=== PATIENT | male | born 1955 | race Caucasian/White ===

== ENCOUNTER 2017-04-25 03:38 | Emergency (ER) | payer BC ==
[~2017-04-25] VITALS: Ht 177.8 cm; Wt 83.9 kg
[2017-04-25] MEDS ORDERED: TRAMADOL HCL50 MG PO (06:04)
--- NOTE | 2017-04-25 11:42 | EKG ---
[facility] [address] [facility] [place] [address] Signed Normal sinus rhythm Normal ECG No previous ECGs available Confirmed by MOE KINGSLEY MD ([id number]) on 04/25/2017 11:42:23 AM Electronically Signed By: MOE KINGSLEY MD 04/25/17 1142 PATIENT NAME: FIGUEREDOCORNELIODebo MEJIA Electrocardiogram DATE OF : 59 PHYSICIAN: MOE KINGSLEY MD REPORT #: [id number] REPORT IS CONFIDENTIAL AND NOT TO BE RELEASED WITHOUT AUTHORIZATION
== END 2017-04-25 06:37 | disposition home or self-care (01) ==
LOC: ED 03:38
DX: R10.9 Unspecified abdominal pain (principal); R10.814 Left lower quadrant abdominal tenderness
CPT/HCPCS: 74176; 80053; 81001; 83690; 85025; 93005; 93010; 99284

== ENCOUNTER 2017-05-02 12:50 | Inpatient (IN) | payer BC ==
[~2017-05-02] VITALS: Ht 177.8 cm; Wt 79.7 kg
[~2017-05-02 12:50] MED LIST: TRAMADOL HCL50 MG PO
[2017-05-02] MEDS ORDERED: MELOXICAM15 MG PO (13:11)
--- NOTE | 2017-05-02 18:25 | NUR ---
PATIENT AMBULATED FROM E.R. TO ROOM 107 WITH NURSING SUPERVISOR SCENIC ARTS. ADMISSION COMPLETED. PATIENT HAVING CRACKERS AND ICE WATER BEFORE ATTEMPT TO START P.O. MEDS. PATIENT ENDORSES HAVING A POOR APPETITE. 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 PATIENT RATES ABD PAIN 3-4/10.
--- NOTE | 2017-05-02 19:00 | NUR ---
Received report from RN. Patient is resting comfortably in bed, breathing is even and unlabored. Denies needs at this time, he stated that "I just want to get some sleep." Call light within reach.
--- NOTE | 2017-05-02 20:05 | NUR ---
PATIENT REPORTS 5/10 PAIN IN LOWER BACK. PRN TORDOL GIVEN PER EMAR. PATIENT DENIES OTHER NEEDS AT THIS TIME. CALL LIGHT WITHIN REACH.
--- NOTE | 2017-05-02 23:00 | NUR ---
PATIENT IS RESTING COMFORTABLY IN BED, BREATHING IS EVEN AND UNLABORED. REPORTS 3/10 PAIN IN LOWER BACK, AND STATES THAT HE IS COMFORTABLE. DENIES OTHER NEEDS AT THIS TIME. ASSESSMENT DONE, CALL LIGHT WITHIN REACH.
--- NOTE | 2017-05-03 00:05 | NUR ---
PATIENT IS RESTING COMFORTABLY IN BED, BREATHING IS EVEN AND UNLABORED. CALL LIGHT WITHIN REACH.
--- NOTE | 2017-05-03 00:37 | NUR ---
DUE TO PATIENT HAVING 8/10 ABD PAIN, WITH PATIENT STATING THE PAIN "FEELS LIKE GAS," HAD PATIENT AMBULATE AROUND UNIT X2. ALSO GAVE PATIENT A WARM BLANKET, BUT PAIN WAS NOT RELIEVED.
--- NOTE | 2017-05-03 00:57 | NUR ---
UPDATED DR. KINGSLEY REGARDING PATIENT'S 02/11 PAIN. ALL PRN MEDICATIONS HAVE BEEN GIVEN, PATIENT AMBULATED AROUND UNIT, BUT ABD PAIN IS PERSISTING. HE ORDERED A ONE TIME DOSE OF 10 MG OF CYCLOBENZAPRINE PO. IF PAIN IS NOT RELIEVED, HE ORDERED 5-10 MG OXYCODONE PO Q4H PRN FOR PAIN.
--- NOTE | 2017-05-03 01:24 | NUR ---
PATIENT SITTING UP IN CHAIR WITH WARM BLANKET. DENIES NEEDS AT THIS TIME. PATIENT STATES "I JUST NEEDED TO GET OUT OF THAT BED." CALL LIGHT WITHIN REACH. PATIENT STATED HE WILL CALL WHEN HE IS READY TO GET BACK IN BED.
--- NOTE | 2017-05-03 04:20 | NUR ---
LIDOCAINE PATCH FOUND ON FLOOR. PATIENT DOES NOT HAVE A LIDOCAINE PATCH ON BACK AT THIS TIME. HE STATES THAT "IT FELL OFF."
--- NOTE | 2017-05-03 04:25 | NUR ---
PATIENT REPORTS 410 LLQ ABD PAIN. 5 MG OXYCODONE GIVEN PER EMAR. DENIES BACK PAIN AT THIS TIME. DENIES OTHER NEEDS AT THIS TIME. CALL LIGHT WITHIN REACH.
--- NOTE | 2017-05-03 06:07 | NUR ---
PATIENT'S NIGHT HAS BEEN RELATIVELY UNEVENTFUL. HE HAS BEEN SLEEPING OFF AND ON THROUGHOUT NIGHT. PATIENT HAS BEEN HAVING TEMPERATURES BETWEEN 99.2 AND 99.6. ALL OTHER VITALS STABLE. DUE TO PAIN BEING UNCONTROLLED WITH PRN TORDOL, CONTACTED DR. KINGSLEY AND RECEIVED AN ORDER FOR PRN OXY PER EMAR, WHICH THE PATIENT IS TOLLERATING WELL. NO ACUTE CHANGES FROM BEGINNING OF SHIFT ASSESSMENT.
--- NOTE | 2017-05-03 06:26 | NUR ---
UPDATED DR. KINGSLEY REGARDING PATIENT NOT VOIDING DURING SHIFT AND BLADDER SCAN VOLUME OF [address] KINGSLEY ORDERED 1L BOLUS OF NORMAL SALINE. NO OTHER ORDERS AT THIS TIME.
--- NOTE | 2017-05-03 06:29 | NUR ---
NURSE NOTIFED RE V/S.
--- NOTE | 2017-05-03 08:29 | NUR ---
PT SITTING UP AWAKE IN BED. NO COMPLAINTS AT THIS TIME. HAS NOT URINATED YET. WILL ALLOW PATIENT TO EAT BREAKFAST AND THEN ATTEMPT TO EMPTY BLADDER. IF UNABLE, WILL FOLLOW WITH BLADDER SCAN. 1L NS BOLUS INFUSED.
--- NOTE | 2017-05-03 09:35 | NUR ---
bladder scanned patient at 0900 for 850ml. feels like its "right at the end". unable to void pre-scan. Dr Hernandez notified. will wait another hour before having patient attempt void again. Flomax given as ordered. pt temp 101.1 from WATER TREATMENT PLANT OPERATOR. retook-- 99.4F at 0930. will watch temp.
--- NOTE | 2017-05-03 10:51 | NUR ---
pt up on toilet attempting to void and have BM. unable to void. bladder scan 750ml. Dr Hernandez notified. Ordered fallon catheter. will place fallon.
--- NOTE | 2017-05-03 13:47 | NUR ---
PT RESTING BETWEEN CARES. NS 3% INFUSING AT 30ML/HR NOW.
--- NOTE | 2017-05-03 13:48 | NUR ---
PT IN BED, SUMANTH ALARM GOING-PT STACIAOID. I ENTERED, AND TOLD HIM I WOULD GET AN RN TO TAKE CARE OF THE ALARM, HE WAS VERY APPRECIATIVE. HE MENTIONED THAT HE WAS WANTING TO TAKE A NAP, BUT ALARM WOKE HIM UP. PT DID SAY HE WAS FEELING BETTER. WILL CONTINUE TO FOLLOW
--- NOTE | 2017-05-03 18:08 | NUR ---
WANTED TO SLEEP ALL DAY. ATTEMPTING TO HAVE BM. SUPPOS AND MIRALAX GIVEN. MIRALAX MIXED WITH STRAWBERRY ENSURE. JULES PLACED FOR RETENTION. FLOMAX STARTED. REFUSED PHYSICAL THERAPY THIS EVENING. LABS DRAWN AT 1700. HARD POKE. IV CATH LOOKS DISLODGED, BUT IT IS NOT. WORKS WELL. NS3% INFUSING AT 30ML/HR.
--- NOTE | 2017-05-03 20:20 | NUR ---
PT LAYING ON BED, TRYING TO SLEEP. VS DONE, TEMP 100.1 IS USED X 3, COOL CLOTH ON FOREHEAD. SKIN WARM. HS MEDS GIVEN PER ORDER. JULES WITH KARINA URINE. IV CONT NS 3% @ 25 CALL LIGHT WITHIN REACH. WILL REPORT THE TEMP TO
--- NOTE | 2017-05-03 20:52 | NUR ---
DR. KINGSLEY ORDERED TYLENOL FOR TEMP. PT IS NOT SHIVERING, JUST COMPLAINS OF BEING WARM, SKIN WARM. ROOM TEMP TURNED TO 72 DEGREES/ PT WATCHING TV. OFFERS NO OTHER COMPLAINTS.
--- NOTE | 2017-05-03 21:30 | NUR ---
pt mostly sleepy. Woke to med pt.
--- NOTE | 2017-05-03 23:20 | NUR ---
PT MOSTLY SLEEPY, EYES CLOSED, BUT HAND ON THE REMOTE CONTROL OF TV. TEMP 99.3 POST TYLENOL.
--- NOTE | 2017-05-04 03:35 | NUR ---
NOTIFIED DR. KINGSLEY OF LAB RESULTS. RECEIVED ORDER. 3%NS INFUSING @ 30 CC HOUR. PLAN LABS @0900. PT WOKE SLIGHTLY WHEN RN IN ROOM, BUT QUICKLY CLOSED EYES.
--- NOTE | 2017-05-04 06:35 | NUR ---
PT SLEPT MOSTLY AFTER MIDNIGHT. STATED HIS PAIN WAS BETTER. JULES WITH DARK KARINA URINE. LABS REPORTED TO DR. KINGSLEY, IV 3% NS @ 30 CC INFUSING. HAS REMAINED IN BED THIS SHIFT.
--- NOTE | 2017-05-04 08:13 | NUR ---
PT AWAKE LYING IN BED. GETTING UP TO BATHROOM NOW TO ATTEMPT BM. MIRALAX MIXED WTIH STRAWBERRY ENSURE AND SENNA GIVEN WITH SCHEDULED MEDS. ENCOURAGED TO WORK WITH PHYSICAL THERAPY TODAY. AFEBRILE NOW. VSS. BP SOMEWHAT ELEVATED, BUT TRENDING THE SAME.
--- NOTE | 2017-05-04 11:00 | NUR ---
PT SALINE LOCKED FOR ABD X-RAY AND SHOWER RIGHT NOW. WILL RESTART NS 3% AT 45ML/HR WHEN PT FINISHED WITH CARES.
--- NOTE | 2017-05-04 11:31 | NUR ---
PT BACK FROM ABD CT. IVF INFUSING AT 45CC/HR. PT SITTING UP IN RECLINER EATING LUNCH NOW. CHOCOLATE ENSURE PROVIDED TO PT. 250ML WATER PROVIDED AND TOLD THAT HE NEEDS TO MAKE IT LAST UNTIL DINNER. AGREEABLE WITH INSTRUCTIONS ON FLUID RESTRICTION.
--- NOTE | 2017-05-04 12:51 | NUR ---
UPDATED HOSPITALIST ON BORDERLINE URINE OUTPUT AND CHANGE IN COGNITION. 1L NS BOLUS ORDERED AND CHANGE IN MEDICATION REGIMEN.
--- NOTE | 2017-05-04 14:55 | NUR ---
URINE SAMPLE COLLECTED AND SENT TO LAB. RNs ATTEMPTING NEW IV START PER MD REQUEST.
--- NOTE | 2017-05-04 15:31 | NUR ---
PT TEMP 98.9 WITH CHILLS. NOTIFIED. PT SALINE LOCKED FOR LAB DRAW AT 1600.
--- NOTE | 2017-05-04 17:17 | NUR ---
NO 1400 URINE OUTPUT DOCUMENTED. URINE OUTPUT 325 FROM [id number]. VISITOR IN ROOM NOW. PT MENTATION SEEMS CONFUSED. LABS RETURNED. WILL AWAIT ORDERS FROM MD. AWARE OF URINE OUTPUT. URINE COLOR ORANGE-KARINA.
--- NOTE | 2017-05-04 18:00 | NUR ---
ADMITTED TO CCU FROM MED-SURG WITH DX OF HYPONA WITH AMS. RECENT NECK AND BACK PAIN. IS CONFUSED. FACE FLUSHED. MOUTH DRY. IS RECIEVING BOLUS OF NS AT THIS TIME.
--- NOTE | 2017-05-04 18:39 | NUR ---
ASSISTED NURSE IN GETTING PATIENT SETTLED AFTER TRANSFER. FINISHED GETTING PATIENT'S VITAL SIGNS. GOT PATIENT HALF A CUP OF ICE CHIPS.
--- NOTE | 2017-05-04 18:50 | NUR ---
DR. KINGSLEY HERE TO SEE PATIENT, ORDERS RECIEVED. BOLUS COMPLETE.
--- NOTE | 2017-05-04 19:00 | NUR ---
Getting report on patient and ppatiet is supine in bed in his room with family at bedside.
--- NOTE | 2017-05-04 19:30 | NUR ---
REPORT TO NEXT SHIFT.
--- NOTE | 2017-05-04 20:00 | NUR ---
DR. KINGSLEY HERE TALKING WT FAMILY, ABOUT PATIET BEING TAKEN TO CT.
--- NOTE | 2017-05-04 20:30 | NUR ---
PT ASSISTED DOWN TO CT WITH 2 RN'S AT BEDSIDE. PT TOELRATED WELL. WILL COTNINUE TO CLOSELY MONITOR.
--- NOTE | 2017-05-04 20:30 | NUR ---
PT BACK FROM CT, BACK IN BED EVENING ASSESSMENT DONE.GOOD PERIPHERAL PULSES AND ENVIRONMENTAL EDUCATOR. RFA IV WAS ALREADY COMINING OUT SO I WENT A HEAD REMOVED IT INTACT. UROMETER PUT ON JULES. PATIENT RESTING QUIETLY AND FAMILY HAS GONE HOME.
--- NOTE | 2017-05-04 21:30 | NUR ---
ANASTETIOLOGIST IN TO DO LUMBAR PUNCTURE. ASSISTED WITH PATIENT TO HELP HOLD STILL AND NOT MOVE. PT TOLERATED WELL. WALKED FLUID SAMPLE DOWN TO LAB. WILL CONTINUE TO CLOSELY MONITOR.
--- NOTE | 2017-05-04 23:53 | NUR ---
ASSISTING PT THROUGHOUT THE NIGHT NEEDED. PT IS RESTING IN BED AT THIS TIME. UPDATED MD ON NEED FOR OXYGEN AT 2L NC WITH SPO2 93%. PT HR ALSO UP TO 145 SINUS TACHYCARDIA. WILL CONTINUE TO CLOSELY MONITOR URINE OUTPUT AT THIS TIME. MD HAS VIEWED LP CSF FLUID. GAVE TYLENOL FOR DISCOMFORT. PT ORAL TEMP 99.6. WILL CONTINUE TO CLOSELY MONITOR.
--- NOTE | 2017-05-05 | NUR ---
PATIENT IS RESTIG QUIETLY IN HIS BED TALKING TO HIMSELF, SECOND ASESSMENT HAS BEEN COMPLEATED, WITH NO REAL CHANGES.
--- NOTE | 2017-05-05 02:26 | NUR ---
PATIENT CONTINUES TO LAY IN BED RESTING QUIETLY WITH EYES CLOSED AT THIS TIME, RESPIRATIONS EVEN AND REGULR.
--- NOTE | 2017-05-05 03:36 | NUR ---
PT WOKE FROM A BAD DREAM AND WAS IRRITABLE/AFFRAID. STAYED WITH PT AND ASKED QUESTIONS TO HELP REORIENT. PT WAS ABLE TO REORIENT ON HIS OWN AFTER A FEW MINUTES. STAYED WITH PT AND USED A CALM REASURING VOICE TO UPDATE ON CURRENT SITUATION AND PLAN OF CARE. PT IS READY TO GO BACK TO SLEEP. WILL CONTINUE TO CLOSELY MONITOR. CALL LIGHT IN HAND.
--- NOTE | 2017-05-05 04:30 | NUR ---
PT RESTING QUIETLY WATCHING TV IN BED.
--- NOTE | 2017-05-05 05:41 | NUR ---
PATIENT JUST CALLED ME IN TO CHECK HIS IV;S WHICH LOOK FINE. HIS MENTATION I BETTER THE MORNING AND IS NO LONGER TALKING TO THOSE WHO ARE NOT IN THE ROOM.
--- NOTE | 2017-05-05 07:45 | NUR ---
PT STATES HE IS HALLUCINATING, PT REMAINS CALM AND COOPERATIVE. IV SITES INTACT, RT IV SITE HAS IV FLUIDS INFUSING, LEFT IV SITE SALINE LOCKED, NO REDNESS OR SWELLING NOTED AT EITHER SITE. PT DENIES PAIN AT EIHER IV SITE. PT DENIES PAIN WHEN NOT MOVING.
--- NOTE | 2017-05-05 09:04 | NUR ---
PT ABLE TO EAT 1OO% OF BREAKFAST.
--- NOTE | 2017-05-05 10:55 | NUR ---
ASSISTED PT UP TO THE CHAIR, HEAVY TWO PERSON ASSIST. PT ATTEMPTING TO MAKE PHONE CALLS.
--- NOTE | 2017-05-05 11:21 | NUR ---
PT UP TO TOILET WITH TWO PERSON ASSIST. PT ABLE TO HAVE SMALL LIQUID BM. PT THEN AMBULATED WITH TWO PERSON ASSIST TO MRI TABLE. PT HAS LEFT THE DEPARTMENT WITH PRIVATE CLIENT ADVISOR AND EMILY DIANE.
--- NOTE | 2017-05-05 14:10 | NUR ---
PT BACK TO UNIT FROM MRI. PT EXTREMLY PAINFUL IN NECK/HEAD/BACK WITH ANY MOVEMENT.
--- NOTE | 2017-05-05 14:30 | NUR ---
BOTH IV SITES INTACT, NO REDNESS OR SWELLING NOTED, PT DENIES PAIN WITH FLUSH. PT IS AWAKE AND ALERT X3. PT C/O 30/10 PAIN IN NECK/HEAD/BACK. PT IS THIRSTY AND SLIGHTLY IRRATABLE. FAMILY AT THE BEDSIDE. JULES CATH IN PLACE, URINE DRAINING EASILY. PT BLOOD PRESSURE ELEVATED, HR ELEVATED, PT REQUIRES 4L O2 TO KEEP O2 SATS ABOVE 90. PT IS TALKING AND ANIMATED.
--- NOTE | 2017-05-05 14:45 | NUR ---
PT GIVEN ONE TIME DOSE OF MORPHINE 4 MG IV FOR 30/10 NECK/BACK/HEAD PAIN. PT SITTING UP IN BED EATING LUNCH TALKING WITH HIS FAMILY MEMBERS.
--- NOTE | 2017-05-05 14:50 | NUR ---
HAS UPDATED THE PT AND THE FAMILY AT THE BEDSIDE ON THE PT'S CONDITION AND NEED FOR TRANSFER TO A HIGHER LEVEL OF CARE.
--- NOTE | 2017-05-05 15:30 | NUR ---
PT SLEEPING AT THIS TIME.
--- NOTE | 2017-05-05 17:40 | NUR ---
FULL REPORT GIVEN TO MICHELLE DIAZ AT [facility]. FULL REPORT ALSO GIVEN TO [facility].
--- NOTE | 2017-05-05 17:50 | NUR ---
PT TRANSFERED OUT OF BUILDING WITH [facility] AND [facility].
== END 2017-05-05 17:50 | disposition short-term general hospital (02) | DRG 871 ==
LOC: ED 12:50 → CCU 17:24 → MS 17:24 → CCU 05-04 18:00
PROVIDERS: ADMIT Internal Medicine
DX: A41.9 Sepsis, unspecified organism (principal); G06.2 Extradural and subdural abscess, unspecified; G93.41 Metabolic encephalopathy; E87.1 Hypo-osmolality and hyponatremia; M62.838 Other muscle spasm; K59.00 Constipation, unspecified; E87.6 Hypokalemia; R74.0 Nonspecific elevation of levels of transaminase and lactic acid dehydrogenase [LDH]; R33.9 Retention of urine, unspecified
CPT/HCPCS: 36415; 51702; 51798; 70450; 72156; 72157; 72158; 74000; 74176; 80048; 80053; 80076; 81001; 82945; 83605; 83690; 83735; 83930; 83935; 84157; 84550; 85025; 85032; 85651; 86140; 87040; 87070; 87075; 87077; 87186; 87205; 87327; 87529; 89051; 96361; 96365; 96366; 96375; 97161; 99285; A9579; J0290; J0696; J1650; J1885; J2270; J2405; J3370; J7030; J7040; J7060

== ENCOUNTER 2019-11-01 01:08 | Emergency (ER) | payer BC ==
[~2019-11-01] VITALS: Ht 177.8 cm; Wt 79.7 kg
--- OUTSIDE RECORDS SUMMARY | ~2019-11-01 | XMS | Encounter Summary ---
Demographics + + + | Address | [address] | | | [place] [address] | + + + | Home Phone | | + + + | Preferred Language | Unknown | + + + | Marital Status | Single | + + + | Hindu Affiliation | Unknown | + + + | Race | Unknown | + + + | Ethnic Group | Unknown | + + + Author + + + | Author | [facility] | | | and [place] | + + + | Organization | [facility] | | | and [place] | + + + | Address | Unknown | + + + | Phone | Unavailable | + + + Support + + +---------+ + | Name | Relationship | Address | Phone | + + +---------+ + | Sondra Zuleta | ECON | Unknown | | + + +---------+ + Care Team Providers + +------+ + | Care Flower Shop Laborer/Designer Name | Role | Phone | + +------+ + PCP | Unavailable | + +------+ + Encounter Details +--------+ + + + + | Date | Type | Department | Care Team | Description | +--------+ + + + + | 12/09/ | Hospital | [facility] | Rafita Crews, | | | 2011 - | Encounter | [facility] | [address] | | | | | [place] [address] | [place] | | | [birth year]/ | | [place] | [address] | | | 2011 | | [id number] | [phone] | | | | | [phone] | | | +--------+ + + + + Social History + +-------+ +--------+------+ | Tobacco Use | Types | Packs/Day | Years | Date | | | | | Used | | + +-------+ +--------+------+ | Never Assessed | | | | | + +-------+ +--------+------+ + + + | Sex Assigned at | Date Recorded | | | | + + + | Not on file | | + + + + + + + | Job Start Date | Occupation | Industry | + + + + | Not on file | Not on file | Not on file | + + + + + + + + | Travel History | Travel Start | Travel End | + + + + + + | No recent travel history available. | + + documented as of this encounter Progress Notes Rafita Crews MD - 12/10/2011 4:05 AM PDTDATE: 12/10/2011 RADIATION ONCOLOGY CONSULTATION NOTE DIAGNOSIS Rectal adenocarcinoma, clinical T1N0M0. REFERRING PHYSICIAN Dr. Jean Gramajo PRIMARY CARE PHYSICIAN: Dr. Shi ECOG PERFORMANCE STATUS: 0. HISTORY OF PRESENT ILLNESS: Mr. Ludin Escalona is a 56-year-old gentleman who did present t o Dr. Jean Gramajo with a 6 to 9 month history of blood in his stools. He states that the b lood seen was streaking on the outside of the stool and did increase in volume during that 6 to 9 months. He was at work when he did discuss symptoms with people there who did recomm end he have screening for colon cancer as they had known relatives who had gone through krishan t. The patient did present to Dr. Jean Gramajo who did perform a colonoscopy on 11/10/2011 and was found to have a lesion at 10 cm in the anterior rectum highly concerning for charlotte no. Dr. Gramajo did partially resect/biopsy the lesion which was found to be positive for moderately differentiated colonic adenocarcinoma. No lymphovascular or perineural invasion was noted on the biopsy. Of note, he also did resect a small polyp in the transverse colon that was consistent with a hyperplastic polyp. Dr. Gramajo did order CT scans of the chest, a bdomen and pelvis which did not show any definitive evidence of metastatic disease. He did have a 1.5-cm sclerotic lesion near the right SI joint in the pelvis but otherwise no sign ificant findings. He was referred to Dr. Silverio Patel for an endorectal ultrasound whi ch was performed on 12/09/2011 and was referred to me for consideration of neoadjuvant radi otherapy. Mr. Escalona states that since colonoscopy and biopsy in November he has not had any further rec guillermo bleeding and has not noted any rectal pain or difficulties with bowel movements. He sta kenroy that overall he feels very well. PAST MEDICAL HISTORY: Includes the recent diagnosis of adenocarcinoma of the rectum. PAST SURGICAL HISTORY: Includes colonoscopy with snare polypectomy in 11/2011. ALLERGIES TO MEDICATIONS: NO KNOWN DRUG ALLERGIES. MEDICATIONS: Include 1. A multivitamin. 2. Vitamin D. SOCIAL HISTORY: The patient denies any history of tobacco use. Does drink an alcoholic kayla erage, 1 to 2 drinks several days a week and usually this is beer. 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 Currently lives alone in [facility]. FAMILY MEDICAL HISTORY: The patient's mother is alive, does have a history of oral cancer and it was actually treated here at [facility]. The patient's sister is alive with a history of breast cancer. The patient's maternal aunt is alive with a hist ory of breast cancer. No history of colon cancers. REVIEW OF SYSTEMS HEENT: The patient denies any headache, changes in vision, changes in hearing, difficulty swallowing, sinus problems or nosebleeds. RESPIRATORY: Denies any cough, wheezing or hemoptysis. CARDIAC: Denies any chest pain or palpitations. GI: Denies any nausea, vomiting, diarrhea or constipation. Does have a 6 to 9 month histor y of rectal bleeding prior to colonoscopy but denies any rectal bleeding since that time. : Denies any hematuria, dysuria or pyuria. MUSCULOSKELETAL: Denies any unusual bony aches or pains. ENDOCRINE: Denies any hot or cold sensitivities. NEUROLOGIC Denies any headache, weakness or seizures. HEMATOLOGIC/LYMPHATIC: Denies any easy bruising or bleeding. PHYSICAL EXAMINATION VITAL SIGNS: Blood pressure 126/82, pulse of 60, temperature 36.5 degrees C, weight 80.4 k g. GENERAL: The patient is awake, alert and oriented. No apparent distress. HEENT: Atraumatic, normocephalic. Face is symmetric. LYMPHATICS: There is no cervical, supraclavicular or axillary lymphadenopathy appreciated. LUNGS: Clear to auscultation. HEART: Regular rate and rhythm. ABDOMEN: Soft, nontender, nondistended. No hepatosplenomegaly or other masses appreciated. EXTREMITIES: Show no cyanosis, clubbing or edema. NEUROLOGIC Cranial nerves 2-12 are grossly intact. Sensation is intact to light touch thro ughout. Motor strength is 5/5 in all 4 extremities. RADIOLOGY: CT scan of the chest, abdomen and pelvis on 11/23/2011 showed no definitive kacey dence of metastatic disease. There was a 1.5-cm sclerotic lesion in the right ilium adjacen t to the right SI joints. PATHOLOGY: Excision of a polyp at 10 cm from the anal verge was positive for a grade 2/4 m oderately differentiated invasive colonic adenocarcinoma with no lymphovascular or perineur al invasion. ASSESSMENT AND PLAN: Mr. Ludin Escalona is a 56-year-old gentleman with recently diagnosed rectal moderately differentiated adenocarcinoma, clinical T1N0M0, stage I. We did discuss t reatment options for the patient, including surgery as well as adjuvant or neoadjuvant chem oradiotherapy. Did state that he would likely be a candidate for sphincter-sparing surgery and is being referred to a colorectal surgeon in [place] for consideration of surgical opt ions. I did state that neoadjuvant chemoradiotherapy is the standard of care in patients w ith T3 or clinical node-positive disease; however, for patients with early stage T1 or T2 l esions with no lymphadenopathy they can be treated with surgery alone. This is consistent w ith the NCCN Guidelines who do recommend a transabdominal resection. If he does have a T1 t o T2N0 disease on pathologic staging, then recommendation would be for observation without adjuvant therapy. If at that time he was found to have a T3 or higher lesion or node positi vity, then we would recommend adjuvant chemoradiotherapy at that time. At this time, we do agree with further evaluation by a colorectal surgeon. Further recommendation could wait f or final pathology from definitive surgery. The patient was told he could call with any que stions at any time. We did allow him to ask any questions today and they were answered to h is satisfaction. I did discuss this recommendation with Dr. Jean Gramajo. I do appreciate the opportunity to participate in the evaluation and care of this patient. DICTATED BY: Rafita Crews MD Radiation Oncology JOB #: [id number] EXT JOB #:[id number] cc: MD Jean Lawson MD <Electronically Signed by Rafita Crews MD> 12/13/11 6420 documented in this encounter Plan of Treatment Not on filedocumented as of this encounter Visit Diagnoses Not on filedocumented in this encounter"
--- OUTSIDE RECORDS SUMMARY | ~2019-11-01 | XMS | Clinical Summary ---
Demographics + + + | Address | [address] | | | [place] [address] | + + + | Home Phone | | + + + | Preferred Language | Unknown | + + + | Marital Status | Single | + + + | Cheondoism Affiliation | Unknown | + + + | Race | Unknown | + + + | Ethnic Group | Unknown | + + + Author + + + | Author | [facility] | | | and [place] | + + + | Organization | [facility] | | | and [place] [...] Team Providers + +------+ + | Care Anthropology And Archeology Instructor Name | Role | Phone | + +------+ + PCP | Unavailable | + +------+ + Allergies Not on File Medications Not on file Active Problems Not on file Social History + +-------+ +--------+------+ | Tobacco [...] recent travel history available. | + + Last Filed Vital Signs Not on file Plan of Treatment + + + + + | Health Maintenance | Due Date | Last Done | Comments | + + + + + | Vaccine: | | | | | Dtap/Tdap/Td (1 - | 9 | | | | Tdap) | | | | + + + + + | Vaccine: Zoster (1 | | | | | of 2) | 8 | | | + + + + + | Vaccine: Influenza | | | | | (Season Ended) | 0 | | | + + + + + Results Not on filefrom Last 3 Months"
--- OUTSIDE RECORDS SUMMARY | ~2019-11-01 | XMS | Encounter Summary ---
Demographics + + + | Address | [address] | | | [place] [address] | + + + | Home Phone | | + + + | Preferred Language | Unknown | + + + | Marital Status | Single | + + + | Sikhism Affiliation | CAT | + + + | Race | White | + + + | Ethnic Group | Not or | + + + Author + + + | Author | [facility] | + + + | Organization | [facility] | + + + | Address | Unknown | + + + | Phone | Unavailable | + + + Support + + + + + | Name | Relationship | Address | Phone | + + + + + | Sona Escalona | BROOK | [address] | | | | | [place] | | | | | [phone] | | + + + + + | Sondra Zuleta | ECON | Unknown | | + + + + + Care Team Providers + +------+ + | Care Nurse Practitioner Adult Name | Role | Phone | + +------+ + | Griffin Shi DO | PCP | | + +------+ + Reason for Visit AUTH/CERT +--------+--------+ + + + + | Status | Reason | Specialty | Diagnoses / | Referred By | Referred To | | | | | Procedures | Contact | Contact | +--------+--------+ + + + + | | | | | | | +--------+--------+ + + + + Encounter Details +--------+ + + + + | Date | Type | Department | Care Team | Description | +--------+ + + + + | 05/06/ | Anesthesia | 6A Intra Op 3181 | Maurisio Hoffmann | | | 2017 | Event | ROMAINE Val[address]ama | MD Kourtney [address] | | | | | [facility] | [address] | | | | | Hospital Admitting | [facility] [place] | | | | | Desk Located on the | [address] | | | | | 9th floor | [phone] | | | | | [facility] [place] | | | | | | [address] | Jean Nelson, | | | | | | MDPhD [address] | | | | | | [address] | | | | | | [place], [place] | | | | | | [address] | | | | | | [phone] | | | | | | | | +--------+ + + + + Anesthesia Record + + + + + | Procedure Name | Responsible | Anesthesia Start | Anesthesia Stop Time | | | Anesthesiologist | Time | | + + + + + | T1 AND T8 SKIP | Maurisio Hoffmann, | 05/06/172030 | 05/07/177 | | LAMINECTOMIES FOR | MD | | | | WASHOUT OF EPIDURAL | | | | | ABSCESS | | | | | microbiology x 3 | | | | | (N/A Back) | | | | + + + + + +----+---+ + + | Da | T | Event | Comment | | te | i | | | | | m | | | | | e | | | +----+---+ + + | 11 | 2 | Eq Check | Anesthesia machine checked Equipment verified | | /0 | 0 | | | | 2/ | 1 | | | | 20 | 5 | | | | 17 | | | | +----+---+ + + | | 2 | Pt. Check | Prior to anesthesia start, pt. Identified, examined, chart | | | 0 | | reviewed, PARLinda held, anesthetic plan made or approved by | | | 1 | | attending anesthesiologist. NPO status confirmed as appropriate | | | 9 | | for procedure Preoperative evaluation: unchanged | +----+---+ + + | | 2 | Preprocedur | Pt ID confirmed, informed consent obtained, insertion site | | | 0 | e Checklist | marked, equipment available | | | 2 | | | | | 5 | | | +----+---+ + + | | 2 | An Start | | | | 0 | | | | | 3 | | | | | 1 | | | +----+---+ + + | | 2 | Quick Note | The patient stated his weight is 185lbs or ~84 kg | | | 0 | | | | | 3 | | | | | 2 | | | +----+---+ + + | | 2 | An Start | | | | 0 | Data | | | | 3 | | | | | 5 | | | +----+---+ + + | | 2 | Vitals | Monitors applied Vital signs checked Patient ready for anesthesia | | | 0 | Checked | | | | 3 | | | | | 6 | | | +----+---+ + + | | 2 | ETT | | | | 0 | | | | | 4 | | | | | 2 | | | +----+---+ + + | | 2 | Ready | | | | 0 | | | | | 4 | | | | | 5 | | | +----+---+ + + | | 2 | Abx | | | | 1 | Administere | | | | 0 | d | | | | 0 | | | +----+---+ + + | | 2 | Timeout | | | | 1 | | | | | 1 | | | | | 2 | | | +----+---+ + + | | 2 | Incision | | | | 1 | | | | | 1 | | | | | 5 | | | +----+---+ + + | | 2 | Intraop and | Identification: Patient/Procedure Type of Anesthetic Past | | | 1 | Med | History: [facility] Relevant Meds/Labs/Echo/Imaging Allergies | | | 2 | Handoff | Intraoperative Course: Airway Lines/Drains/Monitors I/O | | | 9 | | Significant Events Current Phase/Duration of Procedure Meds: | | | | | Infusions, Antibiotics/Redosing, Paralytics, Analgesic Plan, | | | | | Glycemic Control Plan: Tasks to complete/Post-op Orders Emergence | | | | | Plan/Dispo Postoperative Concerns Surgeons Informed of Handoff | +----+---+ + + | | 2 | Medication | Midazolam Fentanyl Hydromorphone 1.4 mg Morphine Ketamine | | | 1 | Handoff | Alfentanil Remifentanil Sufentanil | | | 2 | | | | | 9 | | | +----+---+ + + | | 2 | Surgery end | | | | 2 | | | | | 5 | | | | | 1 | | | +----+---+ + + | | 2 | An Extubate | Neuromuscular function Intact. Pharynx suctioned. Patient obeys | | | 2 | | commands. Adequate pulmonary mechanics. | | | 5 | | | | | 9 | | | +----+---+ + + | | 2 | Quick Note | Reintubated for respiratory failure. Plan for transport with | | | 3 | | sedation, ambubag at 8 lpm O2, and full monitoring. | | | 0 | | | | | 8 | | | +----+---+ + + | | 2 | An Data Art | Patient's HR being monitored on transport monitor | | | 3 | | | | | 0 | | | | | 9 | | | +----+---+ + + | | 2 | Medication | No narcotics to hand off. | | | 3 | Handoff | | | | 1 | | | | | 7 | | | +----+---+ + + | | 2 | Quick Note | Patient reintubated, sats were low preop sating low 90s on 3 L | | | 3 | | NC, unsure why, pt following commands at end of surgery taking | | | 2 | | good Tidal volumes, upon removal of ETT and dec stimulation pt | | | 1 | | slowly became more sedated, continued to make respiratory effort | | | | | but tidal volumes continued to drop, decision made to reintubate | | | | | before CO2 climbed any further | +----+---+ + + | | 2 | an stop | | | | 3 | data | | | | 4 | | | | | 5 | | | +----+---+ + + | | 2 | OR to | patient transported to ICU with continuos monitoring, intubated | | | 3 | ICU/Handoff | and ventilated, signout given to ICU team | | | 4 | | | | | 5 | | | +----+---+ + + | 11 | 0 | Quick Note | Patient moving all 4 extremities and reaching for breathing tube | | /0 | 0 | | | | 3/ | 0 | | | | 20 | 5 | | | | 17 | | | | +----+---+ + + | | 0 | Anesthesia | | | | 0 | End | | | | 0 | | | | | 8 | | | +----+---+ + + +------+ | Meds | +------+ + + + | Name | Total | + + + | lidocaine 2% | 90 mg | + + + | propofol | 270 mg | + + + | succinylcholine | 200 mg | + + + | rocuronium | 50 mg | + + + | HYDROmorphone | 0.6 mg | + + + | esmolol | 40 mg | + + + | dexamethasone | 10 mg | + + + | metoprolol | 2.5 mg | + + + | ceFAZolin | 2,000 mg | + + + | PHENYLEPHrine | 350 mcg | + + + | vasopressin | 4 Units | + + + | ondansetron | 4 mg | + + + | sugammadex | 350 mg | + + + | EPINEPHrine | 25 mcg | + + + | propofol INF | 53,125 mcg | + + + | PHENYLEPHrine INF (50mg/250mL) | 1,062.5 mcg | + + + | LR | 1,000 mL | + + + | NS | 2,000 mL | + + + + + | Name | + + | O2 FR Avance (Total Liters) | + + | N2O FR Avance (l/min) | + + | Air FR Avance (l/min) | + + | Insp Sevo | + + | Et Sevo | + + | Insp Iso | + + | Et Iso | + + | EtN2O % | + + | Insp N2O % | + + + + | No blood administrations on file. | + + +--------+ + + + | Type | Details | Placement | Removal | +--------+ + + + | Incisi | 05/06/17; Zander Holguin; Midline, | 05/06/17 0000 by | | | on | Upper; back | Parama Roel, RN | | +--------+ + + + | Incisi | 05/06/17; 2220; Fernandez Escalona; | 05/06/172220 by | | | on | Midline, Lower; back | Parama Roel, RN | | +--------+ + + + | Drain | 05/06/17; 2222; Zander Holguin; MARGAUX | 11/02/17 2223 by | | | | (7mm); Midline, Upper; back | Del Pitt RN | | +--------+ + + + | Urethr | Straight Cath; 05/07/17; 0224 | 05/06/17 1110 by | 05/07/17223 by | | al | | | Maren Almeida RN | | Wilder | | | | | er | | | | +--------+ + + + | Periph | 05/04/17; Other hospital; Left; | 05/04/17 0000 by | 05/12/172199 by | | eral | Wrist; 05/12/17; 2199 | Kenia Omalley RN | Suzan Odonnell RN | | IV | | | | +--------+ + + + | Periph | 05/04/17; Other hospital; Right; | 05/04/17 0000 by | 05/12/172102 by | | eral | Wrist; 05/12/17; 2102 | Kenia Omalley RN | Jose David Valentin RN | | IV | | | | +--------+ + + + | Drain | 05/06/17; 2223; Fernandez Escalona; MARGAUX | 05/06/172222 by | 05/08/17 0830 by | | | (7mm); Midline, Lower; back; | Del Pitt RN | Bekah Burns, | | | 05/08/17; 0830; Per order, Per | | RN | | | protocol, Other (Comment) (by | | | | | neurosurgery team) | | | +--------+ + + + | ETT | 05/06/17; 2307; Team Anesthesia: | 05/06/172307 by | 05/07/17 0737 by | | | Dr. Teresita Hoffmann; Endotracheal Tube | Sulaiman Willoughby, | Martha Bustos RN | | | (7.5); Oral; Breath Sounds | [employer] HELPER | | | | bilaterally, Continous | | | | | Capnography; Cuffed; 05/07/17; | | | | | 0737; Per order | | | +--------+ + + + | Urethr | 05/06/17; 2336; kisha pitt; 1; Harman; | 05/06/172336 by | 05/07/17 113 by | | al | 16 Fr.; 10 mL; 05/07/17; 1130; | Del Pitt RN | Martha Bustos RN | | Wilder | Per order | | | | er | | | | +--------+ + + + documented in this encounter Social History + +-------+ +--------+------+ | Tobacco [...] + + documented as of this encounter Plan of Treatment Not on filedocumented as of this encounter Procedures + +--------+ + + + | Procedure Name | Priori | Date/Time | Associated Diagnosis | Comments | | | ty | | | | + +--------+ + + + | ANE ETT | Routin | 05/07/2017 | | Results for this | | | e | 12:25 AM | | procedure are in the | | | | PDT | | results section. | + +--------+ + + + | ANE ETT | Routin | 05/06/2017 | | | | | e | 9:27 PM | | | | | | PDT | | | + +--------+ + + + +---+--------+ | | | | | Proced | | | ure | | | Note - | | | | | | [place] | | | a, | | | Jm | | | n M, | | | MD - | | | 05/06/ | | | 2016 | | | 9:26 | | | PM PDT | | | | | | Proced | | | ure | | | Reason | | | for | | | Intuba | | | tion: | | | For | | | surgic | | | al | | | proced | | | ure, | | | Locati | | | on | | | Perfor | | | med: | | | [place] , | | | Patien | | | t was | | | preoxy | | | genate | | | dMask | | | Ventil | | | ationG | | | rade 1 | | | - | | | Ventil | | | ated | | | by | | | mask | | | Intuba | | | tionBl | | | lan | | | type: | | | Macint | | | osh , | | | Blade | | | size: | | | 4, | | | Atraum | | | atic | | | laryng | | | oscopy | | | : | | | Atraum | | | atic | | | Laryng | | | oscopy | | | , | | | Intuba | | | tion | | | adjunc | | | ts: | | | N/A , | | | Laryng | | | oscopi | | | c | | | view: | | | Grade | | | I, | | | Fibero | | | ptics | | | used: | | | N/A , | | | Number | | | of | | | Attemp | | | ts: 1, | | | | | | Positi | | | ve for | | | | | | EtCO2: | | | Yes, | | | Breath | | | | | | sounds | | | : | | | Bilate | | | ral | | | and | | | equal | | | ETTEtt | | | | | | Adult: | | | | | | Single | | | -lumen | | | | | | cuffed | | | ETT | | | Size: | | | 7.5 | | | ETT | | | secure | | | d | | | with: | | | adhesi | | | ve | | | tape | | | Depth | | | at | | | Lip: | | | 23 Cm | | | | | | Airway | | | leak: | | | No | | | Narrat | | | iveAtt | | | ending | | | | | | physic | | | ally | | | presen | | | t | +---+--------+ documented in this encounter Results ARNOLDO MAHERT (05/07/2017 12:25 AM PDT) + + + | Narrative | Performed At | + + + | Sulaiman Willoughby CRNA 05/06/2017 11:13 PM Procedure | | | Reason for Intubation: For surgical procedure, Location Performed: [place] | | | , Patient was preoxygenated Mask Ventilation Grade 1 - Ventilated | | | by mask Intubation Blade type: Aric , Blade size: 4, | | | Atraumatic laryngoscopy: Atraumatic Laryngoscopy, Intubation | | | adjuncts: Stylet used , Laryngoscopic view: Grade I, Fiberoptics | | | used: N/A , Number of Attempts: 1, Positive for EtCO2: Yes, Breath | | | sounds: Bilateral and equal ETT Ett Adult: Single-lumen | | | cuffed ETT Size: 7.5 ETT secured with: adhesive tape Depth at | | | Lip: 22 Cm Airway leak: No Narrative Attending physically | | | present Reintubated by Dr. Teresita Hoffmann | | + + + documented in this encounter Visit Diagnoses Not on filedocumented in this encounter Administered Medications + +--------+ + +------+------+ | Medication Order | MAR | Action | Dose | Rate | Site | | | Action | Date | | | | + +--------+ + +------+------+ | ceFAZolin (ANCEF) injection | Given | 05/06/20 | 2,000 mg | | | | intravenous, INTRAPROCEDURE PRN, | | 17 9:00 | | | | | Starting Allyssa 05/06/17 at 2100, | | PM PDT | | | | | Until Allyssa 05/06/17 at 2345 | | | | | | + +--------+ + +------+------+ +---+---+ | | | +---+---+ + +-------+ +-------+---+---+ | dexamethasone (DECADRON) | Given | 05/06/20 | 10 mg | | | | injection intravenous, | | 17 9:25 | | | | | INTRAPROCEDURE PRN, Starting Allyssa | | PM PDT | | | | | 05/06/17 at 2125, Until Allyssa | | | | | | | 05/06/17 at 2345 | | | | | | + +-------+ +-------+---+---+ +---+---+ | | | +---+---+ + +-------+ +--------+---+---+ | EPINEPHrine (ADRENALIN) | Given | 05/06/20 | 10 mcg | | | | injection INTRAPROCEDURE PRN, | | 17 11:31 | | | | | Starting Allsysa 05/06/17 at 2331, | | PM PDT | | | | | Until Allyssa 05/06/17 at 2345 | | | | | | + +-------+ +--------+---+---+ +-------+ +--------+---+---+ | Given | 05/06/20 | 10 mcg | | | | | 17 11:25 | | | | | | PM PDT | | | | +-------+ +--------+---+---+ | Given | 05/06/20 | 5 mcg | | | | | 17 11:15 | | | | | | PM PDT | | | | +-------+ +--------+---+---+ +---+---+ | | | +---+---+ + +-------+ +-------+---+---+ | esmolol (BREVIBLOC) injection | Given | 05/06/20 | 20 mg | | | | intravenous, INTRAPROCEDURE PRN, | | 17 9:00 | | | | | Starting Allyssa 05/06/17 at 2020, | | PM PDT | | | | | Until Allyssa 05/06/17 at 2345 | | | | | | + +-------+ +-------+---+---+ +-------+ +-------+---+---+ | Given | 05/06/20 | 20 mg | | | | | 17 8:55 | | | | | | PM PDT | | | | +-------+ +-------+---+---+ +---+---+ | | | +---+---+ + +-------+ +--------+---+---+ | HYDROmorphone (DILAUDID) | Given | 05/06/20 | 0.2 mg | | | | injection INTRAPROCEDURE PRN, | | 17 8:45 | | | | | Starting Allyssa 05/06/17 at 2038, | | PM PDT | | | | | Until Allyssa 05/06/17 at 2345 | | | | | | + +-------+ +--------+---+---+ +-------+ +--------+---+---+ | Given | 05/06/20 | 0.4 mg | | | | | 17 8:38 | | | | | | PM PDT | | | | +-------+ +--------+---+---+ +---+---+ | | | +---+---+ + +---------+ +---+---+---+ | lactated Ringers IV | New Bag | 05/06/20 | | | | | INTRAPROCEDURE CONTINUOUS PRN, | | 17 10:22 | | | | | Starting Allyssa 05/06/17 at 2031, | | PM PDT | | | | | Until Allyssa 05/06/17 at 2345 | | | | | | + +---------+ +---+---+---+ + + +---+---+---+ | given by anesthesiology | 05/06/20 | | | | | | 17 9:23 | | | | | | PM PDT | | | | + + +---+---+---+ | New Bag | 05/06/20 | | | | | | 17 8:31 | | | | | | PM PDT | | | | + + +---+---+---+ +---+---+ | | | +---+---+ + +-------+ +-------+---+---+ | lidocaine (XYLOCAINE MPF) 2 % | Given | 05/06/20 | 90 mg | | | | (20 mg/mL) injection | | 17 8:39 | | | | | INTRAPROCEDURE PRN, Starting Allyssa | | PM PDT | | | | | 05/06/17 at 2038, Until Allyssa | | | | | | | 05/06/17 at 2345 | | | | | | + +-------+ +-------+---+---+ +---+---+ | | | +---+---+ + +-------+ +--------+---+---+ | metoprolol (LOPRESSOR) | Given | 05/06/20 | 2.5 mg | | | | injection intravenous, | | 17 9:25 | | | | | INTRAPROCEDURE PRN, Starting Allyssa | | PM PDT | | | | | 05/06/17 at 2125, Until Allyssa | | | | | | | 05/06/17 at 2345 | | | | | | + +-------+ +--------+---+---+ +---+---+ | | | +---+---+ + +-------+ +------+---+---+ | ondansetron (ZOFRAN) injection | Given | 05/06/20 | 4 mg | | | | INTRAPROCEDURE PRN, Starting Allyssa | | 17 9:41 | | | | | 05/06/17 at 2141, Until Allyssa | | PM PDT | | | | | 05/06/17 at 2345 | | | | | | + +-------+ +------+---+---+ +---+---+ | | | +---+---+ + +-------+ +---------+---+---+ | PHENYLEPHrine 100 mcg/mL IV | Given | 05/06/20 | 100 mcg | | | | syringe INTRAPROCEDURE PRN, | | 17 11:39 | | | | | Starting Allyssa 05/06/17 at 2128, | | PM PDT | | | | | Until Allyssa 05/06/17 at 2345 | | | | | | + +-------+ +---------+---+---+ +-------+ +---------+---+---+ | Given | 05/06/20 | 100 mcg | | | | | 17 9:32 | | | | | | PM PDT | | | | +-------+ +---------+---+---+ | Given | 05/06/20 | 150 mcg | | | | | 17 9:28 | | | | | | PM PDT | | | | +-------+ +---------+---+---+ +---+---+ | | | +---+---+ + +---------+ + +--------+---+ | PHENYLEPHrine 50 mg/250 mL (0.2 | New Bag | 05/06/20 | 0.5 | 12.75 | | | mg/mL) IV infusion (ADC) | | 17 11:43 | mcg/kg/m | mL/hr | | | intravenous, INTRAPROCEDURE | | PM PDT | in | | | | CONTINUOUS PRN, Starting Allyssa | | | | | | | 05/06/17 at 2343, Until Fri | | | | | | | 05/07/17 at 0029 | | | | | | + +---------+ + +--------+---+ +---+---+ | | | +---+---+ + +---------+ + +--------+---+ | propofol (DIPRIVAN) injection | New Bag | 05/06/20 | 25 | 12.75 | | | INTRAPROCEDURE CONTINUOUS PRN, | | 17 11:43 | mcg/kg/m | mL/hr | | | Starting Allyssa 05/06/17 at 2343, | | PM PDT | in | | | | Until Wed05/07/17 at 0029 | | | | | | + +---------+ + +--------+---+ +---+---+ | | | +---+---+ + +-------+ +--------+---+---+ | propofol INTRAPROCEDURE PRN, | Given | 05/06/20 | 100 mg | | | | Starting Allyssa 05/06/17 at 2038, | | 17 11:08 | | | | | Until Allyssa 05/06/17 at 2345 | | PM PDT | | | | + +-------+ +--------+---+---+ +-------+ +--------+---+---+ | Given | 05/06/20 | 170 mg | | | | | 17 8:39 | | | | | | PM PDT | | | | +-------+ +--------+---+---+ +---+---+ | | | +---+---+ + +-------+ +-------+---+---+ | rocuronium (ZEMURON) injection | Given | 05/06/20 | 50 mg | | | | INTRAPROCEDURE PRN, Starting Allyssa | | 17 8:51 | | | | | 05/06/17 at 2050, Until Allyssa | | PM PDT | | | | | 05/06/17 at 2345 | | | | | | + +-------+ +-------+---+---+ +---+---+ | | | +---+---+ + + + +---+---+---+ | sodium chloride 0.9% IV | given by | 05/07/20 | | | | | infusion INTRAPROCEDURE | | 17 12:02 | | | | | CONTINUOUS PRN, Starting Allyssa | anesthes | AM PDT | | | | | 05/06/17 at 2030, Until Allyssa | iology | | | | | | 05/06/17 at 2345 | | | | | | + + + +---+---+---+ + + +---+---+---+ | New Bag | 05/06/20 | | | | | | 17 10:25 | | | | | | PM PDT | | | | + + +---+---+---+ | given by anesthesiology | 05/06/20 | | | | | | 17 9:24 | | | | | | PM PDT | | | | + + +---+---+---+ +---+---+ | | | +---+---+ + +-------+ +--------+---+---+ | SUCCINYLCHOLINE CHLORIDE 20 | Given | 05/06/20 | 100 mg | | | | MG/ML INJ (PROSED/RSI) | | 17 11:08 | | | | | INTRAPROCEDURE PRN, Starting Allyssa | | PM PDT | | | | | 05/06/17 at 2040, Until Allyssa | | | | | | | 05/06/17 at 2345 | | | | | | + +-------+ +--------+---+---+ +-------+ +--------+---+---+ | Given | 05/06/20 | 100 mg | | | | | 17 8:40 | | | | | | PM PDT | | | | +-------+ +--------+---+---+ +---+---+ | | | +---+---+ + +-------+ +--------+---+---+ | sugammadex (BRIDION) IV | Given | 05/06/20 | 350 mg | | | | INTRAPROCEDURE PRN, Starting Allyssa | | 17 10:35 | | | | | 05/06/17 at 2235, Until Allyssa | | PM PDT | | | | | 05/06/17 at 2345 | | | | | | + +-------+ +--------+---+---+ +---+---+ | | | +---+---+ + +-------+ +---------+---+---+ | vasopressin (PITRESSIN) | Given | 05/06/20 | 1 Units | | | | injection INTRAPROCEDURE PRN, | | 17 10:01 | | | | | Starting Allyssa 05/06/17 at 2140, | | PM PDT | | | | | Until Allyssa 05/06/17 at 2345 | | | | | | + +-------+ +---------+---+---+ +-------+ +---------+---+---+ | Given | 05/06/20 | 1 Units | | | | | 17 9:50 | | | | | | PM PDT | | | | +-------+ +---------+---+---+ | Given | 05/06/20 | 2 Units | | | | | 17 9:40 | | | | | | PM PDT | | | | +-------+ +---------+---+---+ +---+---+ | | | +---+---+ documented in this encounter Additional Health Concerns + + + + | Infection | Noted Time | Resolved Time | + + + + | Methicillin Resistant Staph Aureus | 05/07/2017 12:00 AM | | | | PDT | | + + + + documented as of this encounter"
--- OUTSIDE RECORDS SUMMARY | ~2019-11-01 | XMS | Encounter Summary ---
Demographics + + + | Address | [address] | | | [place] [address] | + + + | Home Phone | | + + + | Preferred Language | Unknown | + + + | Marital Status | Single | + + + | Holiness Affiliation | CAT | + + + | Race | White | + + + | Ethnic Group | Not or | + + + Author + + + | Author | [facility] | + + + | Organization | [facility] | + + + | Address | Unknown | + + + | Phone | Unavailable | + + + Support + + + + + | Name | Relationship | Address | Phone | + + + + + | Sona Escalona | BROOK | [address] | | | | | [place] | | | | | [phone] | | + + + + + | Sondra Zuleta | ECON | Unknown | | + + + + + Care Team Providers + +------+ + | Care Cpr Ambulance Driver Name | Role | Phone | + +------+ + | Griffin Shi DO | PCP | | + +------+ + Reason for Visit + + + | Reason | Comments | + + + | PICC line | | + + + Encounter Details +--------+ + + + + | Date | Type | Department | Care Team | Description | +--------+ + + + + | 06/21/ | Telephone | Infectious | Camille Gomez MD | [facility] line | | 2017 | | [facility] | [address] | | | | | [address] | [address] | | | | | Loop Physician's | [place], [place] | | | | | [address] [place] [facility] floor | [address] | | | | | [facility] [place] | [phone] | | | | | [address] | | | | | | [phone] | | | +--------+ + + + + Social History + +-------+ +--------+------+ | Tobacco Use | Types | Packs/Day | Years | Date | | | | | Used | | + +-------+ +--------+------+ | Never Smoker | | | | | + +-------+ +--------+------+ + +---+---+---+ | Smokeless Tobacco: | | | | | Never Used | | | | + +---+---+---+ + + + | Sex Assigned at [...] + + documented as of this encounter Functional Status + + + + | Functional Status | Response | Date of Assessment | + + + + | Because of a physical, mental, or emotional | No | 05/10/2017 | | condition, do you have serious difficulty | | | | doing errands alone such as visiting the | | | | doctor? | | | + + + + + + + + | Cognitive Status | Response | Date of Assessment | + + + + | Because of a physical, mental, or emotional | No | 05/10/2017 | | condition, do you have serious difficulty | | | | concentrating, remembering, or making | | | | decisions? 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
--- OUTSIDE RECORDS SUMMARY | ~2019-11-01 | XMS | Encounter Summary ---
Demographics + + + | Address | [address] | | | [place] [address] | + + + | Home Phone | | + + + | Preferred Language | Unknown | + + + | Marital Status | Single | + + + | Taoist Affiliation | CAT | + + + | Race | White | + + + | Ethnic Group | Not or | + + + Author + + + | Author | [facility] | + + + | Organization | [facility] | + + + | Address | Unknown | + + + | Phone | Unavailable | + + + Support + + + + + | Name | Relationship | Address | Phone | + + + + + | Sona Escalona | BROOK | [address] | | | | | [place] | | | | | [address] | | + + + + + | Sondra Zuleta | ECON | Unknown | | + + + + + Care Team Providers + +------+ + | Care Scale Agent Name | Role | Phone | + +------+ + | Griffin Shi DO | PCP | | + +------+ + Encounter Details +--------+ + + + + | Date | Type | Department | Care Team | Description | +--------+ + + + + | 05/06/ | Procedure | [id number] | | | | 2017 | Pass | [facility] | | | | | | [facility] | | | | | | [facility] Admitting | | | | | | Desk Located on the | | | | | | 9th floor | | | | | | [place], [place] | | | | | | [phone] | | | +--------+ + + + [...] Diagnoses Not on filedocumented in this encounter Additional Health Concerns + + + + | Infection | Noted Time | Resolved Time | + + + + | Methicillin Resistant Staph Aureus | 05/07/2017 12:00 AM | | | | PDT | | + + + + documented as of this encounter"
--- OUTSIDE RECORDS SUMMARY | ~2019-11-01 | XMS | Encounter Summary ---
Demographics + + + | Address | [address] | | | [place] [address] | + + + | Home Phone | | + + + | Preferred Language | Unknown | + + + | Marital Status | Single | + + + | Voodoo Affiliation | Unknown | + + + | Race | Unknown | + + + | Ethnic Group | Unknown | + + + Author + + + | Author | [facility] | | | and [place] | + + + | Organization | [facility] | | | and [place] [...] Team Providers + +------+ + | Care Wood Pile Driver Operator Name | Role | Phone | + +------+ + PCP | Unavailable | + +------+ + Encounter Details +--------+ + + + + | Date | Type | Department | Care Team | Description | +--------+ + + + + | 12/09/ | Hospital | [facility] | Rafita Crews, | | | 2011 - | Encounter | [facility] | [address] | | | | | [place] [address] | [place] | | | [birth year] | | [place] | [id number] | | | 2011 | | [id number] | [phone] | | | | | [phone] | | | +--------+ + + + [...] this is beer. 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 Currently lives alone in [facility] [place] [place]. FAMILY MEDICAL HISTORY: The patient's mother is alive, does have a history of oral cancer and it was actually treated here at [facility]. The patient's sister is alive with a [...] being referred to a colorectal surgeon in [place] for consideration of surgical opt ions. I [...] Rafita Crews MD Radiation Oncology JOB #: [id number] EXT JOB #:[id number] cc: MD Jean Lawson MD <Electronically Signed by Rafita Crews MD> 12/13/11 [id number] documented in this encounter Plan of Treatment Not on filedocumented as of this encounter Visit Diagnoses Not on filedocumented in this encounter"
--- OUTSIDE RECORDS SUMMARY | ~2019-11-01 | XMS | Encounter Summary ---
Demographics + + + | Address | [address] | | | [place] [address] | + + + | Home Phone | | + + + | Preferred Language | Unknown | + + + | Marital Status | Single | + + + | Yazidi Affiliation | CAT | + + + | Race | White | + + + | Ethnic Group | Not or | + + + Author + + + | Author | [facility] | + + + | Organization | [facility] | + + + | Address | Unknown | + + + | Phone | Unavailable | + + + Support + + + + + | Name | Relationship | Address | Phone | + + + + + | Sona Figueredo | BROOK | [address] | | | | | [place] | | | | | [address] | | + + + + + | Sondra Zuleta | ECON | Unknown | | + + + + + Care Team Providers + +------+ + | Care Research Physicist Name | Role | Phone | + +------+ + | Jamaal Shi DO | PCP | | + +------+ + Reason for Visit +---------+ + | Reason | Comments | +---------+ + | Abscess | Epidural | +---------+ + AUTH/CERT +--------+--------+ + + + + | [...] | +--------+ + + + + | 05/05/ | Hospital | [address] | Henri Holguin MD | | | 2017 - | Encounter | [address] | [address] | | | | | [facility] | [facility] [place] | | | 05/18/ | | [place], [place] | [address] | | | 2016 | | [address] | [phone] | | | | | [phone] | | | | | | | Darshan Parada MD | | | | | | [address] | | | | | | [place], | | | | | | [place] [address] | | | | | | [phone] | | | | | | | | | | | | Wali Soto MD | | | | | | [address] | | | | | | [place], | | | | | | [place] [address] | | | | | | [phone] | | | | | | | [...] + + documented as of this encounter Last Filed Vital Signs + + + + + | Vital Sign | Reading | Time Taken | Comments | + + + + + | Blood Pressure | 124/73 | 05/18/2017 8:31 AM | | | | | PST | | + + + + + | Pulse | 89 | 05/18/2017 8:31 AM | | | | | PST | | + + + + + | Temperature | 37.1 C (98.8 F) | 05/18/2017 8:31 AM | | | | | PST | | + + + + + | Respiratory Rate | 17 | 05/18/2017 8:31 AM | | | | | PST | | + + + + + | Oxygen Saturation | 97% | 05/18/2017 8:31 AM | | | | | PST | | + + + + + | Inhaled Oxygen | - | - | | | Concentration | | | | + + + + + | Weight | 71.7 kg (158 lb 1.1 | 05/18/2017 6:12 AM | | | | oz) | PST | | + + + + + | Height | 179.1 cm (5' 10.51") | 05/07/2017 7:19 AM | | | | | PDT | | + + + + + | Body Mass Index | 22.35 | 05/07/2017 7:19 AM | | | | | PDT | | + + + + + documented in this encounter Functional Status + + + [...] + + documented as of this encounter Discharge Summaries Duy Baldwin MD - 05/18/2017 2:[address] [facility] Discharge Summary Discharging Provider: Duy Baldwin MD Discharging Attending Physician: Wali Soto MD PCP: Jamaal Shi DO Admission Date: 05/05/2017 Discharge Date: 05/18/17 Hospital Stay: 13 day(s) Diagnosis: Principal Diagnosis: 1. MRSA bacteremia Additional Diagnoses: 2. holospinal epidural abscess s/p laminectomy 3. Paraspinal muscle abscess 4. Urinary retention 5. Exudative pleural effusions Procedures: T1 T8 skip laminectomy 05/06/17 Thoracentesis (diagnostic) 05/08/17 Thoracentesis (therapeutic) 05/17/17 PICC line placement Reason for Admission: Cornelio Figueredo is a 61yoM with MRSA bacteremia, spontaneous holospinal epidural abscess and bilateral exudative pleural effusions who was admitted for management of his epidural absces s and is now s/p laminectomy on 05/06/17. Hospital Course by Problem (with follow-up plan/instructions): #. MRSA bacteremia Apparently spontaneous MRSA bacteremia with extensive spinal and paraspinal abscess. No kacey dence of endocarditis on TTE. Negative blood cx since 05/11/17. S/p lamiectomy for evacuation of holospinal epidural abscess and drainage of left erector spinae abscess. There was still one focus of TTE studies neg x2, no vegetations or regurgitation. Continue vancomycin 1500m g q12 hr, recommended by ID and pharmacy. PICC placed 05/15/17. Therapy thru 06/29/17 (6 wee k course). MARGAUX drain in left erector spinae removed 05/17/17. -vancomycin 1500mg IV q12 hr via PICC - PICC and home abx training complete. HHRN ordered. -06/29/17 anticipated stop date - ID clinic follow up in 2-3 weeks (to be arranged by ID/OPAT) #. Extensive spinal epidural abscess, s/p T2 & T8 skip laminectomy # Urinary retention Neurologic function improved after surgery and transfer to our service. Initial urinary ret ention managed with hammer decompression X5 days and subsequently passed voiding trials. Ambu lating with walker. -cont IV Abx as per above -[facility]. #. L Erector spinaeMuscle Abscess Drained by IR on 05/11/17. Repeat CT scan completed with resolution of left paraspinal absce ss and a residual contiguous rim enhancing collection which was deeper than the drained absc ess but improved from prior. - MARGAUX drain removed 05/17/17 #. Bilateral L>R Pleural Effusions Improvement in symptoms and oxygen requirement after therapeutic thoracentesis 05/17/17. N o oxygen requirement at this time. Previously requiring 1-2 L of O2 at rest. Diagnostic thor a on 05/08 showing exudative effusion without growth on culture. Studies sent from therapeut thora on 05/17/17 remained exudative but not convincingly infected. Culture pending. Etio logy of the effusions remain unclear. Initial concern for malignancy but reassured by normal CT abd and pelvis and by undetectable CEA. -diagnostic and therapeutic thoracentesis performed, O2 requirement resolved. -Thoracentesis cultures pending. #. Constipation No complaints today. Nursing notes show frequent bowel movements. -PRN bowel regimen #. Urinary Retention Resolved at this time. - continue tamsulosin 0.8mg qHS at discharge #. Hx of T1N0 Rectal Cancer S/p resection in 2011. No evidence of recurrence of mets on recent CT. CEA in 2012, undetec table. Repeat CEA negative. Pertinent Findings: Labs: -Micro: MRSA bacteremia from 05/06-05/10/17. No growth on blood cultures from 05/11 and 05/12 . Pleural fluid cultures no growth to date from 05/17/17, No growth from 05/08/17. -Vanc trough 17.7 on 05/15/17 - CEA undetectable Imaging: -CT CAP 05/17/17: "IMPRESSION: 1. Since 05/10/17, resolution of the left paraspinal muscle abscess. However there is a smal l residual contiguous deeper abscess within the right diaphragm/posterior costophrenic reces s. 2. More conspicuous left parietal pleural enhancement with pleural effusion could represent spread of infection to the pleural space, particularly given persistent diaphragm/posterior costophrenic recess abscess." -TTE 05/10/17: Good quality TTE without valvular lesions. Outstanding or Pending Labs/Studies: -Culture of pleural fluid 05/17/17 Consultants (service/attending name): ID / Dr. Gomez Neurosurgery/ Dr. Holguin Discharge Medications: Medication List START taking these medications acetaminophen 325 mg Tab Commonly known as: TYLENOL Take 2 tablets by mouth every six hours as needed lidocaine 5 % Ptmd Commonly known as: LIDODERM Apply 1 patch to skin every twenty-four hours Apply patch to most painful area; Patch may r emain in place for up to 12 hours in any 24-hour period. oxyCODONE (immediate release) 5 mg Tab Commonly known as: ROXICODONE Take 1-2 tablets by mouth every six hours as needed for moderate pain polyethylene glycol 17 gram Pwpk Commonly known as: MIRALAX Mix 1 packet and take orally once daily tamsulosin 0.4 mg Cp24 Commonly known as: FLOMAX Take 2 capsules by mouth once daily vancomycin 1,000 mg Solr Commonly known as: VANCOCIN Inject 1,500 mg into the vein (IV) every twelve hours for 39 days. To be admixed per infusi on pharmacy standard policy and/or procedure. Rationale for Medication Changes: Vancomycin for MRSA bacteremia, oxycodone/lidocaine/tylenol for pain control, tamsulosin fo r urinary retention. Allergies: No Known Allergies Code Status: Full POLST completed: no Additional Instructions: Condition on Discharge Stable Diet Regular Regular diet- There are no restrictions to your diet. You may eat or drink whatever you pr efer, though healthy food choices are recommended. Activity No activity restrictions Who To Call For Problems HOW TO REACH YOUR MEDICINE TEAM WITH QUESTIONS, CONCERNS, OR NEW SYMPTOMS: Thank you for entrusting your care to [facility] Internal Medicine. If you have any problems or concerns before you are able to follow up with your Primary Care Provider, please call and ask the ammonia print operator to page the attending physician, Wali Soto MD, who was caring for you at discharge. If that physician is not available, ask the ammonia print operator to page the physician nuclear fuels reclamation engineer for the Medical Teaching Service. Call us right away if any of the following occur: -Weakness -high fevers -bleeding Home Health Referral after Hospitalization Comments: I certify that this patient is under my care and that I, or Nurse Practitioner or Physician Furnace Filler working with me, had a face to face encounter with this patient on 05/18/2017 On behalf of Attending Physician: Wali Soto MD I am ordering and certify that the following services are medically necessary [facility] Senior Care Evaluate and Treat I certify that the patient is homebound based on the following clinical findings Recent demetrio charity who may be suffering from weakness and pain and may have restrictions from their physic alvin to limit certain activities such as getting out of bed for specific amount of time, walk ing the stairs once a day, etc Discharge Destination No service has been selected for the patient. Home Care Medical - Selection Complete Service Request Status Selected Specialties Address Phone Number Fax Number [facility] Selected Home Health Services [address] [facility] [place] [phone] Social Care Services No service has been selected for the patient. Follow Up: Future Appointments Provider Department Dept Phone Center 06/03/2017 12:55 PM [facility] [phone] [facility] Contact information for other follow-up providers JAMAAL SHI DO. Go on 05/24/2017. Specialty: Internal Medicine Why: At 10:45 on 05/24/17 with your PCP, Dr. Shi. Contact information [facility] Internal Medicin [address] [facility] [place] [id number] Contact information for after-discharge senior care Care Medical [facility]. Specialties: Home Health Services, Hospice Contact information [address] [facility] [place] [address] Discharge Physical Exam: Last 24 hour min/max Temp: 37.1 C (98.8 F) Temp Min: 36.4 C (97.5 F) Max: 37.8 C (100 F) Pulse: 89 Pulse Min: 87 Max: 106 Resp: 17 Resp Min: 17 Max: 28 BP: 124/73 BP Min: 108/61 Max: 135/79 SpO2: 97 % SpO2 Min: 92 % Max: 97 % Body mass index is 22.35 kg/m. Exam: Gen: Man of late middle age lying in bed calmly, on room air. Resp: diminished breath sounds LLL. No distress. Cards: RRR no murmurs Abd: Soft NT ND Back: post-laminectomy scars, MARGAUX drain removed. Ext: minimal AALIYAH bilat Skin: no rash or bruise Duy Baldwin MD Associated attestation - Wali Soto MD - 05/18/2017 4:20 PM PSTGENERAL MEDICINE ATTE NDING PROGRESS NOTE ADMIT DATE: 05/05/2017 8:06 PM TODAY'S DATE: 05/18/2017 (HOSPITAL DAY 13) Patient was seen/examined by me, chart reviewed, case discussed with team. I agree with th e DC plans as documented in the discharge summary with no significant amendments. Assessment and Plan: Patients Hospital Problem List: Active Hospital Problems 1) *Abscess in epidural space of spine 2) Acute respiratory insufficiency, postoperative 3) Pleural effusion 4) Chronic alcoholism (HCC) 5) Encounter for long-term (current) use of antibiotics 6) MRSA bacteremia Wali Soto MD Clinical Assessment Technician, Internal Medicine Pager [phone] documented in this encounter Discharge Instructions Instructions Cynthia Leigh RN - 05/18/2017[facility] has accepte d you for home health services. They plan to start care tomorrow and will contact you direct ly to schedule. If you do not hear from them by tomorrow, please call them directly at the n umber listed above. Patient Education Materials: Pt received vanco instructions from filemon. Discharge Nurse: Cynthia DIAZ Date: 05/18/2017 Discharge Time: 2:58 PM documented in this encounter Medications at Time of Discharge + + + +---------+ + + | Medication | Sig | Dispensed | Refills | Start | End Date | | | | | | Date | | + + + +---------+ + + | acetaminophen 325 | Take 2 tablets by | 100 | 0 | 05/18/20 | | | mg oral | mouth every six | tablet | | 17 | | | tabletIndications: | hours as needed | | | | | | back pain | | | | | | + + + +---------+ + + | lidocaine 5 % | Apply 1 patch to | 10 | 0 | 05/18/20 | | | topical adhesive | skin every | patch | | 17 | | | patch,medicated | twenty-four hours | | | | | | | Apply patch to most | | | | | | | painful area; Patch | | | | | | | may remain in place | | | | | | | for up to 12 hours | | | | | | | in any 24-hour | | | | | | | period. | | | | | + + + +---------+ + + | oxyCODONE | Take 1-2 tablets by | 50 | 0 | 05/18/20 | | | (immediate release) | mouth every six | tablet | | 17 | | | 5 mg oral | hours as needed for | | | | | | tabletIndications: | moderate pain | | | | | | Abscess in epidural | | | | | | | space of spine | | | | | | + + + +---------+ + + | polyethylene | Mix 1 packet and | 14 | 0 | 05/18/20 | | | glycol 17 gram oral | take orally once | packet | | 17 | | | powder in packet | daily | | | | | + + + +---------+ + + | tamsulosin 0.4 mg | Take 2 capsules by | 60 | 0 | 05/18/20 | | | oral | mouth once daily | capsule | | 17 | | | capsule,extended | | | | | | | release | | | | | | | 24hrIndications: | | | | | | | Urinary retention | | | | | | + + + +---------+ + + | vancomycin 1,000 | Inject 1,500 mg into | 14 | 2 | 05/14/20 | | | mg intravenous recon | the vein (IV) every | day(s) | | 17 | 7 | | soln | twelve hours for 39 | | | | | | | days. To be admixed | | | | | | | per infusion | | | | | | | pharmacy standard | | | | | | | policy and/or | | | | | | | procedure. | | | | | + + + +---------+ + + documented as of this encounter Progress Notes Wali Soto MD - 05/17/2017 5:00 PM PSTGENERAL MEDICINE ATTENDING PROGRESS NOTE ADMIT DATE: 05/05/2017 8:06 PM TODAY'S DATE: 05/17/2017 (HOSPITAL DAY 12) I personally interviewed the patient, performed the hyman elements of the physical examinatio n, and personally formulated the assessment and plan with the resident. See resident note f or details. ROS as noted, otherwise negative. Assessment and Plan: Patients Hospital Problem List: Active Hospital Problems 1) *Abscess in epidural space of spine 2) Acute respiratory insufficiency, postoperative 3) Pleural effusion 4) Chronic alcoholism (HCC) 5) Encounter for long-term (current) use of antibiotics 6) MRSA bacteremia Anticipated discharge and needs: Anticipate DC tomorrow and MARGAUX drain removed and thoracente sis doen- fluid bloody, WBC % and PMNs down from prior study Wali Soto MD Clinical Assessment Technician, Internal Medicine Pager [phone] Anette Marshall - [place]ales 07/17/2016 3:25 PM PST [facility] [place] PROGRESS NOTE PHYSICIAN [employer] SYSTEMS ENGINEER STUDENT NOTE FOR EDUCATIONAL PURPOSES ONLY Author: nAette Daniel PA-S Attending Physician: Wali Soto MD DEMOGRAPHIC INFORMATION Name: Cornelio Figueredo Age: 61 y.o. Birthdate: 1955 Sex: male [address]: [address] [place] [id number] PCP: Jamaal Shi DO Hospital Day:12 24 Hour Events: - therapeutic thoracentesis performed - MARGAUX drain removed Subjective: Patient is feeling well and would like to go home tomorrow. He has been able to void well w ithout the hammer. His back pain has been steadily improving and he is needing less PRN oxyco done. He underwent a therapeutic thoracentesis today and his SOB has improved significantly. He no longer uses supplemental oxygen. Current Medications: acetaminophen (TYLENOL) tablet 650 mg, 650 mg, oral, Q6H PRN OR [DISCONTINUED] acetamin ophen (TYLENOL) tablet 325-650 mg, 325-650 mg, feeding tube, Q6H PRN OR [DISCONTINUED] a cetaminophen (TYLENOL) suppository 325-650 mg, 325-650 mg, rectal, Q6H PRN bisacodyl (DULCOLAX) suppository 10 mg, 10 mg, rectal, DAILY PRN enoxaparin (LOVENOX) injection 40 mg, 40 mg, subcutaneous, QPM lactobacillus rhamnosus (GG) (CULTURELLE) 15 billion cell capsule 1 capsule, 1 capsule, ora l, DAILY lidocaine (LIDODERM) 5 % patch 1 patch, 1 patch, transdermal, Q24H lidocaine (XYLOCAINE URO-JET) 2 % jelly, , urethral, PRN melatonin tablet 3 mg, 3 mg, oral, QPM [] ondansetron (ZOFRAN) injection 4 mg, 4 mg, intravenous, Q12H FOLLOWED BY onda nsetron (ZOFRAN) injection 4 mg, 4 mg, intravenous, Q12H PRN oxyCODONE (immediate release) (ROXICODONE) tablet 5-15 mg, 5-15 mg, oral, Q3H PRN OR [D ISCONTINUED] oxyCODONE (immediate release) (ROXICODONE) tablet 5-15 mg, 5-15 mg, feeding tub e, Q3H PRN polyethylene glycol (MIRALAX) packet 17 g, 17 g, oral, DAILY polyethylene glycol (MIRALAX) packet 34 g, 34 g, oral, TID PRN senna (SENOKOT) tablet 2 tablet, 2 tablet, oral, BID tamsulosin (FLOMAX) capsule 0.8 mg, 0.8 mg, oral, DAILY thiamine tablet 100 mg, 100 mg, oral, DAILY vancomycin (VANCOCIN) IV 1,500 mg, 1,500 mg, intravenous, Q12H white petrolatum-mineral oil (EUCERIN) cream, , topical, BID Vitals: Last Vitals: BP 142/69 | Pulse 91 | Temp 37.5 C (99.5 F) | RR 18 | Ht 1.791 m (5' 10.51 ") | Wt 75.4 kg (166 lb 3.6 oz) | SpO2 97% | BMI 23.51 kg/(m^2) 24 Hour Vital Min/Max: Systolic (24hrs), Av , Min:127 , Max:177 Diastolic (24hrs), Av, Min:68, Max:85 Pulse Av.6 Min: 91 Max: 110 Temp Av.3 C (99.1 F) Min: 37 C (98.6 F) Max: 37.5 C (99.5 F) Resp Av.7 Min: 16 Max: 18 SpO2 Av.6 % Min: 91 % Max: 97 % Ins and Outs: Intake/Output Summary (Last 24 hours) at 05/17/17 1525 Last data filed at 05/17/17 1404 Gross per 24 hour Intake 690 ml Output 3685 ml Net -2995 ml Exam: General: Awake, alert and oriented, appears stated age, NAD, cooperative HEENT: Oral/nasal mucosa pink and moist. PERRLA. EOMI. Cardiovascular: RRR, nl S1/S2, no m/r/g, JVP not abnormally elevated. Respiratory: CTAB, no increased WOB. Decreased breath sounds and tactile fremitus bilateral bases, R>L. Abdomen: +BS, soft, non-tender, non-distended. Ext: wwp, 2+ pulses present bilaterally. No LLE edema. Skin: no rashes or lesions. Neuro: Grossly intact. Strength 5/5 and intact light touch bilateral lower extremities. 2+ patellar reflexes. No clonus. Basic Labs: CBC with diff last 72 hours (or 3 results) Recent Labs 05/15/17 0521 05/17/17 0540 WBC 12.01* 8.63 HB 9.7* 9.7* HCT 29.0* 28.7* PLT 473* 500* Chemistries last 72 Hours (or 3 results): Recent Labs 05/15/1752505/16/17 0552 05/17/17 0540 NA 131* 131* 131* K 4.2 4.3 4.3 CL 96* 97 95* BICARB 27 29 28 BUN 9 10 9 CR 0.67* 0.82 0.82 CA 8.0* 8.1* 8.2* PO4 4.0 4.1 3.8 Liver panel last 72 hours (or 3 results) Recent Labs 05/15/1752505/16/17 0552 05/17/17 0540 ALB 1.7* 1.9* 2.0* TP -- -- 7.1 Micro: BCx x 1 (05/12/17) no growth to date BCx x 1 (05/11/17) no growth to date BCx x1 (05/10/17) + MRSA BCx x2 (05/09/17) + MRSA Imaging: No new imaging Assessment and plan: Mr. Figueredo is a 61 y/o man with a hx of rectal cancer s/p resection who comes in with MRSA holospinalepidural abscess and left erector spinal abscessthought to be secondary to MRSA skin infection. Blood cultures showing improvement of bacteremia with no growth to date since 05/11/17. Acute Problems: #. MRSA bacteremia Negative blood cx on 05/11/17. S/p lamiectomy for evacuation of holospinal epidural abscess and drainage of left erector spinae abscess.TTE studies neg x2, no vegetations or regurgitat ion. Continue vancomycin 1500mg q12 hr, recommended by ID and pharmacy. PICC placed 05/15/17 . Therapy thru 06/29/17 (6 week course). MARGAUX drain in left erector spinae removed today. -vancomycin 1500mg IV q12 hr via PICC -06/29/17 anticipated stop date -goal d/c tomorrow #. Extensive spinal epidural abscess, s/p T2 & T8 skip laminectomy Improved neurologic function, has passed voiding trials. Ambulating with walker. Overall, i mproved and believed to have source control considering negative blood cultures. Negative bl ood cx 05/11/17. -cont IV Abx as per above #. L Erector spinae Muscle Abscess Drained by IR on 05/11/17. Repeat CT scan completed with resolution of left paraspinal absce sses. MARGAUX drained removed today. - MARGAUX drain removed #. Bilateral L>R Pleural Effusions Improvement in symptoms and oxygen requirement after therapeutic thoracentesis today. No ox ygen requirement at this time. Previously requiring 1-2 L of O2 at rest. Diagnostic thora on 05/08 showing exudative effusion without growth on culture. Pending results on today's thor a. -diagnostic and therapeutic thoracentesis performed -pending results #. Constipation No complaints today. Nursing notes show frequent bowel movements. -PRN bowel regimen #. Urinary Retention Resolved at this time. Okay for PVR's/straight caths PRN #. Hx of T1N0 Rectal Cancer S/p resection in 2011. No evidence of recurrence of mets on recent CT. CEA in 2013, undetec table. Repeat CEA negative. Diet: regular Prophy: lovenox FEN/GI: docusate, miralax, senna PRN Lines: PICC right arm Code status: FULL Dispo: discharge tomorrow CODE STATUS: Polst NO Advance Directive NO SDM: Surrogate Decision Maker Primary Surrogate Decision Maker Ann (sister) [phone] This patient was staffed with my attending, Wali Soto MD, and they agree with my asse ssment and plan. HORACE Ortiz-S Physician Furnace Filler Student [facility] [employer] [place] Pager [phone] Associated attestation - Duy Baldwin MD - 05/17/2017 6:04 PM PST Agree with PA student note except as indicated otherwise. Cornelio Figueredo is a 61yoM with MRSA bacteremia, spontaneous holospinal epidural abscess and new bilateral pleural effusions. S/p skip laminectomy 05/06/17. BCx no growth since 05/10/17. Interval growth in paraspinous muscle abscess led to IR guided drainage 05/11. On vancomycin (stabe dose) with PICC in place. Now s/p thora with 1.4L off and resolution of O2 requiremen t. Also s/p removal of MARGAUX drain today. Teed up for DC tomorrow. Last Vitals: BP 135/79 | Pulse 106 | Temp 37.2 C (99 F) | RR 18 | Ht 1.791 m (5' 10.51" ) | Wt 75.4 kg (166 lb 3.6 oz) | SpO2 97% | BMI 23.51 kg/(m^2) 24 Hour Vital Min/Max: Systolic (24hrs), Av , Min:127 , Max:142 Diastolic (24hrs), Av, Min:68, Max:79 Pulse Min: 91 Max: 110 Temp Min: 37 C (98.6 F) Max: 37.5 C (99.5 F) Resp Min: 16 Max: 18 SpO2 Min: 91 % Max: 97 % Intake/Output Summary (Last 24 hours) at 05/17/17 1802 Last data filed at 05/17/17 1755 Gross per 24 hour Intake 1200 ml Output 3885 ml Net -2685 ml Exam: Gen: Man of late middle age lying in bed calmly, on room air. Resp: diminished breath sounds LLL. No distress. Cards: RRR no murmurs Abd: Soft NT ND Back: post-laminectomy scars, MARGAUX drain removed. Ext: minimal AALIYAH bilat Skin: no rash or bruise Problem List: #MRSA bacteremia- continue vanc, will need 6 weeks from clear cultures (05/11 is day 1, st op date is 06/21 inclusive). PICC placed. #Extensive Spinal Epidural Abscess s/p T2 and T8 skip laminectomy- monitor for neurologic decline #Paraspinous muscle abscesses- Improved s/p drain (removed today) #Bilateral moderate exudative pleural effusions- therapeutic thoracentesis today. O2 requ irement resolved. #Respiratory insufficiency- due to above #Heavy alcohol use- outside of withdrawal window, given thiamine/folate in ICU. Continue thiamine PO. #Urinary retention - s/p 5 days hammer decompression. On tamsulosin 0.8mg daily. Voiding spo ntaneously. #Constipation - bowel regimen escalated, scheduled miralax and senna #Hx of T1N0 Rectal Cancer - Resected 2011 with no e/o lymphovascular spread on path. CEA un detectable. Dispo:Will require 6 weeks IV abx post-clearance of blood cultures. PICC placed 05/15/17. Discharge tomorrow. Carin Sahu PA-C - 05/17/2017 1:17 PM PSTFormatting of this note might be different f rom the original. Interventional Radiology PROGRESS NOTE AUTHOR: Carin Sahu PA-C Subjective: 61 y.o. male with history of rectal cancer s/p resection admitted for management of MRSA ba cteremia & epidural and paraspinal abscesses. He underwent left paraspinal drain placement 1 07/11/16. He is on antibiotics, clinically improving, and has had scant drain output for sever al days. Only output has been flushes. IR has been consulted for drain removal prior to disc harge. Interval history: Feeling much better No concerns with drain site Had thoracentesis today Hoping to go home today Data Patient Active Problem List Diagnosis Abscess in epidural space of spine Acute respiratory insufficiency, postoperative Pleural effusion Chronic alcoholism (HCC) Encounter for long-term (current) use of antibiotics MRSA bacteremia Current Facility-Administered Medications: acetaminophen (TYLENOL) tablet 650 mg, 650 mg, o ral, Q6H PRN, 650 mg at 05/12/17 0321 OR [DISCONTINUED] acetaminophen (TYLENOL) tablet 3 25-650 mg, 325-650 mg, feeding tube, Q6H PRN OR [DISCONTINUED] acetaminophen (TYLENOL) s uppository 325-650 mg, 325-650 mg, rectal, Q6H PRN, Katrina Figueredo MD,MPH bisacodyl (DULCOLAX) suppository 10 mg, 10 mg, rectal, DAILY PRN, Rola Nelson MD, 10 mg at 05/13/17 0654 enoxaparin (LOVENOX) injection 40 mg, 40 mg, subcutaneous, QPM, Cedrick Lazar MD, 40 mg at 05/16/17 2150 lactobacillus rhamnosus (GG) (CULTURELLE) 15 billion cell capsule 1 capsule, 1 capsule, ora l, DAILY, Darshan Parada MD, 1 capsule at 05/17/17 0900 lidocaine (LIDODERM) 5 % patch 1 patch, 1 patch, transdermal, Q24H, Amber Ludwig PA-C, 1 pat ch at 05/12/17 1200 lidocaine (XYLOCAINE URO-JET) 2 % jelly, , urethral, PRN, Huy Colon, ACNP melatonin tablet 3 mg, 3 mg, oral, QPM, Lisandra Esteban MD [] ondansetron (ZOFRAN) injection 4 mg, 4 mg, intravenous, Q12H FOLLOWED BY onda nsetron (ZOFRAN) injection 4 mg, 4 mg, intravenous, Q12H PRN, Katrina Figueredo MD,MPH oxyCODONE (immediate release) (ROXICODONE) tablet 5-15 mg, 5-15 mg, oral, Q3H PRN, 5 mg at 05/17/17 1248 OR [DISCONTINUED] oxyCODONE (immediate release) (ROXICODONE) tablet 5-15 m g, 5-15 mg, feeding tube, Q3H PRN, Katrina Figueredo MD,MPH polyethylene glycol (MIRALAX) packet 17 g, 17 g, oral, DAILY, Gabby Pillai MD, 17 g a t 05/15/17 0903 polyethylene glycol (MIRALAX) packet 34 g, 34 g, oral, TID PRN, Rola Nelson MD, 34 g at 05/12/17 1757 senna (SENOKOT) tablet 2 tablet, 2 tablet, oral, BID, Kimber Elizabeth MD tamsulosin (FLOMAX) capsule 0.8 mg, 0.8 mg, oral, DAILY, Gabby Pillai MD, 0.8 mg at 1 07/17/16 0900 thiamine tablet 100 mg, 100 mg, oral, DAILY, Duy Balderas MD, 100 mg at 05/17/17 0900 vancomycin (VANCOCIN) IV 1,500 mg, 1,500 mg, intravenous, Q12H, Darshan Parada MD, Stopped at 05/17/17 1055 white petrolatum-mineral oil (EUCERIN) cream, , topical, BID, Duy Balderas MD Objective: Last 24 hour min/max Temp: 37.5 C (99.5 F) Temp Min: 37 C (98.6 F) Max: 37.5 C (99.5 F) Pulse: 91 Pulse Min: 91 Max: 110 Resp: 18 Resp Min: 16 Max: 18 BP: 142/69 BP Min: 127/71 Max: 177/77 SpO2: 97 % SpO2 Min: 91 % Max: 97 % Body mass index is 23.51 kg/m. Intake/Output Summary (Last 24 hours) at 05/17/17 0700 Last data filed at 05/17/17 0600 Gross per 24 hour Intake 1550 ml Output 3545 ml Net -1995 ml Examination General: pleasant, appropriate, comfortable in bed, NAD Neuro: A&O x 3, CN 2-12 grossly intact, appropriately answers questions, follows commands HEENT: no scleral icterus Pulmonary: CTAB, speaking full sentences, breathing nonlabored on RA Skin: warm & dry, no jaundice Extremities: warm & dry Access site: left flank drain--> nontender, clean, dry, intact dressing, no underlying ecch ymosis or erythema to suggest bleeding or infection; scant serous drainage to suction bulb PROCEDURE: Left flank drain removal PARQ held. Patient consents. Labs & vitals reviewed. Suture removed. Tubing cut just proximal to hub. 12F MPD removed without complication. No bleeding or drainage post. Gauze & dressing applied. Patient tolerated procedure well. Laboratory CBC with diff last 72 hours (or 3 results) Recent Labs 05/05/17203805/14/17 0451 05/15/17 0521 05/17/17 0540 WBC 25.20* < > 13.90* 12.01* 8.63 RBC 3.77* < > 3.07* 3.24* 3.22* HB 11.6* < > 9.4* 9.7* 9.7* HCT 33.3* < > 27.8* 29.0* 28.7* PLT 440* < > 454* 473* 500* LYMPHPERC 3.5* -- -- -- -- MONOPERC 6.5 -- -- -- -- BASOPERC 0.4 -- -- -- -- EOSPERC 0.1* -- -- -- -- < > = values in this interval not displayed. Chemistries: Last 72 Hours (or 3 results): Recent Labs 05/07/17 0010 05/15/17 0526 05/16/17 0552 05/17/17 0540 NA 137 < > 131* 131* 131* K 4.3 < > 4.2 4.3 4.3 CL 106 < > 96* 97 95* BICARB 21 < > 27 29 28 BUN 13 < > 9 10 9 CR 0.80 < > 0.67* 0.82 0.82 GLU 107* < > 146* 108* 108* CA 7.1* < > 8.0* 8.1* 8.2* AST 63* -- -- -- -- ALT 84* -- -- -- -- AP 128 -- -- -- -- TBILI 0.8 -- -- -- -- TP 5.2* -- -- -- 7.1 ALB 1.3* | 1.2* < > 1.7* 1.9* 2.0* ANIONGAP 10 < > 8 5 8 ANIONALBCOR 17* < > 13* 10 13* < > = values in this interval not displayed. INR: Lab Results Component Value Date INRPT 1.09 05/10/2017 Imaging (also by independent review) 05/18/17 CT abd/pelvis Independent read: interval resolution of left paraspinal abscess 05/11/17 IR drain procedure Multiloculated complicated fluid collection in left paraspinal muscles. Purulent fluid aspi rated and sent for culture. 12F MPD placed in collection. Assessment and Plan 61 y.o. male with history of rectal cancer s/p resection admitted for management of MRSA ba cteremia & epidural and paraspinal abscesses s/p left paraspinal abscess drain placement 05/11/17, now with scant drain output, on IV abx, clinically improving, and CT demonstrating int erval resolution of fluid collection. Awaiting discharge soon. -Uneventful drain removal as above. Wound care discussed. Discussed with IR attending Ayaan SHAIKH. Please call with question or concerns. Thank you. I spent a total of 15 minutes in >50% of counseling and discussion with patient and reviewi ng pertinent chart notes and imaging. Gisela Sahu PA-C, RDMS [id number] okong, Darshan Webster MD - 05/16/2017 2:03 PM PST 5 GENERAL MEDICINE ATTENDING PROGRESS NOTE HOSPITAL DAY 11 I personally interviewed the patient, performed the hyman elements of the physical examinatio n, reviewed new lab data in [facility], looked at any new radiology images and have developed an u pdated assessment and plan together with the [facility] residents (Dr. Baldwin and Dr. Elizabeth). Kim gaitan see the housestaff notes for full details with the following additions or exceptions. Problem List: #Persistent MRSA Bacteremia #Holospinal epidural abscess S/p laminectomy #Erector Spinae Abscess #Bilateral Pleural effusions #Rectal cancer #Chronic Alcoholism #Urinary Retention #Chest Pain Assessment/Plans: Mr. Figueredo is a 61 y/o man with a hx of rectal cancer s/p resection who comes in with MRSA epidural abscess. Last positive blood culture on 05/10/2017. Para-spinal abscess drain with decreased output, likely can be removed tomorrow if continued decreased output (following C T). Trial w/o hammer going well, continue to monitor. Patient with oxygen requirement thus w ill have radiology complete Thora tomorrow under ultrasound guidance. Will need suture timothy melodie as well. Discharge Planning: Patient will need 6 weeks of IV antibiotics, at home, likely DC Wednesday . Darshan Parada MD Department of Internal Medicine [facility] I spent more than 35 minutes [id number] with the patient of which greater than 50% was sp ent counseling the patient. Kimber Banks MD - 1:30 PM PST General Medicine Daily Progress Note Admit date: 05/05/2017 Hospital day: 11 PCP: Jamaal Shi DO ID/Reason for admission: 24 hour interval events: - No acute events Subjective: - pt states he is ambulating with walker to the restroom where he is able to control his b owels and bladder - improved back pain - Otherwise no acute complaints Physical Exam: Vitals: Last 24 hour min/max Temp: 37.1 C (98.8 F) Temp Min: 36.6 C (97.9 F) Max: 37.6 C (99.7 F) Pulse: 98 Pulse Min: 94 Max: 112 Resp: 18 Resp Min: 16 Max: 18 BP: 122/76 BP Min: 109/65 Max: 122/76 SpO2: 92 % SpO2 Min: 92 % Max: 94 % Body mass index is 23.51 kg/m. General: Awake, alert and oriented, appears stated age, NAD, cooperative HEENT: Oral/nasal mucosa pink and moist. PERRLA. EOMI.No sclera icterus or conjunctival i njection. Cardiovascular: RRR, no m/r/g.JVPnot abnormally elevated. Respiratory: Breathing unlabored. Decreased breath soundsand tactile fremitusof bilater al lung bases. Abdomen: +BS, soft, non-distended.Dullness over LLQ.Mild tenderness of the LLQ to deep palpation. No rebound or guarding. Negative Fitzgerald's sign. Ext: wwp, 2+ pulses present bilaterally. No edema. Skin: Normal turgor. No rashes or lesions. Neuro: Grossly intact. No evidence of focal abnormality. Intact light touch and propriocept ion of all extremities. Strength5/5 throughout.2+ bilat patella, 1+ bilat achilles refle x. No clonus. Cautious but normal gait. Labs / Imaging / Data: Chemistries: Last 72 Hours (or 3 results) - Refreshable Recent Labs 05/14/17 0451 05/15/17 0526 05/16/17 0552 NA 132* 131* 131* K 4.3 4.2 4.3 CL 98 96* 97 BICARB 26 27 29 BUN 7 9 10 CR 0.70 0.67* 0.82 GLU 136* 146* 108* CA 7.9* 8.0* 8.1* PO4 3.6 4.0 4.1 CBC with diff last 72 hours (or 3 results) - Refreshable Recent Labs 05/14/17 0451 05/15/17 0521 WBC 13.90* 12.01* HB 9.4* 9.7* HCT 27.8* 29.0* PLT 454* 473* Intake/Output Summary (Last 24 hours) at 05/16/17 1330 Last data filed at 05/16/17 1200 Gross per 24 hour Intake 360 ml Output 2324 ml Net -1964 ml Micro: BCx x 1 (05/12/17) no growth to date BCx x 1 (05/11/17) no growth to date BCx x1 (05/10/17) + MRSA BCx x2 (05/09/17) + MRSA Imaging:No new imaging Hospital problem list: Patients Hospital Problem List: Active Hospital Problems 1) *Abscess in epidural space of spine 2) Acute respiratory insufficiency, postoperative 3) Pleural effusion 4) Chronic alcoholism (HCC) Assessment & Plan Mr. Figueredo is a 61 y/o man with a hx of rectal cancer s/p resection who comes in with MRSA holospinalepidural abscess and left erector spinal abscessthought to be secondary to MRSA skin infection. Blood cultures showing improvement of bacteremia with no growth to date since 05/11/17. #. MRSA bacteremia Negative blood cx on 05/11/17. S/p lamiectomy for evacuation of holospinal epidural abscess. TTE studies neg x2, no vegetations or regurgitation. Continue vancomycin 1500mg q12 hr, shaka mmended by ID and pharmacy. PICC placed 05/15/17. Therapy thru 06/29/17 (6 week course). -vancomycin 1500mg IV q12 hr via PICC -06/29/17 anticipated stop date -OPAT final recs below: -goal d/c Wednesday to SNF #. Extensive spinal epidural abscess, s/p T2 & T8 skip laminectomy Improved neurologic function, has passed voiding trials. Ambulating with walker. Overall, i mproved and believed to have source control considering negative blood cultures. Negative bl ood cx 05/11/17. -cont IV Abx as per above #. L Erector spinae Muscle Abscess, Percutaneous Drain Placed 05/11 -monitor MARGAUX output overnight -CT scan if minimal output -if CT scan without actively draining abscess, will consult IR for pull MARGAUX #. Bilateral L>R Pleural Effusions Pt is requiring 1-2 L of O2 at rest, persistently dyspneic. Had dx thora on 05/08 showing ex udative effusion without growth on culture. Plans for dx/therapeutic thoracentesis by [facility] radiology tomorrow via US guidance. -O2 titrate >92% -diagnostic and therapeutic thoracentesis under US guidance tomorrow -fluid and serum studies for diagnostic purposes have been ordered #. Constipation Pt states he is constipated but nursing staff confirms he has had frequent bowel movements. -PRN bowel regimen #. Urinary Retention Resolved at this time. Okay for PVR's/straight caths PRN #. Hx of T1N0 Rectal Cancer S/p resection in 2011. No evidence of recurrence of mets on recent CT. CEA in 2013, undetec table. Repeat CEA negative. #. Routine inpatient care: Diet:regular Prophy:lovenox FEN/GI:docusate, miralax, senna PRN Lines:MARGAUX drain midline left posterior lumbar region, peripheral IV 20G Code status:Full Dispo:pending negative blood cultures SDM: Surrogate Decision Maker Primary Surrogate Decision Maker Ann (sister) [phone] This patient was staffed with my attending, Dr. Parada, who agrees with my assessment and marianna n. Kimber Elizabeth MD Internal Medicine PGY1 [facility] Infectious Disease Outpatient Referral for Discharge Planning [Y] This an OPAT Referral. [Type "Y" for all [facility] patients requiring IV antibiotics in all outpatient sett ings. Type "N" if NO IV antibiotics are recommended.] [Y] This is an [facility] ID Clinic Referral. [Type "Y" for all [facility] patients requiring [facility] ID Clinic Visits. Type "N" if no [facility] ID Clinic visits are recommended.] This referral has been routed to the p OPAT/Infectious Diseases Clinic Pool. Diagnosis: MRSA C2-L2 epidural abscess, MRSA bacteremia All antibiotic agents and dosing: vancomycin IV, goal trough ~15 Duration: 6 weeks Start date:05/11/17 Anticipated stop date: 06/22/17 Labs: weekly CBC with differential, CMP, vanc trough, CRP Patient's Preferred Infusion environment: unknown at this time Barriers to safe OPAT: lives in [facility], possible mild cognitive impairment Vascular Access:PICC Follow Up: [facility] ID faculty with preference to schedule with Dr. Harris or ID attending , Dr. Gomez in 2-3 weeks post hospital discharge Gasoline Tester: For all patients requiring IV antibiotic therapy, please route your OPAT Marianna n of Care Note (.CMOPAT) to [facility] "p OPAT/Infectious Diseases clinic" Pool at discharge. Ple ase communicate to primary team that you will be notifying Infectious Diseases of the OPAT P tammie of Care. ope, Darshan Webster MD - 9:42 PM [facility] 5 GENERAL MEDICINE ATTENDING PROGRESS NOTE HOSPITAL DAY 10 I personally interviewed the patient, performed the hyman elements of the physical examinatio n, reviewed new lab data in [facility], looked at any new radiology images and have developed an u pdated assessment and plan together with the [facility] residents (Dr. Baldwin and Dr. Pillai). Kim gaitan see the housestaff notes for full details with the following additions or exceptions. Problem List: #Persistent MRSA Bacteremia #Holospinal epidural abscess S/p laminectomy #Erector Spinae Abscess #Bilateral Pleural effusions #Rectal cancer #Chronic Alcoholism #Urinary Retention #Chest Pain Assessment/Plans: Mr. Figueredo is a 61 y/o man with a hx of rectal cancer s/p resection who comes in with MRSA epidural abscess. Last positive blood culture on 05/10/2017, PICC line placed today. Para-s benjamin abscess drain placed. Continue vancomycin, goal trough 15-20. Will trial w/o hammer today. Discussed thoracentesis today, however difficult windows, thus will have thora on Mo nday with radiology. Discharge Planning: Patient will need 6 weeks of IV antibiotics, PICC line 48-72 hours foll owing last positive blood cultures, and home IV antibiotics set up prior to discharge. OPAT will need to follow patient. Darshan Parada MD Department of Internal Medicine [facility] [employer] [place] I spent more than 35 minutes [id number] with the patient of which greater than 50% was sp ent counseling the patient. Anette Marshall - 1:07 PM PST [facility] [place] PROGRESS NOTE PHYSICIAN [employer] ENGINEER STUDENT NOTE FOR EDUCATIONAL PURPOSES ONLY Author: Anette Daniel PA-S Attending Physician: Darshan Parada MD DEMOGRAPHIC INFORMATION Name: Cornelio Figueredo Age: 61 y.o. Birthdate: 1955 Sex: male [address]: [address] [place] [id number] PCP: Jamaal Shi DO Hospital Day:10 24 Hour Events: -trial hammer removal this morning -PICC placed today -plan for thoracentesis this afternoon -IR recommendations re: MARGAUX drain - need 2-3 consecutive days of outputs <10-20mL per 24 hours period prior to removal -ID recommendations re: MARGAUX drain - repeat CT scan prior to removal of drain Subjective: The patient has no new complaints today. He says he is ready to go home. He has a family me mbadan who is a nurse who he believes can help care for his drain. He plans on moving into his mother's house temporarily until his health improves. He continues to have pain in his lowe r back which is managed well with oxycodone. He is needing ~10mg four times daily. He denies numbness, weakness, chest pain, n/v/d/c. Current Medications: acetaminophen (TYLENOL) tablet 650 mg, 650 mg, oral, Q6H PRN OR [DISCONTINUED] acetamin ophen (TYLENOL) tablet 325-650 mg, 325-650 mg, feeding tube, Q6H PRN OR [DISCONTINUED] a cetaminophen (TYLENOL) suppository 325-650 mg, 325-650 mg, rectal, Q6H PRN bisacodyl (DULCOLAX) suppository 10 mg, 10 mg, rectal, DAILY PRN enoxaparin (LOVENOX) injection 40 mg, 40 mg, subcutaneous, QPM lactobacillus rhamnosus (GG) (CULTURELLE) 15 billion cell capsule 1 capsule, 1 capsule, ora l, DAILY lidocaine (LIDODERM) 5 % patch 1 patch, 1 patch, transdermal, Q24H lidocaine (XYLOCAINE URO-JET) 2 % jelly, , urethral, PRN melatonin tablet 3 mg, 3 mg, oral, QPM [] ondansetron (ZOFRAN) injection 4 mg, 4 mg, intravenous, Q12H FOLLOWED BY onda nsetron (ZOFRAN) injection 4 mg, 4 mg, intravenous, Q12H PRN oxyCODONE (immediate release) (ROXICODONE) tablet 5-15 mg, 5-15 mg, oral, Q3H PRN OR [D ISCONTINUED] oxyCODONE (immediate release) (ROXICODONE) tablet 5-15 mg, 5-15 mg, feeding tub e, Q3H PRN polyethylene glycol (MIRALAX) packet 17 g, 17 g, oral, DAILY polyethylene glycol (MIRALAX) packet 34 g, 34 g, oral, TID PRN senna (SENOKOT) tablet 1 tablet, 1 tablet, oral, DAILY tamsulosin (FLOMAX) capsule 0.8 mg, 0.8 mg, oral, DAILY thiamine tablet 100 mg, 100 mg, oral, DAILY vancomycin (VANCOCIN) IV 1,500 mg, 1,500 mg, intravenous, Q12H white petrolatum-mineral oil (EUCERIN) cream, , topical, BID Vitals: Last Vitals: BP 96/60 | Pulse 95 | Temp 37.2 C (99 F) | RR 18 | Ht 1.791 m (5' 10.51") | Wt 75.1 kg (165 lb 9.1 oz) | SpO2 94% | BMI 23.41 kg/(m^2) 24 Hour Vital Min/Max: Systolic (24hrs), Av , Min:90 , Max:147 Diastolic (24hrs), Av, Min:60, Max:83 Pulse Av Min: 86 Max: 113 Temp Av.1 C (98.7 F) Min: 36.5 C (97.7 F) Max: 37.5 C (99.5 F) Resp Av.3 Min: 18 Max: 20 SpO2 Av.5 % Min: 89 % Max: 98 % Ins and Outs: Intake/Output Summary (Last 24 hours) at 05/15/17 1308 Last data filed at 05/15/17 1245 Gross per 24 hour Intake 1206 ml Output 2945 ml Net -1739 ml Exam: General: Awake, alert and oriented, appears stated age, NAD, cooperative HEENT: Oral/nasal mucosa pink and moist. PERRLA. EOMI.No sclera icterus or conjunctival i njection. Cardiovascular: RRR, no m/r/g.JVPnot abnormally elevated. Respiratory: Breathing unlabored. Decreased breath soundsand tactile fremitusof bilater al lung bases. L>R. Abdomen: +BS, soft, non-distended, non-tender.Dullness over LLQ.No rebound or guarding. Ext: wwp, 2+ pulses present bilaterally. No edema. Skin: No rashes or lesions. Neuro: Grossly intact. No evidence of focal abnormality. Intact light touch and propriocept ion of all extremities. Strength5/5 throughout.Reflexes symmetric. No clonus. Basic Labs: CBC with diff last 72 hours (or 3 results) Recent Labs 05/13/17 0512 05/14/17 0451 05/15/17 0521 WBC 14.37* 13.90* 12.01* HB 9.6* 9.4* 9.7* HCT 28.1* 27.8* 29.0* PLT 458* 454* 473* Chemistries last 72 Hours (or 3 results): Recent Labs 05/13/17 0512 05/14/17 04505/15/17 0526 NA 128* 132* 131* K 4.4 4.3 4.2 CL 96* 98 96* BICARB 27 26 27 BUN 6 7 9 CR 0.76 0.70 0.67* CA 7.6* 7.9* 8.0* PO4 3.9 3.6 4.0 Liver panel last 72 hours (or 3 results) Recent Labs 05/13/17 0512 05/14/17 0451 05/15/17 0526 ALB 1.6* 1.7* 1.7* Micro: BCx x 1 (05/12/17) no growth to date BCx x 1 (05/11/17) no growth to date BCx x1 (05/10/17) + MRSA BCx x2 (05/09/17) + MRSA Imaging: No new imaging Assessment and plan: Mr. Figueredo is a 61 y/o man with a hx of rectal cancer s/p resection who was admitted with MRSA holospinal epidural abscess and left erector spinal abscess thought to be secondary to MRSA skin infection. Blood cultures showing resolution of bacteremia with no growth to date since 05/11/17. #MRSA bacteremia #Spinal epidural abscess #Erector spinae abscess Currently improving with no growth to date on 05/11/17nd 05/12/17 blood culture. S/p T2 and T8 skip laminectomies (05/06/17) for evacuation of holospinal epidural abscess and I&D of lef t erector spinae abscesses (05/11/17). Other bacterial source considerations have included th e pleural effusion (05/08/17 thoracentesis meets exudative criteria, however fluid gram stain was negative) and endocarditis (TTE studies x2 were negative for vegetations or regurgitati on). Continue vancomycin 1500mg q 12hr as recommended by ID and pharmacy. He is receiving a PICC today for home abx administration. He will need 6 weeks of abx from the 05/11. End date: 06/29/17. Will work with case management to coordinate follow up with infectious disease. W ill also provide MARGAUX drain training prior to discharge and plan for CT imaging prior to remov al. Once these things have been completed, the patient is clear for discharge. - vancomycin 1500mg IV q 12hr via PICC - goal end date for abx therapy: 06/29/17 - consult for patient education re: MARGAUX drain - goal D/C date tomorrow or Wednesday #Exudative pleural effusion, bilateral Pleural effusion with atelectasis noted on CT C/A/P (05/07/17). Unknown etiology. Had diagno stic thoracentesis performed by ID on 05/08, results were largely transudative with the excep tion of the LDH ratio. Exudative considerations have included malignancy (h/o of rectal canc er, however no malignant foci on CT) and infectious/parapneumonic (spreading of MRSA bactere ernie, but pleural fluid gram stain was negative). Persistent hypoalbuminemia could contribute to transudative effusion, however he does not have other findings of low oncotic pressure ( edema or ascites) on exam. Since the patient has resolved bacteremia, we will proceed with a therapeutic thoracentesis today. Continue supplemental O2 at this time and monitor oxygen n eeds. - Thoracentesis today - continue supplemental O2 #Acute respiratory insufficiency, post-operative Had reported occurrence of increased WOB and shallow breathing after his skip laminectomy p rocedure on 05/06 that required reintubation and hypotension requiring use of pressors. He wa s successfully extubated on 05/07, currently satting >92% on 1L O2. - Titrate O2 to >90% - Encourage IS and OOB #Urinary retention Reported being unable to void prior to admission to the present. Reports frustration with b eing unable to void. May be due to post-operative or ICU-related urinary retention with poss ible contribution from BPH or spinal pathology. Continue tamsulosin 0.8mg daily. Hammer cath removed this morning with persistent urinary retention. Will measure PVR and replace hammer P RN. He will likely need to be discharged with temporary hammer and appropriate outpatient uro logical follow up. - pending PVR - set up outpatient urology appt if hammer replaced - continue tamsulosin to 0.8mg daily #Chest pain Single episode of chest pain occurring at rest. Pain lasted 1 hour and resolved without int ervention. EKG and troponin x2 were negative for ACS. Monitor for repeat episodes. #Anemia Normocytic, normochromic anemia - consistent with anemia of chronic disease. Improving. Pat ient is hemodynamically stable. Continue to monitor with daily CBCs until discharge. #AMS #Hyponatremia Stable at this time. Patient reported to the ED on 05/05/17 with confusion. Symptoms likely secondary to hyponatremia and bacteremia. He reports poor intake consistent with hypovolemic hyponatremia. Na corrected from 124 to 131 prior to transfer from the ED. Mental status rhina ears back to baseline. Na levels down to 128 on 05/13/17, likely secondary to hypovolemic hyp onatremia, as Na improved to 132 after 1L NS. Other considerations include SIADH due to lung and FLOATER OPERATOR pathology, however urine output <3L. Patient was instructed on proper nutritional i ntake. Will continue to monitor BMP, volume, and mental status until discharge. - increase oral intake #Alcoholism, chronic Reports drinking 1 case (24 beers)/week. LFTs are unremarkable. Will continue to monitor. S howing no signs of withdrawal. Continue thiamine daily. Can consider IMPACT consult if patie nt is still in the hospital on Wednesday. #Constipation Improving. Constipation throughout admission and the preceding 5 days prior to presentation . Found relief with Miralax. Continue Miralax and Senna daily. Dulcolax suppository PRN. - Miralax and Senna daily #Rectal Cancer Hx, s/p resection in 2011 Appears to be without evidence of disease recurrence or metastasis recent CT scans. CEA in 2012 was undetectable. Repeat CEA negative. Diet: regular Prophy: lovenox FEN/GI: docusate, miralax, senna PRN Lines: MARGAUX drain midline left posterior lumbar region, peripheral IV 20G Code status: Full Dispo: Plan for discharge tomorrow or Wednesday - pending thoracentesis and MARGAUX drain training CODE STATUS: Polst NO Advance Directive NO SDM: Surrogate Decision Maker Primary Surrogate Decision Maker Ann (sister) [phone] This patient was staffed with my attending, Darshan Parada MD, and they agree with my asses sment and plan. JOSÉ MIGUEL OrtizS Physician Furnace Filler Student [facility] Pager [phone] Associated attestation - Duy Baldwin MD - 05/15/2017 9:55 PM PST Agree with PA student note except as indicated otherwise. Cornelio Figueredo is a 61yoM with MRSA bacteremia, spontaneous spinal epidural abscess and new bilateral pleural effusions. BCx no growth since 05/10/17. Interval growth in paraspinous mus demarco abscess led to IR guided drainage 05/11, will need reimaging prior to removing drain when output stops. Pleural effusion remains stable with 1-2LPM O2 requirement and improved dyspn ea. On vancomycin (stabe dose) with PICC in place, but will need education of pt and family in care of drain, PICC, and likely hammer prior to DC (anticipated Wednesday). Last Vitals: BP 109/65 | Pulse 97 | Temp 37.6 C (99.7 F) | RR 18 | Ht 1.791 m (5' 10.51 ") | Wt 75.1 kg (165 lb 9.1 oz) | SpO2 94% | BMI 23.41 kg/(m^2) 24 Hour Vital Min/Max: Systolic (24hrs), Av , Min:90 , Max:128 Diastolic (24hrs), Av, Min:57, Max:83 Pulse Min: 94 Max: 113 Temp Min: 36.5 C (97.7 F) Max: 37.6 C (99.7 F) Resp Min: 18 Max: 20 SpO2 Min: 89 % Max: 98 % Intake/Output Summary (Last 24 hours) at 05/15/17 2151 Last data filed at 05/15/171999 Gross per 24 hour Intake 970 ml Output 2470 ml Net -1500 ml Exam: Gen: Man of late middle age lying in bed calmly, NC in place Resp: diminished breath sounds LLL. Cards: RRR no murmurs Abd: Soft NT ND Back: drain in place, post-laminectomy scars Ext: minimal AALIYAH bilat Skin: no rash or bruise Problem List: #MRSA bacteremia- continue vanc, will need 6 weeks from clear cultures (05/11 is day 1). P ICC placed. #Extensive Spinal Epidural Abscess s/p T2 and T8 skip laminectomy- monitor for neurologic decline #Paraspinous muscle abscesses- increased on interval CT scan s/p drainage 05/11. Re-image prior to removing MARGAUX (IR recs are in nursing communication signed 05/14/17) #Bilateral moderate exudative pleural effusions- therapeutic thoracentesis likely needed prior to DC. Procedure team vs IR on Wednesday. #Respiratory insufficiency- due to above #Heavy alcohol use- outside of withdrawal window, given thiamine/folate in ICU. Continue thiamine PO. #Urinary retention - s/p 5 days hammer decompression. On tamsulosin 0.8mg daily. Undergoing trial after hammer removal. #Constipation - bowel regimen escalated, scheduled miralax and senna #Hx of T1N0 Rectal Cancer - Resected 2011 with no e/o lymphovascular spread on path. CEA un detectable. Dispo:Will require 6 weeks IV abx post-clearance of blood cultures. PICC placed 05/15/17. Nearing discharge (wednesday or Wednesday, possibly)Darshan Parada MD - 05/14/2017 8:54 PM [facility] GENERAL MEDICINE ATTENDING PROGRESS NOTE HOSPITAL DAY 9 I personally interviewed the patient, performed the hyman elements of the physical examinatio n, reviewed new lab data in EPIC, looked at any new radiology images and have developed an u pdated assessment and plan together with the [facility] 5 residents (Dr. Baldwin and Dr. Pillai). P kandy see the housestaff notes for full details with the following additions or exceptions. Problem List: #Persistent MRSA Bacteremia #Holospinal epidural abscess S/p laminectomy #Erector Spinae Abscess #Bilateral Pleural effusions #Rectal cancer #Chronic Alcoholism #Urinary Retention #Chest Pain Assessment/Plans: Mr. Figueredo is a 61 y/o man with a hx of rectal cancer s/p resection who comes in with MRSA epidural abscess thought to be due to MRSA skin infection. last positive blood culture on 05/10/2017, PICC line placed today. Para-spinal abscess drain placed, awaiting recs from IR re removal of drain. Continue vancomycin, goal trough 15-20. Will trial w/o hammer today. Discharge Planning: Patient will need 6 weeks of IV antibiotics, PICC line 48-72 hours foll owing last positive blood cultures, and home IV antibiotics set up prior to discharge. OPAT will need to follow patient. Darshan Parada MD Department of Internal Medicine [facility] I spent more than 35 minutes [id number] with the patient of which greater than 50% was sp ent counseling the patient. Anette Marshall - 1:49 PM PST [facility] [place] PROGRESS NOTE PHYSICIAN [employer] SYSTEMS ENGINEER STUDENT NOTE FOR EDUCATIONAL PURPOSES ONLY Author: Anette Daniel, PA-S Attending Physician: Darshan Parada MD DEMOGRAPHIC INFORMATION Name: Cornelio Figueredo Age: 61 y.o. Birthdate: 1955 Sex: male [address]: [address] [place] [address] [place] [address] PCP: Jamaal Shi DO Hospital Day:9 24 Hour Events: - Still low 90s on 2L - pending thoracentesis Subjective: He had two normal BM yesterday after use of the dulcolax suppository. His abdominal pain montes s now improved. He still feels mildly constipated but will be receiving regular stool soften ers. The pain is his back is improving daily. He walks around the halls at least 2-3x/day. H e still feels SOB, however has remained stable. He is using the incentive spirometer regular ly. He denies numbness, weakness, chest pain, n/v/d. Current Medications: acetaminophen (TYLENOL) tablet 650 mg, 650 mg, oral, Q6H PRN OR [DISCONTINUED] acetamin ophen (TYLENOL) tablet 325-650 mg, 325-650 mg, feeding tube, Q6H PRN OR [DISCONTINUED] a cetaminophen (TYLENOL) suppository 325-650 mg, 325-650 mg, rectal, Q6H PRN bisacodyl (DULCOLAX) suppository 10 mg, 10 mg, rectal, DAILY PRN enoxaparin (LOVENOX) injection 40 mg, 40 mg, subcutaneous, QPM lactobacillus rhamnosus (GG) (CULTURELLE) 15 billion cell capsule 1 capsule, 1 capsule, ora l, DAILY lidocaine (LIDODERM) 5 % patch 1 patch, 1 patch, transdermal, Q24H lidocaine (XYLOCAINE URO-JET) 2 % jelly, , urethral, PRN melatonin tablet 3 mg, 3 mg, oral, QPM [] ondansetron (ZOFRAN) injection 4 mg, 4 mg, intravenous, Q12H FOLLOWED BY onda nsetron (ZOFRAN) injection 4 mg, 4 mg, intravenous, Q12H PRN oxyCODONE (immediate release) (ROXICODONE) tablet 5-15 mg, 5-15 mg, oral, Q3H PRN OR [D ISCONTINUED] oxyCODONE (immediate release) (ROXICODONE) tablet 5-15 mg, 5-15 mg, feeding tub e, Q3H PRN polyethylene glycol (MIRALAX) packet 17 g, 17 g, oral, DAILY polyethylene glycol (MIRALAX) packet 34 g, 34 g, oral, TID PRN senna (SENOKOT) tablet 1 tablet, 1 tablet, oral, DAILY tamsulosin (FLOMAX) capsule 0.8 mg, 0.8 mg, oral, DAILY thiamine tablet 100 mg, 100 mg, oral, DAILY vancomycin (VANCOCIN) IV 1,500 mg, 1,500 mg, intravenous, Q12H white petrolatum-mineral oil (EUCERIN) cream, , topical, BID Vitals: Last Vitals: BP 129/73 | Pulse 79 | Temp 36.9 C (98.4 F) | RR 18 | Ht 1.791 m (5' 10.51 ") | Wt 76.2 kg (167 lb 15.9 oz) | SpO2 93% | BMI 23.76 kg/(m^2) 24 Hour Vital Min/Max: Systolic (24hrs), Av , Min:112 , Max:138 Diastolic (24hrs), Av, Min:70, Max:88 Pulse Av.3 Min: 79 Max: 96 Temp Av.3 C (99.2 F) Min: 36.9 C (98.4 F) Max: 37.8 C (100 F) Resp Av Min: 18 Max: 18 SpO2 Av.3 % Min: 92 % Max: 95 % Ins and Outs: Intake/Output Summary (Last 24 hours) at 05/14/17 1350 Last data filed at 05/14/17 1100 Gross per 24 hour Intake 1071 ml Output 3825 ml Net -2754 ml Exam: General: Awake, alert and oriented, appears stated age, NAD, cooperative HEENT: Oral/nasal mucosa pink and moist. PERRLA. EOMI. No sclera icterus or conjunctival in jection. Cardiovascular: RRR, no m/r/g. JVP not abnormally elevated. Respiratory: Breathing unlabored. Decreased breath sounds and tactile fremitus of bilateral lung bases. Abdomen: +BS, soft, non-distended. Dullness over LLQ. Mild tenderness of the LLQ to deep pa lpation. No rebound or guarding. Negative Fitzgerald's sign. Ext: wwp, 2+ pulses present bilaterally. No edema. Skin: Normal turgor. No rashes or lesions. Neuro: Grossly intact. No evidence of focal abnormality. Intact light touch and propriocept ion of all extremities. Strength 5/5 throughout. 2+ bilat patella, 1+ bilat achilles reflex. No clonus. Basic Labs: CBC with diff last 72 hours (or 3 results) Recent Labs 05/12/1735405/13/1751105/14/17450 WBC 13.42* 14.37* 13.90* HB 9.4* 9.6* 9.4* HCT 27.5* 28.1* 27.8* PLT 423* 458* 454* Chemistries last 72 Hours (or 3 results): Recent Labs 05/12/1735405/13/1751105/14/17450 NA 133* 128* 132* K 4.1 4.4 4.3 CL 98 96* 98 BICARB 28 27 26 BUN 7 6 7 CR 0.72 0.76 0.70 CA 7.6* 7.6* 7.9* PO4 3.6 3.9 3.6 Liver panel last 72 hours (or 3 results) Recent Labs 05/12/17 0355 05/13/17 0512 05/14/17 0451 ALB 1.5* 1.6* 1.7* Micro: BCx x 1 (05/12/17) no growth to date BCx x 1 (05/11/17) no growth to date BCx x1 (05/10/17) + MRSA BCx x2 (05/09/17) + MRSA Imaging: No new imaging Assessment and plan: Mr. Figueredo is a 61 y/o man with a hx of rectal cancer s/p resection who comes in with MRSA holospinal epidural abscess and left erector spinal abscess thought to be secondary to MRSA skin infection. Blood cultures showing improvement of bacteremia with no growth to date sin ce 05/11/17. #MRSA bacteremia #Spinal epidural abscess #Erector spinae abscess Currently improving with no growth to date on 05/11/17nd 05/12/17 blood culture. S/p T2 and T8 skip laminectomies (05/06/17) for evacuation of holospinal epidural abscess and I&D of lef t erector spinae abscesses (05/11/17). Other bacterial source considerations have included th e pleural effusion (05/08/17 thoracentesis meets exudative criteria, however fluid gram stain was negative) and endocarditis (TTE studies x2 were negative for vegetations or regurgitati on). Continue vancomycin 2000mg q 12hr as recommended by ID and pharmacy. Plan for PICC plac ement tomorrow after 48 hours of negative cultures. - continue vancomycin 2000mg IV q 12hr (follow ID recommendations) - pending PICC placement (scheduled tomorrow) - plan for 6 weeks of IV abx after first negative blood culture (Rx written) - talk to IR about MARGAUX drain removal #Exudative pleural effusion, bilateral Pleural effusion with atelectasis noted on CT C/A/P (05/07/17). Unknown etiology. Had diagno stic thoracentesis performed by ID on 05/08, results were largely transudative with the excep tion of the LDH ratio. Exudative considerations have included malignancy (h/o of rectal canc er, however no malignant foci on CT) and infectious/parapneumonic (spreading of MRSA bactere ernie, but pleural fluid gram stain was negative). Persistent hypoalbuminemia could contribute to transudative effusion, however he does not have other findings of low oncotic pressure ( edema or ascites) on exam. Since the patient has resolved bacteremia, we will proceed with a therapeutic thoracentesis. To consider further diagnostics (flow cytometry). Continue suppl emental O2 at this time and monitor oxygen needs. - Plan for thoracentesis tomorrow - continue supplemental O2 #Acute respiratory insufficiency, post-operative Had reported occurrence of increased WOB and shallow breathing after his skip laminectomy p rocedure on 05/06 that required reintubation and hypotension requiring use of pressors. He wa s successfully extubated on 05/07, currently satting >92% on 1L O2. - Titrate O2 to >90% - Encourage IS and OOB #Urinary retention Reported being unable to void prior to admission to the present. Reports frustration with b eing unable to void. May be due to post-operative or ICU-related urinary retention with poss ible contribution from BPH or spinal pathology. Continue tamsulosin 0.8mg daily. Hammer cath has been in place for 4 days. Will trial removal today. To consider temporary hammer x2 weeks on discharge with appropriate urological follow up. - trial hammer removal - continue tamsulosin to 0.8mg daily #Chest pain Single episode of chest pain occurring at rest. Pain lasted 1 hour and resolved without int ervention. EKG and troponin x2 were negative for ACS. Monitor for repeat episodes. #Anemia Normocytic, normochromic anemia - consistent with anemia of chronic disease. Improving. Pat ient is hemodynamically stable. Continue to monitor with daily CBCs. - daily CBC #AMS #Hyponatremia Stable at this time. Patient reported to the ED on 05/05/17 with confusion. Symptoms likely secondary to hyponatremia and bacteremia. He reports poor intake consistent with hypovolemic hyponatremia. Na corrected from 124 to 131 prior to transfer from the ED. Mental status rhina ears back to baseline. Na levels down to 128 on 05/13/17, likely secondary to hypovolemic hyp onatremia, as Na improved to 132 after 1L NS. Other considerations include SIADH due to lung and FLOATER OPERATOR pathology, however urine output <3L. Will continue to monitor BMP, volume, and ment al status. - Continue to monitor BMP and volume status #Alcoholism, chronic Reports drinking 1 case (24 beers)/week. LFTs are unremarkable. Will continue to monitor. S howing no signs of withdrawal. Continue thiamine daily. #Constipation Improving. Constipation throughout admission and the preceding 5 days prior to presentation . Found relief with Miralax. Continue Miralax and Senna daily. Dulcolax suppository PRN. - Miralax and Senna daily #Rectal Cancer Hx, s/p resection in 2011 Appears to be without evidence of disease recurrence or metastasis recent CT scans. CEA in 2013 was undetectable. Repeat CEA negative. Diet: regular Prophy: lovenox FEN/GI: docusate, miralax, senna PRN Lines: MARGAUX drain midline left posterior lumbar region, peripheral IV 20G Code status: Full Dispo: pending negative blood cultures CODE STATUS: Polst NO Advance Directive NO SDM: Surrogate Decision Maker Primary Surrogate Decision Maker Ann (sister) [phone] This patient was staffed with my attending, Darshan Parada MD, and they agree with my asses sment and plan. RAJ Ortiz Physician Furnace Filler Student [facility] Pager [phone] Associated attestation - Gabby Pillai MD - 05/14/2017 5:34 PM PST [facility] [place] PROGRESS NOTE I personally interviewed the patient, performed the hyman elements of the physical examinatio n, reviewed new lab data in EPIC, looked at any new radiology images and have developed an u pdated assessment and plan together with the attending, Darshan Parada MD. Agree with HORACE freire note except as indicated otherwise. 61 yo man with MRSA bacteremia, spinal epidural abscess and new bilateral pleural effusions . BCx remain positive as of 05/10. Interval growth in paraspinous muscle abscess led to IR gu ided drainage 05/11, will need reimaging prior to removing drain when output falls. Pleural e ffusion remains stable with 1-2LPM O2 requirement and improved dyspnea. It is exudative by L ight's (due to LDH), with an increased number of neutrophil predominant white cells, but wit h a high pH and non-elevated protein does not look convincingly like MRSA-infected fluid. No immediate indication for thoracentesis, will consider therapeutic thoracentesis now that ba cteremia is cleared and to assist with respiratory status. Vitals: Last 24 hour min/max Temp: 37.5 C (99.5 F) Temp Min: 36.9 C (98.4 F) Max: 37.6 C (99.7 F) Pulse: 95 Pulse Min: 79 Max: 95 Resp: 18 Resp Min: 18 Max: 19 BP: 147/80 BP Min: 112/70 Max: 147/80 SpO2: 95 % SpO2 Min: 92 % Max: 96 % Body mass index is 23.76 kg/(m^2). Ins and Outs: Intake/Output Summary (Last 24 hours) at 05/14/17 1712 Last data filed at 05/14/17 1559 Gross per 24 hour Intake 1061 ml Output 4450 ml Net -3389 ml Wt Readings from Last 3 Encounters: 05/14/17 76.2 kg (167 lb 15.9 oz) Exam: Gen: middle aged man laying comfortably in bed with NC Card: RRR without murmurs. Resp: BS absent bilat bases and to above midlung on L, breathing easily on 2L NC Ext: No edema, no splinter hemorrhages or embolic/immunologic phenomena. Neuro: Alert and oriented and moves all extremities. Strength full and symmetric bilat LEs Lines: Hammer, JPs, PIVs Problem List: #MRSA bacteremia- continue vanc, will need 6 weeks from clear cultures and PICC to be marianna renita on 05/15 #Extensive Spinal Epidural Abscess s/p T2 and T8 skip laminectomy- monitor for neurologic decline #Paraspinous muscle abscesses- increased on interval CT scan s/p drainage 05/11. Re-image prior to removing MARGAUX (will check with IR for removal recs) #Bilateral moderate exudative pleural effusions- therapeutic thoracentesis, if O2 require ments increase. #Respiratory insufficiency- due to above #Heavy alcohol use- outside of withdrawal window, given thiamine/folate in ICU. Continue thiamine PO. #Urinary retention - hammer in place for bladder decompression, plan for voiding trials on 07/15, also on tamsulosin 0.8mg daily #Constipation - bowel regimen escalated, scheduled miralax and senna #Hx of T1N0 Rectal Cancer - Resected 2011 with no e/o lymphovascular spread on path. CEA un detectable. Dispo: Will require 6 weeks IV abx post-clearance of blood cultures. Will plan for PICC marianna cement prior to discharge as well, plan for placement on 05/15. Gabby Pillai MD Trout Farmer, PGY-1 [facility] Pager [phone] Darshan Parada MD - 05/13/2017 4:13 PM PST 5 GENERAL MEDICINE ATTENDING PROGRESS NOTE HOSPITAL DAY 8 I personally interviewed the patient, performed the hyman elements of the physical examinatio n, reviewed new lab data in EPIC, looked at any new radiology images and have developed an u pdated assessment and plan together with the [facility] 5 residents (Dr. Baldwin and Dr. Pillai). P kandy see the housestaff notes for full details with the following additions or exceptions. Problem List: #Persistent MRSA Bacteremia #Holospinal epidural abscess S/p laminectomy #Erector Spinae Abscess #Bilateral Pleural effusions #Rectal cancer #Chronic Alcoholism #Urinary Retention #Chest Pain Assessment/Plans: Mr. Figueredo is a 61 y/o man with a hx of rectal cancer s/p resection who comes in with MRSA epidural abscess thought to be due to MRSA skin infection. last positive blood culture on 05/10/2017. Para-spinal abscess drain placed, will follow up with IR re-regarding further re commendations. Continue vancomycin, goal trough 15-20. Will continue hammer for urinary re tention (trial removal after 4 days), and higher dose tamsulosin. Discharge Planning: Patient will need 6 weeks of IV antibiotics, PICC line 48-72 hours foll owing last positive blood cultures, and home IV antibiotics set up prior to discharge. OPAT will need to follow patient. Darshan Parada MD Department of Internal Medicine [facility] I spent more than 35 minutes [id number] with the patient of which greater than 50% was sp ent counseling the patient. Anette Marshall - 2:00 PM PST [facility] [place] PROGRESS NOTE PHYSICIAN [employer] SYSTEMS ENGINEER STUDENT NOTE FOR EDUCATIONAL PURPOSES ONLY Author: Anette Daniel, PA-S Attending Physician: Darshan Paraad MD DEMOGRAPHIC INFORMATION Name: Cornelio Figueredo Age: 61 y.o. Birthdate: 1955 Sex: male [address]: [address] [place] [address] [place] [address] PCP: Jamaal Shi DO Hospital Day:8 24 Hour Events: - Elevated vanc trough (27.6) yesterday - Vanc dose adjusted to 2000mg q 12hr - Plan for repeat trough tomorrow morning - O2 sat at 91-94% on 2L via nasal cannula last night Subjective: Patient continues to be constipated. Last BM was 3 days ago. He received a dulcolax supposi tory this AM but has yet to pass a stool. He does pass gas regularly which relieves his disc omfort. Nursing staff notes that the patient has been experiencing episodes of dizziness whe n sitting up and BP recordings have been <100 systolic. He denies confusion, chest pain, wor sening SOB, nausea, vomiting, or diarrhea. No new complaints. Current Medications: acetaminophen (TYLENOL) tablet 650 mg, 650 mg, oral, Q6H PRN OR [DISCONTINUED] acetamin ophen (TYLENOL) tablet 325-650 mg, 325-650 mg, feeding tube, Q6H PRN OR [DISCONTINUED] a cetaminophen (TYLENOL) suppository 325-650 mg, 325-650 mg, rectal, Q6H PRN bisacodyl (DULCOLAX) suppository 10 mg, 10 mg, rectal, DAILY PRN enoxaparin (LOVENOX) injection 40 mg, 40 mg, subcutaneous, QPM lactobacillus rhamnosus (GG) (CULTURELLE) 15 billion cell capsule 1 capsule, 1 capsule, ora l, DAILY lidocaine (LIDODERM) 5 % patch 1 patch, 1 patch, transdermal, Q24H lidocaine (XYLOCAINE URO-JET) 2 % jelly, , urethral, PRN [] ondansetron (ZOFRAN) injection 4 mg, 4 mg, intravenous, Q12H FOLLOWED BY onda nsetron (ZOFRAN) injection 4 mg, 4 mg, intravenous, Q12H PRN oxyCODONE (immediate release) (ROXICODONE) tablet 5-15 mg, 5-15 mg, oral, Q3H PRN OR [D ISCONTINUED] oxyCODONE (immediate release) (ROXICODONE) tablet 5-15 mg, 5-15 mg, feeding tub e, Q3H PRN polyethylene glycol (MIRALAX) packet 17 g, 17 g, oral, DAILY polyethylene glycol (MIRALAX) packet 34 g, 34 g, oral, TID PRN senna (SENOKOT) tablet 1 tablet, 1 tablet, oral, DAILY tamsulosin (FLOMAX) capsule 0.8 mg, 0.8 mg, oral, DAILY thiamine tablet 100 mg, 100 mg, oral, DAILY vancomycin (VANCOCIN) IV 2,000 mg, 2,000 mg, intravenous, Q12H white petrolatum-mineral oil (EUCERIN) cream, , topical, BID Vitals: Last Vitals: BP 119/84 | Pulse 86 | Temp 36.6 C (97.9 F) | RR 18 | Ht 1.791 m (5' 10.51 ") | Wt 77.7 kg (171 lb 4.8 oz) | SpO2 97% | BMI 24.22 kg/(m^2) 24 Hour Vital Min/Max: Systolic (24hrs), Av , Min:75 , Max:137 Diastolic (24hrs), Av, Min:43, Max:84 Pulse Av.6 Min: 82 Max: 101 Temp Av.1 C (98.8 F) Min: 36.6 C (97.9 F) Max: 37.9 C (100.2 F) Resp Av.8 Min: 17 Max: 18 SpO2 Av.7 % Min: 91 % Max: 97 % Ins and Outs: Intake/Output Summary (Last 24 hours) at 05/13/17 1400 Last data filed at 05/13/17 1300 Gross per 24 hour Intake 1225 ml Output 4580 ml Net -3355 ml Exam: General: Awake, alert and oriented, appears stated age, NAD, cooperative HEENT: Oral/nasal mucosa pink and moist. PERRLA. EOMI. No sclera icterus or conjunctival in jection. Cardiovascular: RRR, no m/r/g. JVP normal at 8cm. Respiratory: Breathing unlabored. Decreased breath sounds and tactile fremitus of bilateral lung bases. Abdomen: +BS, soft, non-distended. Dullness over LLQ. Diffuse tenderness to light and deep palpation, greatest in the left upper and lower quadrants. No rebound or guarding. Negative Fitzgerald's sign. Ext: wwp, 2+ pulses present bilaterally. No edema. Skin: Improved xerosis of distal extremities. Normal turgor. No rashes or lesions. Neuro: Grossly intact. No evidence of focal abnormality. Intact light touch and propriocept ion of all extremities. Strength 5/5 throughout. 2+ bilat patella, 1+ bilat achilles reflex. No clonus. Basic Labs: CBC with diff last 72 hours (or 3 results) Recent Labs 05/11/1742705/12/1735405/13/17 0512 WBC 17.93* 13.42* 14.37* HB 9.7* 9.4* 9.6* HCT 28.3* 27.5* 28.1* PLT 453* 423* 458* Chemistries last 72 Hours (or 3 results): Recent Labs 05/11/1742705/12/175 05/13/17 0512 NA 132* 133* 128* K 3.6 4.1 4.4 CL 97 98 96* BICARB 27 28 27 BUN 7 7 6 CR 0.62* 0.72 0.76 CA 7.4* 7.6* 7.6* PO4 2.6 3.6 3.9 Liver panel last 72 hours (or 3 results) Recent Labs 05/11/1742705/12/175 05/13/17 0512 ALB 1.5* 1.5* 1.6* Micro: BCx x 1 (05/11/17) no growth to date BCx x1 (05/10/17) + MRSA BCx x2 (05/09/17) + MRSA BCx x2 (05/08/17) - + MRSA Imaging: No new imaging Assessment and plan: Mr. Figueredo is a 61 y/o man with a hx of rectal cancer s/p resection who comes in with MRSA holospinal epidural abscess and left erector spinal abscess thought to be secondary to MRSA skin infection. Blood cultures showing improvement of bacteremia with no growth to date on 05/11/17. #MRSA bacteremia #Spinal epidural abscess #Erector spinae abscess Currently improving with no growth to date on 05/11/17 blood culture. S/p T2 and T8 skip correa inectomies (05/06/17) for evacuation of holospinal epidural abscess and I&D of left erector s pinae abscesses (05/11/17). Other bacterial source considerations have included the pleural e ffusion (05/08/17 thoracentesis meets exudative criteria, however fluid gram stain was negati ve) and endocarditis (TTE studies x2 were negative for vegetations or regurgitation). Contin ue vancomycin 2000mg q 12hr as recommended by ID and pharmacy. Plan for PICC placement tomor row after 48 hours of negative cultures. - continue vancomycin 2000mg IV q 12hr (follow ID recommendations) - Consult PICC team tomorrow if blood cultures remain negative - plan for 6 weeks of IV abx after first negative blood culture - Remove MARGAUX drain prior to discharge #Exudative pleural effusion, bilateral Pleural effusion with atelectasis noted on CT C/A/P (05/07/17). Unknown etiology. Had diagno stic thoracentesis performed by ID on 05/08, results were largely transudative with the excep tion of the LDH ratio. Exudative considerations have included malignancy (h/o of rectal canc er, however no malignant foci on CT) and infectious/parapneumonic (spreading of MRSA bactere ernie, but pleural fluid gram stain was negative). Persistent hypoalbuminemia could contribute to transudative effusion, however he does not have other findings of low oncotic pressure ( edema or ascites) on exam. Since the patient has improved bacteremia, we will proceed with a therapeutic thoracentesis. To consider further diagnostics (flow cytometry). Continue suppl emental O2 at this time and monitor oxygen needs. - Plan for thoracentesis - continue supplemental O2 #Acute respiratory insufficiency, post-operative Had reported occurrence of increased WOB and shallow breathing after his skip laminectomy p rocedure on 05/06 that required reintubation and hypotension requiring use of pressors. He wa s successfully extubated on 05/07, currently satting >92% on 1L O2. - Titrate O2 to >90% - Encourage IS and OOB #Urinary retention Reported being unable to void prior to admission to the present. Reports frustration with b eing unable to void. May be due to post-operative or ICU-related urinary retention with poss ible contribution from BPH. Continue tamsulosin 0.8mg daily. Hammer cath in place. - Remove hammer tomorrow - Continue tamsulosin to 0.8mg daily #Chest pain Single episode of chest pain occurring at rest. Pain lasted 1 hour and resolved without int ervention. EKG and troponin x2 were negative for ACS. Monitor for repeat episodes. #Anemia Normocytic, normochromic anemia - consistent with anemia of chronic disease. Improving. Pat ient is hemodynamically stable. Continue to monitor with daily CBCs. - daily CBC #AMS #Hyponatremia Patient reported to the ED on 05/05/17 with confusion. Symptoms likely secondary to hyponatr emia and bacteremia. He reports poor intake consistent with hypovolemic hyponatremia. Na cor rected from 124 to 131 prior to transfer from the ED. Mental status appears back to baseline , however Na levels have been trending down (128). Currently, the patient's hyponatremia is likely secondary to hypovolemia (hypotension and orthostasis). Other considerations include SIADH due to lung and FLOATER OPERATOR pathology, however urine output <3L. Will trial 1L of NS for hypov olemic hyponatremia. Recheck BMP tomorrow. Monitor mental and volume status. - trail 1L of NS - daily BMP - monitor BP and volume status #Alcoholism, chronic Reports drinking 1 case (24 beers)/week. LFTs are unremarkable. Will continue to monitor. S howing no signs of withdrawal. Continue thiamine daily. #Constipation Reported constipation over the preceding 5 days prior to presentation. Found relief with Mi ralax. Continue Miralax and Senna daily. Dulcolax suppository PRN. - Miralax and Senna daily #Rectal Cancer Hx, s/p resection in 2011 Appears to be without evidence of disease recurrence or metastasis recent CT scans. CEA in 2013 was undetectable. Repeat CEA negative. Diet: regular Prophy: lovenox FEN/GI: docusate, miralax, senna PRN Lines: MARGAUX drain midline upper back, midline drain left posterior lumbar region, peripheral IV Code status: Full Dispo: pending negative blood cultures CODE STATUS: Polst NO Advance Directive NO SDM: Surrogate Decision Maker Primary Surrogate Decision Maker Ann (sister) [phone] This patient was staffed with my attending, Darshan Parada MD, and they agree with my asses sment and plan. HORACE Ortiz-S Physician Furnace Filler Student [facility] Pager [phone] Associated attestation - Gabby Pillai MD - 05/13/2017 6:02 PM PST [facility] PROGRESS NOTE I personally interviewed the patient, performed the hyman elements of the physical examinatio n, reviewed new lab data in EPIC, looked at any new radiology images and have developed an u pdated assessment and plan together with the attending, Darshan Parada MD. Agree with HORACE freire note except as indicated otherwise. 61 yo man with MRSA bacteremia, spinal epidural abscess and new bilateral pleural effusions . BCx remain positive as of 05/10. Interval growth in paraspinous muscle abscess led to IR gu ided drainage 05/11, will need reimaging prior to removing drain when output falls. Pleural e ffusion remains stable with 1-2LPM O2 requirement and improved dyspnea. It is exudative by L ight's (due to LDH), with an increased number of neutrophil predominant white cells, but wit h a high pH and non-elevated protein does not look convincingly like MRSA-infected fluid. No immediate indication for thoracentesis, will consider therapeutic thoracentesis now that ba cteremia is cleared and to assist with respiratory status. Vitals: Last 24 hour min/max Temp: 37.1 C (98.8 F) Temp Min: 36.6 C (97.9 F) Max: 37.3 C (99.1 F) Pulse: 96 Pulse Min: 82 Max: 97 Resp: 18 Resp Min: 18 Max: 18 BP: 138/88 BP Min: 75/47 Max: 138/88 SpO2: 94 % SpO2 Min: 91 % Max: 97 % Body mass index is 24.22 kg/(m^2). Ins and Outs: Intake/Output Summary (Last 24 hours) at 05/13/17 1736 Last data filed at 05/13/17 1358 Gross per 24 hour Intake 1245 ml Output 3805 ml Net -2560 ml Wt Readings from Last 3 Encounters: 05/13/17 77.7 kg (171 lb 4.8 oz) Exam: Gen: middle aged man laying comfortably in bed without NC Card: RRR without murmurs. Resp: BS absent bilat bases and to above midlung on L Ext: No edema, no splinter hemorrhages or embolic/immunologic phenomena. Neuro: Alert and oriented and moves all extremities. Strength full and symmetric bilat LEs Lines: Hammer, JPs, PIVs Problem List: #MRSA bacteremia- continue vanc, will need 6 weeks from clear cultures and PICC to be marianna renita on 05/14 #Extensive Spinal Epidural Abscess s/p T2 and T8 skip laminectomy- monitor for neurologic decline #Paraspinous muscle abscesses- increased on interval CT scan s/p drainage 05/11. Re-image prior to removing MARGAUX. #Bilateral moderate exudative pleural effusions- consider therapeutic thoracentesis if O2 needs increase. #Respiratory insufficiency- due to above #Heavy alcohol use- outside of withdrawal window, given thiamine/folate in ICU. Continue thiamine PO. #Urinary retention - hammer in place for bladder decompression, consider removal on 05/14, d iscontinue per protocol, also on tamsulosin 0.8mg daily #Constipation - bowel regimen escalated, scheduled miralax and senna #Hx of T1N0 Rectal Cancer - Resected 2011 with no e/o lymphovascular spread on path. CEA un detectable. Dispo: Will required 6 weeks IV abx post-clearance of blood cultures. Will plan for PICC pl acement prior to discharge as well, plan for placement on 05/14. Gabby Pillai MD Trout Farmer, PGY-1 [facility] Pager [phone] Darshan Parada MD - 05/12/2017 5:41 PM [facility] 5 GENERAL MEDICINE ATTENDING PROGRESS NOTE HOSPITAL DAY 7 I personally interviewed the patient, performed the hyman elements of the physical examinatio n, reviewed new lab data in [employer], looked at any new radiology images and have developed an u pdated assessment and plan together with the [facility] residents (Dr. Baldwin and Dr. Pillai). Kim gaitan see the housestaff notes for full details with the following additions or exceptions. Problem List: #Persistent MRSA Bacteremia #Holospinal epidural abscess S/p laminectomy #Erector Spinae Abscess #Bilateral Pleural effusions #Rectal cancer #Chronic Alcoholism #Urinary Retention #Chest Pain Assessment/Plans: Mr. Figueredo is a 61 y/o man with a hx of rectal cancer s/p resection who comes in with MRSA epidural abscess thought to be due to MRSA skin infection. Currently remains bacteremic. S tatus post para-spinal abscess drain placement. Continue to monitor blood cultures, and con tinue vancomycin. Will continue hammer for urinary retention (trial removal after 4 days), and higher dose tamsulosin. Discharge Planning: Patient will need 6 weeks of IV antibiotics, PICC line 48-72 hours foll owing last positive blood cultures, and home IV antibiotics set up prior to discharge. OPAT will need to follow patient. Darshan Parada MD Department of Internal Medicine [facility] I spent more than 35 minutes [id number] with the patient of which greater than 50% was sp ent counseling the patient. Anette Marshall - 2:53 PM PST [facility] PROGRESS NOTE PHYSICIAN [employer] ENGINEER STUDENT NOTE FOR EDUCATIONAL PURPOSES ONLY Author: Anette Daniel PA-S Attending Physician: Darshan Parada MD DEMOGRAPHIC INFORMATION Name: Cornelio Figueredo Age: 61 y.o. Birthdate: 1955 Sex: male [address]: [address] [place] [address] [place] [address] PCP: Jamaal Shi DO Hospital Day:7 24 Hour Events: - Left erector spinae abscess drained yesterday (30mL) - Drain placed Subjective: He continues to have abdominal pain which he describes as "bloating". Symptoms are relieved with burping or passing gas. He feels his symptoms are secondary to constipation. Last BM w as 2 days ago. He has back pain near the procedure site which is well managed with pain medi cations. He is walking around the floor multiple times per day without difficulty. He still feels SOB, but is not currently using supplemental oxygen. He denies chest pain, diarrhea, h eadaches, visual changes, or confusion. Current Medications: acetaminophen (TYLENOL) tablet 650 mg, 650 mg, oral, Q6H PRN OR [DISCONTINUED] acetamin ophen (TYLENOL) tablet 325-650 mg, 325-650 mg, feeding tube, Q6H PRN OR [DISCONTINUED] a cetaminophen (TYLENOL) suppository 325-650 mg, 325-650 mg, rectal, Q6H PRN bisacodyl (DULCOLAX) suppository 10 mg, 10 mg, rectal, DAILY PRN enoxaparin (LOVENOX) injection 40 mg, 40 mg, subcutaneous, QPM lidocaine (LIDODERM) 5 % patch 1 patch, 1 patch, transdermal, Q24H lidocaine (XYLOCAINE URO-JET) 2 % jelly, , urethral, PRN [] ondansetron (ZOFRAN) injection 4 mg, 4 mg, intravenous, Q12H FOLLOWED BY onda nsetron (ZOFRAN) injection 4 mg, 4 mg, intravenous, Q12H PRN oxyCODONE (immediate release) (ROXICODONE) tablet 5-15 mg, 5-15 mg, oral, Q3H PRN OR [D ISCONTINUED] oxyCODONE (immediate release) (ROXICODONE) tablet 5-15 mg, 5-15 mg, feeding tub e, Q3H PRN polyethylene glycol (MIRALAX) packet 34 g, 34 g, oral, TID PRN tamsulosin (FLOMAX) capsule 0.8 mg, 0.8 mg, oral, DAILY thiamine tablet 100 mg, 100 mg, oral, DAILY vancomycin (VANCOCIN) IV 1,250 mg, 1,250 mg, intravenous, Q8H white petrolatum-mineral oil (EUCERIN) cream, , topical, BID Vitals: Last Vitals: BP 142/74 | Pulse 81 | Temp 37.2 C (99 F) | RR 16 | Ht 1.791 m (5' 10.51") | Wt 80.1 kg (176 lb 9.4 oz) | SpO2 90% | BMI 24.97 kg/(m^2) 24 Hour Vital Min/Max: Systolic (24hrs), Av , Min:112 , Max:159 Diastolic (24hrs), Av, Min:63, Max:117 Pulse Av.5 Min: 71 Max: 107 Temp Av C (98.6 F) Min: 36.5 C (97.7 F) Max: 37.6 C (99.7 F) Resp Av.1 Min: 16 Max: 20 SpO2 Av.1 % Min: 90 % Max: 99 % Ins and Outs: Intake/Output Summary (Last 24 hours) at 05/12/17 1453 Last data filed at 05/12/17 1250 Gross per 24 hour Intake 586 ml Output 2880 ml Net -2294 ml Exam: General: Awake, alert and oriented, appears stated age, NAD, cooperative HEENT: Oral/nasal mucosa pink and moist. PERRLA. EOMI. No sclera icterus or conjunctival in jection. Cardiovascular: RRR, no m/r/g. JVP not abnormally elevated. Respiratory: Breathing unlabored. Absent breath sounds, decreased tactile fremitus, and dul lness to percussion of bilateral lung bases. Abdomen: +BS, soft, non-distended. Dullness over LLQ. Diffuse tenderness to light and deep palpation, greatest in the left upper and lower quadrants. No rebound or guarding. Negative Fitzgerald's sign. Ext: wwp, 2+ pulses present bilaterally. Trace lower extremity edema. Skin: Xerosis of distal extremities. No rashes or lesions. Neuro: Grossly intact. No evidence of focal abnormality. Intact light touch and propriocept ion of all extremities. Strength 5/5 throughout. 2+ bilat patella, 1+ bilat achilles reflex. No clonus. Ambulates well with walker. Basic Labs: CBC with diff last 72 hours (or 3 results) Recent Labs 05/10/1742005/11/1742705/12/17354 WBC 18.01* 17.93* 13.42* HB 9.5* 9.7* 9.4* HCT 27.1* 28.3* 27.5* PLT 479* 453* 423* Chemistries last 72 Hours (or 3 results): Recent Labs 05/10/1742005/11/1742705/12/17 035 NA 134* 132* 133* K 3.2* 3.6 4.1 CL 100 97 98 BICARB 28 27 28 BUN 8 7 7 CR 0.64* 0.62* 0.72 CA 7.4* 7.4* 7.6* MG 2.3 -- -- PO4 2.8 2.6 3.6 Liver panel last 72 hours (or 3 results) Recent Labs 05/10/1742005/11/17427 05/12/17 0355 ALB 1.5* 1.5* 1.5* Troponin (05/11/17 08:55) - <0.02 Troponin (05/11/17 15:49) - <0.02 Micro: BCx x 1 (05/11/17) pending BCx x1 (05/10/17) + MRSA BCx x2 (05/09/17) + MRSA BCx x2 (05/08/17) - + MRSA Imaging: No new imaging Assessment and plan: Mr. Figueredo is a 61 y/o man with a hx of rectal cancer s/p resection who comes in with MRSA epidural abscess thought to be due to MRSA skin infection. Currently remains bacteremic s/p epidural abscess drainage. Continued bacteremia likely secondary to increasing left erector spinae abscesses, which have been now been drained on 05/11/17. Other possible sources inclu ding endocarditis vs seeded pleural effusion (however on prior tap no bacteria were seen). #MRSA bacteremia #Spinal epidural abscess - s/p T2 and T8 skip laminectomy (05/06) #Erector spinae abscess - pending surgical intervention Transferred from [facility] to [facility] on 05/09 s/p T2 and T8 skip laminectomies (05/06/17) for evacu ation of holospinal epidural abscess. Currently on vancomycin 1250mg q 8hr. Blood cultures c ontinues to be positive up to 05/09/17. Continued bacteremia likely secondary to growing mult ifocal left erector spinae abscesses which have now been drained by IR on 05/11/17. We are ho peful that this intervention will establish adequate source control. Should he remain bacter emic, another possible source could be the pleural effusion (05/08/17 thoracentesis meets exu dative criteria, however fluid gram stain was negative). TTE studies (05/07/17 and 05/10/17) w ere negative for vegetations or regurgitation. Continue vancomycin dosing as recommended by ID. To consider further intervention of pleural effusion if bacteremia does not improve over the next few days. - continue vancomycin 1250mg IV q 8hr (follow ID recommendations) - plan for 6 weeks of IV abx after first negative blood culture - continue daily BCx - unlikely to intervene on pleural effusions unless BCx don t clear after ab scess drainage #Exudative pleural effusion, bilateral Pleural effusion with atelectasis noted on CT C/A/P (05/07/17). Had diagnostic thoracentesis performed by ID on 05/08, results were largely transudative with the exception of the LDH ra dick. Unknown etiology. Exudative considerations have included malignancy (h/o of rectal canc er, however no malignant foci on CT) and infectious/parapneumonic (spreading of MRSA bactere ernie, but pleural fluid gram stain was negative). Persistent hypoalbuminemia could contribute to transudative effusion, however he does not have other findings of low oncotic pressure ( edema or ascites) on exam. Will consider repeating diagnostic and therapeutic thoracentesis if blood cultures do not clear, however would not want to seed infection into pleural fluid if it is not currently an infectious source. Continue supplemental O2 at this time and monit or oxygen needs. - unlikely to intervene on pleural effusions unless BCx don t clear after abscess drainag e due to concern of seeding infection - continue supplemental O2 #Acute respiratory insufficiency, post-operative Had reported occurrence of increased WOB and shallow breathing after his skip laminectomy p rocedure on 05/06 that required reintubation and hypotension requiring use of pressors. He wa s successfully extubated on 05/07, currently satting >92% on 1L O2. - Titrate O2 to >90% -Encourage IS and OOB #Urinary retention Reported being unable to void prior to admission to the present. Reports frustration with b eing unable to void. May be due to post-operative or ICU-related urinary retention with poss ible contribution from BPH. Trial increase of tamsulosin dose. Hammer cath in place. - Hammer cath in place - Continue tamsulosin to 0.8mg daily #Chest pain Single episode of chest pain occurring at rest. Pain lasted 1 hour and resolved without int ervention. EKG and troponin x2 were negative for ACS. Monitor for repeat episodes. #Anemia Normocytic, normochromic anemia - consistent with anemia of chronic disease. Improving. Pat ient is hemodynamically stable. Continue to monitor with daily CBCs. - daily CBC #Hyponatremia Confusion secondary to hyponatremia and bacteremia upon presentation to ED on 05/05/17. Hypo natremia likely secondary to poor oral intake. Na corrected from 124 to 131 prior to transfe r. Mental status appears back to baseline currently. No focal neurological deficits. Will co ntinue to monitor sodium levels. - Continue to monitor, watch mental status - daily BMP #Alcoholism, chronic Reports drinking 1 case (24 beers)/week. LFTs are unremarkable. Will continue to monitor. S howing no signs of withdrawal. Continue thiamine daily. #Constipation Reported constipation over the preceding 5 days prior to presentation. Found relief with Mi ralax, however reported diarrhea. Dosing has been adjusted to PRN. He will increase use due to current constipation. - increase use of miralax and senna #Rectal Cancer Hx, s/p resection in 2011 Appears to be without evidence of disease recurrence or metastasis recent CT scans. CEA in 2013 was undetectable. Repeat CEA negative. Diet:regular Prophy:lovenox FEN/GI:docusate, miralax, senna PRN Lines:MARGAUX drain midline upper back, midline drain left posterior lumbar region, peripheral IV Code status:Full Dispo:pending negative blood cultures CODE STATUS: Polst NO Advance Directive NO SDM: Surrogate Decision Maker Primary Surrogate Decision Maker Ann (sister) [phone] This patient was staffed with my attending, Darshan Parada MD, and they agree with my asses sment and plan. HORACE Ortiz-S Physician Furnace Filler Student [facility] Pager [phone] Associated attestation - Duy Baldwin MD - 05/12/2017 5:40 PM PST Agree with PA student note except as indicated otherwise. Middle aged man with MRSA bacteremia, spinal epidural abscess and new bilateral pleural eff usions. BCx remain positive as of 05/10. Interval growth in paraspinous muscle abscess led to IR guided drainage 05/11, will need reimaging prior to removing drain when output falls. Ple ural effusion remains stable with 1-2LPM O2 requirement and improved dyspnea. It is exudativ e by Light's (due to LDH), with an increased number of neutrophil predominant white cells, b ut with a high pH and non-elevated protein does not look convincingly like MRSA-infected flu id. No immediate indication for thoracentesis, and it is reasonable to hold off until bacter emia clears or declining respiratory status compels us. Last Vitals: BP 128/80 | Pulse 101 | Temp 37.9 C (100.2 F) | RR 17 | Ht 1.791 m (5' 10. 51") | Wt 80.1 kg (176 lb 9.4 oz) | SpO2 94% | BMI 24.97 kg/(m^2) 24 Hour Vital Min/Max: Systolic (24hrs), Av , Min:112 , Max:142 Diastolic (24hrs), Av, Min:63, Max:84 Pulse Min: 71 Max: 101 Temp Min: 36.5 C (97.7 F) Max: 37.9 C (100.2 F) Resp Min: 16 Max: 20 SpO2 Min: 90 % Max: 99 % Intake/Output Summary (Last 24 hours) at 05/12/17 1738 Last data filed at 05/12/17 1626 Gross per 24 hour Intake 586 ml Output 3655 ml Net -3069 ml Gen: middle aged man laying comfortably in bed without NC Card: RRR without murmurs. Resp: BS absent bilat bases and to above midlung on L Ext: No edema, no splinter hemorrhages or embolic/immunologic phenomena. Neuro: Alert and oriented and moves all extremities. Strength full and symmetric bilat LEs Lines: Hammer, JPs, PIVs Problem List #MRSA bacteremia- continue vanc, will need 6 weeks from clear cultures and PICC when frandy r X48hr #Extensive Spinal Epidural Abscess s/p T2 and T8 skip laminectomy- monitor for neurologic decline #Paraspinous muscle abscesses- increased on interval CT scan s/p drainage 05/11. Re-image prior to removing MARGAUX. #Bilateral moderate exudative pleural effusions- consider therapeutic thoracentesis if O2 needs increase. #Respiratory insufficiency- due to above #Heavy alcohol use- outside of withdrawal window, given thiamine/folate in ICU. Cont thia mine PO. #Urinary retention - hammer in place for bladder decompression, discontinue per protocol #Constipation - bowel regimen escalated #Hx of T1N0 Rectal Cancer - Resected 2011 with no e/o lymphovascular spread on path. CEA un detectable.Darshan Parada MD - 05/11/2017 5:11 PM PSTGM 5 GENERAL MEDICINE ATTENDING PROGR ESS NOTE HOSPITAL DAY 6 I personally interviewed the patient, performed the hyman elements of the physical examinatio n, reviewed new lab data in EPIC, looked at any new radiology images and have developed an u pdated assessment and plan together with the [facility] residents (Dr. Baldwin and Dr. Pillai). Kim gaitan see the housestaff notes for full details with the following additions or exceptions. Problem List: #Persistent MRSA Bacteremia #Holospinal epidural abscess S/p laminectomy #Erector Spinae Abscess #Bilateral Pleural effusions #Rectal cancer #Chronic Alcoholism #Urinary Retention #Chest Pain Assessment/Plans: Mr. Figueredo is a 61 y/o man with a hx of rectal cancer s/p resection who comes in with MRSA epidural abscess thought to be due to MRSA skin infection. Currently remains bacteremic. at this time we believe that the source of his continue bacteremia is his paraspinal absces ses, which have coalesced and organized since the last CT scan. Currently discussing with IR for drainage of these abscesses forced continued source control. Although the patient does have a large pleural effusion, based on prior diagnostic Thora is not infected and thus woul d like to avoid exceeding this with a therapeutic thoracentesis. We will continue to monitor the patient's oxygen sat and workup breathing. If this worsens would consider a therapeutic thoracentesis. Will continue hammer for urinary retention, and higher dose tamsulosin. Discharge Planning: Patient will need 6 weeks of IV antibiotics, PICC line 48-72 hours foll owing last positive blood cultures, and home IV antibiotics set up prior to discharge. OPAT will need to follow patient. Darshan Parada MD Department of Internal Medicine [facility] I spent more than 35 minutes [id number] with the patient of which greater than 50% was sp ent counseling the patient. Cody Del Cid MD - 01/2017 3:01 PM PSTInterventional Radiology Post-Procedure Note 05/11/2017 3:01 PM Procedure Performed: Drainage Tube Providers: IR Attending: ADDIS GANDARA IR Fellow: ANNE MARIE GRIFFITH Resident: MICHELLE YUSUF Access: Side: Midline Site: Non-Vascular Non-vascular: Other Other: Lower back, left of midline Procedure Details: Procedure: Placement Indication: Abscess Volume Aspirated (mL): 30 Complications: None Findings, Impressions, and Recommendations: Successful placement of 12 Fr biliary drain in a multiloculated paraspinal musculature absc ess just left of midline, extending from T12-L3. 30cc of purulent material was drained and d iscarded. The drainage catheter was connected to bulb suction. The patient tolerated the pro cedure without immediate complication. Full report forthcoming. Please see fully dictated report for further details. Anette Marshall - 05/11 12:58 PM PST [facility] PROGRESS NOTE PHYSICIAN [employer] SYSTEMS ENGINEER STUDENT NOTE FOR EDUCATIONAL PURPOSES ONLY Author: Anette Daniel PA-S Attending Physician: Darshan Parada MD DEMOGRAPHIC INFORMATION Name: Cornelio Figueredo Age: 61 y.o. Birthdate: 1955 Sex: male [address]: [address] [place] [id number] PCP: Jamaal Shi DO Hospital Day:6 24 Hour Events: -patient remains bacteremic (last positive culture up to 05/09/17, GPC in cluster on 05/10/17 ) - repeat CT C/A/P w/ contrast - increasing size of abscesses in the left erector spinae musculature - pending surgical team involvement - repeat TTE - low vanc trough yesterday, vanc increased from 1750mg BID to 1250mg TID Subjective: Episode of chest pain this morning, starting around 7am and lasting for one hour before res olving. Pain was mild, rated at a 1/10, described as sharp and non-pleuritic. Pain radiated to the left shoulder. He had associated paresthesias of the bilateral fingers and abdominal pain. Per nursing staff, oxygen requirements were increased prior to the episode from 1L to 2L via nasal cannula, with O2 saturations remaining in the low 90's. He also reports foul sm elling diarrhea x2 days associated with diffuse abdominal pain which is exacerbated by eatin g. He had 3 watery BM yesterday. He denies nausea, vomiting, melena or hematochezia. Current Medications: acetaminophen (TYLENOL) tablet 650 mg, 650 mg, oral, Q6H PRN OR [DISCONTINUED] acetamin ophen (TYLENOL) tablet 325-650 mg, 325-650 mg, feeding tube, Q6H PRN OR [DISCONTINUED] a cetaminophen (TYLENOL) suppository 325-650 mg, 325-650 mg, rectal, Q6H PRN bisacodyl (DULCOLAX) suppository 10 mg, 10 mg, rectal, DAILY PRN dextrose 50 % in water IV 25 mL, 25 mL, intravenous, PRN enoxaparin (LOVENOX) injection 40 mg, 40 mg, subcutaneous, QPM glucagon (GLUCAGEN) injection 1 mg, 1 mg, intramuscular, PRN glucose chewable tablet 16 g, 16 g, oral, PRN insulin lispro (HUMALOG) injection, , subcutaneous, QID lidocaine (LIDODERM) 5 % patch 1 patch, 1 patch, transdermal, Q24H lidocaine (XYLOCAINE URO-JET) 2 % jelly, , urethral, PRN [] ondansetron (ZOFRAN) injection 4 mg, 4 mg, intravenous, Q12H FOLLOWED BY onda nsetron (ZOFRAN) injection 4 mg, 4 mg, intravenous, Q12H PRN oxyCODONE (immediate release) (ROXICODONE) tablet 5-15 mg, 5-15 mg, oral, Q3H PRN OR [D ISCONTINUED] oxyCODONE (immediate release) (ROXICODONE) tablet 5-15 mg, 5-15 mg, feeding tub e, Q3H PRN polyethylene glycol (MIRALAX) packet 34 g, 34 g, oral, TID PRN potassium chloride IV (peripheral line) 40 mEq, 40 mEq, intravenous, ONCE tamsulosin (FLOMAX) capsule 0.8 mg, 0.8 mg, oral, DAILY vancomycin (VANCOCIN) IV 1,250 mg, 1,250 mg, intravenous, Q8H Vitals: Last Vitals: BP 132/80 | Pulse 96 | Temp 37.7 C (99.9 F) | RR 16 | Ht 1.791 m (5' 10.51 ") | Wt 81.2 kg (179 lb 0.2 oz) | SpO2 95% | BMI 25.31 kg/(m^2) 24 Hour Vital Min/Max: Systolic (24hrs), Av , Min:120 , Max:139 Diastolic (24hrs), Av, Min:68, Max:96 Pulse Av.8 Min: 83 Max: 107 Temp Av.4 C (99.3 F) Min: 36.6 C (97.9 F) Max: 37.9 C (100.2 F) Resp Av.6 Min: 16 Max: 20 SpO2 Av.7 % Min: 88 % Max: 95 % Ins and Outs: Intake/Output Summary (Last 24 hours) at 05/11/17 1258 Last data filed at 05/11/17 0824 Gross per 24 hour Intake 1588 ml Output 4500 ml Net -2912 ml Exam: General: Awake, alert and oriented, appears stated age, NAD, cooperative HEENT: Oral/nasal mucosa pink and moist. PERRLA. EOMI. No sclera icterus or conjunctival in jection. Cardiovascular: RRR, distant heart sounds. No m/r/g. JVP not abnormally elevated. Chest michael n was non-reproducible with palpation. Respiratory: Breathing easily on 2L via nasal cannula. Absent breath sounds, decreased tact ile fremitus, and dullness to percussion of bilateral lung bases. Abdomen: +BS, soft, non-distended. Diffuse tenderness to light and deep palpation, greatest in the bilateral upper quadrants. No rebound or guarding. Negative Fitzgerald's sign. Ext: wwp, 2+ pulses present bilaterally. Trace lower extremity edema. Skin: Xerosis of distal extremities. No rashes or lesions. Neuro: Grossly intact. No evidence of focal abnormality. Intact light touch of bilateral ex tremities. Strength: 5/5 BUE. 5/5 RLE. 4+/5 left hip flexion and knee extension. 5/5 left fo ot dorsiflexion, plantar flexion, and flexor hallicus. Reflexes: 2+ LLE, 1+ RLE. Basic Labs: CBC with diff last 72 hours (or 3 results) Recent Labs 05/09/17 0133 05/10/17 0421 05/11/17 0428 WBC 17.50* 18.01* 17.93* HB 9.5* 9.5* 9.7* HCT 28.0* 27.1* 28.3* PLT 505* 479* 453* Chemistries last 72 Hours (or 3 results): Recent Labs 05/09/17 0133 05/10/17 04205/11/17427 NA 136 134* 132* K 3.3* 3.2* 3.6 CL 102 100 97 BICARB 25 28 27 BUN 13 8 7 CR 0.68* 0.64* 0.62* CA 7.0* 7.4* 7.4* MG 2.2 2.3 -- PO4 3.0 2.8 2.6 Liver panel last 72 hours (or 3 results) Recent Labs 05/09/17 0133 05/10/17 04205/11/17427 ALB 1.4* 1.5* 1.5* Vancomycin trough (05/10/17) - 13.9 CEA (05/10/17) - <0.5 Troponin (05/11/17 08:55) - <0.02 Micro: BCx x 1 (05/11/17) pending BCx x1 (05/10/17) GPC in clusters BCx x2 (05/09/17) + MRSA BCx x2 (05/08/17) - + MRSA Imaging: - EKG (05/11/17 08:41) - NSR, no TWI or ST changes -TTE (05/10/17): 1. The left ventricular cavity size is normal. 2. The ejection fraction is normal. 3. Right ventricular size, thickness and function are normal. 4. There are no obvious valvular vegetations or unexplained regurgitant jets noted on this good quality transthoracic echocardiogram. -CT C/A/P (05/10/17): IMPRESSION: 1. More organized multiloculated fluid collections within left erector spinae musculature c onsistent with abscesses at the level of the lumbar spine have mildly increased in size. 2. No signs of malignancy identified in the chest, abdomen or pelvis. 3. Large bilateral pleural effusions, slightly decreased; Small ground changes in the right lung upper lobe, could be infectious or inflammatory Assessment and plan: Mr. Figueredo is a 61 y/o man with a hx of rectal cancer s/p resection who comes in with MRSA epidural abscess thought to be due to MRSA skin infection. Currently remains bacteremic s/ p epidural abscess drainage. Continued bacteremia likely secondary to increasing left erecto r spinae abscesses. Other possible sources including endocarditis vs seeded pleural effusion (however on prior tap no bacteria were seen). Acute Problems: #MRSA bacteremia #Spinal epidural abscess - s/p T2 and T8 skip laminectomy (05/06) #Erector spinae abscess - pending surgical intervention Transferred from [facility] to [facility] on 05/09 s/p T2 and T8 skip laminectomies (05/06/17) for evacu ation of holospinal epidural abscess. Currently on vancomycin 1750mg q 12hr. Blood cultures continues to be positive up to 05/09/17. Continued bacteremia likely secondary to growing mul tifocal left erector spinae abscesses. Pending surgical intervention with IR. Another possib le source could be the pleural effusion (05/08/17 thoracentesis meets exudative criteria, how ever fluid gram stain was negative). TTE studies (05/07/17 and 05/10/17) were negative for veg etations or regurgitation. Continue vancomycin dosing as recommended by ID. To consider furt her intervention of pleural effusion if bacteremia does not improve after intervention of er joby spinae abscesses. - continue vancomycin 1250mg IV q 8hr (follow ID recommendations) - plan for 6 weeks of IV abx after first negative blood culture - pending surgical intervention of paraspinal abscesses - unlikely to intervene on pleural effusions unless BCx don t clear after abscess draina ge - continue daily BCx #Exudative pleural effusion, bilateral Pleural effusion with atelectasis noted on CT C/A/P (05/07/17). Had diagnostic thoracentesis performed by ID on 05/08, results were largely transudative with the exception of the LDH ra dick. Unknown etiology. Exudative considerations have included malignancy (h/o of rectal canc er, however no malignant foci on CT) and infectious/parapneumonic (spreading of MRSA bactere ernie, but pleural fluid gram stain was negative). Persistent hypoalbuminemia could contribute to transudative effusion, however he does not have other findings of low oncotic pressure ( edema or ascites) on exam. Will consider repeating diagnostic and therapeutic thoracentesis if blood cultures do not clear, however would not want to seed infection into pleural fluid if it is not currently an infectious source. Continue supplemental O2 at this time and monit or oxygen needs. - unlikely to intervene on pleural effusions unless BCx don t clear after abscess draina ge - continue supplemental O2 #Acute respiratory insufficiency, post-operative Had reported occurrence of increased WOB and shallow breathing after his skip laminectomy p rocedure on 05/06 that required reintubation and hypotension requiring use of pressors. He wa s successfully extubated on 05/07, currently satting >92% on 1L O2. - Titrate O2 to >90% -Encourage IS and OOB #Urinary retention Reported being unable to void prior to admission to the present. Reports frustration with lisa garcia unable to void. May be due to post-operative or ICU-related urinary retention with poss ible contribution from BPH. Trial increase of tamsulosin dose. Hammer cath in place. - Hammer cath in place - Continue tamsulosin to 0.8mg daily #Chest pain Single episode of chest pain occurring at rest. Pain lasted 1 hour and resolved without int ervention. EKG and troponin were negative for ACS. Will recheck a troponin this afternoon. M onitor for repeat episodes. - Repeat troponin #Anemia Normocytic, normochromic anemia - consistent with anemia of chronic disease. Improving. Pat ient is hemodynamically stable. Continue to monitor with daily CBCs. - daily CBC #Hyponatremia Confusion secondary to hyponatremia and bacteremia upon presentation to ED on 05/05/17. Hypo natremia likely secondary to poor oral intake. Na corrected from 124 to 131 prior to transfe r. Mental status appears back to baseline currently. No focal neurological deficits. Will co ntinue to monitor sodium levels. - Continue to monitor, watch mental status - daily BMP #Alcoholism, chronic Reports drinking 1 case (24 beers)/week. LFTs are unremarkable. Will continue to monitor. S howing no signs of withdrawal #Constipation Reported constipation over the preceding 5 days prior to presentation. Found relief with Mi ralax, however now patient reports symptoms of diarrhea. Will change scheduled miralax and s yuli to PRN. To consider C difficile antigen testing. - decrease miralax and senna to PRN - to consider C diff testing #Recal Cancer Hx, s/p resection in 2011 Appears to be without evidence of disease recurrence or metastasis recent CT scans. CEA in 2013 was undetectable. Repeat CEA negative. Diet: regular Prophy: lovenox FEN/GI: docusate, miralax, senna PRN Lines: MARGAUX midline drain (upper back), Hammer cath, peripheral IV (L wrist, R wrist, R upper arm 18G) Code status: Full Dispo: pending negative blood cultures CODE STATUS: Polst NO Advance Directive NO SDM: Surrogate Decision Maker Primary Surrogate Decision Maker Ann (sister) [phone] This patient was staffed with my attending, Darshan Parada MD, and they agree with my asses sment and plan. JOSÉ MIGUEL OrtizS Physician Furnace Filler Student [facility] Pager [phone] Associated attestation - Duy Baldwin MD - 05/11/2017 5:03 PM PST Agree with PA student note except as indicated otherwise. Middle aged man with MRSA bacteremia, spinal epidural abscess and new bilateral pleural eff usions. For now, persistence of bacteremia is not necessarily unexpected given the patient h as such extensive abscesses. Interval growth in paraspinous muscle abscess led to IR guided drainage today. Pleural effusion remains stable with 1-2LPM O2 requirement and improved dysp renan. It is exudative by Light's (due to LDH), with an increased number of neutrophil predomi nant white cells, but with a high pH and non-elevated protein does not look convincingly lik e MRSA-infected fluid. No immediate indication for thoracentesis, and it is reasonable to ho ld off until bacteremia clears. Exam Last Vitals: BP 156/87 | Pulse 107 | Temp 37.6 C (99.7 F) | RR 16 | Ht 1.791 m (5' 10.5 1") | Wt 81.2 kg (179 lb 0.2 oz) | SpO2 97% | BMI 25.31 kg/(m^2) 24 Hour Vital Min/Max: Systolic (24hrs), Av , Min:120 , Max:188 Diastolic (24hrs), Av, Min:68, Max:117 Pulse Min: 83 Max: 107 Temp Min: 36.6 C (97.9 F) Max: 37.9 C (100.2 F) Resp Min: 16 Max: 53 SpO2 Min: 85 % Max: 98 % Intake/Output Summary (Last 24 hours) at 05/11/17 1656 Last data filed at 05/11/17 1331 Gross per 24 hour Intake 1608 ml Output 5300 ml Net -3692 ml Gen: middle aged man laying comfortably in bed wearing a nasal cannula. Card: RRR without murmurs. Resp: BS absent bilat bases and to above midlung on L Ext: No edema, no splinter hemorrhages or embolic/immunologic phenomena. Neuro: Alert and oriented and moves all extremities. 5/5 strength RLE, 4+/5 LLE to hip flex ion and ankle dorsiflexion. Problem List #MRSA bacteremia - continue vanc, will need 6 weeks from clear cultures and PICC when clear X48hr #Extensive Spinal Epidural Abscess s/p T2 and T8 skip laminectomy - monitor for neurologic decline #Paraspinous muscle abscesses - increased on interval CT scan s/p drainage today. #Bilateral moderate exudative pleural effusions - consider therapeutic thoracentesis if O2 needs increase. #Respiratory insufficiency - due to above #Heavy alcohol use - outside of withdrawal window, given thiamine/folate in ICU #Urinary retention - hammer in place for bladder decompression, discontinue per protocol #Constipation - bowel regimen #Hx of T1N0 Rectal Cancer - Resected 2011 with no e/o lymphovascular spread on path. CEA un detectable.Cody Yusuf MD - 05/11/2017 12:32 PM PSTFormatting of this note might be differe nt from the original. INTERVENTIONAL RADIOLOGY PRE-PROCEDURE HISTORY AND PHYSICAL LOCATION: [facility] 16-1 SEX: Male AGE: 61 y.o. : 1955 PROCEDURE PLANNED: Drainage catheter placement HISTORY OF PRESENT ILLNESS: 61 yo male with persistent bacteremia status post T2 and T8 skip laminectomies (05/06/17) fo r evacuation of holospinal epidural abscess. Blood cultures continue to be positive up to despite current vancomycin. Requesting further source control via percutaneous drainag e of left erector spinae abscesses extending from T12-L3. ADVERSE DRUG REACTIONS: No Known Allergies RED FLAGS: No TAKING ANTICOAGULANT OR GLUCOPHAGE? No PREMEDICATIONS NEEDED: None LABORATORY: Lab Results Component Value Date WBC 17.93 (H) 05/11/2017 HCT 28.3 (L) 05/11/2017 PLT 453 (H) 05/11/2017 Lab Results Component Value Date NA 132 (L) 05/11/2017 K 3.6 05/11/2017 CL 97 05/11/2017 BICARB 27 05/11/2017 BUN 7 05/11/2017 CR 0.62 (L) 05/11/2017 GLU 106 (H) 05/11/2017 Lab Results Component Value Date INRPT 1.09 05/10/2017 FOCUSED PHYSICAL EXAMINATION: SIGNIFICANT FINDINGS GENERAL BMI:Body mass index is 25.31 kg/(m^2). Awake and alert HEENT wnl HEART wnl LUNGS wnl ABDOMEN wnl EXTREMITIES wnl NEURO wnl PLANNED ACCESS POINT(S): Posterior left of midline. CURRENT LEVEL OF PAIN: Minimal PLANNED LEVEL OF SEDATION: Moderate PRESENT P.O. STATUS: NPO since this morning. PRE-SEDATION EVALUATION HISTORY: Are you having breathing problems today? No Are you having chest pain or discomfort today? No Have you had a prior history of difficult intubation or ventilation? No Do you have noisy breathing (stridor)? No Do you snore? No Do you have documented sleep apnea? No Previous sedation/anesthesia experience and NPO status documented on nursing note, which I have eviewed. Patient Active Problem List Diagnosis Abscess in epidural space of spine Acute respiratory insufficiency, postoperative Pleural effusion Chronic alcoholism (HCC) Airway Examination: Normal airway ASA Status: 3 Assessment: I have reviewed Mr. Figueredo's history and and conducted the physical examination as documen roslyn above. This patient is appropriate for moderate sedation. Mr. Figueredo has provided written consent for sedation with this procedure. Plan: Percutaneous drainage of left erector spinae abscesses with moderate sedation. Kim Yusuf MD pgr [phone] [facility] Interventional [place] No past medical history on file. No past surgical history on file. Current Medication List Not on File Abel Marcus - 2016 2:44 PM PSTTransthoracic echocardiogram completed. Final report to follow. Anette Marshall - 12/2016 2:33 PM PST [facility] [place] PROGRESS NOTE PHYSICIAN [employer] SYSTEMS ENGINEER STUDENT NOTE FOR EDUCATIONAL PURPOSES ONLY Author: JOSÉ MIGUEL OrtizS Attending Physician: Darshan Parada MD DEMOGRAPHIC INFORMATION Name: Cornelio Figueredo Age: 61 y.o. Birthdate: 1955 Sex: male Address: [address] [place] [id number] PCP: Jamaal Shi DO Hospital Day:5 24 Hour Events: -patient remains bacteremic (last positive culture up to 05/09/17) -ID recommendations: - concern about source control - repeat MARGARET - rescan CT Chest/Abd/Pelvis w/ contrast Subjective: His main concern today is his shortness of breath. He denies associated cough, hemoptysis, fever or chills. His back pain was improved this morning. He denies numbness or weakness of the lower extremities. He received a hammer catheter last night due to his significant urinar y retention. This has significantly relieved his discomfort. No other complaints. Current Medications: acetaminophen (TYLENOL) tablet 650 mg, 650 mg, oral, Q6H PRN OR [DISCONTINUED] acetamin ophen (TYLENOL) tablet 325-650 mg, 325-650 mg, feeding tube, Q6H PRN OR [DISCONTINUED] a cetaminophen (TYLENOL) suppository 325-650 mg, 325-650 mg, rectal, Q6H PRN bisacodyl (DULCOLAX) suppository 10 mg, 10 mg, rectal, DAILY PRN dextrose 50 % in water IV 25 mL, 25 mL, intravenous, PRN enoxaparin (LOVENOX) injection 40 mg, 40 mg, subcutaneous, QPM glucagon (GLUCAGEN) injection 1 mg, 1 mg, intramuscular, PRN glucose chewable tablet 16 g, 16 g, oral, PRN insulin lispro (HUMALOG) injection, , subcutaneous, QID lidocaine (LIDODERM) 5 % patch 1 patch, 1 patch, transdermal, Q24H lidocaine (XYLOCAINE URO-JET) 2 % jelly, , urethral, PRN [] ondansetron (ZOFRAN) injection 4 mg, 4 mg, intravenous, Q12H FOLLOWED BY onda nsetron (ZOFRAN) injection 4 mg, 4 mg, intravenous, Q12H PRN oxyCODONE (immediate release) (ROXICODONE) tablet 5-15 mg, 5-15 mg, oral, Q3H PRN OR [D ISCONTINUED] oxyCODONE (immediate release) (ROXICODONE) tablet 5-15 mg, 5-15 mg, feeding tub e, Q3H PRN polyethylene glycol (MIRALAX) packet 17 g, 17 g, oral, DAILY polyethylene glycol (MIRALAX) packet 34 g, 34 g, oral, TID PRN potassium chloride IV (peripheral line) 40 mEq, 40 mEq, intravenous, ONCE senna-docusate (SENOKOT S) 8.6-50 mg 2 tablet, 2 tablet, oral, BID [START ON 05/11/2017] tamsulosin (FLOMAX) capsule 0.8 mg, 0.8 mg, oral, DAILY vancomycin (VANCOCIN) IV 1,750 mg, 1,750 mg, intravenous, Q12H Vitals: Last Vitals: BP 139/80 | Pulse 89 | Temp 37.4 C (99.3 F) | RR 16 | Ht 1.791 m (5' 10.51 ") | Wt 83.7 kg (184 lb 8.4 oz) | SpO2 91% | BMI 26.09 kg/(m^2) 24 Hour Vital Min/Max: Systolic (24hrs), Av , Min:139 , Max:160 Diastolic (24hrs), Av, Min:80, Max:94 Pulse Av.6 Min: 89 Max: 99 Temp Av.3 C (99.1 F) Min: 37 C (98.6 F) Max: 37.4 C (99.3 F) Resp Av Min: 16 Max: 16 SpO2 Av.7 % Min: 91 % Max: 94 % Ins and Outs: Intake/Output Summary (Last 24 hours) at 05/10/17 1433 Last data filed at 05/10/17 0600 Gross per 24 hour Intake 780 ml Output 3610 ml Net -2830 ml Exam: General: Awake, alert and oriented, appears stated age, NAD, cooperative HEENT: Oral/nasal mucosa pink and moist. PERRLA. EOMI. Cardiovascular: RRR, mildly split S1 (best appreciated in LLSB), normal S2. No m/r/g. JVP n ot abnormally elevated. Respiratory: Breathing easily on nasal cannula. Absent breath sounds, decreased tactile liu mitus, and dullness to percussion of bilateral lung bases. Abdomen: +BS, soft, non-tender, non-distended. Ext: wwp, 2+ pulses present bilaterally. Trace lower extremity edema. Skin: no rashes or lesions. Neuro: Grossly intact. No evidence of focal abnormality. Intact light touch and gross stren gth of bilat lower extremities. Wiggles bilateral toes. Basic Labs: CBC with diff last 72 hours (or 3 results) Recent Labs 05/08/1711805/09/1713205/10/17420 WBC 21.87* 17.50* 18.01* HB 9.4* 9.5* 9.5* HCT 27.0* 28.0* 27.1* PLT 482* 505* 479* Chemistries last 72 Hours (or 3 results): Recent Labs 05/08/1711805/09/1713205/10/17 042 NA 136 136 134* K 3.7 3.3* 3.2* CL 104 102 100 BICARB 23 25 28 BUN 20 13 8 CR 0.75 0.68* 0.64* CA 7.4* 7.0* 7.4* MG 2.9* 2.2 2.3 PO4 3.1 3.0 2.8 Liver panel last 72 hours (or 3 results) Recent Labs 05/08/1711805/09/1713205/10/17420 ALB 1.4* 1.4* 1.5* Lab Results Component Value Date APTT 33.9 05/10/2017 FIBRINOGEN 610 (H) 05/10/2017 CEA (05/10/17) - pending Pleural Fluid (05/08/17): Glucose: 111 LDH: 258 pH: 7.71 Protein: 2.4 WBC: 2099 RBC: 6000 Neutrophil: 88 Lymphocytes: 7 Monocytes: 2 Macrophages: 3 Pleural fluid Gram stain negative, many WBCs Pleural fluid fungal smear negative Pleural fluid AFB not detected Micro: BCx x1 (05/10/17) pending BCx x2 (05/09/17) GPC in clusters BCx x2 (05/08/17) - + MRSA Imaging: -CXR (05/08/2017): IMPRESSION: Unchanged moderate bilateral pleural effusions and adjacent compressive atelect asis. No pneumothorax. -CT C/A/P (05/07/17): IMPRESSION: 1. Persistent small multifocal fluid collections within left erector spinae musculature at the level of the lumbar spine are concerning for undrained abscesses. 2. No signs of malignancy identified in the chest, abdomen or pelvis. Assessment and plan: Mr. Figueredo is a 61 y/o man with a hx of rectal cancer s/p resection who comes in with MRSA epidural abscess thought to be due to MRSA skin infection. Currently remains bacteremic 4 days post surgery. Other possible sources are endocarditis vs seeded pleural effusion (hernandez venus on prior tap no bacteria were seen). Will f/u CT Chest/abdomen/pelvis to look for any s ources that may be amenable to intervention. Will continue hammer for urinary retention, ini tiate higher dose tamsulosin. Acute Problems: #MRSA bacteremia #Spinal epidural abscess - s/p T2 and T8 skip laminectomy (05/06) #Erector spinae abscess - no intervention Transferred from [facility] to [facility] on 05/09 s/p T2 and T8 skip laminectomies (05/06/17) for evacu ation of holospinal epidural abscess. Currently on vancomycin 1750mg q 12hr. Blood cultures continues to be positive up to 05/09/17. Other sources of infections include left erector spi matilde abscesses and possible parapneumonic pleural effusion (05/08/17 thoracentesis meets exuda tive criteria, however fluid gram stain was negative). TTE (05/07/17) was negative for vegeta tions or regurgitation, however will repeat this study today due to persistent bacteremia. W ill also obtain another CT Chest/Abd/Pelvis w/ contrast to rule out new sources of infection . Continue vancomycin dosing as recommended by ID. - continue vancomycin 1750mg IV q 12hr - pending vanc trough - plan for 6 weeks of IV abx after first negative blood culture - repeat TTE - repeat CT Chest/Abd/Pelvis w/ contrast #Exudative pleural effusion, bilateral Pleural effusion with atelectasis noted on CT C/A/P (05/07/17). Had diagnostic thoracentesis performed by ID on 05/08, results were largely transudative with the exception of the LDH ra dick. Unknown etiology. Exudative considerations have included malignancy (h/o of rectal canc er, however no malignant foci on CT) and infectious/parapneumonic (spreading of MRSA bactere ernie, but pleural fluid gram stain was negative). Persistent hypoalbuminemia could contribute to transudative effusion, however he does not have other findings of low oncotic pressure ( edema or ascites) on exam. Repeat CT C/A/P today due to concern of infection source. Will co nsider repeating diagnostic and therapeutic thoracentesis. Continue supplemental O2. - repeat CT C/A/P w/ contrast -Consider therapeutic/diagnositc thoracentesis (add flow cytometry) -continue supplemental O2 #Acute respiratory insufficiency, post-operative Had reported occurrence of increased WOB and shallow breathing after his skip laminectomy p rocedure on 05/06 that required reintubation and hypotension requiring use of pressors. He wa s successfully extubated on 05/07, currently satting >92% on 1L O2. -Titrate O2 to >90% -Encourage IS and OOB #Urinary retention Reported being unable to void prior to admission to the present. Reports frustration with b ardha unable to void. May be due to post-operative or ICU-related urinary retention with poss ible contribution from BPH. Trial increase of tamsulosin dose. Hammer cath in place. - Hammer cath placed - Increase tamsulosin to 0.8mg daily #Anemia Normocytic, normochromic anemia - consistent with anemia of chronic disease. Patient is hem odynamically stable. Continue to monitor with daily CBCs. - daily CBC #Hyponatremia Confusion secondary to hyponatremia and bacteremia upon presentation to ED on 05/05/17. Hypo natremia likely secondary to poor oral intake. Na corrected from 124 to 131 prior to transfe r. Mental status appears back to baseline currently. No focal neurological deficits. Will co ntinue to monitor sodium levels. - daily BMP #Alcoholism, chronic Reports drinking 1 case (24 beers)/week. LFTs are unremarkable. Will continue to monitor. S howing no signs of withdrawal #Constipation Reported constipation over the preceding 5 days prior to presentation. Found relief with Mi ralax. -Continue bowel regimen while inpatient #Recal Cancer Hx, s/p resection in 2012 Appears to be without evidence of disease recurrence or metastasis recent CT scans. CEA in 2013 was undetectable, will plan to recheck CEA this admission. - pending CEA result Diet: regular Prophy: lovenox FEN/GI: docusate, miralax, senna PRN Lines: MARGAUX midline drain (upper back), Hammer cath, peripheral IV (L wrist, R wrist, R upper arm 18G) Code status: Full Dispo: pending negative blood cultures CODE STATUS: Polst NO Advance Directive NO SDM: Surrogate Decision Maker Primary Surrogate Decision Maker Ann (sister) [phone] This patient was staffed with my attending, Darshan Parada MD, and they agree with my asses sment and plan. JOSÉ MIGUEL OrtizS Physician Furnace [employer] Student [facility] Pager [phone] Associated attestation - Gabby Pillai MD - 05/10/2017 5:40 PM PST GM5 ESP[place] PROGRESS NOTE I personally interviewed the patient, performed the hyman elements of the physical examinatio n, reviewed new lab data in EPIC, looked at any new radiology images and have developed an u pdated assessment and plan together with the attending, Darshan Parada MD. Vitals: Last 24 hour min/max Temp: 37.4 C (99.3 F) Temp Min: 37 C (98.6 F) Max: 37.4 C (99.3 F) Pulse: 89 Pulse Min: 89 Max: 99 Resp: 16 Resp Min: 16 Max: 16 BP: 139/80 BP Min: 139/80 Max: 160/85 SpO2: 91 % SpO2 Min: 91 % Max: 94 % Body mass index is 26.09 kg/(m^2). Ins and Outs: Intake/Output Summary (Last 24 hours) at 05/10/17 1732 Last data filed at 05/10/17 1030 Gross per 24 hour Intake 795 ml Output 3610 ml Net -2815 ml Wt Readings from Last 3 Encounters: 11/06/17 83.7 kg (184 lb 8.4 oz) Exam: General: alert and oriented, NAD HEENT: PERLL, EOMI, no scleral icterus, patent airway Neck: supple, JVP wnl Respiratory: breathing easily on 1L NC, bilateral lung bases with absent breath sounds, demarco ar to auscultation superiorly Cardiovascular: RRR, S1 and S2, no m/r/g Gastrointestinal: soft, NTND, +BS, no organomegaly, no masses, rebound tenderness, or gaurd ing Musculoskeletal: FROM; MARGAUX drain present in upper back and draining serosanguinous fluid Skin: no rashes, no lesions Extremities: no clubbing; no leg or hand edema; peripheral pulses normal Neurologic: Cranial nerves, motor, sensation, vibration are grossly intact. Psychiatric: judgment is appropriate for the clinical situation and insight intact Assessment: Cornelio Figueredo is a 61 y.o. man with a history of rectal cancer s/p resection in 2011, alcohol use, now with MRSA bacteremia post-MRSA SSTI refractory to PO antibiotics with progr essive back pain, urinary retention, and confusion found on CT to have spinal epidural and p araspinal abscesses now s/p T2 and T8 skip laminectomy and MARGAUX drain placement (05/06) for epi dural abscess evacuation. HDS, transferred from the NSICU to the floor, with minimal O2 requ irements and persistent MRSA bacteremia. Problem List: #MRSA bacteremia - repeat TTE, daily cultures, continue vanc, will require 6 weeks of IV ab x from date of clear cultures, PICC to be placed when cultures negative >48hours #Extensive Spinal Epidural Abscess s/p T2 and T8 skip laminectomy - monitor for neurologic decline, will repeat CT chest/abd/pelvis to re-evaluate abscesses #Paraspinous muscle abscesses - not amenable to drainage currently, monitor, repeat CT (as above) #Bilateral moderate exudative pleural effusions - consider therapeutic thoracentesis #Respiratory insufficiency - see above #Heavy alcohol use - outside of withdrawal window, given thiamine/folate in ICU, continue t o monitor #Urinary retention - continue hammer, increased tamsulosin to 0.8 daily #Constipation - bowel regimen #Hx of T1N0 Rectal Cancer - Resected 2011 with no e/o lymphovascular spread on path. CEA un detectable 2012. No EOD on CT CAP. Check CEA with AM labs. Dispo: Continue inpatient care. Will require PICC and 6 weeks of abx after blood cultures a re cleared. Gabby Pillai MD Trout Farmer, PGY-1 [facility] [place] Pager [phone] Yanely Ayala MD - 05/09/2017 10:47 AM PSTFormatting of this note might be different fro tracey the original. . Neuroscience Intensive Care Unit Attending Progress Note Attending Pager #[phone] ICU Admission Reason Most Recent Value ICU Admission reason management of epidural abscess filed at 05/07/2017 0046 Hospital admission dx: Abscess [L02.91] 2 Days in ICU 4 Days in Hospital Abbreviated HPI / Daily Assessment Cornelio Figueredo is a 61 yo male with previous rectal cancer dx 2001 s/p rxn with no know met s who presents with worsening back pain and disorientation. Outside ED he was noted to have leukocytosis with bandemia (WBC 14). CSF was drawn showing increased WBC (106), 70% neutroph ils, low glucose, and protein 1178. He was started on ampicillin, ceftriaxone, and vancomyci n. He was also found to be severely hyponatremia to Na 124 corrected to Na 131 before transf er. MRI with extensive holo spinal abscess. Went to OR 05/06 for skip laminectomies at level T2 and T8 for evacuation of epidural abscess. His hospital course has been significant post operative respiratory requiring reintubation. Medical Decision Making MRSA thoracic epidural abscess, s/p decompression, PSI and washout. Blood cultures continu e to be positive (gram+ cocci in clusters) concerning for ongoing infectious source. Diagnos tic thoracentesis was done yesterday - labs not clearly compatible with transudate, 6000 WB C. No organisms on gram stain or preliminary culture, however. May benefit from therapeutic drainage, however, he remains asymptomatic from a respiratory standpoint. Will defer decisio n to medicine team, who have kindly agreed to take over his care, now that he no longer has ICU needs. Continuing vancomycin per ID recommendations. He also has some residual fluid col lections in his lumbar muscles, which may be abscesses and contribute to persistent bacterem ia. These may need drainage as well, if bacteremia does not clear. Appreciate ID recommendat ions. Continue vancomycin for now. No further evidence of sepsis. Acute pain management bett er controlled, continue lidoderm patches, oxycodone, fentanyl, acetaminophen. Respiratory insufficiency was expected Physical exam His GCS eye subscore is 4 (Eyes open spontaneously). GCS verbal subscore is 5 (Fully orient ed verbal response). GCS motor subscore is 6 (Obeys commands). GCS Score is 15. He has nor mal and symmetric strength in all extremities.He is alert He is oriented. Hospital Problems Priority POA Nervous * (Principal)Abscess in epidural space of spine Yes Mental Health Chronic alcoholism (HCC) Yes Respiratory/Chest Acute respiratory insufficiency, postoperative No Pleural effusion Unknown NSICU treatment team members Provider Role Specialty Ipt Neurosurgery #[id number] Treatment Team Neurological Surgery Ipt Critical Care Nsicu #[id number] Treatment Team -- Ipt Gen Med Expected Treatment Team Internal Medicine Code Status Code Status Full Code The Advanced Care Note for this patient can be found under the notes tab in chart review. Quality section I have spent a total of 33 minutes in the direct care and management of this patient indepe ndent of any time spent teaching or performing any separately billable procedures. I reviewe d the documented findings, all data and the recent imaging available. I saw and evaluated t he patient at the bedside together with Dr. Diego.Please see their note for details. I agr ee with the assessment and plan as described in the resident's note with the following excep tions/additions as noted. Date of Service: 05/09/2017 EPIC DEPARTMENT: [facility]E ICU NEURO Place of Service:- Inpatient CSN: [id number] Suggested Modifier: GC - Resident Involved Suggested CPT: TO VP [employer] Author:Yanely Ayala MD [address] [id number] signed by Yanely Ayala MD at 05/09/2017 12:19 PM China Muñoz MD - 05/09/2017 5:19 AM PST NEUROSURGERY PROGRESS NOTE Attending Physician: Henri Holguin MD INTERVAL UPDATE: No acute events Upper back MARGAUX output 50 OBJECTIVE: Last 24 hour min/max Temp: 36.8 C (98.3 F) Temp Min: 36.6 C (97.9 F) Max: 36.8 C (98.3 F) Pulse: 101 Pulse Min: 70 Max: 101 Resp: 22 Resp Min: 14 Max: 27 BP: 154/82 BP Min: 120/74 Max: 174/94 SpO2: 90 % SpO2 Min: 87 % Max: 97 % Body mass index is 27.47 kg/(m^2). I/O/Drains Current Shift I/O/Drains Last 3 Completed Shifts 05/08 1501 - 05/08 2300 In: 10 [I.V.:10] Out: 15 [Drains:15] 05/07 1501 - 05/08 1500 In: 2795 [P.O.:2105; I.V.:90] Out: 1785 [Urine:1650; Drains:135] No Data Recorded No Data Recorded Labs: Complete Blood Count/Coags Recent Labs 05/06/17 0725 05/07/17 0010 05/08/17 0119 WBC 17.90* 26.73* 21.87* HB 11.2* 9.6* 9.4* HCT 32.7* 28.6* 27.0* PLT 481* 401* 482* Invalid input(s): INR CSF Results No results for input(s): WBCCSF, RBCCSF, GLUCOSECSF, PROTEINCSF in the last 8640 hours. Chemistry Recent Labs 05/05/17203805/06/17 0715 05/07/17 0010 05/08/17 0119 05/08/17 0140 05/08/17 0935 05/08/17 1525 NA 133* 133* 137 -- 136 -- -- -- K 3.8 4.0 4.3 -- 3.7 -- -- -- CL 104 104 106 -- 104 -- -- -- BICARB 24 18* 21 -- 23 -- -- -- BUN 9 9 13 -- 20 -- -- -- CR 0.74 0.66* 0.80 -- 0.75 -- -- -- GLU 134* 101* 107* < > 184* 203* 182* 138* CA 7.5* 7.7* 7.1* -- 7.4* -- -- -- MG -- -- -- -- 2.9* -- -- -- PO4 3.1 -- 4.6 -- 3.1 -- -- -- < > = values in this interval not displayed. Culture Results CULTURE RESULT (no units) Date Value 05/06/2017 Staphylococcus aureus, Methicillin Resistant (AA) CULT, URINE SCREEN (no units) Date Value 05/07/2017 Positive (A) Lab Results Component Value Date APTT 26.3 05/07/2017 FIBRINOGEN 697 (H) 05/07/2017 No results found for: RBCCSF, WBCCSF, PROTEINCSF, GLUCOSECSF, CSFAPP NEUROLOGICAL EXAM: Eyes open spont, oriented x 3/3, speech fluent, participates in exam briskly Pupils: PERR, EOMI, RUE 5/5 RLE 5/5 LUE 5/5 LLE 5/5 No Drift SILT Incisions cdi, flat, no dc Drain with serosang bloody output ASSESSMENT/PLAN: Cornelio Figueredo is a 61 y.o. male HD#3 s/p T1 and T8 skip laminectomies for evacuation o f epidural abscess (05/06/2017). - likely DC remaining MARGAUX today , will check with attending - appreciate ID input, likely vanc x 6 weeks from last positive BCx - follow up thoracic effusion cultures China Vo [facility] PGY4 Pager [phone] 05/09/17 5:20 AM Associated attestation - Henri Holguin MD - 05/09/2017 11:21 AM PSTWill continue drain toda y. I personally interviewed the patient, performed the pertinent parts of the physical examina tion and personally formulated the plan with the resident. I agree with the residents docum entation and have documented any additions or exceptions. Henri Holguin MD [facility] [address] [address] Branden Diego MD - 05/08/2017 7:00 PM PDTFormatting of this note might be different fro m the original. . Neuroscience Intensive Care Unit Team Progress Note NSICU ASSIGNED #[id number] ICU Admission Reason Most Recent Value ICU Admission reason management of epidural abscess filed at 05/07/2017 0046 Admission dx: ABSCESS 1 Days in ICU 3 Days in Hospital Abbreviated HPI / Daily Assessment Cornelio Figueredo is a 61 yo male with previous rectal cancer dx 2001 s/p rxn with no know met s who presents with worsening back pain and disorientation. Outside ED he was noted to have leukocytosis with bandemia (WBC 14). CSF was drawn showing increased WBC (106), 70% neutroph ils, low glucose, and protein 1178. He was started on ampicillin, ceftriaxone, and vancomyci n. He was also found to be severely hyponatremia to Na 124 corrected to Na 131 before transf er. MRI with extensive holo spinal abscess. Went to OR 05/06 for skip laminectomies at level T2 and T8 for evacuation of epidural abscess. His hospital course has been significant post operative respiratory requiring reintubation. [address] C/A/P done for concern for malignacy. CT showed pleural effusion but otherwise unremarkable. Active Diagnosis with Assessment & Plan Priority Class POA Nervous * (Principal)Abscess in epidural space of spine Unknown Current Assessment & Plan Admit to NSICU following skip laminectomies at level T2 and T8 for evacuation of epidural abscess Frequent neuro checks Goals: MAP > 65, normonatremia, euvolemia. He was noted to be hypotensive following re intu bation, concerning for sepsis. Arteria line placed on arrival to NSICU with stable blood pre ssures. Art line removed 05/07/17 MARGAUX x2, monitor output On vanc/cefepime No activity restrictions No need for MRI given improvement of exam on arrival to NSICU Per NSGY progress note 05/06 -- he has a blood culture from OSH with +GPCs + MRSA. Continue vancomycin, No signs of vegetation on TTE. Per ID no need for MARGARET at this time F/u ID recs Mental Health Chronic alcoholism (HCC) Unknown Current Assessment & Plan CIWA protocol without benzo. Now off CIWA LFT unremarkable Continue thiamine, folate Respiratory/Chest Acute respiratory insufficiency, postoperative Unknown Current Assessment & Plan Extubated in the OR then quickly reintubated for increased work and shallowing breathing. Extubated 05/07/17 without much difficulty Encourage IS Encourage OOB Pleural effusion Unknown Current Assessment & Plan Ordered CT C/A/P due to concern for mets from his rectal cancer. Scans unremarkable. Note d plerual effusion with atelecasis. Given contrast load will aviod diuresis. HDS with no inc reased oxygen saturation. Diagnostic thoracentesis performed per ID. Results transudative. C ontinue to monitor Code Status Code Status Full Code The Advanced Care Note for this patient can be found under the notes tab in chart review. Physical exam He has normal language, normal speech, intact cranial nerves and normal and symmetric str ength in all extremities.He is alert He is oriented. NSICU treatment team members Provider Role Specialty Ipt Neurosurgery #[id number] Treatment Team Neurological Surgery Ipt Critical Care Nsicu #[id number] Treatment Team -- Patient Lines/Drains/Airways Status Active Lines, Drains and Airways Name: Placement date: Placement time: Site: Days: Drain MARGAUX Midline;Upper back 05/06/17 2223 back 1 Peripheral IV Left Wrist 05/04/17 Wrist 4 Peripheral IV Right Wrist 05/04/17 Wrist 4 Peripheral IV Right Upper Arm 18 g 05/07/17 0100 Upper Arm 1 Incision Midline;Upper back 05/06/17 2 Incision Midline;Lower back 05/06/17 2221 1 Quality section FAST HUG Feeding: regular Analgesia: apap, oxy, hm Sedation: n/a Thromboprophylaxis: lovenox Head of Bed: up ad francoise Ulcer Prophylaxis: not clinically indicated Glycemic Control: insulin sliding Created by Branden Diego MD Author:Branden Diego MD [address] [id number] signed by Branden Diego MD at 05/08/2017 7:01 PM P DTDuSimi posey MD - 05/08/2017 6:57 PM PDTFormatting of this note might be different f rom the original. . Neuroscience Intensive Care Unit Attending Progress Note Attending Pager #[phone] ICU Admission Reason Most Recent Value ICU Admission reason management of epidural abscess filed at 05/07/2017 0046 Hospital admission dx: Abscess [L02.91] 1 Days in ICU 3 Days in Hospital Abbreviated HPI / Daily Assessment Cornelio Figueredo is a 61 yo male with previous rectal cancer dx 2001 s/p rxn with no know met s who presents with worsening back pain and disorientation. Outside ED he was noted to have leukocytosis with bandemia (WBC 14). CSF was drawn showing increased WBC (106), 70% neutroph ils, low glucose, and protein 1178. He was started on ampicillin, ceftriaxone, and vancomyci n. He was also found to be severely hyponatremia to Na 124 corrected to Na 131 before transf er. MRI with extensive holo spinal abscess. Went to OR 05/06 for skip laminectomies at level T2 and T8 for evacuation of epidural abscess. His hospital course has been significant post operative respiratory requiring reintubation. Medical Decision Making MRSA thoracic epidural abscess, s/p decompression, PSI and washout. Blood cultures continu e to be positive (gram+ cocci in clusters) concerning for ongoing infectious source. ID shaka mmended diagnostic thoracentesis. Protein ratio 0.5, but LDH ratio 1.2, concerning for exuda tive process. Pleural fluid snet for culture. May need therapeutic tap versus chest tube marianna cement depending on culture results. Multiple christine-lumbar muscular abscesses noted - may nee d surgical drainage if blood cultures do not clear in the next 1-2 days. Appreciate ID recom mendations. Continue vancomycin for now. No further evidence of sepsis. Acute pain managemen t better controlled, continue lidoderm patches, oxycodone, fentanyl, acetaminophen. Respiratory insufficiency was expected Constitutional: He appears well-developed Cardiovascular: normal rate and regular rhythm Pulmonary: effort normal. Abdominal: Abdomen is soft. He exhibits no distention. Musculoskeletal: normal range of motion. vitals and nursing note reviewed. Physical exam He has normal language, normal speech, intact cranial nerves and normal and symmetric str ength in all extremities.He is alert He is oriented. Hospital Problems Priority POA Nervous * (Principal)Abscess in epidural space of spine Unknown Mental Health Chronic alcoholism (HCC) Unknown Respiratory/Chest Acute respiratory insufficiency, postoperative Unknown Pleural effusion Unknown NSICU treatment team members Provider Role Specialty Ipt Neurosurgery #[id number] Treatment Team Neurological Surgery Ipt Critical Care Nsicu #[id number] Treatment Team -- Code Status Code Status Full Code The Advanced Care Note for this patient can be found under the notes tab in chart review. Quality section I have spent a total of 33 minutes in the direct care and management of this patient indepe ndent of any time spent teaching or performing any separately billable procedures. I reviewe d the documented findings, all data and the recent imaging available. Date of Service: 05/08/2017 Simi Acosta MD Author:Simi Acosta MD [address] [id number] signed by Simi Acosta MD at 05/09/2017 1:49 AM Jass Laurent MD - 05/08/2017 8:57 AM PDTFormatting of this note might be different fro m the original. NEUROSURGERY PROGRESS NOTE Attending Physician: Henir Holguin MD INTERVAL UPDATE: No acute events Before rounds this AM: upper back MARGAUX 46 out, lower back MARGAUX [address] CAP demonstrates no malignancy. Large pleural effusions renoted. OBJECTIVE: Last 24 hour min/max Temp: 36.7 C (98.1 F) Temp Min: 36.6 C (97.9 F) Max: 36.9 C (98.4 F) Pulse: 77 Pulse Min: 70 Max: 124 Resp: 17 Resp Min: 15 Max: 37 BP: (!) 143/106 BP Min: 120/74 Max: 174/94 SpO2: 96 % SpO2 Min: 90 % Max: 97 % Body mass index is 27.47 kg/(m^2). I/O/Drains Current Shift I/O/Drains Last 3 Completed Shifts 05/07 07 - 05/08 07 In: 2970.2 [P.O.:1855; I.V.:515.2] Out: 1675 [Urine:1570; Drains:105] No Data Recorded No Data Recorded Labs: Complete Blood Count/Coags Recent Labs 05/06/17 0725 05/07/17 0010 05/08/17 0119 WBC 17.90* 26.73* 21.87* HB 11.2* 9.6* 9.4* HCT 32.7* 28.6* 27.0* PLT 481* 401* 482* Invalid input(s): INR CSF Results No results for input(s): WBCCSF, RBCCSF, GLUCOSECSF, PROTEINCSF in the last 8640 hours. Chemistry Recent Labs 05/05/17203805/06/17 0715 05/07/17 0010 05/07/17195605/08/17 0119 05/08/17 0140 NA 133* 133* 137 -- -- 136 -- K 3.8 4.0 4.3 -- -- 3.7 -- CL 104 104 106 -- -- 104 -- BICARB 24 18* 21 -- -- 23 -- BUN 9 9 13 -- -- 20 -- CR 0.74 0.66* 0.80 -- -- 0.75 -- GLU 134* 101* 107* < > 156* 184* 203* CA 7.5* 7.7* 7.1* -- -- 7.4* -- MG -- -- -- -- -- 2.9* -- PO4 3.1 -- 4.6 -- -- 3.1 -- < > = values in this interval not displayed. Culture Results CULTURE RESULT (no units) Date Value 05/06/2017 Staphylococcus aureus, Methicillin Resistant (AA) CULT, URINE SCREEN (no units) Date Value 05/07/2017 Positive (A) Lab Results Component Value Date APTT 26.3 05/07/2017 FIBRINOGEN 697 (H) 05/07/2017 No results found for: RBCCSF, WBCCSF, PROTEINCSF, GLUCOSECSF, CSFAPP NEUROLOGICAL EXAM: Extubated Eyes open spont, oriented x 3/3, speech fluent, participates in exam briskly Pupils: PERR, EOMI, V1-3 intact b/l, FS at rest and actvation, TM RUE 5/5 RLE 5/5 LUE 5/5 LLE 5/5 No Drift SILT No clonus, no Brenton/Tromners, no hyperreflexia in bl brachiorad or patellae Incisions cdi, flat, no dc Drain with serosang bloody output ASSESSMENT/PLAN: Cornelio Figueredo is a 61 y.o. male HD#3 s/p T1 and T8 skip laminectomies for evacuation o f epidural abscess (05/06/2017). - DC lower MARGAUX drain, keep upper drain - Continue IV Vanc/Cefepime - Need ID consult - please comment on thoracic effusion mangement - Follow up cultures - Frequent neuro checks - Maintain adequate analgesia - ADAT, anti-emetics, and bowel regimen prn - Encourage mobilization - PT/OT - SCDs while in bed Please contact the neurosurgery resident on-call pager [phone] with questions. Jass Soria MD PGY-4 Neurological Surgery Pager [phone] Associated attestation - Henri Holguin MD - 05/08/2017 2:24 PM PDTI personally interviewed the patient, performed the pertinent parts of the physical examination and personally formu lated the plan with the resident. I agree with the resident's documentation and have docume nted any additions or exceptions. Henri Holguin MD [facility] [address] [address] Yanely Ayala MD - 05/08/2017 7:20 AM PDTFormatting of this note might be different fro m the original. . Neuroscience Intensive Care Unit Attending Progress Note Attending Pager #[phone] ICU Admission Reason Most Recent Value ICU Admission reason management of epidural abscess filed at 05/07/2017 0046 Hospital admission dx: ABSCESS 1 Days in ICU 3 Days in Hospital Abbreviated HPI / Daily Assessment Cornelio Figueredo is a 61 yo male with previous rectal cancer dx 2001 s/p rxn with no know met s who presents with worsening back pain and disorientation. Outside ED he was noted to have leukocytosis with bandemia (WBC 14). CSF was drawn showing increased WBC (106), 70% neutroph ils, low glucose, and protein 1178. He was started on ampicillin, ceftriaxone, and vancomyci n. He was also found to be severely hyponatremia to Na 124 corrected to Na 131 before transf er. MRI with extensive holo spinal abscess. Went to OR 05/06 for skip laminectomies at level T2 and T8 for evacuation of epidural abscess. His hospital course has been significant post operative respiratory requiring reintubation. Medical Decision Making Thoracic epidural abscess, s/p decompression, PSI and washout. Cultures growing MRSA, cont inuing vancomycin. Appreciate ID recommendations. CT of chest/abd/pelvis obtained due to can cer history and to evaluate for other abscesses - large L pleural effusion and smaller R ple ural effusion noted with atelectasis. His respiratory status is very stable, he is on room a ir today. No need for drainage of pleural effusions currently, can follow. If he does not cl ear his bacteremia, this would raise concern for possible infection of effusions, in which c ase we would do therapeutic/diagnostic thoracentesis. Unclear what caused his postop respira tory compromise, doubt that pleural effusions contributed significantly. Continuing acute pa in management with fentanyl, oxycodone and acetaminophen, lidoderm patches. Workup for immun osuppression - HIV, hepatitis pending. Daily blood cultures. Will need PICC placement for lo ng term antibiotics, once blood cultures clear. TTE without evidence of endocarditis. CT wit h lumbar muscular fluid collections, suspicious for remaining abscesses. May need additional drainage for source control, if bacteremia does not clear. Insulin for glycemic control. Respiratory insufficiency was expected Code Status Updated to: FULL Physical exam His GCS eye subscore is 4 (Eyes open spontaneously). GCS verbal subscore is 5 (Fully orient ed verbal response). GCS motor subscore is 6 (Obeys commands). GCS Score is 15. He has nor mal and symmetric strength in all extremities.He is alert He is oriented. Hospital Problems Priority POA Nervous * (Principal)Abscess in epidural space of spine Unknown Mental Health Chronic alcoholism (HCC) Unknown Respiratory/Chest Acute respiratory insufficiency, postoperative Unknown Pleural effusion Unknown NSICU treatment team members Provider Role Specialty Ipt Neurosurgery #[id number] Treatment Team Neurological Surgery Ipt Critical Care Nsicu #[id number] Treatment Team -- Code Status Code Status Full Code Quality section I have spent a total of 38 minutes in the direct care and management of this patient indepe ndent of any time spent teaching or performing any separately billable procedures. I reviewe d the documented findings, all data and the recent imaging available. I saw and evaluated t he patient at the bedside together with Dr. Diego.Please see their note for details. I agr ee with the assessment and plan as described in the resident's note with the following excep tions/additions as noted. Date of Service: 05/08/2017 [facility] DEPARTMENT: ANE ICU NEURO Place of Service:- Inpatient CSN: [id number] Suggested Modifier: GC - Resident Involved Suggested CPT: TO VP [employer] Author:Yanely Ayala MD [address] [address] [place] [id number] signed by Yanely Ayala MD at 05/08/2017 3:32 PM P Simi Ward MD - 05/07/2017 7:12 PM PDTFormatting of this note might be different f rom the original. . Neuroscience Intensive Care Unit Attending Progress Note Attending Pager #[phone] ICU Admission Reason Most Recent Value ICU Admission reason management of epidural abscess filed at 05/07/2017 0046 Hospital admission dx: ABSCESS Days in ICU 2 Days in Hospital Abbreviated HPI / Daily Assessment Cornelio Figueredo is a 61 yo male with previous rectal cancer dx 2002 s/p rxn with no know met s who presents with worsening back pain and disorientation. Outside ED he was noted to have leukocytosis with bandemia (WBC 14). CSF was drawn showing increased WBC (106), 70% neutroph ils, low glucose, and protein 1178. He was started on ampicillin, ceftriaxone, and vancomyci n. He was also found to be severely hyponatremia to Na 124 corrected to Na 131 before transf er. MRI with extensive holo spinal abscess. Went to OR 05/06 for skip laminectomies at level T2 and T8 for evacuation of epidural abscess. His hospital course has been significant post operative respiratory requiring reintubation. Medical Decision Making Thoracic epidural abscess, s/p decompression, PSI and washout. Cultures growing MRSA, cont inue vancomycin. Appreciate ID recommendations. CT of chest/abd/pelvis obtained due to cance r history and to evaluate for other abscesses - large L pleural effusion and smaller R pleur al effusion noted with atelectasis - my read: concerned for septum and loculation, no eviden ce of lymphadenopathy Will discuss with infectious disease, but may need thoracentesis to ev aluate for empyema. Currently asymptomatic with minimal oxygen needs. Post-op respiratory in sufficiency resolved, extubated without complication today. Continue acute pain management w ith fentanyl, oxycodone and acetaminophen, lidoderm patches. Workup for immunosuppression - HIV, hepatitis pending. Alcohol use, continue thiamine, folate, MVI. DM: sliding scale insul in for hyperglycemia. Daily blood cultures. Will need PICC placement for nae term antibiotic s. Respiratory insufficiency was unexpected due to need for reintubation Code Status Updated to: FULL Constitutional: He appears well-developed HENT: Head:normocephalic Neck: normal range of motion Cardiovascular: normal rate and regular rhythm Pulmonary: effort normal. Abdominal: Abdomen is soft. He exhibits no distention. vitals and nursing note reviewed. Physical exam He has normal language, normal speech, intact cranial nerves and normal and symmetric str ength in all extremities.He is alert He is oriented. Hospital Problems Priority POA Nervous * (Principal)Abscess in epidural space of spine Unknown Mental Health Chronic alcoholism (HCC) Unknown Respiratory/Chest Acute respiratory insufficiency, postoperative Unknown Pleural effusion Unknown NSICU treatment team members Provider Role Specialty Ipt Neurosurgery #[id number] Treatment Team Neurological Surgery Ipt Critical Care Nsicu #[id number] Treatment Team -- Code Status Code Status Full Code Quality section I have spent a total of 41 minutes in the direct care and management of this patient indepe ndent of any time spent teaching or performing any separately billable procedures. I reviewe d the documented findings, all data and the recent imaging available. Date of Service: 05/07/2017 Simi Acosta MD Author:Simi Acosta MD [address] [id number] signed by Simi Acosta MD at 05/08/2017 1:13 AM Zo Byrnes MD - 05/07/2017 4:07 PM PDT . Neuroscience Intensive Care Unit Attending Progress Note Attending Pager #[phone] ICU Admission Reason Most Recent Value ICU Admission reason management of epidural abscess filed at 05/07/2017 0046 Hospital admission dx: ABSCESS Days in ICU 2 Days in Hospital Abbreviated HPI / Daily Assessment Cornelio Figueredo is a 61 yo male with previous rectal cancer dx 2001 s/p rxn with no know met s who presents with worsening back pain and disorientation. Outside ED he was noted to have leukocytosis with bandemia (WBC 14). CSF was drawn showing increased WBC (106), 70% neutroph ils, low glucose, and protein 1178. He was started on ampicillin, ceftriaxone, and vancomyci n. He was also found to be severely hyponatremia to Na 124 corrected to Na 131 before transf er. MRI with extensive holo spinal abscess. Went to OR 05/06 for skip laminectomies at level T2 and T8 for evacuation of epidural abscess. His hospital course has been significant post operative respiratory requiring reintubation. Medical Decision Making 61 yo man presenting to the ICU s/p T2-8 decompression and PSI for extensive thoracic epid ural abscess. Presented to the OSH with confusion, they did LP (ptt603, 70% neutrophils, low glucose, high protein) Cx positive for MRSA, was started on ceftriaxone, amp and vanco. Hyp onatremia 124 at OSH assymptomatic. Hx of ETOH? Periop course complicated by resp failure shortly after extubation, had to be reintubated i n the OR. . On exam: AA and Ox4, almost euphoric from beig extubated, 5/5 strength AEs, briskly FCs Pain control: acetaminophen, prn oxy, start lidoderm patches. Continue cefepime and vanco f or MRSA bacteremia (05/06/17 blood Cx +), surgical Cx pending. Will consult ID for the length of the abx therapy. Will follow Cx. Will start immunocompetency and paraneoplastic work up . CT w contrast chest/abd/pelvis. Patient has Hx of rectal cancer. On chest CXR significant bilateral pleural effusion of unknown etiology, does not seem symptomatic, likely chronic pr oblem. Plan for TTE to eval for cardiac function and r/o endocarditis. Was extubated today am without complication, still requiring supplemental O2, will initiate IS, mobilization, bronchial hygiene. At risk for atelectasis, infection, hypoventilation, r mitchell failure. Hypoalbuminemia 1.3, will check liver functional test. Start thiamine, folate, will investi gate more about the etoh use. Leucocytosis - active infection and reactive postsurgery. Anemia - periop BL and dilutional Hg 9.6, will monitor. Bedside swallow eval, adat, bowel regimen. SCDs Code Status Updated to: FULL vitals reviewed. Hospital Problems Priority POA Nervous * (Principal)Abscess in epidural space of spine Unknown Mental Health Chronic alcoholism (HCC) Unknown Respiratory/Chest Respiratory failure, post-operative (HCC) Unknown Pleural effusion Unknown NSICU treatment team members Provider Role Specialty Ipt Neurosurgery #[id number] Treatment Team Neurological Surgery Ipt Critical Care Nsicu #[id number] Treatment Team -- Code Status Code Status Full Code Quality section I have spent a total of 38 minutes in the direct care and management of this patient indepe ndent of any time spent teaching or performing any separately billable procedures. I reviewe d the documented findings, all data and the recent imaging available. Greater than 50% of is time was spent on counseling and coordination of care. I saw and evaluated the patient at the bedside together with Dr. Mendoza.Please see their note for details. I agree with the a ssessment and plan as described in the resident's note with the following exceptions/additio ns as noted. Date of Service: 05/07/2017 [facility] DEPARTMENT: ANE ICU NEURO Place of Service:- Inpatient [facility]: [phone] Suggested Modifier: GC - Resident Involved Suggested CPT: TO VP [employer] Author:Zo Baldwin MD [address] [place] [id number] signed by Zo Baldwin MD at 05/07/2017 4:10 PM PDTBranden Diego MD - 05/07/2017 3:58 PM PDT . Neuroscience Intensive Care Unit Team Progress Note NSICU ASSIGNED #[id number] ICU Admission Reason Most Recent Value ICU Admission reason management of epidural abscess filed at 05/07/2017 0046 Admission dx: ABSCESS Days in ICU 2 Days in Hospital Abbreviated HPI / Daily Assessment Cornelio Figueredo is a 61 yo male with previous rectal cancer dx 2001 s/p rxn with no know met s who presents with worsening back pain and disorientation. Outside ED he was noted to have leukocytosis with bandemia (WBC 14). CSF was drawn showing increased WBC (106), 70% neutroph ils, low glucose, and protein 1178. He was started on ampicillin, ceftriaxone, and vancomyci n. He was also found to be severely hyponatremia to Na 124 corrected to Na 131 before transf er. MRI with extensive holo spinal abscess. Went to OR 05/06 for skip laminectomies at level T2 and T8 for evacuation of epidural abscess. His hospital course has been significant post operative respiratory requiring reintubation. [address] C/A/P done for concern for malignacy. CT showed pleural effusion but otherwise unremarkable. Active Diagnosis with Assessment & Plan Priority Class POA Nervous * (Principal)Abscess in epidural space of spine Unknown Current Assessment & Plan Admit to NSICU following skip laminectomies at level T2 and T8 for evacuation of epidural abscess Frequent neuro checks Goals: MAP > 65, normonatremia, euvolemia. He was noted to be hypotensive following re intu bation, concerning for sepsis. Arteria line placed on arrival to NSICU with stable blood pre ssures. Art line removed 05/07/17 MARGAUX x2, monitor output On vanc/cefepime No activity restrictions No need for MRI given improvement of exam on arrival to NSICU Per NSGY progress note 05/06 -- he has a blood culture from OSH with +GPCs + MRSA. Continue cefepime and vanco tonight. TTE shows no vegetation. F/u blood cx F/u ID recs Mental Health Chronic alcoholism (HCC) Unknown Current Assessment & Plan CIWA protocol without meds LFT unremarkable Respiratory/Chest Respiratory failure, post-operative (HCC) Unknown Current Assessment & Plan Extubated in the OR then quickly reintubated for increased work and shallowing breathing. Extubated 05/07/17 without much difficulty Encourage IS Pleural effusion Unknown Current Assessment & Plan Ordered CT C/A/P due to concern for mets from his rectal cancer. Scans unremarkable. Note d plerual effusion with atelecasis. Given contrast load will aviod diuresis but will possibl e diurese 05/08/2017 Code Status Code Status Full Code This patient does not have an Advanced Care Note for this Admission. Please use the Goal of care section of your ICU navigator to document the advanced care discussion. Constitutional: He appears well-developed Neck: normal range of motion Pulmonary: effort normal. Diminished breath sounds bilaterally Physical exam His GCS eye subscore is 4 (Eyes open spontaneously). GCS verbal subscore is 5 (Fully orient ed verbal response). GCS motor subscore is 6 (Obeys commands). GCS Score is 15. NSICU treatment team members Provider Role Specialty Ipt Neurosurgery #[id number] Treatment Team Neurological Surgery Ipt Critical Care Nsicu #[id number] Treatment Team -- Patient Lines/Drains/Airways Status Active Lines, Drains and Airways Name: Placement date: Placement time: Site: Days: Drain MARGAUX Midline;Upper back 05/06/17 2223 back less than 1 Drain MARGAUX Midline;Lower back 05/06/17 2223 back less than 1 Peripheral IV Left Wrist 05/04/17 Wrist 3 Peripheral IV Right Wrist 05/04/17 Wrist 3 Peripheral IV Right Upper Arm 18 g 05/07/17 0100 Upper Arm less than 1 Incision Midline;Upper back 05/06/17 1 Incision Midline;Lower back 05/06/17 2221 less than 1 Quality section FAST HUG Feeding: regular Analgesia: apap, oxy, hm Sedation: n/a Thromboprophylaxis: SCDs Head of Bed: up ad francoise Ulcer Prophylaxis: not clinically indicated Glycemic Control: mild Created by Branden Diego MD Author:Branden Diego MD [address] [place] [id number] signed by Branden Diego MD at 05/07/2017 4:01 PM P Adebayo Arroyo - 05/07/2017 11:24 AM PDTTransthoracic echocardiogram completed. Final report to follow. Rola Blood MD - 017 10:23 AM PDT NEUROSURGERY PROGRESS NOTE Attending Physician: Henri Holguin MD INTERVAL UPDATE: OR last night. Patient required re-intubation in OR for difficulty breathing and was noted to not be moving LEFT side. Patient now able to move all extremities OBJECTIVE: Last 24 hour min/max Temp: 36.2 C (97.1 F) Temp Min: 36.2 C (97.1 F) Max: 38.3 C (100.9 F) Pulse: 100 Pulse Min: 76 Max: 126 Resp: 16 Resp Min: 10 Max: 22 BP: (!) 155/97 BP Min: 102/69 Max: 183/106 SpO2: 90 % SpO2 Min: 88 % Max: 99 % Body mass index is 28.06 kg/(m^2). I/O/Drains Current Shift I/O/Drains Last 3 Completed Shifts 05/07 701 - 05/07 1500 In: 332.2 [I.V.:332.2] Out: 770 [Urine:770] 05/06 701 - 05/07 0700 In: 5991.4 [I.V.:5691.4] Out: 2995 [Urine:2875; Drains:45] No Data Recorded No Data Recorded Labs: Complete Blood Count/Coags Recent Labs 05/05/17203805/06/17 0725 05/07/17 0010 WBC 25.20* 17.90* 26.73* HB 11.6* 11.2* 9.6* HCT 33.3* 32.7* 28.6* PLT 440* 481* 401* Invalid input(s): INR CSF Results No results for input(s): WBCCSF, RBCCSF, GLUCOSECSF, PROTEINCSF in the last 8640 hours. Chemistry Recent Labs 05/05/17203805/06/17 0715 05/07/17 0010 NA 133* 133* 137 K 3.8 4.0 4.3 CL 104 104 106 BICARB 24 18* 21 BUN 9 9 13 CR 0.74 0.66* 0.80 GLU 134* 101* 107* CA 7.5* 7.7* 7.1* PO4 3.1 -- 4.6 Culture Results CULTURE RESULT (no units) Date Value 05/06/2017 Staphylococcus aureus, Methicillin Resistant (AA) CULT, URINE SCREEN (no units) Date Value 05/07/2017 Positive (A) Lab Results Component Value Date APTT 26.3 05/07/2017 FIBRINOGEN 697 (H) 05/07/2017 No results found for: RBCCSF, WBCCSF, PROTEINCSF, GLUCOSECSF, CSFAPP NEUROLOGICAL EXAM: Intubated, sedated on propofol Opens eyes to voice PINO AG, strongly to command JPx2 ASSESSMENT/PLAN: Cornelio Figueredo is a 61 y.o. male HD#2 s/p T1 and T8 skip laminectomies for evacuation o f epidural abscess (05/06/2017). - Wean to extubate as soon as possible - Continue to maintain MARGAUX drains - CT chest/abdomen/pelvis for cancer work up (no longer need thoracic XRs) - Continue IV Vanc/Cefepime - Need ID consult, follow up cultures - Frequent neuro checks - Maintain adequate analgesia - ADAT, anti-emetics, and bowel regimen prn - Encourage mobilization - PT/OT - SCDs while in bed Please contact the neurosurgery resident on-call pager [phone] with questions. Rola Nelson MD Neurosurgery Resident Pager #[phone] [facility] pager #[phone] Associated attestation - Henri Holguin MD - 05/07/2017 11:05 AM PDTI personally interviewed the patient, performed the pertinent parts of the physical examination and personally formu lated the plan with the resident. I agree with the resident's documentation and have docume nted any additions or exceptions. Henri Holguin MD [facility] [id number] [id number] Rola Nelson MD - 05/07/2017 5:18 AM PDTNEUROSURGERY Post-op check S/p T1 and T8 skip laminectomies for evacuation of epidural abscess. BP 106/73, Pulse 76, Temperature 36.8 C (98.2 F), RR 15, SpO2 93%. Physical Exam: Intubated, sedated Opens eyes to voice PINO AG, strongly to command MARGAUX x2 in place A/P: Neuro stable. - Frequent neuro checks - Keep incision and dressings C/D/I - Maintain adequate analgesia - Advance diet as tolerated - Utilize bowel regiment for goal 1 BM per 24 hours - SCDs while in bed Rola Nelson MD Neurosurgery Resident 5:18 AM, 05/07/2017 Pager #[phone] Rola Blood MD - 05/06/2017 7:42 PM PDTNeurosurgery Preoperative Note Planned procedure: T1 T8 skip lamis for epidural infection wash out Date of procedure: 05/06 Booked? Yes Consented? Yes Marked? Yes NPO time: 05/05 20:30 Labs/Studies Hct: 32.7 Plt: 481 WBC: 17.90 Na: 133 K: 4.0 Type and Screen obtained? Yes INR: 1.20 If over 50, EKG obtained this admission (Yes/No/NA)? Yes If over 50, CXR obtained this admission (Yes/No/NA)? NA Medications If on Lovenox, stopped the day prior to surgery (Yes/No/NA)? NA On ASA or other antiplatelet agent? No Rola Nelson MD Neurosurgery Resident 7:42 PM, 05/06/2017 Pager #[phone] Divya Castillo P A-Mayela - 05/06/2017 7:41 AM PDT Neurosurgery Progress Note Hospital Day:1 Author; Divya Roman PA-C Attending Physician: Henri Holguin MD Interval Hx: - No acute events overnight. - Endorsing general body weakness, difficulty getting deep breaths, and constipation. Last Vitals: BP 149/97 | Pulse 110 | Temp 37.2 C (99 F) | RR 20 | SpO2 96% O2 Delivery Device: Nasal cannula (05/06/17 0413) 24 Hour Vital Min/Max: Systolic (24hrs), Av , Min:144 , Max:173 Diastolic (24hrs), Av, Min:79, Max:97Puls e Min: 98 Max: 123 Temp Min: 36.4 C (97.5 F) Max: 37.6 C (99.7 F) Resp Min: 20 Max: 24 SpO2 Min: 88 % Max: 96 % Intake/Output Summary (Last 24 hours) at 05/06/17 0741 Last data filed at 05/06/17 0000 Gross per 24 hour Intake 80 ml Output 250 ml Net -170 ml Exam: Alert, oriented x3. Speech clear, fluent. Pupils equal. EOMI. Face symmetric. Sensation: LT sensation intact in all 4 extremities Motor: Certified Dietary Manager Bicep Tricep Delt R 5 5 5 5 L 5 5 5 5 HF KF KE DF PF EHL R 5 5 5 5 5 5 L 5 5 5 5 5 5 Labs: CBC with diff last 72 hours (or 3 results) Recent Labs 05/05/172038 WBC 25.20* HB 11.6* HCT 33.3* PLT 440* NEUTROPERC 88.3* LYMPHPERC 3.5* MONOPERC 6.5 BASOPERC 0.4 EOSPERC 0.1* Chemistries: Last 72 Hours (or 3 results): Recent Labs 05/05/172038 NA 133* K 3.8 CL 104 BICARB 24 BUN 9 CR 0.74 GLU 134* CA 7.5* PO4 3.1 Current Medications: acetaminophen (TYLENOL) tablet 325-650 mg, 325-650 mg, oral, Q6H PRN bisacodyl (DULCOLAX) suppository 10 mg, 10 mg, rectal, DAILY PRN NaCl 0.9%-KCl 20 mEq/L IV infusion, , intravenous, CONTINUOUS ondansetron (ZOFRAN) injection 4 mg, 4 mg, intravenous, Q12H FOLLOWED BY ondansetron (Z OFRAN) injection 4 mg, 4 mg, intravenous, Q12H PRN oxyCODONE (immediate release) (ROXICODONE) tablet 5-15 mg, 5-15 mg, oral, Q3H PRN polyethylene glycol (MIRALAX) packet 17 g, 17 g, oral, DAILY polyethylene glycol (MIRALAX) packet 34 g, 34 g, oral, TID PRN senna-docusate (SENOKOT S) 8.6-50 mg 2 tablet, 2 tablet, oral, BID simethicone chew (MYLICON) tablet 80 mg, 80 mg, oral, TID PRN Impression: Cornelio Figueredo is a 61 YOM with history of rectal cancer s/p transanal resection in 2011 who presented to an outside hospital with one month of persistent back pain and left abdominal pain with generalized weakness and constipation. Imaging at OSH demonstrated C2-L2 holospina l epidural abscess. The patient was transferred to [facility] for ongoing management. Plan for pos sible OR today for T1 and T8 skip lami's/washout. Plan: Neuro: Neuro intact. - Pain control with APAP and oxycodone. - No need for MRI Brain, CT Head reviewed and without acute concerns. HEENT: No active issues CV: HD stable Pulm: IS, cough/deep breath - CXR this AM for pre-op clearance. Patient requiring 4 L O2 sat-ing at 95%. GI/diet: NPO in preparation for surgery. Bowel regimen. Anti-emetics PRN. : Hammer removed from outside hospital, + retention. Straight cath for > 400 residual afte r void. Musculoskeletal/skin: Routine decubitus ulcer prevention Endo: No active issues. ID/Heme: Afebrile, Tmax 99.7. - + blood cultures growing gram positive cocci at outside hospital. Started on IV Vancomyci n and IV ceftriaxone (DC-ed upon arrival). Repeating blood cultures here X 2. + contact prec autions. Will consult infectious disease post-operatively for ABX recs. Electrolytes: Hyponatremia with sodium at 133 yesterday. + salt tabs and rehydration. DVT ppx: SCDs while in bed Dispo: Pending hospital course. OR today for T1 and T8 skip lami's/washout. Patient will ne ed to be consented and marked. Divya Roman PA-C [facility] [address] [address] [phone] documented in th is encounter Plan of Treatment Not on filedocumented as of this encounter Procedures + +--------+ + + + | Procedure Name | Priori | Date/Time | Associated Diagnosis | Comments | | | ty | | | | + +--------+ + + + | CT ABDOMEN AND | Routin | 05/17/2017 | | Results for this | | PELVIS W IV CONTRAST | e | 12:23 PM | | procedure are in the | | | | PST | | results section. | + +--------+ + + + | US THORACENTESIS | Routin | 05/17/2017 | | Results for this | | ASPIRATION W/ US & | e | 12:18 PM | | procedure are in the | | GUIDE | | PST | | results section. | + +--------+ + + + | LAB HOLD - BODY | Routin | 05/17/2017 | | | | FLUID | e | 12:04 PM | | | | | | PST | | | + +--------+ + + + | CELL COUNT, BODY FL | Routin | 05/17/2017 | | Results for this | | | e | 12:04 PM | | procedure are in the | | | | PST | | results section. | + +--------+ + + + | DIFFERENTIAL, BFL | Routin | 05/17/2017 | | Results for this | | | e | 12:04 PM | | procedure are in the | | | | PST | | results section. | + +--------+ + + + | CULTURE, BODY FLUID | Routin | 05/17/2017 | | Results for this | | | e | 12:04 PM | | procedure are in the | | | | PST | | results section. | + +--------+ + + + | CELL COUNT DIFF, | Routin | 05/17/2017 | | Results for this | | BODY FLUID | e | 12:04 PM | | procedure are in the | | | | PST | | results section. | + +--------+ + + + | CULTURE, AFB (ALL | Routin | 05/17/2017 | | Results for this | | SPEC TYPES EXCEPT | e | 12:04 PM | | procedure are in the | | BLOOD) | | PST | | results section. | + +--------+ + + + | GRAM SMEAR ONLY, | Routin | 05/17/2017 | | Results for this | | STAT | e | 12:04 PM | | procedure are in the | | | | PST | | results section. | + +--------+ + + + | LDH ENZYME LEVEL, | Routin | 05/17/2017 | | Results for this | | BODY FLUID | e | 12:04 PM | | procedure are in the | | | | PST | | results section. | + +--------+ + + + | GLUCOSE, BODY FLUIDS | Routin | 05/17/2017 | | Results for this | | | e | 12:04 PM | | procedure are in the | | | | PST | | results section. | + +--------+ + + + | PROTEIN, BODY FLUIDS | Routin | 05/17/2017 | | Results for this | | | e | 12:04 PM | | procedure are in the | | | | PST | | results section. | + +--------+ + + + | PH, BODY FLUID | Routin | 05/17/2017 | | Results for this | | | e | 12:04 PM | | procedure are in the | | | | PST | | results section. | + +--------+ + + + | CBC (HEMOGRAM) ONLY | Routin | 05/17/2017 | | Results for this | | | e | 5:40 AM | | procedure are in the | | | | PST | | results section. | + +--------+ + + + | RENAL FUNCTION SET | Urgent | 05/17/2017 | | Results for this | | (NA,K,CL,CO2,BUN,CRE | | 5:40 AM | | procedure are in the | | AT,GLUC,CA,PHOS,ALB | | PST | | results section. | | ) | | | | | + +--------+ + + + | CBC ONLY | Routin | 05/17/2017 | | Results for this | | | e | 5:40 AM | | procedure are in the | | | | PST | | results section. | + +--------+ + + + | PROTEIN TOTAL, | Routin | 05/17/2017 | | Results for this | | PLASMA | e | 5:40 AM | | procedure are in the | | | | PST | | results section. | + +--------+ + + + | LDH TOTAL, PLASMA | Routin | 05/17/2017 | | Results for this | | | e | 5:40 AM | | procedure are in the | | | | PST | | results section. | + +--------+ + + + | NON WASTE WATER OR WATER PLANT OPERATOR CYTOLOGY | Routin | 05/17/2017 | | Results for this | | | e | | | procedure are in the | | | | | | results section. | + +--------+ + + + | RENAL FUNCTION SET | Routin | 05/16/2017 | | Results for this | | (NA,K,CL,CO2,BUN,CRE | e | 5:52 AM | | procedure are in the | | AT,GLUC,CA,PHOS,ALB | | PST | | results section. | | ) | | | | | + +--------+ + + + | VANCOMYCIN, TROUGH | Routin | 05/15/2017 | | Results for this | | | e | 9:16 PM | | procedure are in the | | | | PST | | results section. | + +--------+ + + + | X-RAY PORTABLE CHEST | Urgent | 05/15/2017 | | Results for this | | 1 VIEW | | 1:10 PM | | procedure are in the | | | | PST | | results section. | + +--------+ + + + | PICC LINE | Routin | 05/15/2017 | | Results for this | | | e | 11:51 AM | | procedure are in the | | | | PST | | results section. | + +--------+ + + + | VAT: PICC INSERTION | Routin | 05/15/2017 | | Results for this | | W/US | e | 11:50 AM | | procedure are in the | | | | PST | | results section. | + +--------+ + + + | RENAL FUNCTION SET | Urgent | 05/15/2017 | | Results for this | | (NA,K,CL,CO2,BUN,CRE | | 5:26 AM | | procedure are in the | | AT,GLUC,CA,PHOS,ALB | | PST | | results section. | | ) | | | | | + +--------+ + + + | CBC (HEMOGRAM) ONLY | Routin | 05/15/2017 | | Results for this | | | e | 5:21 AM | | procedure are in the | | | | PST | | results section. | + +--------+ + + + | CBC ONLY | Routin | 05/15/2017 | | Results for this | | | e | 5:21 AM | | procedure are in the | | | | PST | | results section. | + +--------+ + + + | VANCOMYCIN, TROUGH | Routin | 05/14/2017 | | Results for this | | | e | 7:15 AM | | procedure are in the | | | | PST | | results section. | + +--------+ + + + | CBC (HEMOGRAM) ONLY | Routin | 05/14/2017 | | Results for this | | | e | 4:51 AM | | procedure are in the | | | | PST | | results section. | + +--------+ + + + | RENAL FUNCTION SET | Urgent | 05/14/2017 | | Results for this | | (NA,K,CL,CO2,BUN,CRE | | 4:51 AM | | procedure are in the | | AT,GLUC,CA,PHOS,ALB | | PST | | results section. | | ) | | | | | + +--------+ + + + | CBC ONLY | Routin | 05/14/2017 | | Results for this | | | e | 4:51 AM | | procedure are in the | | | | PST | | results section. | + +--------+ + + + | CBC (HEMOGRAM) ONLY | Routin | 05/13/2017 | | Results for this | | | e | 5:12 AM | | procedure are in the | | | | PST | | results section. | + +--------+ + + + | RENAL FUNCTION SET | Urgent | 05/13/2017 | | Results for this | | (NA,K,CL,CO2,BUN,CRE | | 5:12 AM | | procedure are in the | | AT,GLUC,CA,PHOS,ALB | | PST | | results section. | | ) | | | | | + +--------+ + + + | CBC ONLY | Routin | 05/13/2017 | | Results for this | | | e | 5:12 AM | | procedure are in the | | | | PST | | results section. | + +--------+ + + + | CAPILLARY BLOOD | Routin | 05/12/2017 | Abscess in | Results for this | | GLUCOSE (NO CHG), | e | 10:10 PM | epidural space of | procedure are in the | | POC | | PST | spine | results section. | + +--------+ + + + | VANCOMYCIN, TROUGH | Routin | 05/12/2017 | | Results for this | | | e | 2:26 PM | | procedure are in the | | | | PST | | results section. | + +--------+ + + + | CULTURE, BLOOD BACTI | Routin | 05/12/2017 | | Results for this | | & YEAST [facility] | e | 1:19 PM | | procedure are in the | | | | PST | | results section. | + +--------+ + + + | CULTURE, BLOOD BACTI | Routin | 05/12/2017 | | Results for this | | & YEAST | e | 1:19 PM | | procedure are in the | | | | PST | | results section. | + +--------+ + + + | CBC (HEMOGRAM) ONLY | Routin | 05/12/2017 | | Results for this | | | e | 3:55 AM | | procedure are in the | | | | PST | | results section. | + +--------+ + + + | RENAL FUNCTION SET | Urgent | 05/12/2017 | | Results for this | | (NA,K,CL,CO2,BUN,CRE | | 3:55 AM | | procedure are in the | | AT,GLUC,CA,PHOS,ALB | | PST | | results section. | | ) | | | | | + +--------+ + + + | CBC ONLY | Routin | 05/12/2017 | | Results for this | | | e | 3:55 AM | | procedure are in the | | | | PST | | results section. | + +--------+ + + + | CAPILLARY BLOOD | Routin | 05/11/2017 | Abscess in | Results for this | | GLUCOSE (NO CHG), | e | 11:53 PM | epidural space of | procedure are in the | | POC | | PST | spine | results section. | + +--------+ + + + | CAPILLARY BLOOD | Routin | 05/11/2017 | Abscess in | Results for this | | GLUCOSE (NO CHG), | e | 4:26 PM | epidural space of | procedure are in the | | POC | | PST | spine | results section. | + +--------+ + + + | TROPONIN I, PLASMA | Routin | 05/11/2017 | | Results for this | | | e | 3:49 PM | | procedure are in the | | | | PST | | results section. | + +--------+ + + + | IR DRAIN PROCEDURE | Routin | 05/11/2017 | | Results for this | | | e | 2:36 PM | | procedure are in the | | | | PST | | results section. | + +--------+ + + + | CAPILLARY BLOOD | Routin | 05/11/2017 | Abscess in | Results for this | | GLUCOSE (NO CHG), | e | 1:31 PM | epidural space of | procedure are in the | | POC | | PST | spine | results section. | + +--------+ + + + | CULTURE, BLOOD BACTI | Routin | 05/11/2017 | | Results for this | | & YEAST [facility] | e | 8:55 AM | | procedure are in the | | | | PST | | results section. | + +--------+ + + + | TROPONIN I, PLASMA | Urgent | 05/11/2017 | | Results for this | | | | 8:55 AM | | procedure are in the | | | | PST | | results section. | + +--------+ + + + | CULTURE, BLOOD BACTI | Routin | 05/11/2017 | | Results for this | | & YEAST | e | 8:55 AM | | procedure are in the | | | | PST | | results section. | + +--------+ + + + | 12 LEAD ECG | Routin | 05/11/2017 | | Results for this | | | e | 8:41 AM | | procedure are in the | | | | PST | | results section. | + +--------+ + + + | CBC (HEMOGRAM) ONLY | Routin | 05/11/2017 | | Results for this | | | e | 4:28 AM | | procedure are in the | | | | PST | | results section. | + +--------+ + + + | RENAL FUNCTION SET | Urgent | 05/11/2017 | | Results for this | | (NA,K,CL,CO2,BUN,CRE | | 4:28 AM | | procedure are in the | | AT,GLUC,CA,PHOS,ALB | | PST | | results section. | | ) | | | | | + +--------+ + + + | CBC ONLY | Routin | 05/11/2017 | | Results for this | | | e | 4:28 AM | | procedure are in the | | | | PST | | results section. | + +--------+ + + + | CAPILLARY BLOOD | Routin | 05/10/2017 | Abscess in | Results for this | | GLUCOSE (NO CHG), | e | 9:56 PM | epidural space of | procedure are in the | | POC | | PST | spine | results section. | + +--------+ + + + | CT CHEST, ABDOMEN | Routin | 05/10/2017 | | Results for this | | AND PELVIS W IV | e | 3:53 PM | | procedure are in the | | CONTRAST | | PST | | results section. | + +--------+ + + + | CAPILLARY BLOOD | Routin | 05/10/2017 | Abscess in | Results for this | | GLUCOSE (NO CHG), | e | 2:05 PM | epidural space of | procedure are in the | | POC | | PST | spine | results section. | + +--------+ + + + | VANCOMYCIN, TROUGH | Urgent | 05/10/2017 | | Results for this | | | | 1:58 PM | | procedure are in the | | | | PST | | results section. | + +--------+ + + + | TRANSTHORACIC | Routin | 05/10/2017 | | Results for this | | ECHOCARDIOGRAM, | e | 1:57 PM | | procedure are in the | | ADULT | | PST | | results section. | + +--------+ + + + | CAPILLARY BLOOD | Routin | 05/10/2017 | Abscess in | Results for this | | GLUCOSE (NO CHG), | e | 10:51 AM | epidural space of | procedure are in the | | POC | | PST | spine | results section. | + +--------+ + + + | CULTURE, BLOOD BACTI | Urgent | 05/10/2017 | | Results for this | | & YEAST [facility] | | 4:21 AM | | procedure are in the | | | | PST | | results section. | + +--------+ + + + | BLOOD CULTURE WORKUP | Urgent | 05/10/2017 | | Results for this | | | | 4:21 AM | | procedure are in the | | | | PST | | results section. | + +--------+ + + + | CBC (HEMOGRAM) ONLY | Routin | 05/10/2017 | | Results for this | | | e | 4:21 AM | | procedure are in the | | | | PST | | results section. | + +--------+ + + + | CARCINOEMBRYONIC AG, | Routin | 05/10/2017 | | Results for this | | SERUM | e | 4:21 AM | | procedure are in the | | | | PST | | results section. | + +--------+ + + + | RENAL FUNCTION SET | Urgent | 05/10/2017 | | Results for this | | (NA,K,CL,CO2,BUN,CRE | | 4:21 AM | | procedure are in the | | AT,GLUC,CA,PHOS,ALB | | PST | | results section. | | ) | | | | | + +--------+ + + + | CBC ONLY | Routin | 05/10/2017 | | Results for this | | | e | 4:21 AM | | procedure are in the | | | | PST | | results section. | + +--------+ + + + | COAGULOPATHY PANEL | Routin | 05/10/2017 | | Results for this | | (INR,APTT,FIBRINOGEN | e | 4:21 AM | | procedure are in the | | ) | | PST | | results section. | + +--------+ + + + | CULTURE, BLOOD BACTI | Urgent | 05/10/2017 | | Results for this | | & YEAST | | 4:21 AM | | procedure are in the | | | | PST | | results section. | + +--------+ + + + | MAGNESIUM, PLASMA | Routin | 05/10/2017 | | Results for this | | | e | 4:21 AM | | procedure are in the | | | | PST | | results section. | + +--------+ + + + | CAPILLARY BLOOD | Routin | 05/09/2017 | Abscess in | Results for this | | GLUCOSE (NO CHG), | e | 10:15 PM | epidural space of | procedure are in the | | POC | | PST | spine | results section. | + +--------+ + + + | CAPILLARY BLOOD | Routin | 05/09/2017 | Abscess in | Results for this | | GLUCOSE (NO CHG), | e | 7:28 PM | epidural space of | procedure are in the | | POC | | PST | spine | results section. | + +--------+ + + + | CAPILLARY BLOOD | Routin | 05/09/2017 | Abscess in | Results for this | | GLUCOSE (NO CHG), | e | 12:17 PM | epidural space of | procedure are in the | | POC | | PST | spine | results section. | + +--------+ + + + | CAPILLARY BLOOD | Routin | 05/09/2017 | Abscess in | Results for this | | GLUCOSE (NO CHG), | e | 9:56 AM | epidural space of | procedure are in the | | POC | | PST | spine | results section. | + +--------+ + + + | CULTURE, BLOOD BACTI | Urgent | 05/09/2017 | | Results for this | | & YEAST [facility] | | 1:33 AM | | procedure are in the | | | | PDT | | results section. | + +--------+ + + + | BLOOD CULTURE WORKUP | Urgent | 05/09/2017 | | Results for this | | | | 1:33 AM | | procedure are in the | | | | PDT | | results section. | + +--------+ + + + | CBC (HEMOGRAM) ONLY | Urgent | 05/09/2017 | | Results for this | | | | 1:33 AM | | procedure are in the | | | | PDT | | results section. | + +--------+ + + + | RENAL FUNCTION SET | Urgent | 05/09/2017 | | Results for this | | (NA,K,CL,CO2,BUN,CRE | | 1:33 AM | | procedure are in the | | AT,GLUC,CA,PHOS,ALB | | PDT | | results section. | | ) | | | | | + +--------+ + + + | CBC ONLY | Urgent | 05/09/2017 | | Results for this | | | | 1:33 AM | | procedure are in the | | | | PDT | | results section. | + +--------+ + + + | CULTURE, BLOOD BACTI | Urgent | 05/09/2017 | | Results for this | | & YEAST | | 1:33 AM | | procedure are in the | | | | PDT | | results section. | + +--------+ + + + | MAGNESIUM, PLASMA | Urgent | 05/09/2017 | | Results for this | | | | 1:33 AM | | procedure are in the | | | | PDT | | results section. | + +--------+ + + + | CULTURE, BLOOD BACTI | Routin | 05/09/2017 | | Results for this | | & YEAST [facility] | e | 1:29 AM | | procedure are in the | | | | PDT | | results section. | + +--------+ + + + | BLOOD CULTURE WORKUP | Routin | 05/09/2017 | | Results for this | | | e | 1:29 AM | | procedure are in the | | | | PDT | | results section. | + +--------+ + + + | CULTURE, BLOOD BACTI | Routin | 05/09/2017 | | Results for this | | & YEAST | e | 1:29 AM | | procedure are in the | | | | PDT | | results section. | + +--------+ + + + | CAPILLARY BLOOD | Routin | 05/08/2017 | Abscess in | Results for this | | GLUCOSE (NO CHG), | e | 9:59 PM | epidural space of | procedure are in the | | POC | | PDT | spine | results section. | + +--------+ + + + | X-RAY CHEST 1 VIEW | Routin | 05/08/2017 | | Results for this | | | e | 4:29 PM | | procedure are in the | | | | PDT | | results section. | + +--------+ + + + | THORACENTESIS | Routin | 05/08/2017 | | Results for this | | | e | 3:33 PM | | procedure are in the | | | | PDT | | results section. | + +--------+ + + + | CAPILLARY BLOOD | Routin | 05/08/2017 | Abscess in | Results for this | | GLUCOSE (NO CHG), | e | 3:25 PM | epidural space of | procedure are in the | | POC | | PDT | spine | results section. | + +--------+ + + + | CELL COUNT, BODY FL | Urgent | 05/08/2017 | | Results for this | | | | 2:57 PM | | procedure are in the | | | | PDT | | results section. | + +--------+ + + + | DIFFERENTIAL, BFL | Urgent | 05/08/2017 | | Results for this | | | | 2:57 PM | | procedure are in the | | | | PDT | | results section. | + +--------+ + + + | CELL COUNT DIFF, | Urgent | 05/08/2017 | | Results for this | | BODY FLUID | | 2:57 PM | | procedure are in the | | | | PDT | | results section. | + +--------+ + + + | CULTURE, FUNGAL | Urgent | 05/08/2017 | | Results for this | | EXCEPT BLOOD, SKIN, | | 2:56 PM | | procedure are in the | | HAIR, NAIL | | PDT | | results section. | + +--------+ + + + | CULTURE, BODY FLUID | Urgent | 05/08/2017 | | Results for this | | | | 2:56 PM | | procedure are in the | | | | PDT | | results section. | + +--------+ + + + | CULTURE, AFB (ALL | Urgent | 05/08/2017 | | Results for this | | SPEC TYPES EXCEPT | | 2:56 PM | | procedure are in the | | BLOOD) | | PDT | | results section. | + +--------+ + + + | GRAM SMEAR ONLY, | Urgent | 05/08/2017 | | Results for this | | STAT | | 2:56 PM | | procedure are in the | | | | PDT | | results section. | + +--------+ + + + | LDH ENZYME LEVEL, | Urgent | 05/08/2017 | | Results for this | | BODY FLUID | | 2:56 PM | | procedure are in the | | | | PDT | | results section. | + +--------+ + + + | GLUCOSE, BODY FLUIDS | Urgent | 05/08/2017 | | Results for this | | | | 2:56 PM | | procedure are in the | | | | PDT | | results section. | + +--------+ + + + | PROTEIN, BODY FLUIDS | Urgent | 05/08/2017 | | Results for this | | | | 2:56 PM | | procedure are in the | | | | PDT | | results section. | + +--------+ + + + | PH, BODY FLUID | Urgent | 05/08/2017 | | Results for this | | | | 2:56 PM | | procedure are in the | | | | PDT | | results section. | + +--------+ + + + | ICU PROCEDURAL | Routin | 05/08/2017 | | Results for this | | THORACENTESIS | e | 2:08 PM | | procedure are in the | | | | PDT | | results section. | + +--------+ + + + | VANCOMYCIN, TROUGH | Routin | 05/08/2017 | | Results for this | | | e | 2:08 PM | | procedure are in the | | | | PDT | | results section. | + +--------+ + + + | LDH TOTAL, PLASMA | Urgent | 05/08/2017 | | Results for this | | | | 2:08 PM | | procedure are in the | | | | PDT | | results section. | + +--------+ + + + | X-RAY PORTABLE CHEST | Urgent | 05/08/2017 | | Results for this | | 1 VIEW | | 10:08 AM | | procedure are in the | | | | PDT | | results section. | + +--------+ + + + | CAPILLARY BLOOD | Routin | 05/08/2017 | Abscess in | Results for this | | GLUCOSE (NO CHG), | e | 9:35 AM | epidural space of | procedure are in the | | POC | | PDT | spine | results section. | + +--------+ + + + | CAPILLARY BLOOD | Routin | 05/08/2017 | Abscess in | Results for this | | GLUCOSE (NO CHG), | e | 1:40 AM | epidural space of | procedure are in the | | POC | | PDT | spine | results section. | + +--------+ + + + | CULTURE, BLOOD BACTI | Urgent | 05/08/2017 | | Results for this | | & YEAST [facility] | | 1:19 AM | | procedure are in the | | | | PDT | | results section. | + +--------+ + + + | BLOOD CULTURE WORKUP | Urgent | 05/08/2017 | | Results for this | | | | 1:19 AM | | procedure are in the | | | | PDT | | results section. | + +--------+ + + + | CBC (HEMOGRAM) ONLY | Urgent | 05/08/2017 | | Results for this | | | | 1:19 AM | | procedure are in the | | | | PDT | | results section. | + +--------+ + + + | RENAL FUNCTION SET | Urgent | 05/08/2017 | | Results for this | | (NA,K,CL,CO2,BUN,CRE | | 1:19 AM | | procedure are in the | | AT,GLUC,CA,PHOS,ALB | | PDT | | results section. | | ) | | | | | + +--------+ + + + | CBC ONLY | Urgent | 05/08/2017 | | Results for this | | | | 1:19 AM | | procedure are in the | | | | PDT | | results section. | + +--------+ + + + | CULTURE, BLOOD BACTI | Urgent | 05/08/2017 | | Results for this | | & YEAST | | 1:19 AM | | procedure are in the | | | | PDT | | results section. | + +--------+ + + + | MAGNESIUM, PLASMA | Urgent | 05/08/2017 | | Results for this | | | | 1:19 AM | | procedure are in the | | | | PDT | | results section. | + +--------+ + + + | CULTURE, BLOOD BACTI | Routin | 05/08/2017 | | Results for this | | & YEAST [facility] | e | 1:14 AM | | procedure are in the | | | | PDT | | results section. | + +--------+ + + + | BLOOD CULTURE WORKUP | Routin | 05/08/2017 | | Results for this | | | e | 1:14 AM | | procedure are in the | | | | PDT | | results section. | + +--------+ + + + | CULTURE, BLOOD BACTI | Routin | 05/08/2017 | | Results for this | | & YEAST | e | 1:14 AM | | procedure are in the | | | | PDT | | results section. | + +--------+ + + + | CAPILLARY BLOOD | Routin | 05/07/2017 | Abscess in | Results for this | | GLUCOSE (NO CHG), | e | 7:57 PM | epidural space of | procedure are in the | | POC | | PDT | spine | results section. | + +--------+ + + + | PROCEDURE NOTE | Routin | 05/07/2017 | | Results for this | | | e | 2:48 PM | | procedure are in the | | | | PDT | | results section. | + +--------+ + + + | HIV-1 DNA PCR QUAL, | Urgent | 05/07/2017 | | Results for this | | BLOOD | | 2:19 PM | | procedure are in the | | | | PDT | | results section. | + +--------+ + + + | HEPATITIS C VIRUS | Urgent | 05/07/2017 | | Results for this | | W/CONFIRMATION | | 2:19 PM | | procedure are in the | | | | PDT | | results section. | + +--------+ + + + | CAPILLARY BLOOD | Routin | 05/07/2017 | Abscess in | Results for this | | GLUCOSE (NO CHG), | e | 12:37 PM | epidural space of | procedure are in the | | POC | | PDT | spine | results section. | + +--------+ + + + | CT CHEST, ABDOMEN | Routin | 05/07/2017 | | Results for this | | AND PELVIS W IV | e | 12:25 PM | | procedure are in the | | CONTRAST | | PDT | | results section. | + +--------+ + + + | TRANSTHORACIC | Urgent | 05/07/2017 | | Results for this | | ECHOCARDIOGRAM, | | 9:42 AM | | procedure are in the | | ADULT | | PDT | | results section. | + +--------+ + + + | PROCEDURE NOTE | Routin | 05/07/2017 | | Results for this | | | e | 7:31 AM | | procedure are in the | | | | PDT | | results section. | + +--------+ + + + | ART LINE | Routin | 05/07/2017 | | Results for this | | | e | 4:06 AM | | procedure are in the | | | | PDT | | results section. | + +--------+ + + + | X-RAY PORTABLE CHEST | Urgent | 05/07/2017 | | Results for this | | 1 VIEW | | 1:49 AM | | procedure are in the | | | | PDT | | results section. | + +--------+ + + + | OPERATION RECORD | | 05/07/2017 | | Results for this | | | | 1:34 AM | | procedure are in the | | | | PDT | | results section. | + +--------+ + + + | CULTURE, BLOOD BACTI | Urgent | 05/07/2017 | | Results for this | | & YEAST [facility] | | 12:53 AM | | procedure are in the | | | | PDT | | results section. | + +--------+ + + + | CULTURE, BLOOD BACTI | Urgent | 05/07/2017 | | Results for this | | & YEAST [facility] | | 12:53 AM | | procedure are in the | | | | PDT | | results section. | + +--------+ + + + | CULTURE, URINE [facility] | Routin | 05/07/2017 | | Results for this | | | e | 12:53 AM | | procedure are in the | | | | PDT | | results section. | + +--------+ + + + | BLOOD CULTURE WORKUP | Urgent | 05/07/2017 | | Results for this | | | | 12:53 AM | | procedure are in the | | | | PDT | | results section. | + +--------+ + + + | BLOOD CULTURE WORKUP | Urgent | 05/07/2017 | | Results for this | | | | 12:53 AM | | procedure are in the | | | | PDT | | results section. | + +--------+ + + + | URINE, MICROSCOPIC | Urgent | 05/07/2017 | | Results for this | | EXAM | | 12:53 AM | | procedure are in the | | | | PDT | | results section. | + +--------+ + + + | URINE SCREEN FOR | Urgent | 05/07/2017 | | Results for this | | CULTURE | | 12:53 AM | | procedure are in the | | | | PDT | | results section. | + +--------+ + + + | CULTURE, BLOOD BACTI | Urgent | 05/07/2017 | | Results for this | | & YEAST | | 12:53 AM | | procedure are in the | | | | PDT | | results section. | + +--------+ + + + | CULTURE, BLOOD BACTI | Urgent | 05/07/2017 | | Results for this | | & YEAST | | 12:53 AM | | procedure are in the | | | | PDT | | results section. | + +--------+ + + + | BLOOD GASES, | Urgent | 05/07/2017 | | Results for this | | ARTERIAL - LAB | | 12:53 AM | | procedure are in the | | | | PDT | | results section. | + +--------+ + + + | COAGULOPATHY PANEL | Urgent | 05/07/2017 | | Results for this | | (INR,APTT,FIBRINOGEN | | 12:20 AM | | procedure are in the | | ) | | PDT | | results section. | + +--------+ + + + | X-RAY SPINE THORACIC | Urgent | 05/07/2017 | | Results for this | | 1 VIEW | | 12:11 AM | | procedure are in the | | | | PDT | | results section. | + +--------+ + + + | CBC (HEMOGRAM) ONLY | Urgent | 05/07/2017 | | Results for this | | | | 12:10 AM | | procedure are in the | | | | PDT | | results section. | + +--------+ + + + | LIVER SET | Urgent | 05/07/2017 | | Results for this | | (AST,ALT,BILI | | 12:10 AM | | procedure are in the | | TOTAL,BILI | | PDT | | results section. | | DIRECT,ALK | | | | | | PHOS,ALB,PROT TOTAL) | | | | | + +--------+ + + + | RENAL FUNCTION SET | Urgent | 05/07/2017 | | Results for this | | (NA,K,CL,CO2,BUN,CRE | | 12:10 AM | | procedure are in the | | AT,GLUC,CA,PHOS,ALB | | PDT | | results section. | | ) | | | | | + +--------+ + + + | CBC ONLY | Urgent | 05/07/2017 | | Results for this | | | | 12:10 AM | | procedure are in the | | | | PDT | | results section. | + +--------+ + + + | LACTATE | Urgent | 05/07/2017 | | Results for this | | | | 12:10 AM | | procedure are in the | | | | PDT | | results section. | + +--------+ + + + | X-RAY FLUOROSCOPY IN | Urgent | 05/06/2017 | | Results for this | | OR > 1 HOUR | | 11:30 PM | | procedure are in the | | | | PDT | | results section. | + +--------+ + + + | CULTURE, WOUND DEEP | Routin | 05/06/2017 | | Results for this | | W/ ANAEROBE | e | 10:34 PM | | procedure are in the | | | | PDT | | results section. | + +--------+ + + + | CULTURE, WOUND DEEP | Routin | 05/06/2017 | | Results for this | | W/ ANAEROBE | e | 10:34 PM | | procedure are in the | | | | PDT | | results section. | + +--------+ + + + | CULTURE, TISSUE | Routin | 05/06/2017 | | Results for this | | | e | 10:34 PM | | procedure are in the | | | | PDT | | results section. | + +--------+ + + + | THORACIC LAMINECTOMY | Electi | 05/06/2017 | spinal epidural | | | | ve | 8:34 PM | abscess | | | | Surgic | PDT | | | | | al | | | | + +--------+ + + + | CULTURE, BLOOD BACTI | Routin | 05/06/2017 | | Results for this | | & YEAST [facility] | e | 9:21 AM | | procedure are in the | | | | PDT | | results section. | + +--------+ + + + | BLOOD CULTURE WORKUP | Routin | 05/06/2017 | | Results for this | | | e | 9:21 AM | | procedure are in the | | | | PDT | | results section. | + +--------+ + + + | CULTURE, BLOOD BACTI | Routin | 05/06/2017 | | Results for this | | & YEAST | e | 9:21 AM | | procedure are in the | | | | PDT | | results section. | + +--------+ + + + | X-RAY CHEST 2 VIEW | Routin | 05/06/2017 | | Results for this | | | e | 8:49 AM | | procedure are in the | | | | PDT | | results section. | + +--------+ + + + | CBC (HEMOGRAM) ONLY | Routin | 05/06/2017 | | Results for this | | | e | 7:25 AM | | procedure are in the | | | | PDT | | results section. | + +--------+ + + + | CONFIRMATORY ABO/RH | Routin | 05/06/2017 | | Results for this | | | e | 7:25 AM | | procedure are in the | | | | PDT | | results section. | + +--------+ + + + | CBC ONLY | Routin | 05/06/2017 | | Results for this | | | e | 7:25 AM | | procedure are in the | | | | PDT | | results section. | + +--------+ + + + | CULTURE, BLOOD BACTI | Urgent | 05/06/2017 | | Results for this | | & [facility] | | 7:15 AM | | procedure are in the | | | | PDT | | results section. | + +--------+ + + + | BLOOD CULTURE WORKUP | Urgent | 05/06/2017 | | Results for this | | | | 7:15 AM | | procedure are in the | | | | PDT | | results section. | + +--------+ + + + | BASIC METABOLIC SET | Routin | 05/06/2017 | | Results for this | | (NA, K, CL, TCO2, | e | 7:15 AM | | procedure are in the | | BUN, CR, GLU, CA) | | PDT | | results section. | + +--------+ + + + | CULTURE, BLOOD BACTI | Urgent | 05/06/2017 | | Results for this | | & YEAST | | 7:15 AM | | procedure are in the | | | | PDT | | results section. | + +--------+ + + + | 12 LEAD ECG | Routin | 05/05/2017 | | Results for this | | | e | 8:52 PM | | procedure are in the | | | | PDT | | results section. | + +--------+ + + + | RBC MORPHOLOGY | Routin | 05/05/2017 | | Results for this | | | e | 8:39 PM | | procedure are in the | | | | PDT | | results section. | + +--------+ + + + | CBC AND AUTO DIFF | Urgent | 05/05/2017 | | Results for this | | | | 8:39 PM | | procedure are in the | | | | PDT | | results section. | + +--------+ + + + | CBC, WITH | Urgent | 05/05/2017 | | Results for this | | DIFFERENTIAL | | 8:39 PM | | procedure are in the | | | | PDT | | results section. | + +--------+ + + + | RENAL FUNCTION SET | Urgent | 05/05/2017 | | Results for this | | (NA,K,CL,CO2,BUN,CRE | | 8:39 PM | | procedure are in the | | AT,GLUC,CA,PHOS,ALB | | PDT | | results section. | | ) | | | | | + +--------+ + + + | C-REACTIVE PROTEIN | Urgent | 05/05/2017 | | Results for this | | | | 8:39 PM | | procedure are in the | | | | PDT | | results section. | + +--------+ + + + | SEDIMENTATION RATE | Urgent | 05/05/2017 | | Results for this | | | | 8:39 PM | | procedure are in the | | | | PDT | | results section. | + +--------+ + + + | COAGULOPATHY PANEL | Urgent | 05/05/2017 | | Results for this | | (INR,APTT,FIBRINOGEN | | 8:39 PM | | procedure are in the | | ) | | PDT | | results section. | + +--------+ + + + | ANTIBODY SCREEN | Routin | 05/05/2017 | | Results for this | | | e | 8:39 PM | | procedure are in the | | | | PDT | | results section. | + +--------+ + + + | TYPE AND SCREEN | Routin | 05/05/2017 | | Results for this | | | e | 8:39 PM | | procedure are in the | | | | PDT | | results section. | + +--------+ + + + | ABO & RH TYPE | Routin | 05/05/2017 | | Results for this | | | e | 8:39 PM | | procedure are in the | | | | PDT | | results section. | + +--------+ + + + | LAB REPORTS | | 05/02/2017 | | Results for this | | | | 12:00 AM | | procedure are in the | | | | PDT | | results section. | + +--------+ + + + documented in this encounter Results CT ABDOMEN AND PELVIS W IV CONTRAST (05/17/2017 12:23 PM PST) + + | Specimen | + + | | + + + + + | Narrative | Performed At | + + + | EXAM: CT of the abdomen and pelvis with contrast HISTORY: | [facility] | | Followup T12-L3 abscess drainage prior to drain removal | RADIOLOGY VOICE | | COMPARISON: 05/10/17 TECHNIQUE: CT of the abdomen and pelvis with | RECOGNITION | | non-ionic iodinated intravenous contrast. Coronal and sagittal | | | reformats were created. FINDINGS: LOWER THORAX: Bilateral | | | pleural effusions decreased in size since the prior, with moderate | | | residual the left and small right. Persistent left parietal pleural | | | enhancement is nonspecific but could be seen with infection or complex | | | effusion. No definite loculation. LIVER: Unremarkable. BILIARY: | | | Unremarkable. PANCREAS: Unremarkable. SPLEEN: Unremarkable. | | | ADRENALS: Unremarkable. KIDNEYS/URETERS: Unremarkable. PELVIC | | | ORGANS/BLADDER: Unremarkable. GI TRACT: Unremarkable. PERITONEUM: | | | No free air or fluid. LYMPH NODES: No lymphadenopathy. VESSELS: | | | Unremarkable. BONES AND SOFT TISSUES: Left paraspinal muscle | | | abscess contains appropriate position pigtail drain. Abscess cavity is | | | collapsed around the drain. Small residual deep rim enhancing | | | collection in the pleural space, along the posterior costophrenic | | | recess diaphragm measuring 3.4 x 1.1 cm, previously 4.9 x 2.7 cm. | | | Partial visualization of the T8 laminectomy which appears | | | uncomplicated. IMPRESSION: 1. Since 05/10/17, resolution of the | | | left paraspinal muscle abscess. However there is a small residual | | | contiguous deeper abscess within the right diaphragm/posterior | | | costophrenic recess. 2. More conspicuous left parietal pleural | | | enhancement with pleural effusion could represent spread of infection | | | to the pleural space, particularly given persistent | | | diaphragm/posterior costophrenic recess abscess. I have | | | personally reviewed the images and, if necessary, edited the report. | | | I agree with the report as now presented. | | + + + + + | Procedure Note | + + | Service Account, Radiant Res In Interface - 05/17/2017 2:19 PM PST EXAM: CT of the | | abdomen and pelvis with contrastHISTORY: Followup T12-L3 abscess drainage prior to drain | | removalCOMPARISON: 05/10/17TECHNIQUE: CT of the abdomen and pelvis with non-ionic | | iodinated intravenous contrast. Coronal and sagittal reformats were | | created.FINDINGS:LOWER THORAX: Bilateral pleural effusions decreased in size since the | | prior, with moderate residual the left and small right. Persistent left parietal pleural | | enhancement is nonspecific but could be seen with infection or complex effusion. No | | definite loculation.LIVER: Unremarkable.BILIARY: Unremarkable.PANCREAS: | | Unremarkable.SPLEEN: Unremarkable.ADRENALS: Unremarkable.KIDNEYS/URETERS: | | Unremarkable.PELVIC ORGANS/BLADDER: Unremarkable.GI TRACT: Unremarkable.PERITONEUM: No | | free air or fluid.LYMPH NODES: No lymphadenopathy.VESSELS: Unremarkable.BONES AND SOFT | | TISSUES: Left paraspinal muscle abscess contains appropriate position pigtail drain. | | Abscess cavity is collapsed around the drain. Small residual deep rim enhancing | | collection in the pleural space, along the posterior costophrenic recess diaphragm | | measuring 3.4 x 1.1 cm, previously 4.9 x 2.7 cm.Partial visualization of the T8 | | laminectomy which appears uncomplicated.IMPRESSION: 1. Since 05/10/17, resolution of the | | left paraspinal muscle abscess. However there is a small residual contiguous deeper | | abscess within the right diaphragm/posterior costophrenic recess.2. More conspicuous | | left parietal pleural enhancement with pleural effusion could represent spread of | | infection to the pleural space, particularly given persistent diaphragm/posterior | | costophrenic recess abscess.I have personally reviewed the images and, if necessary, | | edited the report. I agree with the report as now presented. | |GI TRACT: Unremarkable. | |PERITONEUM: No free air or fluid. | | | |LYMPH NODES: No lymphadenopathy. | |VESSELS: Unremarkable. | | | |BONES AND SOFT TISSUES: Left paraspinal muscle abscess contains appropriate position pigtai l drain. Abscess cavity is collapsed around the drain. Small residual deep rim enhancing col lection in the pleural space, | |along the posterior costophrenic recess diaphragm measuring 3.4 x 1.1 cm, previously 4.9 x 2.7 cm. | | | |Partial visualization of the T8 laminectomy which appears uncomplicated. | | | |IMPRESSION: | |1. Since 05/10/17, resolution of the left paraspinal muscle abscess. However there is a smal l residual contiguous deeper abscess within the right diaphragm/posterior costophrenic reces s. | | | |2. More conspicuous left parietal pleural enhancement with pleural effusion could represent spread of infection to the pleural space, particularly given persistent diaphragm/posterior costophrenic recess abscess. | | | | | |I have personally reviewed the images and, if necessary, edited the report. I agree with t he report as now presented. | + + + +---------+ + + | Performing | Address | City/State/Zipcode | Phone Number | | Organization | | | | + +---------+ + + | [facility] | | | | | VOICE RECOGNITION | | | | + +---------+ + + US THORACENTESIS ASPIRATION W/ US & GUIDE (05/17/2017 12:18 PM PST) + + | Specimen | + + | | + + + + + | Narrative | Performed At | + + + | PROCEDURE: US-GUIDED THORACENTESIS. HISTORY: Bilateral pleural | [facility] | | effusion. Left greater than right. COMPARISON: Radiograph of | RADIOLOGY VOICE | | 05/15/17 TECHNIQUE: Following a procedures, alternatives, risks | RECOGNITION | | and questions (PARQ) conference, written and oral consent was | | | obtained. Team Pause was performed. The posterior chest was scanned | | | with the patient in a sitting position and a point marked on the skin, | | | overlying the largest area of fluid in the left lower chest. The | | | area was prepped and draped in sterile fashion. Several ml of 1% | | | buffered lidocaine was used for local anesthesia. A 19 gauge Yueh | | | zweitgeistesis catheter needle was placed in the pleural space and | | | blood-tinged pleural fluid was withdrawn. The patient tolerated the | | | procedure without complication. FINDINGS: Left-sided pleural | | | effusion chosen for therapeutic and diagnostic thoracentesis. 1400 mL | | | of blood-tinged fluid was obtained. Fluid was sent to the lab for | | | testing. IMPRESSION: Ultrasound-guided left-sided therapeutic | | | and diagnostic thoracentesis. By my electronic signature | | | listed below, I, the attending radiologist, was present for the | | | critical portions of the procedure as described in this note. I | | | have personally reviewed the images and, if necessary, edited the | | | report. I agree with the report as now presented. | | + + + + + | Procedure Note | + + | Service Account, Radiant Res In Interface - 05/17/2017 12:43 PM PST PROCEDURE: | | US-GUIDED THORACENTESIS.HISTORY: Bilateral pleural effusion. Left greater than right. | | COMPARISON: Radiograph of 05/15/17 TECHNIQUE: Following a procedures, alternatives, | | risks and questions (PARQ) conference, written and oral consent was obtained. Team | | Pause was performed. The posterior chest was scanned with the patient in a sitting | | position and a point marked on the skin, overlying the largest area of fluid in the left | | lower chest. The area was prepped and draped in sterile fashion. Several ml of 1% | | buffered lidocaine was used for local anesthesia. A 19 gauge Stylecrookesis catheter | | needle was placed in the pleural space and blood-tinged pleural fluid was withdrawn. The | | patient tolerated the procedure without complication.FINDINGS:Left-sided pleural | | effusion chosen for therapeutic and diagnostic thoracentesis. 1400 mL of blood-tinged | | fluid was obtained. Fluid was sent to the lab for testing.IMPRESSION:Ultrasound-guided | | left-sided therapeutic and diagnostic thoracentesis. By my electronic signature listed | | below, I, the attending radiologist, was present for the critical portions of the | | procedure as described in this note.I have personally reviewed the images and, if | | necessary, edited the report. I agree with the report as now presented. | |Ultrasound-guided left-sided therapeutic and diagnostic thoracentesis. | | | | | |By my electronic signature listed below, I, the attending radiologist, was present for the critical portions of the procedure as described in this note. | | | | | |I have personally reviewed the images and, if necessary, edited the report. I agree with t he report as now presented. | + + + +---------+ + + | Performing | Address | City/State/Zipcode | Phone Number | | Organization | | | | + +---------+ + + | [facility] | | | | | VOICE RECOGNITION | | | | + +---------+ + + LAB HOLD - BODY FLUID (05/17/2017 12:04 PM PST) + + | Specimen | + + | | + + + + + + + | Performing | Address | City/State/Zipcode | Phone Number | | Organization | | | | + + + + + | [facility] | [address] | [place] [address] | | | TO[address] MCLEAN | [address] | | | + + + + + DIFFERENTIAL, BFL (05/17/2017 12:04 PM PST) + +-------+ + + + | Component | Value | Ref Range | Performed | Pathologist | | | | | At | Signature | + +-------+ + + + | NEUTROPHIL( | 38 | % | [facility] | | | BF) | | | LABORATORY | | | | | | SERVICES, | | | | | | CORE | | + +-------+ + + + | LYMPHOCYTES | 30 | % | [facility] | | | (BF) | | | LABORATORY | | | | | | SERVICES, | | | | | | CORE | | + +-------+ + + + | MONOCYTES(B | 17 | % | [facility] | | | EARNEST [place]) | | | LABORATORY | | | | | | SERVICES, | | | | | | CORE | | + +-------+ + + + | MACROPHAGES | 13 | % | [facility] | | | (BF) | | | LABORATORY | | | | | | SERVICES, | | | | | | CORE | | + +-------+ + + + | EOSINOPHILS | 0 | % | [facility] | | | (BF) | | | LABORATORY | | | | | | SERVICES, | | | | | | CORE | | + +-------+ + + + | BASOPHILS(B | 1 | % | [facility] | | | F) | | | LABORATORY | | | | | | SERVICES, | | | | | | CORE | | + +-------+ + + + | REACTIVE | 1 | % | [facility] | | | LYMPHS(BF) | | | LABORATORY | | | | | | SERVICES, | | | | | | CORE | | + +-------+ + + + | ATYPICAL | 0 | 0.0 % | [facility] | | | CELLS(BF) | | | LABORATORY | | | | | | SERVICES, | | | | | | CORE | | + +-------+ + + + | TOTAL CELL | 100 | | [facility] | | | COUNTED,BFL | | | LABORATORY | | | | | | SERVICES, | | | | | | CORE | | + +-------+ + + + + + | Specimen | + + | Pleural fluid - | | Pleural membrane | | structure (body | | structure) | + + + + + + + | Performing | Address | City/State/Zipcode | Phone Number | | Organization | | | | + + + + + | [facility] | [address] | [place] [address] | | | SERVICES, CORE | [address] | | | + + + + + CELL COUNT, BODY FL (05/17/2017 12:04 PM PST) + +--------+ + + + | Component | Value | Ref Range | Performed | Pathologist | | | | | At | Signature | + +--------+ + + + | WBC, BODY | 982 | 0 - 999 cu mm | [facility] | | | FLUID | | | LABORATORY | | | | | | SERVICES, | | | | | | CORE | | + +--------+ + + + | RBC, BODY | 32,000 | cu mm | [facility] | | | FLUID | | | LABORATORY | | | | | | SERVICES, | | | | | | CORE | | + +--------+ + + + + + | Specimen | + + | Pleural fluid - | | Pleural membrane | | structure (body | | structure) | + + + + + + + | Performing | Address | City/State/Zipcode | Phone Number | | Organization | | | | + + + + + | [facility] | [address] | [place] [address] | | | SERVICES, CORE | [address] | | | + + + + + GRAM SMEAR ONLY, STAT (05/17/2017 12:04 PM PST) + + + + + + | Component | Value | Ref Range | Performed | Pathologist | | | | | At | Signature | + + + + + + | GRAM STAIN | No organisms | No organisms | [facility] | | | RESULT | seenComment: Many white | seen | LABORATORY | | | | blood cells present. | | SERVICES, | | | | | | CORE | | + + + + + + | SMEAR | Cytospin | | [facility] | | | PREPARATION | | | LABORATORY | | | | | | SERVICES, | | | | | | CORE | | + + + + + + | SOURCE BODY | Pleural fluid, Pleura | | [facility] | | | SITE | | | LABORATORY | | | | | | SERVICES, | | | | | | CORE | | + + + + + + + + | Specimen | + + | Pleural fluid - | | Pleural membrane | | structure (body | | structure) | + + + + + + + | Performing | Address | City/State/Zipcode | Phone Number | | Organization | | | | + + + + + | [facility] | [address] | [place] [address] | | | SERVICES, CORE | [address] | | | + + + + + CULTURE, AFB (ALL SPEC TYPES EXCEPT BLOOD) (05/17/2017 12:04 PM PST) + + | Specimen | + + | Pleural fluid - | | Pleural membrane | | structure (body | | structure) | + + + + + | Narrative | Performed At | + + + | Culture Report: No acid fast bacteria isolated at 6 weeks. AFB | [facility] | | Smear: AFB not detected | [facility] | | | [place] | + + + + + + + + | Performing | Address | City/State/Zipcode | Phone Number | | Organization | | | | + + + + + | [facility] | [address] | [place] [address] | | | [place] | | | | + + + + + CULTURE, BODY FLUID (05/17/2017 12:04 PM PST) + + | Specimen | + + | Pleural fluid - | | Pleural membrane | | structure (body | | structure) | + + + + + | Narrative | Performed At | + + + | Culture Report: No growth No anaerobic organisms isolated | [facility] | | Gram Stain: No squamous epithelial cells Many polymorphonuclear | [facility] | | cells No organisms seen | [place] | + + + + + + + + | Performing | Address | City/State/Zipcode | Phone Number | | Organization | | | | + + + + + | [facility] | [address] | [place] [address] | | | [place] | | | | + + + + + PH, BODY FLUID (05/17/2017 12:04 PM PST) + +-------+ + + + | Component | Value | Ref Range | Performed | Pathologist | | | | | At | Signature | + +-------+ + + + | PH BODY | 7.45 | | [facility] | | | FLUID | | | LABORATORY | | | | | | SERVICES, | | | | | | CORE | | + +-------+ + + + + + | Specimen | + + | Pleural fluid - | | Pleural membrane | | structure (body | | structure) | + + + + + | Narrative | Performed At | + + + | Reference Ranges: | [facility] | | Serous Fluids (pleural,pericardial,ascitic) : 6.8-7.6 | LABORATORY | | | SERVICES, CORE | + + + + + + + + | Performing | Address | City/State/Zipcode | Phone Number | | Organization | | | | + + + + + | [facility] | [address] | [place] [address] | | | SERVICES, CORE | [address] | | | + + + + + LDH ENZYME LEVEL, BODY FLUID (05/17/2017 12:04 PM PST) + +-------+ + + + | Component | Value | Ref Range | Performed | Pathologist | | | | | At | Signature | + +-------+ + + + | LDH BODY | 266 | U/L | [facility] | | | FLUID | | | LABORATORY | | | | | | SERVICES, | | | | | | CORE | | + +-------+ + + + + + | Specimen | + + | Pleural fluid - | | Pleural membrane | | structure (body | | structure) | + + + + + + + | Performing | Address | City/State/Zipcode | Phone Number | | Organization | | | | + + + + + | [facility] | [address] | [place] [address] | | | SERVICES, CORE | [address] | | | + + + + + PROTEIN, BODY FLUIDS (05/17/2017 12:04 PM PST) + +-------+ + + + | Component | Value | Ref Range | Performed | Pathologist | | | | | At | Signature | + +-------+ + + + | PROTEIN | 4.0 | g/dL | [facility] | | | BODY FLUID | | | LABORATORY | | | | | | SERVICES, | | | | | | CORE | | + +-------+ + + + + + | Specimen | + + | Pleural fluid - | | Pleural membrane | | structure (body | | structure) | + + + + + + + | Performing | Address | City/State/Zipcode | Phone Number | | Organization | | | | + + + + + | [facility] | [address] | [place] [address] | | | TONY MCLEAN | [address] | | | + + + + + GLUCOSE, BODY FLUIDS (05/17/2017 12:04 PM PST) + +-------+ + + + | Component | Value | Ref Range | Performed | Pathologist | | | | | At | Signature | + +-------+ + + + | GLUCOSE | 100 | mg/dL | [facility] | | | BODY FLUID | | | LABORATORY | | | | | | SERVICES, | | | | | | CORE | | + +-------+ + + + + + | Specimen | + + | Pleural fluid - | | Pleural membrane | | structure (body | | structure) | + + + + + + + | Performing | Address | City/State/Zipcode | Phone Number | | Organization | | | | + + + + + | [facility] | [address] | [place] [address] | | | SERVICES, CORE | [address] | | | + + + + + CBC (HEMOGRAM) ONLY (05/17/2017 5:40 AM PST) + + + + + + | Component | Value | Ref Range | Performed | Pathologist | | | | | At | Signature | + + + + + + | WHITE CELL | 8.63 | 3.50 - 10.80 | [facility] | | | COUNT | | K/cu mm | LABORATORY | | | | | | SERVICES, | | | | | | CORE | | + + + + + + | RED CELL | 3.22 (L) | 4.50 - 6.00 | [facility] | | | COUNT | | M/cu mm | LABORATORY | | | | | | SERVICES, | | | | | | CORE | | + + + + + + | HEMOGLOBIN | 9.7 (L) | 13.5 - 17.5 | [facility] | | | | | g/dL | LABORATORY | | | | | | SERVICES, | | | | | | CORE | | + + + + + + | HEMATOCRIT | 28.7 (L) | 41.0 - 53.0 % | [facility] | | | | | | LABORATORY | | | | | | SERVICES, | | | | | | CORE | | + + + + + + | MCV | 89.1 | 80.0 - 96.0 fL | [facility] | | | | | | LABORATORY | | | | | | SERVICES, | | | | | | CORE | | + + + + + + | MCHC | 33.8 | 33.0 - 35.5 | [facility] | | | | | g/dL | LABORATORY | | | | | | SERVICES, | | | | | | CORE | | + + + + + + | RDW SD | 45.3 | 35.1 - 46.3 fL | [facility] | | | | | | LABORATORY | | | | | | SERVICES, | | | | | | CORE | | + + + + + + | PLATELET | 500 (H) | 150 - 400 K/cu | [facility] | | | COUNT | | mm | LABORATORY | | | | | | SERVICES, | | | | | | CORE | | + + + + + + | MPV | 8.7 (L) | 9.7 - 12.3 fL | [facility] | | | | | | LABORATORY | | | | | | SERVICES, | | | | | | CORE | | + + + + + + | NRBC% | 0.0 | 0.0 - 0.3 % | [facility] | | | | | | LABORATORY | | | | | | SERVICES, | | | | | | CORE | | + + + + + + | NRBC# | 0.00 | 0.00 - 0.02 | [facility] | | | | | K/cu mm | LABORATORY | | | | | | SERVICES, | | | | | | CORE | | + + + + + + + + | Specimen | + + | Blood - Blood | | (substance) | + + + + + + + | Performing | Address | City/State/Zipcode | Phone Number | | Organization | | | | + + + + + | [facility] | [address] | [place] [address] | | | SERVICES, CORE | [address] | | | + + + + + RENAL FUNCTION SET (NA,K,CL,CO2,BUN,CREAT,GLUC,CA,PHOS,ALB ) (05/17/2017 5:40 AM PST) + +---------+ + + + | Component | Value | Ref Range | Performed | Pathologist | | | | | At | Signature | + +---------+ + + + | GLUCOSE, | 108 (H) | 70 - 99 mg/dL | [facility] | | | PLASMA | | | LABORATORY | | | (LAB) | | | SERVICES, | | | | | | CORE | | + +---------+ + + + | BUN, PLASMA | 9 | 6 - 20 mg/dL | [facility] | | | (LAB) | | | LABORATORY | | | | | | SERVICES, | | | | | | CORE | | + +---------+ + + + | CREATININE | 0.82 | 0.70 - 1.30 | [facility] | | | PLASMA | | mg/dL | LABORATORY | | | (LAB) | | | SERVICES, | | | | | | CORE | | + +---------+ + + + | EGFR | >60 | >60 mL/min | [facility] | | | - | | | LABORATORY | | | [facility] | | | SERVICES, | | | | | | CORE | | + +---------+ + + + | EGFR NON | >60 | >60 mL/min | [facility] | | | -OBDULIA | | | LABORATORY | | | RICAN | | | SERVICES, | | | | | | CORE | | + +---------+ + + + | SODIUM, | 131 (L) | 136 - 145 | [facility] | | | PLASMA | | mmol/L | LABORATORY | | | (LAB) | | | SERVICES, | | | | | | CORE | | + +---------+ + + + | POTASSIUM, | 4.3 | 3.4 - 5.0 | [facility] | | | PLASMA | | mmol/L | LABORATORY | | | (LAB) | | | SERVICES, | | | | | | CORE | | + +---------+ + + + | CHLORIDE, | 95 (L) | 97 - 108 mmol/L | [facility] | | | PLASMA | | | LABORATORY | | | (LAB) | | | SERVICES, | | | | | | CORE | | + +---------+ + + + | TOTAL CO2, | 28 | 21 - 32 mmol/L | [facility] | | | PLASMA | | | LABORATORY | | | (LAB) | | | SERVICES, | | | | | | CORE | | + +---------+ + + + | CALCIUM, | 8.2 (L) | 8.6 - 10.2 | [facility] | | | PLASMA | | mg/dL | LABORATORY | | | (LAB) | | | SERVICES, | | | | | | CORE | | + +---------+ + + + | CALCIUM(ALB | 9.8 | 8.6 - 10.2 | [facility] | | | CORRECTED) | | mg/dL | LABORATORY | | | | | | SERVICES, | | | | | | CORE | | + +---------+ + + + | ALBUMIN, | 2.0 (L) | 3.5 - 4.7 g/dL | [facility] | | | PLASMA | | | LABORATORY | | | (LAB) | | | SERVICES, | | | | | | CORE | | + +---------+ + + + | PHOSPHORUS, | 3.8 | 2.4 - 4.7 mg/dL | [facility] | | | PLASMA | | | LABORATORY | | | (LAB) | | | SERVICES, | | | | | | CORE | | + +---------+ + + + | POTASSIUM | No Hemo | | [facility] | | | CMNT | | | LABORATORY | | | | | | SERVICES, | | | | | | CORE | | + +---------+ + + + | ANION GAP | 8 | mmol/L | [facility] | | | | | | LABORATORY | | | | | | SERVICES, | | | | | | CORE | | + +---------+ + + + | ANION | 13 (H) | 4 - 11 mmol/L | [facility] | | | GAP(ALB | | | LABORATORY | | | CORRECTED) | | | SERVICES, | | | | | | CORE | | + +---------+ + + + + + | Specimen | + + | Blood - Blood | | (substance) | + + + + + | Narrative | Performed At | + + + | Adult glucose reference range change effective 7-12-17. GFR is | [facility] | | estimated using the MDRD equation recommended by the National Kidney | LABORATORY | | Disease Education Program. Estimated GFR Interpretive Information: | SERVICES, CORE | | <60 mL/min/1.73 sq m Chronic Kidney Disease | | | <15 mL/min/1.73 sq m Kidney Failure Estimated | | | GFR greater that 60 mL/min/1.73 sq m is of limited clinical value. | | | The MDRD equation is not valid in the following situations: - | | | Patients under 18 years of age - Severe malnutrition or obesity - | | | Vegetarian diet - Rapidly changing kidney function | | + + + + + + + + | Performing | Address | City/State/Zipcode | Phone Number | | Organization | | | | + + + + + | [facility] | [address] | [place] [address] | | | SERVICES, CORE | [address] | | | + + + + + PROTEIN TOTAL, PLASMA (05/17/2017 5:40 AM PST) + +-------+ + + + | Component | Value | Ref Range | Performed | Pathologist | | | | | At | Signature | + +-------+ + + + | TOTAL | 7.1 | 6.4 - 8.2 g/dL | [facility] | | | PROTEIN, | | | LABORATORY | | | PLASMA | | | SERVICES, | | | (LAB) | | | CORE | | + +-------+ + + + + + | Specimen | + + | Blood - Blood | | (substance) | + + + + + + + | Performing | Address | City/State/Zipcode | Phone Number | | Organization | | | | + + + + + | [facility] | [address] | [place] [address] | | | SERVICES, CORE | [address] | | | + + + + + LDH TOTAL, PLASMA (05/17/2017 5:40 AM PST) + +---------+ + + + | Component | Value | Ref Range | Performed | Pathologist | | | | | At | Signature | + +---------+ + + + | LD TOTAL, | 180 | <=250 U/L | [facility] | | | PLASMA | | | LABORATORY | | | | | | SERVICES, | | | | | | CORE | | + +---------+ + + + | LD CMNT | No Hemo | | [facility] | | | | | | LABORATORY | | | | | | SERVICES, | | | | | | CORE | | + +---------+ + + + + + | Specimen | + + | Blood - Blood | | (substance) | + + + + + + + | Performing | Address | City/State/Zipcode | Phone Number | | Organization | | | | + + + + + | [facility] | [address] | [place] [address] | | | SERVICES, CORE | [address] | | | + + + + + NON WASTE WATER OR WATER PLANT OPERATOR CYTOLOGY (05/17/2017) + + + + + + | Component | Value | Ref Range | Performed | Pathologist | | | | | At | Signature | + + + + + + | NON-WASTE WATER OR WATER PLANT OPERATOR | SOURCE OF SPECIMEN:A | | [facility] | | | CYTOLOGY | Pleural FluidGROSS | | DEPARTMENT | | | | DESCRIPTION: 1000 mL | | OF | | | | clouded yellow fluid | | PATHOLOGY | | | | with blood and | | | | | | mucinousdebris, 1 | | | | | | SurePath slide and cell | | | | | | block preparedCLINICAL | | | | | | HISTORY: | | | | | | Diagnosis:Negative for | | | | | | malignancy. | | | | | | Adequacy:Satisfactory | | | | | | for evaluation. | | | | | | Inflammation:Acute and | | | | | | chronic inflammatory | | | | | | cells are present. | | | | | | My electronic signature | | | | | | indicates that I have | | | | | | personally reviewed | | | | | | alldiagnostic slides, | | | | | | the gross and/or | | | | | | microscopic portion of | | | | | | thisreport and | | | | | | formulated the final | | | | | | diagnosis. | | | | | | Electronically signed | | | | | | by: Heydi Lawrence | | | | | | CT(ASCP)Marking Clerk | | | | | | Date Completed: | | | | | | 05/19/2017 | | | | | | 9:47AMElectronically | | | | | | signed by: Brayan | | | | | | Sergei Galvan, | | | | | | Ph.DPathologistDate | | | | | | Completed: 05/19/2017 | | | | | | 4:07PM | | | | + + + + + + + + | Specimen | + + | Pleural fluid - | | Pleural membrane | | structure (body | | structure) | + + + + + | Narrative | Performed At | + + + | | | + + + + + + + + | Performing | Address | City/State/Zipcode | Phone Number | | Organization | | | | + + + + + | [facility] | [address] | [place] [address] | | | PATHOLOGY | [address] | | | + + + + + RENAL FUNCTION SET (NA,K,CL,CO2,BUN,CREAT,GLUC,CA,PHOS,ALB ) (05/16/2017 5:52 AM PST) + +---------+ + + + | Component | Value | Ref Range | Performed | Pathologist | | | | | At | Signature | + +---------+ + + + | GLUCOSE, | 108 (H) | 70 - 99 mg/dL | [facility] | | | PLASMA | | | LABORATORY | | | (LAB) | | | SERVICES, | | | | | | CORE | | + +---------+ + + + | BUN, PLASMA | 10 | 6 - 20 mg/dL | [facility] | | | (LAB) | | | LABORATORY | | | | | | SERVICES, | | | | | | CORE | | + +---------+ + + + | CREATININE | 0.82 | 0.70 - 1.30 | [facility] | | | PLASMA | | mg/dL | LABORATORY | | | (LAB) | | | SERVICES, | | | | | | CORE | | + +---------+ + + + | EGFR | >60 | >60 mL/min | [facility] | | | - | | | LABORATORY | | | [facility] | | | SERVICES, | | | | | | CORE | | + +---------+ + + + | EGFR NON | >60 | >60 mL/min | [facility] | | | -OBDULIA | | | LABORATORY | | | RICAN | | | SERVICES, | | | | | | CORE | | + +---------+ + + + | SODIUM, | 131 (L) | 136 - 145 | [facility] | | | PLASMA | | mmol/L | LABORATORY | | | (LAB) | | | SERVICES, | | | | | | CORE | | + +---------+ + + + | POTASSIUM, | 4.3 | 3.4 - 5.0 | [facility] | | | PLASMA | | mmol/L | LABORATORY | | | (LAB) | | | SERVICES, | | | | | | CORE | | + +---------+ + + + | CHLORIDE, | 97 | 97 - 108 mmol/L | [facility] | | | PLASMA | | | LABORATORY | | | (LAB) | | | SERVICES, | | | | | | CORE | | + +---------+ + + + | TOTAL CO2, | 29 | 21 - 32 mmol/L | [facility] | | | PLASMA | | | LABORATORY | | | (LAB) | | | SERVICES, | | | | | | CORE | | + +---------+ + + + | CALCIUM, | 8.1 (L) | 8.6 - 10.2 | [facility] | | | PLASMA | | mg/dL | LABORATORY | | | (LAB) | | | SERVICES, | | | | | | CORE | | + +---------+ + + + | CALCIUM(ALB | 9.8 | 8.6 - 10.2 | [facility] | | | CORRECTED) | | mg/dL | LABORATORY | | | | | | SERVICES, | | | | | | CORE | | + +---------+ + + + | ALBUMIN, | 1.9 (L) | 3.5 - 4.7 g/dL | [facility] | | | PLASMA | | | LABORATORY | | | (LAB) | | | SERVICES, | | | | | | CORE | | + +---------+ + + + | PHOSPHORUS, | 4.1 | 2.4 - 4.7 mg/dL | [facility] | | | PLASMA | | | LABORATORY | | | (LAB) | | | SERVICES, | | | | | | CORE | | + +---------+ + + + | POTASSIUM | No Hemo | | [facility] | | | CMNT | | | LABORATORY | | | | | | SERVICES, | | | | | | CORE | | + +---------+ + + + | ANION GAP | 5 | mmol/L | [facility] | | | | | | LABORATORY | | | | | | SERVICES, | | | | | | CORE | | + +---------+ + + + | ANION | 10 | 4 - 11 mmol/L | [facility] | | | GAP(ALB | | | LABORATORY | | | CORRECTED) | | | SERVICES, | | | | | | CORE | | + +---------+ + + + + + | Specimen | + + | Blood - Blood | | (substance) | + + + + + | Narrative | Performed At | + + + | Adult glucose reference range change effective 7-12-17. GFR is | [facility] | | estimated using the MDRD equation recommended by the National Kidney | LABORATORY | | Disease Education Program. Estimated GFR Interpretive Information: | SERVICES, CORE | | <60 mL/min/1.73 sq m Chronic Kidney Disease | | | <15 mL/min/1.73 sq m Kidney Failure Estimated | | | GFR greater that 60 mL/min/1.73 sq m is of limited clinical value. | | | The MDRD equation is not valid in the following situations: - | | | Patients under 18 years of age - Severe malnutrition or obesity - | | | Vegetarian diet - Rapidly changing kidney function | | + + + + + + + + | Performing | Address | City/State/Zipcode | Phone Number | | Organization | | | | + + + + + | [facility] | [address] | [place] [address] | | | SERVICES, TON[place] | [address] | | | + + + + + VANCOMYCIN, TROUGH (05/15/2017 9:16 PM PST) + +-------+ + + + | Component | Value | Ref Range | Performed | Pathologist | | | | | At | Signature | + +-------+ + + + | VANCOMYCIN, | 17.7 | 10.0 - 20.0 | [facility] | | | TROUGH | | ug/mL | LABORATORY | | | | | | SERVICES, | | | | | | CORE | | + +-------+ + + + + + | Specimen | + + | Blood - Blood | | (substance) | + + + + + | Narrative | Performed At | + + + | Please draw vanco trough 30 minutes prior to next dose, thank you | [facility] | | pharmacy [id number] Reference range change effective 03/29/2017. | LABORATORY | | | SERVICES, CORE | + + + + + + + + | Performing | Address | City/State/Zipcode | Phone Number | | Organization | | | | + + + + + | [facility] | [address] | [place] [address] | | | SERVICES, CORE | [address] | | | + + + + + X-RAY PORTABLE CHEST 1 VIEW (05/15/2017 1:10 PM PST) + + | Specimen | + + | | + + + + + | Narrative | Performed At | + + + | EXAM: RI CHEST 1 VIEW 05/15/17 12:35:07 HISTORY: PICC placement | [facility] | | and COMPARISON: 05/08/17 FINDINGS: There is a right-sided | RADIOLOGY VOICE | | PICC line with the tip extending to the cavoatrial junction. The | RECOGNITION | | cardiomediastinal contour is normal. The lungs are clear. There is a | | | trace right and a moderate layering left sided pleural effusion. There | | | is no pulmonary edema or pneumothorax. The bones are intact. There | | | are surgical andrei noted along the midline chest and neck region. | | | IMPRESSION: Trace right and moderate left-sided pleural | | | effusions. Right-sided PICC line with the tip extending to the | | | cavoatrial junction. I have personally reviewed the images and, | | | if necessary, edited the report. I agree with the report as now | | | presented. | | + + + + + | Procedure Note | + + | Service Account, [employer] In Interface - 05/15/2017 3:15 PM PST EXAM: RI CHEST 1 | | VIEW 05/15/17 12:35:07HISTORY: PICC placement andCOMPARISON: 05/08/17FINDINGS:There is a | | right-sided PICC line with the tip extending to the cavoatrial junction. The | | cardiomediastinal contour is normal. The lungs are clear. There is a trace right and a | | moderate layering left sided pleural effusion. There is no pulmonary edema or | | pneumothorax. The bones are intact. There are surgical andrei noted along the midline | | chest and neck region.IMPRESSION:Trace right and moderate left-sided pleural | | effusions.Right-sided PICC line with the tip extending to the cavoatrial junction.I have | | personally reviewed the images and, if necessary, edited the report. I agree with the | | report as now presented. | | | |IMPRESSION: | | | |Trace right and moderate left-sided pleural effusions. | |Right-sided PICC line with the tip extending to the cavoatrial junction. | | | | | |I have personally reviewed the images and, if necessary, edited the report. I agree with t he report as now presented. | + + + +---------+ + + | Performing | Address | City/State/Zipcode | Phone Number | | Organization | | | | + +---------+ + + | [facility] | | | | | VOICE RECOGNITION | | | | + +---------+ + + PICC LINE (05/15/2017 11:51 AM PST) + + + | Narrative | Performed At | + + + | Suzan Bourgeois RN 05/15/2017 12:58 PM PICC LINE Performed by: | | | SUZAN BOURGEOIS Authorized by: DARSHAN PARADA PICC/Midline Insertion | | | Procedure Note Indications:Antibiotics Procedure location: Unit: | | | Room: 16 Providers: Attending name: Attending physically | | | present: No PICC Nurse name: Suzan Bourgeois RN Assisted by Samaria Ludwig RN | | | Pre-Procedure Consent: written consent obtained Consent given | | | by: Patient Patient identity confirmed per protocol: Yes Team | | | Pause: Immediatly prior to the procedure a pause per protocol was | | | called. A pause verifies correct patient, procedure, equipment, | | | director of operations support and site/side marked as required. CLABSI Prevention | | | Bundle: Skin preparation: Chloraprep Protective barrier: | | | Cap, Mask, Hand scrub, Gown, Gloves and Full body drape. Cap and | | | mask worn by assistive personnel.Sterile Ultrasound techniques | | | (sterile gel, and sterile probe cover) used Dressing: | | | Dressing applied prior of removal of full barrier drape | | | and hemostatic agent applied Procedure Details Patient was placed | | | in appropriate position The vascular anatomy was identified by | | | Ultrasound Guidance.wire through the needle, introducer over the | | | wire, then catheter through the introducer Tip was placed using TLS | | | (Tip Locating System) and TPS (Tip Positioning System). . A | | | non-tunneled PICC Single lumen 4 Fr was placed in the Right Arm | | | area Basilic vein. Catheter lot number: [id number] with a length of 55 | | | cm was selected and trimmed 7 to a remaining length of 48 cm | | | All ports aspirated for blood and flushed with saline Procedure | | | comments: Vein diameter 0.51cm Power-injectable line: yes Attempts | | | 1 attempt(s) were made Complications None PICC catheter tip | | | location Chest radiograph ordered to verify placement and Line | | | verified by radiograph Adjustments made after chest film obtained: | | | none External measurement of catheter exposed: 1 cm. PICC catheter | | | tip location: Distal SVC Estimated blood loss: <10mL | | + + + VAT: PICC INSERTION W/US (05/15/2017 11:50 AM PST) + + | Specimen | + + | | + + + + + | Narrative | Performed At | + + + | See procedure | | | note. | | + + + RENAL FUNCTION SET (NA,K,CL,CO2,BUN,CREAT,GLUC,CA,PHOS,ALB ) (05/15/2017 5:26 AM PST) + + + + + + | Component | Value | Ref Range | Performed | Pathologist | | | | | At | Signature | + + + + + + | GLUCOSE, | 146 (H) | 70 - 99 mg/dL | [facility] | | | PLASMA | | | LABORATORY | | | (LAB) | | | SERVICES, | | | | | | CORE | | + + + + + + | BUN, PLASMA | 9 | 6 - 20 mg/dL | [facility] | | | (LAB) | | | LABORATORY | | | | | | SERVICES, | | | | | | CORE | | + + + + + + | CREATININE | 0.67 (L) | 0.70 - 1.30 | [facility] | | | PLASMA | | mg/dL | LABORATORY | | | (LAB) | | | SERVICES, | | | | | | CORE | | + + + + + + | EGFR | >60 | >60 mL/min | [facility] | | | - | | | LABORATORY | | | [facility] | | | SERVICES, | | | | | | CORE | | + + + + + + | EGFR NON | >60 | >60 mL/min | [facility] | | | -OBDULIA | | | LABORATORY | | | RICAN | | | SERVICES, | | | | | | CORE | | + + + + + + | SODIUM, | 131 (L) | 136 - 145 | [facility] | | | PLASMA | | mmol/L | LABORATORY | | | (LAB) | | | SERVICES, | | | | | | CORE | | + + + + + + | POTASSIUM, | 4.2 | 3.4 - 5.0 | [facility] | | | PLASMA | | mmol/L | LABORATORY | | | (LAB) | | | SERVICES, | | | | | | CORE | | + + + + + + | CHLORIDE, | 96 (L) | 97 - 108 mmol/L | [facility] | | | PLASMA | | | LABORATORY | | | (LAB) | | | SERVICES, | | | | | | CORE | | + + + + + + | TOTAL CO2, | 27 | 21 - 32 mmol/L | [facility] | | | PLASMA | | | LABORATORY | | | (LAB) | | | SERVICES, | | | | | | CORE | | + + + + + + | CALCIUM, | 8.0 (L) | 8.6 - 10.2 | [facility] | | | PLASMA | | mg/dL | LABORATORY | | | (LAB) | | | SERVICES, | | | | | | CORE | | + + + + + + | CALCIUM(ALB | 9.8 | 8.6 - 10.2 | [facility] | | | CORRECTED) | | mg/dL | LABORATORY | | | | | | SERVICES, | | | | | | CORE | | + + + + + + | ALBUMIN, | 1.7 (L) | 3.5 - 4.7 g/dL | [facility] | | | PLASMA | | | LABORATORY | | | (LAB) | | | SERVICES, | | | | | | CORE | | + + + + + + | PHOSPHORUS, | 4.0 | 2.4 - 4.7 mg/dL | [facility] | | | PLASMA | | | LABORATORY | | | (LAB) | | | SERVICES, | | | | | | CORE | | + + + + + + | POTASSIUM | No Hemo | | [facility] | | | CMNT | | | LABORATORY | | | | | | SERVICES, | | | | | | CORE | | + + + + + + | ANION GAP | 8 | mmol/L | [facility] | | | | | | LABORATORY | | | | | | SERVICES, | | | | | | CORE | | + + + + + + | ANION | 13 (H) | 4 - 11 mmol/L | [facility] | | | GAP(ALB | | | LABORATORY | | | CORRECTED) | | | SERVICES, | | | | | | CORE | | + + + + + + + + | Specimen | + + | Blood - Blood | | (substance) | + + + + + | Narrative | Performed At | + + + | Adult glucose reference range change effective 7-12-17. GFR is | [facility] | | estimated using the MDRD equation recommended by the National Kidney | LABORATORY | | Disease Education Program. Estimated GFR Interpretive Information: | SERVICES, CORE | | <60 mL/min/1.73 sq m Chronic Kidney Disease | | | <15 mL/min/1.73 sq m Kidney Failure Estimated | | | GFR greater that 60 mL/min/1.73 sq m is of limited clinical value. | | | The MDRD equation is not valid in the following situations: - | | | Patients under 18 years of age - Severe malnutrition or obesity - | | | Vegetarian diet - Rapidly changing kidney function | | + + + + + + + + | Performing | Address | City/State/Zipcode | Phone Number | | Organization | | | | + + + + + | [facility] | [address] | [place] [address] | | | SERVICES, CORE | [address] | | | + + + + + CBC (HEMOGRAM) ONLY (05/15/2017 5:21 AM PST) + + + + + + | Component | Value | Ref Range | Performed | Pathologist | | | | | At | Signature | + + + + + + | WHITE CELL | 12.01 (H) | 3.50 - 10.80 | [facility] | | | COUNT | | K/cu mm | LABORATORY | | | | | | SERVICES, | | | | | | CORE | | + + + + + + | RED CELL | 3.24 (L) | 4.50 - 6.00 | [facility] | | | COUNT | | M/cu mm | LABORATORY | | | | | | SERVICES, | | | | | | CORE | | + + + + + + | HEMOGLOBIN | 9.7 (L) | 13.5 - 17.5 | [facility] | | | | | g/dL | LABORATORY | | | | | | SERVICES, | | | | | | CORE | | + + + + + + | HEMATOCRIT | 29.0 (L) | 41.0 - 53.0 % | [facility] | | | | | | LABORATORY | | | | | | SERVICES, | | | | | | CORE | | + + + + + + | MCV | 89.5 | 80.0 - 96.0 fL | [facility] | | | | | | LABORATORY | | | | | | SERVICES, | | | | | | CORE | | + + + + + + | MCHC | 33.4 | 33.0 - 35.5 | [facility] | | | | | g/dL | LABORATORY | | | | | | SERVICES, | | | | | | CORE | | + + + + + + | RDW SD | 45.6 | 35.1 - 46.3 fL | [facility] | | | | | | LABORATORY | | | | | | SERVICES, | | | | | | CORE | | + + + + + + | PLATELET | 473 (H) | 150 - 400 K/cu | [facility] | | | COUNT | | mm | LABORATORY | | | | | | SERVICES, | | | | | | CORE | | + + + + + + | MPV | 8.7 (L) | 9.7 - 12.3 fL | [facility] | | | | | | LABORATORY | | | | | | SERVICES, | | | | | | CORE | | + + + + + + | NRBC% | 0.0 | 0.0 - 0.3 % | [facility] | | | | | | LABORATORY | | | | | | SERVICES, | | | | | | CORE | | + + + + + + | NRBC# | 0.00 | 0.00 - 0.02 | [facility] | | | | | K/cu mm | LABORATORY | | | | | | SERVICES, | | | | | | CORE | | + + + + + + + + | Specimen | + + | Blood - Blood | | (substance) | + + + + + + + | Performing | Address | City/State/Zipcode | Phone Number | | Organization | | | | + + + + + | [facility] | [address] | [place] [address] | | | SERVICES, CORE | [address] | | | + + + + + VANCOMYCIN, TROUGH (05/14/2017 7:15 AM PST) + + + + + + | Component | Value | Ref Range | Performed | Pathologist | | | | | At | Signature | + + + + + + | VANCOMYCIN, | 23.6 (H) | 10.0 - 20.0 | [facility] | | | TROUGH | | ug/mL | LABORATORY | | | | | | CARIDAD, | | | | | | CORE | | + + + + + + + + | Specimen | + + | Blood - Blood | | (substance) | + + + + + | Narrative | Performed At | + + + | Reference range change effective 03/29/2017. | [facility] | | | LABORATORY | | | SERVICES, CORE | + + + + + + + + | Performing | Address | City/State/Zipcode | Phone Number | | Organization | | | | + + + + + | [facility] | [address] | [place] [address] | | | SERVICES, CORE | [address] | | | + + + + + CBC (HEMOGRAM) ONLY (05/14/2017 4:51 AM PST) + + + + + + | Component | Value | Ref Range | Performed | Pathologist | | | | | At | Signature | + + + + + + | WHITE CELL | 13.90 (H) | 3.50 - 10.80 | [facility] | | | COUNT | | K/cu mm | LABORATORY | | | | | | SERVICES, | | | | | | CORE | | + + + + + + | RED CELL | 3.07 (L) | 4.50 - 6.00 | [facility] | | | COUNT | | M/cu mm | LABORATORY | | | | | | SERVICES, | | | | | | CORE | | + + + + + + | HEMOGLOBIN | 9.4 (L) | 13.5 - 17.5 | [facility] | | | | | g/dL | LABORATORY | | | | | | SERVICES, | | | | | | CORE | | + + + + + + | HEMATOCRIT | 27.8 (L) | 41.0 - 53.0 % | [facility] | | | | | | LABORATORY | | | | | | SERVICES, | | | | | | CORE | | + + + + + + | MCV | 90.6 | 80.0 - 96.0 fL | [facility] | | | | | | LABORATORY | | | | | | SERVICES, | | | | | | CORE | | + + + + + + | MCHC | 33.8 | 33.0 - 35.5 | [facility] | | | | | g/dL | LABORATORY | | | | | | SERVICES, | | | | | | CORE | | + + + + + + | RDW SD | 45.5 | 35.1 - 46.3 fL | [facility] | | | | | | LABORATORY | | | | | | SERVICES, | | | | | | CORE | | + + + + + + | PLATELET | 454 (H) | 150 - 400 K/cu | [facility] | | | COUNT | | mm | LABORATORY | | | | | | SERVICES, | | | | | | CORE | | + + + + + + | MPV | 8.5 (L) | 9.7 - 12.3 fL | [facility] | | | | | | LABORATORY | | | | | | SERVICES, | | | | | | CORE | | + + + + + + | NRBC% | 0.0 | 0.0 - 0.3 % | [facility] | | | | | | LABORATORY | | | | | | SERVICES, | | | | | | CORE | | + + + + + + | NRBC# | 0.00 | 0.00 - 0.02 | [facility] | | | | | K/cu mm | LABORATORY | | | | | | SERVICES, | | | | | | CORE | | + + + + + + + + | Specimen | + + | Blood - Blood | | (substance) | + + + + + + + | Performing | Address | City/State/Zipcode | Phone Number | | Organization | | | | + + + + + | [facility] | [address] | [place] [address] | | | SERVICES, CORE | [address] | | | + + + + + RENAL FUNCTION SET (NA,K,CL,CO2,BUN,CREAT,GLUC,CA,PHOS,ALB ) (05/14/2017 4:51 AM PST) + +---------+ + + + | Component | Value | Ref Range | Performed | Pathologist | | | | | At | Signature | + +---------+ + + + | GLUCOSE, | 136 (H) | 70 - 99 mg/dL | [facility] | | | PLASMA | | | LABORATORY | | | (LAB) | | | SERVICES, | | | | | | CORE | | + +---------+ + + + | BUN, PLASMA | 7 | 6 - 20 mg/dL | [facility] | | | (LAB) | | | LABORATORY | | | | | | SERVICES, | | | | | | CORE | | + +---------+ + + + | CREATININE | 0.70 | 0.70 - 1.30 | [facility] | | | PLASMA | | mg/dL | LABORATORY | | | (LAB) | | | SERVICES, | | | | | | CORE | | + +---------+ + + + | EGFR | >60 | >60 mL/min | [facility] | | | - | | | LABORATORY | | | [facility] | | | SERVICES, | | | | | | CORE | | + +---------+ + + + | EGFR NON | >60 | >60 mL/min | [facility] | | | -OBDULIA | | | LABORATORY | | | RICAN | | | SERVICES, | | | | | | CORE | | + +---------+ + + + | SODIUM, | 132 (L) | 136 - 145 | [facility] | | | PLASMA | | mmol/L | LABORATORY | | | (LAB) | | | SERVICES, | | | | | | CORE | | + +---------+ + + + | POTASSIUM, | 4.3 | 3.4 - 5.0 | [facility] | | | PLASMA | | mmol/L | LABORATORY | | | (LAB) | | | SERVICES, | | | | | | CORE | | + +---------+ + + + | CHLORIDE, | 98 | 97 - 108 mmol/L | [facility] | | | PLASMA | | | LABORATORY | | | (LAB) | | | SERVICES, | | | | | | CORE | | + +---------+ + + + | TOTAL CO2, | 26 | 21 - 32 mmol/L | [facility] | | | PLASMA | | | LABORATORY | | | (LAB) | | | SERVICES, | | | | | | CORE | | + +---------+ + + + | CALCIUM, | 7.9 (L) | 8.6 - 10.2 | [facility] | | | PLASMA | | mg/dL | LABORATORY | | | (LAB) | | | SERVICES, | | | | | | CORE | | + +---------+ + + + | CALCIUM(ALB | 9.7 | 8.6 - 10.2 | [facility] | | | CORRECTED) | | mg/dL | LABORATORY | | | | | | SERVICES, | | | | | | CORE | | + +---------+ + + + | ALBUMIN, | 1.7 (L) | 3.5 - 4.7 g/dL | [facility] | | | PLASMA | | | LABORATORY | | | (LAB) | | | SERVICES, | | | | | | CORE | | + +---------+ + + + | PHOSPHORUS, | 3.6 | 2.4 - 4.7 mg/dL | [facility] | | | PLASMA | | | LABORATORY | | | (LAB) | | | SERVICES, | | | | | | CORE | | + +---------+ + + + | POTASSIUM | No Hemo | | [facility] | | | CMNT | | | LABORATORY | | | | | | SERVICES, | | | | | | CORE | | + +---------+ + + + | ANION GAP | 8 | mmol/L | [facility] | | | | | | LABORATORY | | | | | | SERVICES, | | | | | | CORE | | + +---------+ + + + | ANION | 13 (H) | 4 - 11 mmol/L | [facility] | | | GAP(ALB | | | LABORATORY | | | CORRECTED) | | | SERVICES, | | | | | | CORE | | + +---------+ + + + + + | Specimen | + + | Blood - Blood | | (substance) | + + + + + | Narrative | Performed At | + + + | Adult glucose reference range change effective 712-17. GFR is | [facility] | | estimated using the MDRD equation recommended by the National [facility] | LABORATORY | | Disease Education Program. Estimated GFR Interpretive Information: | SERVICES, CORE | | <60 mL/min/1.73 sq m Chronic Kidney Disease | | | <15 mL/min/1.73 sq m Kidney Failure Estimated | | | GFR greater that 60 mL/min/1.73 sq m is of limited clinical value. | | | The MDRD equation is not valid in the following situations: - | | | Patients under 18 years of age - Severe malnutrition or obesity - | | | Vegetarian diet - Rapidly changing kidney function | | + + + + + + + + | Performing | Address | City/State/Zipcode | Phone Number | | Organization | | | | + + + + + | [facility] | [address] | [place] [address] | | | SERVICES, CORE | [address] | | | + + + + + CBC (HEMOGRAM) ONLY (05/13/2017 5:12 AM PST) + + + + + + | Component | Value | Ref Range | Performed | Pathologist | | | | | At | Signature | + + + + + + | WHITE CELL | 14.37 (H) | 3.50 - 10.80 | [facility] | | | COUNT | | K/cu mm | LABORATORY | | | | | | SERVICES, | | | | | | CORE | | + + + + + + | RED CELL | 3.15 (L) | 4.50 - 6.00 | [facility] | | | COUNT | | M/cu mm | LABORATORY | | | | | | SERVICES, | | | | | | CORE | | + + + + + + | HEMOGLOBIN | 9.6 (L) | 13.5 - 17.5 | [facility] | | | | | g/dL | LABORATORY | | | | | | SERVICES, | | | | | | CORE | | + + + + + + | HEMATOCRIT | 28.1 (L) | 41.0 - 53.0 % | [facility] | | | | | | LABORATORY | | | | | | SERVICES, | | | | | | CORE | | + + + + + + | MCV | 89.2 | 80.0 - 96.0 fL | [facility] | | | | | | LABORATORY | | | | | | SERVICES, | | | | | | CORE | | + + + + + + | MCHC | 34.2 | 33.0 - 35.5 | [facility] | | | | | g/dL | LABORATORY | | | | | | SERVICES, | | | | | | CORE | | + + + + + + | RDW SD | 45.0 | 35.1 - 46.3 fL | [facility] | | | | | | LABORATORY | | | | | | SERVICES, | | | | | | CORE | | + + + + + + | PLATELET | 458 (H) | 150 - 400 K/cu | [facility] | | | COUNT | | mm | LABORATORY | | | | | | SERVICES, | | | | | | CORE | | + + + + + + | MPV | 8.7 (L) | 9.7 - 12.3 fL | [facility] | | | | | | LABORATORY | | | | | | SERVICES, | | | | | | CORE | | + + + + + + | NRBC% | 0.0 | 0.0 - 0.3 % | [facility] | | | | | | LABORATORY | | | | | | SERVICES, | | | | | | CORE | | + + + + + + | NRBC# | 0.00 | 0.00 - 0.02 | [facility] | | | | | K/cu mm | LABORATORY | | | | | | SERVICES, | | | | | | CORE | | + + + + + + + + | Specimen | + + | Blood - Blood | | (substance) | + + + + + + + | Performing | Address | City/State/Zipcode | Phone Number | | Organization | | | | + + + + + | [facility] | [address] | [place] [address] | | | SERVICES, CORE | [address] | | | + + + + + RENAL FUNCTION SET (NA,K,CL,CO2,BUN,CREAT,GLUC,CA,PHOS,ALB ) (05/13/2017 5:12 AM PST) + +---------+ + + + | Component | Value | Ref Range | Performed | Pathologist | | | | | At | Signature | + +---------+ + + + | GLUCOSE, | 124 (H) | 70 - 99 mg/dL | [facility] | | | PLASMA | | | LABORATORY | | | (LAB) | | | SERVICES, | | | | | | CORE | | + +---------+ + + + | BUN, PLASMA | 6 | 6 - 20 mg/dL | [facility] | | | (LAB) | | | LABORATORY | | | | | | SERVICES, | | | | | | CORE | | + +---------+ + + + | CREATININE | 0.76 | 0.70 - 1.30 | [facility] | | | PLASMA | | mg/dL | LABORATORY | | | (LAB) | | | SERVICES, | | | | | | CORE | | + +---------+ + + + | EGFR | >60 | >60 mL/min | [facility] | | | - | | | LABORATORY | | | [facility] | | | SERVICES, | | | | | | CORE | | + +---------+ + + + | EGFR NON | >60 | >60 mL/min | [facility] | | | -OBDULIA | | | LABORATORY | | | RICAN | | | SERVICES, | | | | | | CORE | | + +---------+ + + + | SODIUM, | 128 (L) | 136 - 145 | [facility] | | | PLASMA | | mmol/L | LABORATORY | | | (LAB) | | | SERVICES, | | | | | | CORE | | + +---------+ + + + | POTASSIUM, | 4.4 | 3.4 - 5.0 | [facility] | | | PLASMA | | mmol/L | LABORATORY | | | (LAB) | | | SERVICES, | | | | | | CORE | | + +---------+ + + + | CHLORIDE, | 96 (L) | 97 - 108 mmol/L | [facility] | | | PLASMA | | | LABORATORY | | | (LAB) | | | SERVICES, | | | | | | CORE | | + +---------+ + + + | TOTAL CO2, | 27 | 21 - 32 mmol/L | [facility] | | | PLASMA | | | LABORATORY | | | (LAB) | | | SERVICES, | | | | | | CORE | | + +---------+ + + + | CALCIUM, | 7.6 (L) | 8.6 - 10.2 | [facility] | | | PLASMA | | mg/dL | LABORATORY | | | (LAB) | | | SERVICES, | | | | | | CORE | | + +---------+ + + + | CALCIUM(ALB | 9.5 | 8.6 - 10.2 | [facility] | | | CORRECTED) | | mg/dL | LABORATORY | | | | | | SERVICES, | | | | | | CORE | | + +---------+ + + + | ALBUMIN, | 1.6 (L) | 3.5 - 4.7 g/dL | [facility] | | | PLASMA | | | LABORATORY | | | (LAB) | | | SERVICES, | | | | | | CORE | | + +---------+ + + + | PHOSPHORUS, | 3.9 | 2.4 - 4.7 mg/dL | [facility] | | | PLASMA | | | LABORATORY | | | (LAB) | | | SERVICES, | | | | | | CORE | | + +---------+ + + + | POTASSIUM | No Hemo | | [facility] | | | CMNT | | | LABORATORY | | | | | | SERVICES, | | | | | | CORE | | + +---------+ + + + | ANION GAP | 5 | mmol/L | [facility] | | | | | | LABORATORY | | | | | | SERVICES, | | | | | | CORE | | + +---------+ + + + | ANION | 11 | 4 - 11 mmol/L | [facility] | | | GAP(ALB | | | LABORATORY | | | CORRECTED) | | | SERVICES, | | | | | | CORE | | + +---------+ + + + + + | Specimen | + + | Blood - Blood | | (substance) | + + + + + | Narrative | Performed At | + + + | Adult glucose reference range change effective 717. GFR is | [facility] | | estimated using the MDRD equation recommended by the National Kidney | LABORATORY | | Disease Education Program. Estimated GFR Interpretive Information: | SERVICES, CORE | | <60 mL/min/1.73 sq m Chronic Kidney Disease | | | <15 mL/min/1.73 sq m Kidney Failure Estimated | | | GFR greater that 60 mL/min/1.73 sq m is of limited clinical value. | | | The MDRD equation is not valid in the following situations: - | | | Patients under 18 years of age - Severe malnutrition or obesity - | | | Vegetarian diet - Rapidly changing kidney function | | + + + + + + + + | Performing | Address | City/State/Zipcode | Phone Number | | Organization | | | | + + + + + | [facility] | [address] | [place] [address] | | | TONY MCLEAN | [address] | | | + + + + + CAPILLARY BLOOD GLUCOSE (NO CHG), POC (05/12/2017 10:10 PM PST) + +---------+ + + + | Component | Value | Ref Range | Performed | Pathologist | | | | | At | Signature | + +---------+ + + + | BLOOD | 125 (H) | 70 - 99 mg/dL | [facility] - | | | GLUCOSE, | | | [facility] | | | POC | | | [facility] | | | | | | OF CARE | | | | | | TESTS | | + +---------+ + + + + + | Specimen | + + | | + + + + + + + | Performing | Address | City/State/Zipcode | Phone Number | | Organization | | | | + + + + + | [facility] | [address] | [place], [place] | | | [place] [facility] | [address] | [address] | | | TESTS | | | | + + + + + VANCOMYCIN, TROUGH (05/12/2017 2:26 PM PST) + + + + + + | Component | Value | Ref Range | Performed | Pathologist | | | | | At | Signature | + + + + + + | VANCOMYCIN, | 27.6 (H) | 10.0 - 20.0 | [facility] | | | TROUGH | | ug/mL | LABORATORY | | | | | | SERVICES, | | | | | | CORE | | + + + + + + + + | Specimen | + + | Blood - Blood | | (substance) | + + + + + | Narrative | Performed At | + + + | Reference range change effective 03/29/2017. | [facility] | | | LABORATORY | | | SERVICES, CORE | + + + + + + + + | Performing | Address | City/State/Zipcode | Phone Number | | Organization | | | | + + + + + | [facility] | [address] | [place] [address] | | | SERVICES, CORE | [address] | | | + + + + + CULTURE, BLOOD BACTI & YEAST JUDY (05/12/2017 1:19 PM PST) + + + + + + | Component | Value | Ref Range | Performed | Pathologist | | | | | At | Signature | + + + + + + | CULTURE | Final Report:No Bacteria | | [facility] | | | RESULT | or Yeast isolated at 5 | | LABORATORY | | | | days. | | SERVICES, | | | | | | CORE | | + + + + + + + + | Specimen | + + | Blood - Antecubital | | region structure | | (body structure) | + + + + + + + | Performing | Address | City/State/Zipcode | Phone Number | | Organization | | | | + + + + + | [facility] | [address] | [place] [address] | | | SERVICES, TONY | [address] | | | + + + + + CBC (HEMOGRAM) ONLY (05/12/2017 3:55 AM PST) + + + + + + | Component | Value | Ref Range | Performed | Pathologist | | | | | At | Signature | + + + + + + | WHITE CELL | 13.42 (H) | 3.50 - 10.80 | [facility] | | | COUNT | | K/cu mm | LABORATORY | | | | | | SERVICES, | | | | | | CORE | | + + + + + + | RED CELL | 3.09 (L) | 4.50 - 6.00 | [facility] | | | COUNT | | M/cu mm | LABORATORY | | | | | | SERVICES, | | | | | | CORE | | + + + + + + | HEMOGLOBIN | 9.4 (L) | 13.5 - 17.5 | [facility] | | | | | g/dL | LABORATORY | | | | | | SERVICES, | | | | | | CORE | | + + + + + + | HEMATOCRIT | 27.5 (L) | 41.0 - 53.0 % | [facility] | | | | | | LABORATORY | | | | | | SERVICES, | | | | | | CORE | | + + + + + + | MCV | 89.0 | 80.0 - 96.0 fL | [facility] | | | | | | LABORATORY | | | | | | SERVICES, | | | | | | CORE | | + + + + + + | MCHC | 34.2 | 33.0 - 35.5 | [facility] | | | | | g/dL | LABORATORY | | | | | | SERVICES, | | | | | | CORE | | + + + + + + | RDW SD | 45.4 | 35.1 - 46.3 fL | [facility] | | | | | | LABORATORY | | | | | | SERVICES, | | | | | | CORE | | + + + + + + | PLATELET | 423 (H) | 150 - 400 K/cu | [facility] | | | COUNT | | mm | LABORATORY | | | | | | SERVICES, | | | | | | CORE | | + + + + + + | MPV | 8.8 (L) | 9.7 - 12.3 fL | [facility] | | | | | | LABORATORY | | | | | | SERVICES, | | | | | | CORE | | + + + + + + | NRBC% | 0.0 | 0.0 - 0.3 % | [facility] | | | | | | LABORATORY | | | | | | SERVICES, | | | | | | CORE | | + + + + + + | NRBC# | 0.00 | 0.00 - 0.02 | [facility] | | | | | K/cu mm | LABORATORY | | | | | | SERVICES, | | | | | | CORE | | + + + + + + + + | Specimen | + + | Blood - Blood | | (substance) | + + + + + + + | Performing | Address | City/State/Zipcode | Phone Number | | Organization | | | | + + + + + | [facility] | [address] | [place] [address] | | | SERVICES, CORE | [address] | | | + + + + + RENAL FUNCTION SET (NA,K,CL,CO2,BUN,CREAT,GLUC,CA,PHOS,ALB ) (05/12/2017 3:55 AM PST) + +---------+ + + + | Component | Value | Ref Range | Performed | Pathologist | | | | | At | Signature | + +---------+ + + + | GLUCOSE, | 112 (H) | 70 - 99 mg/dL | [facility] | | | PLASMA | | | LABORATORY | | | (LAB) | | | SERVICES, | | | | | | CORE | | + +---------+ + + + | BUN, PLASMA | 7 | 6 - 20 mg/dL | [facility] | | | (LAB) | | | LABORATORY | | | | | | SERVICES, | | | | | | CORE | | + +---------+ + + + | CREATININE | 0.72 | 0.70 - 1.30 | [facility] | | | PLASMA | | mg/dL | LABORATORY | | | (LAB) | | | SERVICES, | | | | | | CORE | | + +---------+ + + + | EGFR | >60 | >60 mL/min | [facility] | | | - | | | LABORATORY | | | [facility] | | | SERVICES, | | | | | | CORE | | + +---------+ + + + | EGFR NON | >60 | >60 mL/min | [facility] | | | -OBDULIA | | | LABORATORY | | | RICAN | | | SERVICES, | | | | | | CORE | | + +---------+ + + + | SODIUM, | 133 (L) | 136 - 145 | [facility] | | | PLASMA | | mmol/L | LABORATORY | | | (LAB) | | | SERVICES, | | | | | | CORE | | + +---------+ + + + | POTASSIUM, | 4.1 | 3.4 - 5.0 | [facility] | | | PLASMA | | mmol/L | LABORATORY | | | (LAB) | | | SERVICES, | | | | | | CORE | | + +---------+ + + + | CHLORIDE, | 98 | 97 - 108 mmol/L | [facility] | | | PLASMA | | | LABORATORY | | | (LAB) | | | SERVICES, | | | | | | CORE | | + +---------+ + + + | TOTAL CO2, | 28 | 21 - 32 mmol/L | [facility] | | | PLASMA | | | LABORATORY | | | (LAB) | | | SERVICES, | | | | | | CORE | | + +---------+ + + + | CALCIUM, | 7.6 (L) | 8.6 - 10.2 | [facility] | | | PLASMA | | mg/dL | LABORATORY | | | (LAB) | | | SERVICES, | | | | | | CORE | | + +---------+ + + + | CALCIUM(ALB | 9.6 | 8.6 - 10.2 | [facility] | | | CORRECTED) | | mg/dL | LABORATORY | | | | | | SERVICES, | | | | | | CORE | | + +---------+ + + + | ALBUMIN, | 1.5 (L) | 3.5 - 4.7 g/dL | [facility] | | | PLASMA | | | LABORATORY | | | (LAB) | | | SERVICES, | | | | | | CORE | | + +---------+ + + + | PHOSPHORUS, | 3.6 | 2.4 - 4.7 mg/dL | [facility] | | | PLASMA | | | LABORATORY | | | (LAB) | | | SERVICES, | | | | | | CORE | | + +---------+ + + + | POTASSIUM | No Hemo | | [facility] | | | CMNT | | | LABORATORY | | | | | | SERVICES, | | | | | | CORE | | + +---------+ + + + | ANION GAP | 7 | mmol/L | [facility] | | | | | | LABORATORY | | | | | | SERVICES, | | | | | | CORE | | + +---------+ + + + | ANION | 13 (H) | 4 - 11 mmol/L | [facility] | | | GAP(ALB | | | LABORATORY | | | CORRECTED) | | | SERVICES, | | | | | | CORE | | + +---------+ + + + + + | Specimen | + + | Blood - Blood | | (substance) | + + + + + | Narrative | Performed At | + + + | Adult glucose reference range change effective 712-17. GFR is | [facility] | | estimated using the MDRD equation recommended by the National Kidney | LABORATORY | | Disease Education Program. Estimated GFR Interpretive Information: | SERVICES, CORE | | <60 mL/min/1.73 sq m Chronic Kidney Disease | | | <15 mL/min/1.73 sq m Kidney Failure Estimated | | | GFR greater that 60 mL/min/1.73 sq m is of limited clinical value. | | | The MDRD equation is not valid in the following situations: - | | | Patients under 18 years of age - Severe malnutrition or obesity - | | | Vegetarian diet - Rapidly changing kidney function | | + + + + + + + + | Performing | Address | City/State/Zipcode | Phone Number | | Organization | | | | + + + + + | [facility] | [address] | [place] [address] | | | SERVICES, CORE | [address] | | | + + + + + CAPILLARY BLOOD GLUCOSE (NO CHG), POC (05/11/2017 11:53 PM PST) + +---------+ + + + | Component | Value | Ref Range | Performed | Pathologist | | | | | At | Signature | + +---------+ + + + | BLOOD | 122 (H) | 70 - 99 mg/dL | [facility] - | | | GLUCOSE, | | | [facility] | | | POC | | | [facility] | | | | | | OF CARE | | | | | | TESTS | | + +---------+ + + + + + | Specimen | + + | | + + + + + + + | Performing | Address | City/State/Zipcode | Phone Number | | Organization | | | | + + + + + | [facility] | [address] | [place], [place] | | | [place] [facility] | [address] | [address] | | | TESTS | | | | + + + + + CAPILLARY BLOOD GLUCOSE (NO CHG), POC (05/11/2017 4:26 PM PST) + +---------+ + + + | Component | Value | Ref Range | Performed | Pathologist | | | | | At | Signature | + +---------+ + + + | BLOOD | 102 (H) | 70 - 99 mg/dL | [facility] - | | | GLUCOSE, | | | [facility] | | | POC | | | [facility] | | | | | | OF CARE | | | | | | TESTS | | + +---------+ + + + + + | Specimen | + + | | + + + + + + + | Performing | Address | City/State/Zipcode | Phone Number | | Organization | | | | + + + + + | [facility] | [address] | [place], [place] | | | [facility] | [address] | [address] | | | TESTS | | | | + + + + + TROPONIN I, PLASMA (05/11/2017 3:49 PM PST) + +-------+ + + + | Component | Value | Ref Range | Performed | Pathologist | | | | | At | Signature | + +-------+ + + + | TROPONIN I | <0.02 | <0.80 ng/mL | [facility] | | | | | | LABORATORY | | | | | | SERVICES, | | | | | | CORE | | + +-------+ + + + + + | Specimen | + + | Blood - Blood | | (substance) | + + + + + + + | Performing | Address | City/State/Zipcode | Phone Number | | Organization | | | | + + + + + | [facility] | [address] | [place] [address] | | | [facility] | [address] | | | + + + + + IR DRAIN PROCEDURE (05/11/2017 2:36 PM PST) + + | Specimen | + + | | + + + + + | Narrative | Performed At | + + + | Procedure: Ultrasound and fluoroscopically guided soft tissue | [facility] | | collection drainage Primary Risk Assessor: Cliff Griffith M.D.; | RADIOLOGY VOICE | | Cody Yusuf M.D. Attending Risk Assessor: Addis Gandara MD | RECOGNITION | | Preoperative diagnosis: Paraspinal collection Postoperative | | | diagnosis: Same Operations: Operation 1. US guided placement | | | 18 gauge needle in left paraspinal collection Operation 2. | | | Ultrasound Fluoroscopic guided placement of 12 [place] biliary | | | drainage catheter in collection Indications: 61 yr old male | | | with suspected paraspinal abscess after surgery for epidural abscess. | | | Percutaneous drainage has been requested. Procedure: The | | | patient, procedure, and allergies were confirmed in the presence of | | | the patient by the attending.The attending physician was present for | | | the entire procedure. Written informed consent was obtained in a PARQ | | | conference with the patient. The procedure was performed with | | | intravenous sedation. The patient was prepped and draped in the | | | usual manner. Using local anesthetic and US guidance an 18 G needle | | | was advanced into the collection under direct visualization. An US | | | image was obtained of the needle in the collection and recorded. The | | | guidewire was then advanced through multiple loculations along the | | | length of the collection. Over a guidewire serial dilation was | | | performed and a 12 [place] biliary drainage catheter was advanced into | | | the collection using ultrasound and fluoroscopic guidance. The | | | catheter was aspirated and placed to gravity drainage. The catheter | | | was secured in place. A completion image was obtained. | | | Medications: Versed 2 mg IV, fentanyl 100 mcg IV [id number] time | | | for physician supervised sedation: 30 minutes Sedation administered | | | under direct physician supervision by an RN Findings: The US | | | findings are consistent with multiloculated complicated fluid | | | collection in the left paraspinal muscles. Purulent fluid was | | | aspirated and sent for culture. A 12 [place] drainage catheter was | | | positioned in the collection. Impression: Drainage of | | | paraspinal fluid collection as described. I have personally | | | reviewed the images and, if necessary, edited the report. I agree | | | with the report as now presented. | | + + + + + | Procedure Note | + + | Service Richard, Cliff Res In Interface - 05/12/2017 10:17 AM [facility] Procedure: | | Ultrasound and fluoroscopically guided soft tissue collection drainagePrimary | | Risk Assessor: Cliff Griffith M.D.; Cody Yusuf M.D.Attending Risk Assessor: Addis | | [place] Gandarareoperative diagnosis: Paraspinal collectionPostoperative diagnosis: | | SameOperations:Operation 1. US guided placement 18 gauge needle in left paraspinal | | collectionOperation 2. Ultrasound Fluoroscopic guided placement of 12 [place] biliary | | drainage catheter in collectionIndications:61 yr old male with suspected paraspinal | | abscess after surgery for epidural abscess. Percutaneous drainage has been | | requested.Procedure:The patient, procedure, and allergies were confirmed in the presence | | of the patient by the attending.The attending physician was present for the entire | | procedure. Written informed consent was obtained in a PARQ conference with the patient. | | The procedure was performed with intravenous sedation.The patient was prepped and | | draped in the usual manner. Using local anesthetic and US guidance an 18 G needle was | | advanced into the collection under direct visualization. An US image was obtained of the | | needle in the collection and recorded. The guidewire was then advanced through multiple | | loculations along the length of the collection. Over a guidewire serial dilation was | | performed and a 12 [place] biliary drainage catheter was advanced into the collection | | using ultrasound and fluoroscopic guidance. The catheter was aspirated and placed to | | gravity drainage. The catheter was secured in place. A completion image was | | obtained.Medications: Versed 2 mg IV, fentanyl 100 mcg [id number] time for physician | | supervised sedation: 30 minutesSedation administered under direct physician supervision | | by an RNFindings:The US findings are consistent with multiloculated complicated fluid | | collection in the left paraspinal muscles. Purulent fluid was aspirated and sent for | | culture. A 12 [place] drainage catheter was positioned in the | | collection.Impression:Drainage of paraspinal fluid collection as described.I have | | personally reviewed the images and, if necessary, edited the report. I agree with the | | report as now presented. | |needle in the collection and recorded. The guidewire was then advanced through multiple loc ulations along the length of the collection. Over a guidewire serial dilation was performed and a 12 [place] biliary drainage | |catheter was advanced into the collection using ultrasound and fluoroscopic guidance. The catheter was aspirated and placed to gravity drainage. The catheter was secured in place. A completion image was obtained. | | | |Medications: Versed 2 mg IV, fentanyl 100 mcg IV | |Azye-bf-kymr time for physician supervised sedation: 30 minutes | |Sedation administered under direct physician supervision by an RN | | | |Findings: | | | |The US findings are consistent with multiloculated complicated fluid collection in the left paraspinal muscles. Purulent fluid was aspirated and sent for culture. A 12 [place] drainage catheter was positioned in the collection. | | | |Impression: | | | |Drainage of paraspinal fluid collection as described. | | | | | |I have personally reviewed the images and, if necessary, edited the report. I agree with t he report as now presented. | + + + +---------+ + + | Performing | Address | City/State/Zipcode | Phone Number | | Organization | | | | + +---------+ + + | [facility] | | | | | VOICE RECOGNITION | | | | + +---------+ + + CAPILLARY BLOOD GLUCOSE (NO CHG), POC (05/11/2017 1:31 PM PST) + +---------+ + + + | Component | Value | Ref Range | Performed | Pathologist | | | | | At | Signature | + +---------+ + + + | BLOOD | 107 (H) | 70 - 99 mg/dL | [facility] - | | | GLUCOSE, | | | [facility] | | | POC | | | [facility] | | | | | | OF CARE | | | | | | TESTS | | + +---------+ + + + + + | Specimen | + + | | + + + + + + + | Performing | Address | City/State/Zipcode | Phone Number | | Organization | | | | + + + + + | [facility] | [address] | [place], [place] | | | [facility] | [address] | [address] | | | TESTS | | | | + + + + + CULTURE, BLOOD BACTI & YEAST JUDY (05/11/2017 8:55 AM PST) + + + + + + | Component | Value | Ref Range | Performed | Pathologist | | | | | At | Signature | + + + + + + | CULTURE | Final Report:No Bacteria | | [facility] | | | RESULT | or Yeast isolated at 5 | | LABORATORY | | | | days. | | SERVICES, | | | | | | CORE | | + + + + + + + + | Specimen | + + | Blood - Antecubital | | region structure | | (body structure) | + + + + + + + | Performing | Address | City/State/Zipcode | Phone Number | | Organization | | | | + + + + + | [facility] | [address] | [place] [address] | | | SERVICES, CORE | [address] | | | + + + + + TROPONIN I, PLASMA (05/11/2017 8:55 AM PST) + +-------+ + + + | Component | Value | Ref Range | Performed | Pathologist | | | | | At | Signature | + +-------+ + + + | TROPONIN I | <0.02 | <0.80 ng/mL | [facility] | | | | | | LABORATORY | | | | | | SERVICES, | | | | | | CORE | | + +-------+ + + + + + | Specimen | + + | Blood - Blood | | (substance) | + + + + + + + | Performing | Address | City/State/Zipcode | Phone Number | | Organization | | | | + + + + + | [facility] | [address] | [place] [address] | | | SERVICES, CORE | [address] | | | + + + + + 12 LEAD ECG (05/11/2017 8:41 AM PST) + + + + + + | Component | Value | Ref Range | Performed | Pathologist | | | | | At | Signature | + + + + + + | VENTRICULAR | 93 | bpm | [facility] | | | RATE | | | OF | | | | | | CARDIOLOGY | | + + + + + + | ATRIAL RATE | 95 | ms | [facility] | | | | | | OF | | | | | | CARDIOLOGY | | + + + + + + | P-R | 151 | ms | [facility] | | | INTERVAL | | | OF | | | | | | CARDIOLOGY | | + + + + + + | P AXIS | 23 | deg | [facility] | | | | | | OF | | | | | | CARDIOLOGY | | + + + + + + | QRS | 88 | ms | [facility] | | | DURATION | | | OF | | | | | | CARDIOLOGY | | + + + + + + | QT | 337 | ms | [facility] | | | | | | OF | | | | | | CARDIOLOGY | | + + + + + + | QTC-BAZETT | 420 | ms | [facility] | | | | | | OF | | | | | | CARDIOLOGY | | + + + + + + | R AXIS | -27 | deg | [facility] | | | | | | OF | | | | | | CARDIOLOGY | | + + + + + + | T AXIS | 34 | deg | [facility] | | | | | | OF | | | | | | CARDIOLOGY | | + + + + + + | ECG | Sinus rhythm- NORMAL ECG | | [facility] | | | IMPRESSION | - | | OF | | | | | | CARDIOLOGY | | + + + + + + | ECG | Electronically signed | | [facility] | | | IMPRESSION | by: MERCED VEE | | OF | | | | 05-11-2017 12:14:41 | | CARDIOLOGY | | + + + + + + + + | Specimen | + + | | + + + + + | Narrative | Performed At | + + + | | | + + + + + + + + | Performing | Address | City/State/Zipcode | Phone Number | | Organization | | | | + + + + + | [facility] | [address] | [place], [place] | | | CARDIOLOGY | [address] | [address] | | + + + + + CBC (HEMOGRAM) ONLY (05/11/2017 4:28 AM PST) + + + + + + | Component | Value | Ref Range | Performed | Pathologist | | | | | At | Signature | + + + + + + | WHITE CELL | 17.93 (H) | 3.50 - 10.80 | [facility] | | | COUNT | | K/cu mm | LABORATORY | | | | | | SERVICES, | | | | | | CORE | | + + + + + + | RED CELL | 3.16 (L) | 4.50 - 6.00 | [facility] | | | COUNT | | M/cu mm | LABORATORY | | | | | | SERVICES, | | | | | | CORE | | + + + + + + | HEMOGLOBIN | 9.7 (L) | 13.5 - 17.5 | [facility] | | | | | g/dL | LABORATORY | | | | | | SERVICES, | | | | | | CORE | | + + + + + + | HEMATOCRIT | 28.3 (L) | 41.0 - 53.0 % | [facility] | | | | | | LABORATORY | | | | | | SERVICES, | | | | | | CORE | | + + + + + + | MCV | 89.6 | 80.0 - 96.0 fL | [facility] | | | | | | LABORATORY | | | | | | SERVICES, | | | | | | CORE | | + + + + + + | MCHC | 34.3 | 33.0 - 35.5 | [facility] | | | | | g/dL | LABORATORY | | | | | | SERVICES, | | | | | | CORE | | + + + + + + | RDW SD | 45.4 | 35.1 - 46.3 fL | [facility] | | | | | | LABORATORY | | | | | | SERVICES, | | | | | | CORE | | + + + + + + | PLATELET | 453 (H) | 150 - 400 K/cu | [facility] | | | COUNT | | mm | LABORATORY | | | | | | SERVICES, | | | | | | CORE | | + + + + + + | MPV | 8.8 (L) | 9.7 - 12.3 fL | [facility] | | | | | | LABORATORY | | | | | | SERVICES, | | | | | | CORE | | + + + + + + | NRBC% | 0.0 | 0.0 - 0.3 % | [facility] | | | | | | LABORATORY | | | | | | SERVICES, | | | | | | CORE | | + + + + + + | NRBC# | 0.00 | 0.00 - 0.02 | [facility] | | | | | K/cu mm | LABORATORY | | | | | | SERVICES, | | | | | | CORE | | + + + + + + + + | Specimen | + + | Blood - Blood | | (substance) | + + + + + + + | Performing | Address | City/State/Zipcode | Phone Number | | Organization | | | | + + + + + | [facility] | [address] | [place] [address] | | | SERVICES, CORE | [address] | | | + + + + + RENAL FUNCTION SET (NA,K,CL,CO2,BUN,CREAT,GLUC,CA,PHOS,ALB ) (05/11/2017 4:28 AM PST) + + + + + + | Component | Value | Ref Range | Performed | Pathologist | | | | | At | Signature | + + + + + + | GLUCOSE, | 106 (H) | 70 - 99 mg/dL | [facility] | | | PLASMA | | | LABORATORY | | | (LAB) | | | SERVICES, | | | | | | CORE | | + + + + + + | BUN, PLASMA | 7 | 6 - 20 mg/dL | [facility] | | | (LAB) | | | LABORATORY | | | | | | SERVICES, | | | | | | CORE | | + + + + + + | CREATININE | 0.62 (L) | 0.70 - 1.30 | [facility] | | | PLASMA | | mg/dL | LABORATORY | | | (LAB) | | | SERVICES, | | | | | | CORE | | + + + + + + | EGFR | >60 | >60 mL/min | [facility] | | | - | | | LABORATORY | | | BURM[place] | | | SERVICES, | | | | | | CORE | | + + + + + + | EGFR NON | >60 | >60 mL/min | [facility] | | | -OBDULIA | | | LABORATORY | | | RICAN | | | SERVICES, | | | | | | CORE | | + + + + + + | SODIUM, | 132 (L) | 136 - 145 | [facility] | | | PLASMA | | mmol/L | LABORATORY | | | (LAB) | | | SERVICES, | | | | | | CORE | | + + + + + + | POTASSIUM, | 3.6 | 3.4 - 5.0 | [facility] | | | PLASMA | | mmol/L | LABORATORY | | | (LAB) | | | SERVICES, | | | | | | CORE | | + + + + + + | CHLORIDE, | 97 | 97 - 108 mmol/L | [facility] | | | PLASMA | | | LABORATORY | | | (LAB) | | | SERVICES, | | | | | | CORE | | + + + + + + | TOTAL CO2, | 27 | 21 - 32 mmol/L | [facility] | | | PLASMA | | | LABORATORY | | | (LAB) | | | SERVICES, | | | | | | CORE | | + + + + + + | CALCIUM, | 7.4 (L) | 8.6 - 10.2 | [facility] | | | PLASMA | | mg/dL | LABORATORY | | | (LAB) | | | SERVICES, | | | | | | CORE | | + + + + + + | CALCIUM(ALB | 9.4 | 8.6 - 10.2 | [facility] | | | CORRECTED) | | mg/dL | LABORATORY | | | | | | SERVICES, | | | | | | CORE | | + + + + + + | ALBUMIN, | 1.5 (L) | 3.5 - 4.7 g/dL | [facility] | | | PLASMA | | | LABORATORY | | | (LAB) | | | SERVICES, | | | | | | CORE | | + + + + + + | PHOSPHORUS, | 2.6 | 2.4 - 4.7 mg/dL | [facility] | | | PLASMA | | | LABORATORY | | | (LAB) | | | SERVICES, | | | | | | CORE | | + + + + + + | POTASSIUM | No Hemo | | [facility] | | | CMNT | | | LABORATORY | | | | | | SERVICES, | | | | | | CORE | | + + + + + + | ANION GAP | 8 | mmol/L | [facility] | | | | | | LABORATORY | | | | | | SERVICES, | | | | | | CORE | | + + + + + + | ANION | 14 (H) | 4 - 11 mmol/L | [facility] | | | GAP(ALB | | | LABORATORY | | | CORRECTED) | | | SERVICES, | | | | | | CORE | | + + + + + + + + | Specimen | + + | Blood - Blood | | (substance) | + + + + + | Narrative | Performed At | + + + | Adult glucose reference range change effective 7-12-17. GFR is | [facility] | | estimated using the MDRD equation recommended by the National Kidney | LABORATORY | | Disease Education Program. Estimated GFR Interpretive Information: | SERVICES, CORE | | <60 mL/min/1.73 sq m Chronic Kidney Disease | | | <15 mL/min/1.73 sq m Kidney Failure Estimated | | | GFR greater that 60 mL/min/1.73 sq m is of limited clinical value. | | | The MDRD equation is not valid in the following situations: - | | | Patients under 18 years of age - Severe malnutrition or obesity - | | | Vegetarian diet - Rapidly changing kidney function | | + + + + + + + + | Performing | Address | City/State/Zipcode | Phone Number | | Organization | | | | + + + + + | [facility] | [address] | [place] [address] | | | SERVICES, CORE | [address] | | | + + + + + CAPILLARY BLOOD GLUCOSE (NO CHG), POC (05/10/2017 9:56 PM PST) + +---------+ + + + | Component | Value | Ref Range | Performed | Pathologist | | | | | At | Signature | + +---------+ + + + | BLOOD | 181 (H) | 70 - 99 mg/dL | [facility] - | | | GLUCOSE, | | | [facility] | | | POC | | | [facility] | | | | | | OF CARE | | | | | | TESTS | | + +---------+ + + + + + | Specimen | + + | | + + + + + + + | Performing | Address | City/State/Zipcode | Phone Number | | Organization | | | | + + + + + | [facility] | [address] | [place], [place] | | | [facility] | [address] | [address] | | | TESTS | | | | + + + + + CT CHEST, ABDOMEN AND PELVIS W IV CONTRAST (05/10/2017 3:53 PM PST) + + | Specimen | + + | | + + + + + | Narrative | Performed At | + + + | EXAM: CT of the chest, abdomen and pelvis with intravenous | [facility] | | contrast. HISTORY: Remote history of rectal cancer. Bacteremia | RADIOLOGY VOICE | | status post-evacuation of epidural abscesses (T1 and T8 skip | RECOGNITION | | laminectomies ). COMPARISON: CT dated 05/07/2017 TECHNIQUE: | | | CT of the chest, abdomen and pelvis with non-ionic iodinated | | | intravenous contrast. Coronal and sagittal reformats were created. | | | FINDINGS: CHEST: The prominent right hilar lymph nodes measuring | | | 15 mm, likely reactive. Otherwise no suspicious hilar, mediastinal, or | | | axillary adenopathy seen. Large bilateral pleural effusions, | | | slightly decreased from prior study; associated dependent atelectasis | | | are grossly unchanged. Small ground glass areas in the right upper | | | lobe the largest measuring 16 mm (images 2-43 and 98), more prominent | | | compared to prior study, could be infectious or inflammatory. | | | LIVER: Statement 6 mm hypodensity at segment 2/4A (1-110), distal to | | | characterize, likely benign. BILIARY: Unremarkable. PANCREAS: | | | Unremarkable. SPLEEN: Unremarkable. ADRENALS: Unremarkable. | | | KIDNEYS/URETERS: Unremarkable. PELVIC ORGANS/BLADDER: Hammer catheter | | | in place with small amount of intraluminal air. GI TRACT: | | | Unremarkable. PERITONEUM: No free air. Small amount of nonspecific | | | free fluid present. LYMPH NODES: No lymphadenopathy. VESSELS: | | | Unremarkable. BONES AND SOFT TISSUES: Changes related to recent | | | thoracic spinal surgery noted with small air locules at the posterior | | | laminectomy sites at T1 and T8 No abscess formation at the surgical | | | site. Multiple rim-enhancing fluid collections within the left | | | erector spinae musculature at the level of the lumbar spine (from the | | | level of T12 to L3) appear to be more organized today, and have | | | slightly increased in size such as a multiloculated rim-enhancing | | | collection posterior to the left transverse process of L1 measuring | | | today 38 x 24 mm (1-139) versus 2.9 x 2.[address]; a second | | | contiguous collection posterior to the left transverse process of L2 | | | measures 27 x 21 mm (1-151) versus 22 x 20 mm previously. The largest | | | lesion didn't significantly change, measuring 45 x 33 mm (1-121) | | | extending along the left 11th intercostal space. IMPRESSION: | | | 1. More organized multiloculated fluid collections within left | | | erector spinae musculature consistent with abscesses at the level of | | | the lumbar spine have mildly increased in size. 2. No signs of | | | malignancy identified in the chest, abdomen or pelvis. 3. Large | | | bilateral pleural effusions, slightly decreased; Small ground changes | | | in the right lung upper lobe, could be infectious or inflammatory | | | I have personally reviewed the images and, if necessary, edited the | | | report. I agree with the report as now presented. | | + + + + + | Procedure Note | + + | Service Account, Radiant Res In Interface - 05/10/2017 5:18 PM PST EXAM: CT of the | | chest, abdomen and pelvis with intravenous contrast.HISTORY: Remote history of rectal | | cancer. Bacteremia status post-evacuation of epidural abscesses (T1 and T8 skip | | laminectomies ).COMPARISON: CT dated 05/07/2017TECHNIQUE: CT of the chest, abdomen and | | pelvis with non-ionic iodinated intravenous contrast. Coronal and sagittal reformats | | were created.FINDINGS:CHEST: The prominent right hilar lymph nodes measuring 15 mm, | | likely reactive. Otherwise no suspicious hilar, mediastinal, or axillary adenopathy | | seen.Large bilateral pleural effusions, slightly decreased from prior study; associated | | dependent atelectasis are grossly unchanged. Small ground glass areas in the right upper | | lobe the largest measuring 16 mm (images 2-43 and 98), more prominent compared to prior | | study, could be infectious or inflammatory.LIVER: Statement 6 mm hypodensity at segment | | 2/4A (1-110), distal to characterize, likely benign.BILIARY: Unremarkable.PANCREAS: | | Unremarkable.SPLEEN: Unremarkable.ADRENALS: Unremarkable.KIDNEYS/URETERS: | | Unremarkable.PELVIC ORGANS/BLADDER: Hammer catheter in place with small amount of | | intraluminal air.GI TRACT: Unremarkable.PERITONEUM: No free air. Small amount of | | nonspecific free fluid present.LYMPH NODES: No lymphadenopathy.VESSELS: | | Unremarkable.BONES AND SOFT TISSUES: Changes related to recent thoracic spinal surgery | | noted with small air locules at the posterior laminectomy sites at T1 and T8 No abscess | | formation at the surgical site.Multiple rim-enhancing fluid collections within the left | | erector spinae musculature at the level of the lumbar spine (from the level of T12 to | | L3) appear to be more organized today, and have slightly increased in size such as a | | multiloculated rim-enhancing collection posterior to the left transverse process of L1 | | measuring today 38 x 24 mm (1-139) versus 2.9 x 2.[address]; a second contiguous | | collection posterior to the left transverse process of L2 measures 27 x 21 mm (1-151) | | versus 22 x 20 mm previously. The largest lesion didn't significantly change, measuring | | 45 x 33 mm (1-121) extending along the left 11th intercostal space.IMPRESSION: 1. More | | organized multiloculated fluid collections within left erector spinae musculature | | consistent with abscesses at the level of the lumbar spine have mildly increased in | | size.2. No signs of malignancy identified in the chest, abdomen or pelvis.3. Large | | bilateral pleural effusions, slightly decreased; Small ground changes in the right lung | | upper lobe, could be infectious or inflammatoryI have personally reviewed the images | | and, if necessary, edited the report. I agree with the report as now presented. | |Multiple rim-enhancing fluid collections within the left erector spinae musculature at the level of the lumbar spine (from the level of T12 to L3) appear to be more organized today, a nd have slightly increased in size | |such as a multiloculated rim-enhancing collection posterior to the left transverse process of L1 measuring today 38 x 24 mm (1-139) versus 2.9 x 2.[address]; a second contiguou s collection posterior to the left | |transverse process of L2 measures 27 x 21 mm (1-151) versus 22 x 20 mm previously. The larg est lesion didn't significantly change, measuring 45 x 33 mm (1-121) extending along the lef t 11th intercostal space. | | | | | |IMPRESSION: | | | |1. More organized multiloculated fluid collections within left erector spinae musculature c onsistent with abscesses at the level of the lumbar spine have mildly increased in size. | | | |2. No signs of malignancy identified in the chest, abdomen or pelvis. | | | |3. Large bilateral pleural effusions, slightly decreased; Small ground changes in the right lung upper lobe, could be infectious or inflammatory | | | | | |I have personally reviewed the images and, if necessary, edited the report. I agree with t he report as now presented. | + + + +---------+ + + | Performing | Address | City/State/Zipcode | Phone Number | | Organization | | | | + +---------+ + + | [facility] | | | | | VOICE RECOGNITION | | | | + +---------+ + + CAPILLARY BLOOD GLUCOSE (NO CHG), POC (05/10/2017 2:05 PM PST) + +---------+ + + + | Component | Value | Ref Range | Performed | Pathologist | | | | | At | Signature | + +---------+ + + + | BLOOD | 132 (H) | 70 - 99 mg/dL | [facility] - | | | GLUCOSE, | | | [facility] | | | POC | | | [facility] | | | | | | OF CARE | | | | | | TESTS | | + +---------+ + + + + + | Specimen | + + | | + + + + + + + | Performing | Address | City/State/Zipcode | Phone Number | | Organization | | | | + + + + + | [facility] | [address] | [place], [place] | | | [facility] | [address] | [address] | | | TESTS | | | | + + + + + VANCOMYCIN, TROUGH (05/10/2017 1:58 PM PST) + +-------+ + + + | Component | Value | Ref Range | Performed | Pathologist | | | | | At | Signature | + +-------+ + + + | VANCOMYCIN, | 13.9 | 10.0 - 20.0 | [facility] | | | TROUGH | | ug/mL | LABORATORY | | | | | | SERVICES, | | | | | | CORE | | + +-------+ + + + + + | Specimen | + + | Blood - Blood | | (substance) | + + + + + | Narrative | Performed At | + + + | IV Trough to be drawn immediately prior to 05/10 1400 dose Reference | [facility] | | range change effective 03/29/2017. | LABORATORY | | | SERVICES, CORE | + + + + + + + + | Performing | Address | City/State/Zipcode | Phone Number | | Organization | | | | + + + + + | [facility] | [address] | [place] [address] | | | [facility] | [address] | | | + + + + + TRANSTHORACIC ECHOCARDIOGRAM, ADULT (05/10/2017 1:57 PM PST) + + + + + + | Component | Value | Ref Range | Performed | Pathologist | | | | | At | Signature | + + + + + + | BIPLANE, EF | 60 | | [facility] | | | | | | OF | | | | | | CARDIOLOGY | | + + + + + + | EJECTION | 60 to 65 | | [facility] | | | FRACTION | | | OF | | | | | | CARDIOLOGY | | + + + + + + | LA | 2.1 | | [facility] | | | DIMENSION | | | OF | | | | | | CARDIOLOGY | | + + + + + + | LVIDD | 5.1 | | [facility] | | | | | | OF | | | | | | CARDIOLOGY | | + + + + + + | EJECTION | 62.5 | % | [facility] | | | FRACTION | | | OF | | | RANGE MEAN | | | CARDIOLOGY | | | VALUE | | | | | + + + + + + + + | Specimen | + + | | + + + +---- + | Narrative | Per formed At | + +---- + | [facility] | [facility] | | [facility]chocardi[facility] [address] CAR DIOLOGY | | [address], [place] [address] Ph: | | | Pt Name: CORNELIO MEJIA FIGUEREDO | | | Study Date/Time 05/10/2017 / 1:57:15 PMMRN: [id number] | | | Most recent prior: 05/07/2017Acc #: [id number] | | | No. previous echos: 0DOB: 1955 61 years Heart | | | Rate: 100 bpmHeight: 70.0 in Blood | | | Pressure: 139/80 mm/HgWeight: 184.0 lb | | | Gender: MBSA: 2.01 m2 | | | Order ID: [id number] Robotics Software Engineer: Abel RAO | | | Referring Provider: Darshan Horvath Location: [address] [place] [address] | | | Performed: Limited 2D and Color Doppler.Study Quality: Good.Exam | | | Indication: Infective endocarditisHistory: 61 year old man with a | | | remote h/o rectal cancer who originally presented to [facility] ED with 3 | | | months of progressive back pain and a few weeks of worsening | | | confusion, found to have extensive spinal abscess (C2-L2) on MRI s/p | | | evacuation 05/06 and MRSA bacteremia Patient history has been obtained | | | from the EHR Transthoracic Echocardiographic Report | | | + | | | ---------+Final Impressions: | | | | | | | | | | | | | | | 1. The left ventricular cavity size is normal. | | | 2. The ejection fraction is normal. | | | 3. Right | | | ventricular size, thickness and function are normal. | | | 4. There are no obvious valvular vegetations or unexplained | | | regurgitant jets noted on this good quality transthoracic | | | echocardiogram. | | | | | | 5. Compared to the most recent exam dated, | | | 05/07/2017, there are no significant changes. | | | | | | | | | | | | + | | | + Description of Findings: Cardiac Rhythm: | | | Tachycardia.Left Ventricle: The left ventricular cavity size is | | | normal. Visually estimated left ventricular ejection fraction is 60 - | | | 65%. There is no left ventricular hypertrophy. The ejection fraction | | | is 59.6 % as measured by Figueredo's biplane method. The ejection | | | fraction is normal.Left Ventricular Wall Motion: Left ventricular | | | systolic thickening is normal in all segments.Atria: Left atrial size | | | is normal. Normal right atrium.Right Ventricle: Right ventricular | | | size, thickness and function are normal. Unable to calculate RVSP due | | | to absence of tricuspid regurgitation.Aortic Valve: The aortic valve | | | is trileaflet and normal in structure and function. No indication of | | | aortic valve regurgitation.Mitral Valve: The mitral valve is | | | structurally normal. No evidence of mitral valve | | | regurgitation.Tricuspid Valve: The tricuspid valve is structurally | | | normal. No tricuspid regurgitation.Pulmonic Valve: The pulmonic valve | | | is structurally normal. No indication of pulmonary valve | | | regurgitation.Aorta: Visualized portions of the ascending aorta and | | | aortic root appear normal.Pericardium: No pericardial effusion is | | | seen.Additional Findings: There are no obvious valvular vegetations or | | | unexplained regurgitant jets noted on this good quality transthoracic | | | echocardiogram.2D Measurements 2D NL | | | ValuesLVID(d) 5.11 cm (3.5-5.7cm)LVID(s) 3.69 cmIVS(d) | | | 0.84 cm (0.6-1.1cm)LVPW(d) 0.95 cm (0.6-1.1cm)LA A/Ps 2D 2.07 cm | | | (2.7-3.9cm) Biplane EF 59.6 %Evaluation of chamber size and geometry | | | is accomplished through the incorporation of linear, volumetric, and | | | indexed values Report electronically signed by: [id number] Abrahan | | | Raquel SHAIKH (05/10/2017, 3:24:48 PM)Fellow participating in diagnosis: Camille | | | Julia Verdugo MD Final | | |Pericardium: No pericardial effusion is seen. | | |Additional Findings: There are no obvious valvular vegetations or unexplained | | |regurgitant jets noted on this good quality transthoracic echocardiogram. | | |2D Measurements | | | | | | 2D NL Values | | |LVID(d) 5.11 cm (3.5-5.7cm) | | |LVID(s) 3.69 cm | | |IVS(d) 0.84 cm (0.6-1.1cm) | | |LVPW(d) 0.95 cm (0.6-1.1cm) | | |LA A/Ps 2D 2.07 cm (2.7-3.9cm) | | | | | |Biplane EF 59.6 % | | |Evaluation of chamber size and geometry is accomplished through the incorporation of | | |linear, volumetric, and indexed values | | | | | |Report electronically signed by: [id number] Abrahan García MD (05/10/2017, 3:24:48 PM) | | |Fellow participating in diagnosis: Camille Verdugo MD | | | | | | | | | | | | Final | | + +---- + + + | Procedure Note | + + | Interface, Cardiology Results - 05/10/2017 3:24 PM [facility] [employer] | | [facility] Echocardiography Laboratory [address] [place] [address] | | [place], [place] [address] Pt Name: CORNELIO MEJIA | | TERELL Study Date/Time 05/10/2017 / 1:57:15 PMMRN: [id number] [facility] | | recent prior: 05/07/2017Acc #: [id number] No. previous echos: 0DOB: | | 1955 61 years Heart Rate: 100 bpmHeight: 70.0 in Blood | | Pressure: 139/80 mm/HgWeight: 184.0 lb Gender: MBSA: | | 2.01 m2 Order ID: [id number] Robotics Software Engineer: Abel Prieto | | RCSReferring Provider: Darshan Horvath Location: [facility] Performed: Limited 2D | | and Color Doppler.Study Quality: Good.Exam Indication: Infective endocarditisHistory: | | 61 year old man with a remote h/o rectal cancer who originally presented to [facility] ED with | | 3 months of progressive back pain and a few weeks of worsening confusion, found to have | | extensive spinal abscess (C2-L2) on MRI s/p evacuation 05/06 and MRSA bacteremia Patient | | history has been obtained from the EHR Transthoracic Echocardiographic | | Report+ +Fi | | nal Impressions: | | | | 1. The left ventricular cavity | | size is normal. 2. The ejection fraction is normal. | | 3. Right ventricular size, thickness and function | | are normal. 4. There are no obvious valvular vegetations or unexplained | | regurgitant jets noted on this good quality transthoracic echocardiogram. | | 5. | | Compared to the most recent exam dated, 05/07/2017, there are no significant | | changes. | | | | + + | | Description of Findings: Cardiac Rhythm: Tachycardia.Left Ventricle: The left | | ventricular cavity size is normal. Visually estimated left ventricular ejection fraction | | is 60 - 65%. There is no left ventricular hypertrophy. The ejection fraction is 59.6 % | | as measured by Figueredo's biplane method. The ejection fraction is normal.Left | | Ventricular Wall Motion: Left ventricular systolic thickening is normal in all | | segments.Atria: Left atrial size is normal. Normal right atrium.Right Ventricle: Right | | ventricular size, thickness and function are normal. Unable to calculate RVSP due to | | absence of tricuspid regurgitation.Aortic Valve: The aortic valve is trileaflet and | | normal in structure and function. No indication of aortic valve regurgitation.Mitral | | Valve: The mitral valve is structurally normal. No evidence of mitral valve | | regurgitation.Tricuspid Valve: The tricuspid valve is structurally normal. No tricuspid | | regurgitation.Pulmonic Valve: The pulmonic valve is structurally normal. No indication | | of pulmonary valve regurgitation.Aorta: Visualized portions of the ascending aorta and | | aortic root appear normal.Pericardium: No pericardial effusion is seen.Additional | | Findings: There are no obvious valvular vegetations or unexplained regurgitant jets | | noted on this good quality transthoracic echocardiogram.2D Measurements 2D | | NL ValuesLVID(d) 5.11 cm (3.5-5.7cm)LVID(s) 3.69 cmIVS(d) 0.84 cm | | (0.6-1.1cm)LVPW(d) 0.95 cm (0.6-1.1cm)LA A/Ps 2D 2.07 cm (2.7-3.9cm) Biplane EF 59.6 | | %Evaluation of chamber size and geometry is accomplished through the incorporation of | | linear, volumetric, and indexed values Report electronically signed by: [id number] | | Abrahan García MD (05/10/2017, 3:24:48 PM)Fellow participating in diagnosis: Camille Verdugo | | Final | |Left Ventricle: The left ventricular cavity size is normal. Visually estimated left | |ventricular ejection fraction is 60 - 65%. There is no left ventricular hypertrophy. | |The ejection fraction is 59.6 % as measured by Figueredo's biplane method. The ejection | | fraction is normal. | |Left Ventricular Wall Motion: Left ventricular systolic thickening is normal in all | |segments. | |Atria: Left atrial size is normal. Normal right atrium. | |Right Ventricle: Right ventricular size, thickness and function are normal. Unable to | | calculate RVSP due to absence of tricuspid regurgitation. | |Aortic Valve: The aortic valve is trileaflet and normal in structure and function. No | | indication of aortic valve regurgitation. | |Mitral Valve: The mitral valve is structurally normal. No evidence of mitral valve | |regurgitation. | |Tricuspid Valve: The tricuspid valve is structurally normal. No tricuspid | |regurgitation. | |Pulmonic Valve: The pulmonic valve is structurally normal. No indication of pulmonary | | valve regurgitation. | |Aorta: Visualized portions of the ascending aorta and aortic root appear normal. | |Pericardium: No pericardial effusion is seen. | |Additional Findings: There are no obvious valvular vegetations or unexplained | |regurgitant jets noted on this good quality transthoracic echocardiogram. | |2D Measurements | | | | 2D NL Values | |LVID(d) 5.11 cm (3.5-5.7cm) | |LVID(s) 3.69 cm | |IVS(d) 0.84 cm (0.6-1.1cm) | |LVPW(d) 0.95 cm (0.6-1.1cm) | |LA A/Ps 2D 2.07 cm (2.7-3.9cm) | | | |Biplane EF 59.6 % | |Evaluation of chamber size and geometry is accomplished through the incorporation of | |linear, volumetric, and indexed values | | | |Report electronically signed by: [id number] Abrahan García MD (05/10/2017, 3:24:48 PM) | |Fellow participating in diagnosis: Camille Verdugo MD | | | | | | | | Final | + + + + + + + | Performing | Address | City/State/Zipcode | Phone Number | | Organization | | | | + + + + + | [facility] | [address] | [place] | | | CARDIOLOGY | [facility] | [address] | | + + + + + CAPILLARY BLOOD GLUCOSE (NO CHG), POC (05/10/2017 10:51 AM PST) + +---------+ + + + | Component | Value | Ref Range | Performed | Pathologist | | | | | At | Signature | + +---------+ + + + | BLOOD | 108 (H) | 70 - 99 mg/dL | [facility] | | | GLUCOSE, | | | [place] | | | POC | | | [facility] | | | | | | OF CARE | | | | | | TESTS | | + +---------+ + + + + + | Specimen | + + | | + + + + + + + | Performing | Address | City/State/Zipcode | Phone Number | | Organization | | | | + + + + + | [facility] | [address] | [place], [place] | | | [place] [facility] | [address] | [phone] | | | TESTS | | | | + + + + + BLOOD CULTURE WORKUP (05/10/2017 4:21 AM PST) + + + + + + | Component | Value | Ref Range | Performed | Pathologist | | | | | At | Signature | + + + + + + | CULTURE | Staphylococcus aureus, | | [facility] - | | | RESULT | Methicillin Resistant | | [facility] - | | | | (A) | | [place] | | + + + + + + + + | Specimen | + + | Blood - Antecubital | | region structure | | (body structure) | + + + + + | Narrative | Performed At | + + + | Culture Report: Methicillin Resistant Staphylococcus aureus | [facility] - | | Presumptive identification Refer to culture collected 05/06/17 @ | [facility] - | | 09:21 am for complete identification and susceptibilities Growth in | [place] | | Aerobic bottle Growth in Anaerobic bottle | | + + + + + + + + | Performing | Address | City/State/Zipcode | Phone Number | | Organization | | | | + + + + + | [facility] | [address] | [place] [address] | | | [place] | | | | + + + + + CBC (HEMOGRAM) ONLY (05/10/2017 4:21 AM PST) + + + + + + | Component | Value | Ref Range | Performed | Pathologist | | | | | At | Signature | + + + + + + | WHITE CELL | 18.01 (H) | 3.50 - 10.80 | [facility] | | | COUNT | | K/cu mm | LABORATORY | | | | | | SERVICES, | | | | | | CORE | | + + + + + + | RED CELL | 3.08 (L) | 4.50 - 6.00 | [facility] | | | COUNT | | M/cu mm | LABORATORY | | | | | | SERVICES, | | | | | | CORE | | + + + + + + | HEMOGLOBIN | 9.5 (L) | 13.5 - 17.5 | [facility] | | | | | g/dL | LABORATORY | | | | | | SERVICES, | | | | | | CORE | | + + + + + + | HEMATOCRIT | 27.1 (L) | 41.0 - 53.0 % | [facility] | | | | | | LABORATORY | | | | | | SERVICES, | | | | | | CORE | | + + + + + + | MCV | 88.0 | 80.0 - 96.0 fL | [facility] | | | | | | LABORATORY | | | | | | SERVICES, | | | | | | CORE | | + + + + + + | MCHC | 35.1 | 33.0 - 35.5 | [facility] | | | | | g/dL | LABORATORY | | | | | | SERVICES, | | | | | | CORE | | + + + + + + | RDW SD | 44.8 | 35.1 - 46.3 fL | [facility] | | | | | | LABORATORY | | | | | | SERVICES, | | | | | | CORE | | + + + + + + | PLATELET | 479 (H) | 150 - 400 K/cu | [facility] | | | COUNT | | mm | LABORATORY | | | | | | SERVICES, | | | | | | CORE | | + + + + + + | MPV | 9.0 (L) | 9.7 - 12.3 fL | [facility] | | | | | | LABORATORY | | | | | | SERVICES, | | | | | | CORE | | + + + + + + | NRBC% | 0.0 | 0.0 - 0.3 % | [facility] | | | | | | LABORATORY | | | | | | SERVICES, | | | | | | CORE | | + + + + + + | NRBC# | 0.00 | 0.00 - 0.02 | [facility] | | | | | K/cu mm | LABORATORY | | | | | | SERVICES, | | | | | | CORE | | + + + + + + + + | Specimen | + + | Blood - Blood | | (substance) | + + + + + + + | Performing | Address | City/State/Zipcode | Phone Number | | Organization | | | | + + + + + | [facility] | [address] [facility] | [place] [address] | | | SERVICES, CORE | [address] | | | + + + + + CULTURE, BLOOD BACTI & YEAST TAY (05/10/2017 4:21 AM PST) + + + + + + | Component | Value | Ref Range | Performed | Pathologist | | | | | At | Signature | + + + + + + | CULTURE | Not tested by molecular | | [facility] | | | RESULT | method, see culture | | LABORATORY | | | | report. (AA) | | SERVICES, | | | | | | CORE | | + + + + + + | GRAM STAIN | Gram positive cocci in | | [facility] | | | | clusters | | LABORATORY | | | | | | SERVICES, | | | | | | CORE | | + + + + + + + + | Specimen | + + | Blood - Antecubital | | region structure | | (body structure) | + + + + + | Narrative | Performed At | + + + | Growth in Aerobic Bottle. Growth in Anaerobic Bottle. | [facility] | | | LABORATORY | | | SERVICES, CORE | + + + + + + + + | Performing | Address | City/State/Zipcode | Phone Number | | Organization | | | | + + + + + | [facility] | [address] | [place] [address] | | | SERVICES, CORE | [address] | | | + + + + + MAGNESIUM, PLASMA (05/10/2017 4:21 AM PST) + +-------+ + + + | Component | Value | Ref Range | Performed | Pathologist | | | | | At | Signature | + +-------+ + + + | MAGNESIUM,P | 2.3 | 1.6 - 2.6 mg/dL | [facility] | | | LASMA | | | LABORATORY | | | | | | SERVICES, | | | | | | CORE | | + +-------+ + + + + + | Specimen | + + | Blood - Blood | | (substance) | + + + + + | Narrative | Performed At | + + + | Reference range change effective 02/16/17. | [facility] | | | LABORATORY | | | SERVICES, CORE | + + + + + + + + | Performing | Address | City/State/Zipcode | Phone Number | | Organization | | | | + + + + + | [facility] | [address] | [place] [address] | | | SERVICES, CORE | [address] | | | + + + + + RENAL FUNCTION SET (NA,K,CL,CO2,BUN,CREAT,GLUC,CA,PHOS,ALB ) (05/10/2017 4:21 AM PST) + + + + + + | Component | Value | Ref Range | Performed | Pathologist | | | | | At | Signature | + + + + + + | GLUCOSE, | 108 (H) | 70 - 99 mg/dL | [facility] | | | PLASMA | | | LABORATORY | | | (LAB) | | | SERVICES, | | | | | | CORE | | + + + + + + | BUN, PLASMA | 8 | 6 - 20 mg/dL | [facility] | | | (LAB) | | | LABORATORY | | | | | | SERVICES, | | | | | | CORE | | + + + + + + | CREATININE | 0.64 (L) | 0.70 - 1.30 | [facility] | | | PLASMA | | mg/dL | LABORATORY | | | (LAB) | | | SERVICES, | | | | | | CORE | | + + + + + + | EGFR | >60 | >60 mL/min | [facility] | | | - | | | LABORATORY | | | [facility] | | | SERVICES, | | | | | | CORE | | + + + + + + | EGFR NON | >60 | >60 mL/min | [facility] | | | -OBDULIA | | | LABORATORY | | | RICAN | | | SERVICES, | | | | | | CORE | | + + + + + + | SODIUM, | 134 (L) | 136 - 145 | [facility] | | | PLASMA | | mmol/L | LABORATORY | | | (LAB) | | | SERVICES, | | | | | | CORE | | + + + + + + | POTASSIUM, | 3.2 (L) | 3.4 - 5.0 | [facility] | | | PLASMA | | mmol/L | LABORATORY | | | (LAB) | | | SERVICES, | | | | | | CORE | | + + + + + + | CHLORIDE, | 100 | 97 - 108 mmol/L | [facility] | | | PLASMA | | | LABORATORY | | | (LAB) | | | SERVICES, | | | | | | CORE | | + + + + + + | TOTAL CO2, | 28 | 21 - 32 mmol/L | [facility] | | | PLASMA | | | LABORATORY | | | (LAB) | | | SERVICES, | | | | | | CORE | | + + + + + + | CALCIUM, | 7.4 (L) | 8.6 - 10.2 | [facility] | | | PLASMA | | mg/dL | LABORATORY | | | (LAB) | | | SERVICES, | | | | | | CORE | | + + + + + + | CALCIUM(ALB | 9.4 | 8.6 - 10.2 | [facility] | | | CORRECTED) | | mg/dL | LABORATORY | | | | | | SERVICES, | | | | | | CORE | | + + + + + + | ALBUMIN, | 1.5 (L) | 3.5 - 4.7 g/dL | [facility] | | | PLASMA | | | LABORATORY | | | (LAB) | | | SERVICES, | | | | | | CORE | | + + + + + + | PHOSPHORUS, | 2.8 | 2.4 - 4.7 mg/dL | [facility] | | | PLASMA | | | LABORATORY | | | (LAB) | | | SERVICES, | | | | | | CORE | | + + + + + + | POTASSIUM | No Hemo | | [facility] | | | CMNT | | | LABORATORY | | | | | | SERVICES, | | | | | | CORE | | + + + + + + | ANION GAP | 6 | mmol/L | [facility] | | | | | | LABORATORY | | | | | | SERVICES, | | | | | | CORE | | + + + + + + | ANION | 12 (H) | 4 - 11 mmol/L | [facility] | | | GAP(ALB | | | LABORATORY | | | CORRECTED) | | | SERVICES, | | | | | | CORE | | + + + + + + + + | Specimen | + + | Blood - Blood | | (substance) | + + + + + | Narrative | Performed At | + + + | Adult glucose reference range change effective 7-17. GFR is | [facility] | | estimated using the MDRD equation recommended by the National Kidney | LABORATORY | | Disease Education Program. Estimated GFR Interpretive Information: | SERVICES, CORE | | <60 mL/min/1.73 sq m Chronic Kidney Disease | | | <15 mL/min/1.73 sq m Kidney Failure Estimated | | | GFR greater that 60 mL/min/1.73 sq m is of limited clinical value. | | | The MDRD equation is not valid in the following situations: - | | | Patients under 18 years of age - Severe malnutrition or obesity - | | | Vegetarian diet - Rapidly changing kidney function | | + + + + + + + + | Performing | Address | City/State/Zipcode | Phone Number | | Organization | | | | + + + + + | [facility] | [address] | [place] [address] | | | SERVICES, CORE | [address] | | | + + + + + COAGULOPATHY PANEL (INR,APTT,FIBRINOGEN) (05/10/2017 4:21 AM PST) + +---------+ + + + | Component | Value | Ref Range | Performed | Pathologist | | | | | At | Signature | + +---------+ + + + | INR | 1.09 | 0.90 - 1.20 INR | [facility] | | | | | | LABORATORY | | | | | | SERVICES, | | | | | | CORE | | + +---------+ + + + | APTT | 33.9 | 26.0 - 36.0 | [facility] | | | | | seconds | LABORATORY | | | | | | SERVICES, | | | | | | CORE | | + +---------+ + + + | FIBRINOGEN | 610 (H) | 200 - 450 mg/dL | [facility] | | | LEVEL | | | LABORATORY | | | | | | SERVICES, | | | | | | CORE | | + +---------+ + + + + + | Specimen | + + | Blood - Blood | | (substance) | + + + + + | Narrative | Performed At | + + + | INR Therapeutic ranges for full anticoagulation: INR for | [facility] | | Venous Thromboembolism (2.0 - 3.0) INR INR for | LABORATORY | | most patients with mech. valves (2.5 - 3.5) INR APTT | SERVICES, CORE | | Therapeutic Range: (75 - 120) sec | | | Heparin levels of 0.35 - 0.7 U/mL | | + + + + + + + + | Performing | Address | City/State/Zipcode | Phone Number | | Organization | | | | + + + + + | [facility] | [address] | [place] [address] | | | SERVICES, CORE | [address] | | | + + + + + CARCINOEMBRYONIC AG, SERUM (05/10/2017 4:21 AM PST) + +-------+ + + + | Component | Value | Ref Range | Performed | Pathologist | | | | | At | Signature | + +-------+ + + + | CEA-CARCINO | <0.5 | <=2.5 ng/mL | [facility] | | | EMBRYONIC | | | LABORATORY | | | AG, SERUM | | | SERVICES, | | | | | | CORE | | + +-------+ + + + + + | Specimen | + + | Blood - Blood | | (substance) | + + + + + + + | Performing | Address | City/State/Zipcode | Phone Number | | Organization | | | | + + + + + | [facility] | [address] | [place] [address] | | | SERVICES, CORE | [address] | | | + + + + + CAPILLARY BLOOD GLUCOSE (NO CHG), POC (05/09/2017 10:15 PM PST) + +---------+ + + + | Component | Value | Ref Range | Performed | Pathologist | | | | | At | Signature | + +---------+ + + + | BLOOD | 134 (H) | 70 - 99 mg/dL | [facility] | | | GLUCOSE, | | | [facility] | | | POC | | | [facility] | | | | | | OF CARE | | | | | | TESTS | | + +---------+ + + + + + | Specimen | + + | | + + + + + + + | Performing | Address | City/State/Zipcode | Phone Number | | Organization | | | | + + + + + | [facility] | [address] | [place], [place] | | | [place] [facility] | [address] | [address] | | | TESTS | | | | + + + + + CAPILLARY BLOOD GLUCOSE (NO CHG), POC (05/09/2017 7:28 PM PST) + +---------+ + + + | Component | Value | Ref Range | Performed | Pathologist | | | | | At | Signature | + +---------+ + + + | BLOOD | 114 (H) | 70 - 99 mg/dL | [facility] - | | | GLUCOSE, | | | [facility] | | | POC | | | [place] [facility] | | | | | | OF CARE | | | | | | TESTS | | + +---------+ + + + + + | Specimen | + + | | + + + + + + + | Performing | Address | City/State/Zipcode | Phone Number | | Organization | | | | + + + + + | [facility] | [address] | [place], [place] | | | [facility] | [address] | [address] | | | TESTS | | | | + + + + + CAPILLARY BLOOD GLUCOSE (NO CHG), POC (05/09/2017 12:17 PM PST) + +---------+ + + + | Component | Value | Ref Range | Performed | Pathologist | | | | | At | Signature | + +---------+ + + + | BLOOD | 128 (H) | 70 - 99 mg/dL | [facility] - | | | GLUCOSE, | | | [place] | | | POC | | | [facility] | | | | | | OF CARE | | | | | | TESTS | | + +---------+ + + + + + | Specimen | + + | | + + + + + + + | Performing | Address | City/State/Zipcode | Phone Number | | Organization | | | | + + + + + | [facility] | [address] | [place], [place] | | | [place] [facility] | [address] | [address] | | | TESTS | | | | + + + + + CAPILLARY BLOOD GLUCOSE (NO CHG), POC (05/09/2017 9:56 AM PST) + +-------+ + + + | Component | Value | Ref Range | Performed | Pathologist | | | | | At | Signature | + +-------+ + + + | BLOOD | 99 | 70 - 99 mg/dL | [facility] - | | | GLUCOSE, | | | [place] | | | POC | | | [facility] | | | | | | OF CARE | | | | | | TESTS | | + +-------+ + + + + + | Specimen | + + | | + + + + + + + | Performing | Address | City/State/Zipcode | Phone Number | | Organization | | | | + + + + + | [facility] | [address] | [place], [place] | | | [place] [facility] | [address] | [address] | | | TESTS | | | | + + + + + BLOOD CULTURE WORKUP (05/09/2017 1:33 AM PDT) + + + + + + | Component | Value | Ref Range | Performed | Pathologist | | | | | At | Signature | + + + + + + | CULTURE | Staphylococcus aureus, | | [facility] - | | | RESULT | Methicillin Resistant | | [facility] - | | | | (A) | | [place] | | + + + + + + + + | Specimen | + + | Blood - Structure of | | left hand (body | | structure) | + + + + + | Narrative | Performed At | + + + | Culture Report: Methicillin Resistant Staphylococcus aureus | [facility] - | | Presumptive identification Refer to culture collected 05/06/17 @ | [facility] - | | 09:21 for complete identification and susceptibilities Growth in | [place] | | Aerobic bottle Growth in Anaerobic bottle | | + + + + + + + + | Performing | Address | City/State/Zipcode | Phone Number | | Organization | | | | + + + + + | [facility] | [address] | [place] [address] | | | [place] | | | | + + + + + CULTURE, BLOOD BACTI & YEAST [facility] (05/09/2017 1:33 AM PDT) + + + + + + | Component | Value | Ref Range | Performed | Pathologist | | | | | At | Signature | + + + + + + | CULTURE | Not tested by molecular | | [facility] | | | RESULT | method, see culture | | LABORATORY | | | | report. (AA) | | SERVICES, | | | | | | CORE | | + + + + + + | GRAM STAIN | Gram positive cocci in | | [facility] | | | | clusters | | LABORATORY | | | | | | SERVICES, | | | | | | CORE | | + + + + + + + + | Specimen | + + | Blood - Structure of | | left hand (body | | structure) | + + + + + | Narrative | Performed At | + + + | Growth in Aerobic Bottle. Growth in Anaerobic Bottle. | [facility] | | | LABORATORY | | | SERVICES, CORE | + + + + + + + + | Performing | Address | City/State/Zipcode | Phone Number | | Organization | | | | + + + + + | [facility] | [address] [facility] [facility] | [place] [address] | | | SERVICES, CORE | [address] | | | + + + + + CBC (HEMOGRAM) ONLY (05/09/2017 1:33 AM PDT) + + + + + + | Component | Value | Ref Range | Performed | Pathologist | | | | | At | Signature | + + + + + + | WHITE CELL | 17.50 (H) | 3.50 - 10.80 | [facility] | | | COUNT | | K/cu mm | LABORATORY | | | | | | SERVICES, | | | | | | CORE | | + + + + + + | RED CELL | 3.12 (L) | 4.50 - 6.00 | [facility] | | | COUNT | | M/cu mm | LABORATORY | | | | | | SERVICES, | | | | | | CORE | | + + + + + + | HEMOGLOBIN | 9.5 (L) | 13.5 - 17.5 | [facility] | | | | | g/dL | LABORATORY | | | | | | SERVICES, | | | | | | CORE | | + + + + + + | HEMATOCRIT | 28.0 (L) | 41.0 - 53.0 % | [facility] | | | | | | LABORATORY | | | | | | SERVICES, | | | | | | CORE | | + + + + + + | MCV | 89.7 | 80.0 - 96.0 fL | [facility] | | | | | | LABORATORY | | | | | | SERVICES, | | | | | | CORE | | + + + + + + | MCHC | 33.9 | 33.0 - 35.5 | [facility] | | | | | g/dL | LABORATORY | | | | | | SERVICES, | | | | | | CORE | | + + + + + + | RDW SD | 46.4 (H) | 35.1 - 46.3 fL | [facility] | | | | | | LABORATORY | | | | | | SERVICES, | | | | | | CORE | | + + + + + + | PLATELET | 505 (H) | 150 - 400 K/cu | [facility] | | | COUNT | | mm | LABORATORY | | | | | | SERVICES, | | | | | | CORE | | + + + + + + | MPV | 9.2 (L) | 9.7 - 12.3 fL | [facility] | | | | | | LABORATORY | | | | | | SERVICES, | | | | | | CORE | | + + + + + + | NRBC% | 0.0 | 0.0 - 0.3 % | [facility] | | | | | | LABORATORY | | | | | | SERVICES, | | | | | | CORE | | + + + + + + | NRBC# | 0.00 | 0.00 - 0.02 | [facility] | | | | | K/cu mm | LABORATORY | | | | | | SERVICES, | | | | | | CORE | | + + + + + + + + | Specimen | + + | Blood - Blood | | (substance) | + + + + + + + | Performing | Address | City/State/Zipcode | Phone Number | | Organization | | | | + + + + + | [facility] | [address] | [place] [address] | | | SERVICES, TONY | [address] | | | + + + + + MAGNESIUM, PLASMA (05/09/2017 1:33 AM PDT) + +-------+ + + + | Component | Value | Ref Range | Performed | Pathologist | | | | | At | Signature | + +-------+ + + + | MAGNESIUM,P | 2.2 | 1.6 - 2.6 mg/dL | [facility] | | | LASMA | | | LABORATORY | | | | | | CARIDAD, | | | | | | CORE | | + +-------+ + + + + + | Specimen | + + | Blood - Blood | | (substance) | + + + + + | Narrative | Performed At | + + + | Reference range change effective 02/16/17. | [facility] | | | LABORATORY | | | SERVICES, CORE | + + + + + + + + | Performing | Address | City/State/Zipcode | Phone Number | | Organization | | | | + + + + + | [facility] | [address] | [place] [address] | | | SERVICES, CORE | [address] | | | + + + + + RENAL FUNCTION SET (NA,K,CL,CO2,BUN,CREAT,GLUC,CA,PHOS,ALB ) (05/09/2017 1:33 AM PDT) + + + + + + | Component | Value | Ref Range | Performed | Pathologist | | | | | At | Signature | + + + + + + | GLUCOSE, | 102 (H) | 70 - 99 mg/dL | [facility] | | | PLASMA | | | LABORATORY | | | (LAB) | | | SERVICES, | | | | | | CORE | | + + + + + + | BUN, PLASMA | 13 | 6 - 20 mg/dL | [facility] | | | (LAB) | | | LABORATORY | | | | | | SERVICES, | | | | | | CORE | | + + + + + + | CREATININE | 0.68 (L) | 0.70 - 1.30 | [facility] | | | PLASMA | | mg/dL | LABORATORY | | | (LAB) | | | SERVICES, | | | | | | CORE | | + + + + + + | EGFR | >60 | >60 mL/min | [facility] | | | - | | | LABORATORY | | | [facility] | | | SERVICES, | | | | | | CORE | | + + + + + + | EGFR NON | >60 | >60 mL/min | [facility] | | | -OBDULIA | | | LABORATORY | | | RICAN | | | SERVICES, | | | | | | CORE | | + + + + + + | SODIUM, | 136 | 136 - 145 | [facility] | | | PLASMA | | mmol/L | LABORATORY | | | (LAB) | | | SERVICES, | | | | | | CORE | | + + + + + + | POTASSIUM, | 3.3 (L) | 3.4 - 5.0 | [facility] | | | PLASMA | | mmol/L | LABORATORY | | | (LAB) | | | SERVICES, | | | | | | CORE | | + + + + + + | CHLORIDE, | 102 | 97 - 108 mmol/L | [facility] | | | PLASMA | | | LABORATORY | | | (LAB) | | | SERVICES, | | | | | | CORE | | + + + + + + | TOTAL CO2, | 25 | 21 - 32 mmol/L | [facility] | | | PLASMA | | | LABORATORY | | | (LAB) | | | SERVICES, | | | | | | CORE | | + + + + + + | CALCIUM, | 7.0 (L) | 8.6 - 10.2 | [facility] | | | PLASMA | | mg/dL | LABORATORY | | | (LAB) | | | SERVICES, | | | | | | CORE | | + + + + + + | CALCIUM(ALB | 9.1 | 8.6 - 10.2 | [facility] | | | CORRECTED) | | mg/dL | LABORATORY | | | | | | SERVICES, | | | | | | CORE | | + + + + + + | ALBUMIN, | 1.4 (L) | 3.5 - 4.7 g/dL | [facility] | | | PLASMA | | | LABORATORY | | | (LAB) | | | SERVICES, | | | | | | CORE | | + + + + + + | PHOSPHORUS, | 3.0 | 2.4 - 4.7 mg/dL | [facility] | | | PLASMA | | | LABORATORY | | | (LAB) | | | SERVICES, | | | | | | CORE | | + + + + + + | POTASSIUM | No Hemo | | [facility] | | | CMNT | | | LABORATORY | | | | | | SERVICES, | | | | | | CORE | | + + + + + + | ANION GAP | 9 | mmol/L | [facility] | | | | | | LABORATORY | | | | | | SERVICES, | | | | | | CORE | | + + + + + + | ANION | 15 (H) | 4 - 11 mmol/L | [facility] | | | GAP(ALB | | | LABORATORY | | | CORRECTED) | | | SERVICES, | | | | | | CORE | | + + + + + + + + | Specimen | + + | Blood - Blood | | (substance) | + + + + + | Narrative | Performed At | + + + | Adult glucose reference range change effective 7-12-17. GFR is | [facility] | | estimated using the MDRD equation recommended by the National Kidney | LABORATORY | | Disease Education Program. Estimated GFR Interpretive Information: | SERVICES, CORE | | <60 mL/min/1.73 sq m Chronic Kidney Disease | | | <15 mL/min/1.73 sq m Kidney Failure Estimated | | | GFR greater that 60 mL/min/1.73 sq m is of limited clinical value. | | | The MDRD equation is not valid in the following situations: - | | | Patients under 18 years of age - Severe malnutrition or obesity - | | | Vegetarian diet - Rapidly changing kidney function | | + + + + + + + + | Performing | Address | City/State/Zipcode | Phone Number | | Organization | | | | + + + + + | [facility] | [address] | [place] [address] | | | SERVICES, CORE | [address] | | | + + + + + BLOOD CULTURE WORKUP (05/09/2017 1:29 AM PDT) + + + + + + | Component | Value | Ref Range | Performed | Pathologist | | | | | At | Signature | + + + + + + | CULTURE | Staphylococcus aureus, | | [facility] | | | RESULT | Methicillin Resistant | | [facility] - | | | | (A) | | [place] | | + + + + + + + + | Specimen | + + | Blood - Structure of | | right foot (body | | structure) | + + + + + | Narrative | Performed At | + + + | Culture Report: Methicillin Resistant Staphylococcus aureus | [facility] - | | Presumptive identification Refer to culture collected 05/06/17 @ | [facility] - | | 09:21 for complete identification and susceptibilities Growth in | [place] | | Aerobic bottle Growth in Anaerobic bottle | | + + + + + + + + | Performing | Address | City/State/Zipcode | Phone Number | | Organization | | | | + + + + + | [facility] | [id number] | [place] [address] | | | [place] | | | | + + + + + CULTURE, BLOOD BACTI & YEAST [facility] (05/09/2017 1:29 AM PDT) + + + + + + | Component | Value | Ref Range | Performed | Pathologist | | | | | At | Signature | + + + + + + | CULTURE | Not tested by molecular | | [facility] | | | RESULT | method, see culture | | LABORATORY | | | | report. (AA) | | SERVICES, | | | | | | CORE | | + + + + + + | GRAM STAIN | Gram positive cocci in | | [facility] | | | | clusters | | LABORATORY | | | | | | SERVICES, | | | | | | CORE | | + + + + + + + + | Specimen | + + | Blood - Structure of | | right foot (body | | structure) | + + + + + | Narrative | Performed At | + + + | Growth in Aerobic Bottle. Growth in Anaerobic Bottle. | [facility] | | | LABORATORY | | | SERVICES, CORE | + + + + + + + + | Performing | Address | City/State/Zipcode | Phone Number | | Organization | | | | + + + + + | [facility] | [address] | [place] [address] | | | SERVICES, CORE | [address] | | | + + + + + CAPILLARY BLOOD GLUCOSE (NO CHG), POC (05/08/2017 9:59 PM PDT) + +---------+ + + + | Component | Value | Ref Range | Performed | Pathologist | | | | | At | Signature | + +---------+ + + + | BLOOD | 107 (H) | 70 - 99 mg/dL | [facility] - | | | GLUCOSE, | | | [place] | | | POC | | | [facility] | | | | | | OF CARE | | | | | | TESTS | | + +---------+ + + + + + | Specimen | + + | | + + + + + + + | Performing | Address | City/State/Zipcode | Phone Number | | Organization | | | | + + + + + | [facility] | [address] | [place], [place] | | | [facility] | [address] | [address] | | | TESTS | | | | + + + + + X-RAY CHEST 1 VIEW (05/08/2017 4:29 PM PDT) + + | Specimen | + + | | + + + + + | Narrative | Performed At | + + + | EXAM: CHEST 1 VIEW HISTORY: Thoracentesis COMPARISON: | [facility] | | Earlier same day FINDINGS: Stable cardiomediastinal | RADIOLOGY VOICE | | silhouette. Persistent moderate left greater than right pleural | RECOGNITION | | effusions. No pneumothorax. Lower lobe compressive atelectasis is | | | unchanged. No soft tissue abnormality. IMPRESSION: Unchanged | | | moderate bilateral pleural effusions and adjacent compressive | | | atelectasis. No pneumothorax. I have personally reviewed the | | | images and, if necessary, edited the report. I agree with the report | | | as now presented. | | + + + + + | Procedure Note | + + | Service Account, [employer] In Interface - 05/08/2017 6:31 PM PDT EXAM: CHEST 1 | | VIEW HISTORY: ThoracentesisCOMPARISON: Earlier same dayFINDINGS: Stable | | cardiomediastinal silhouette. Persistent moderate left greater than right pleural | | effusions. No pneumothorax. Lower lobe compressive atelectasis is unchanged. No soft | | tissue abnormality. IMPRESSION: Unchanged moderate bilateral pleural effusions and | | adjacent compressive atelectasis. No pneumothorax. I have personally reviewed the images | | and, if necessary, edited the report. I agree with the report as now presented. | | | |Stable cardiomediastinal silhouette. Persistent moderate left greater than right pleural ef fusions. No pneumothorax. Lower lobe compressive atelectasis is unchanged. No soft tissue ab normality. | | | |IMPRESSION: | | | |Unchanged moderate bilateral pleural effusions and adjacent compressive atelectasis. No pne umothorax. | | | | | |I have personally reviewed the images and, if necessary, edited the report. I agree with t he report as now presented. | + + + +---------+ + + | Performing | Address | City/State/Zipcode | Phone Number | | Organization | | | | + +---------+ + + | [facility] | | | | | VOICE RECOGNITION | | | | + +---------+ + + THORACENTESIS (05/08/2017 3:33 PM PDT) + + + | Narrative | Performed At | + + + | Yanet Cho MD 05/08/2017 3:25 PM THORACENTESIS | | | Date/Time: 05/08/2017 3:23 PM Performed by: YANET CHO | | | Authorized by: YANELY AYALA MD Written | | | consent obtained?: Yes Consent given by: Patient Patient | | | identity confirmed per policy?: Yes Procedural pause: Immediately | | | prior to the procedure a pause per universal protocol was called . | | | Procedure Purpose: Diagnostic Pre-Procedure Diagnosis: | | | Bilateral pleural effusions Skin Preparation: ChloraPrep | | | Anesthesia: None Local anesthetic: Lidocaine 1% w/o epinephrine | | | Anesthetic total (ml): 5 Procedure Details: Patient position: | | | Sitting Ultrasound guided?: Yes Images Saved: Yes | | | Location: Left posterior Intercostal space: 7th Puncture | | | method: Needle only Needle gauge: 20 Number of attempts: | | | 2 Drainage amount (ml): 10 Drainage characteristics: | | | Serosanguinous Post-Procedure: Patient tolerance: Patient | | | tolerated the procedure well with no immediate complications | | | Post-procedure chest x-ray performed?: Yes Interpreted by:: | | | Radiologist | | + + + CAPILLARY BLOOD GLUCOSE (NO CHG), POC (05/08/2017 3:25 PM PDT) + +---------+ + + + | Component | Value | Ref Range | Performed | Pathologist | | | | | At | Signature | + +---------+ + + + | BLOOD | 138 (H) | 70 - 99 mg/dL | [facility] - | | | GLUCOSE, | | | [place] | | | POC | | | [place] | | | | | | OF CARE | | | | | | TESTS | | + +---------+ + + + + + | Specimen | + + | | + + + + + + + | Performing | Address | City/State/Zipcode | Phone Number | | Organization | | | | + + + + + | [facility] | [address] | [place], [place] | | | [facility] | [address] | [address] | | | TESTS | | | | + + + + + DIFFERENTIAL, BFL (05/08/2017 2:57 PM PDT) + +-------+ + + + | Component | Value | Ref Range | Performed | Pathologist | | | | | At | Signature | + +-------+ + + + | NEUTROPHIL( | 88 | % | [facility] | | | BF) | | | LABORATORY | | | | | | SERVICES, | | | | | | CORE | | + +-------+ + + + | LYMPHOCYTES | 7 | % | [facility] | | | (BF) | | | LABORATORY | | | | | | SERVICES, | | | | | | CORE | | + +-------+ + + + | MONOCYTES(B | 2 | % | [facility] | | | EARNEST [place]) | | | LABORATORY | | | | | | SERVICES, | | | | | | CORE | | + +-------+ + + + | MACROPHAGES | 3 | % | [facility] | | | (BF) | | | LABORATORY | | | | | | SERVICES, | | | | | | CORE | | + +-------+ + + + | EOSINOPHILS | 0 | % | [facility] | | | (BF) | | | LABORATORY | | | | | | SERVICES, | | | | | | CORE | | + +-------+ + + + | BASOPHILS(B | 0 | % | [facility] | | | F) | | | LABORATORY | | | | | | SERVICES, | | | | | | CORE | | + +-------+ + + + | REACTIVE | 0 | % | [facility] | | | LYMPHS(BF) | | | LABORATORY | | | | | | SERVICES, | | | | | | CORE | | + +-------+ + + + | ATYPICAL | 0 | 0.0 % | [facility] | | | CELLS(BF) | | | LABORATORY | | | | | | SERVICES, | | | | | | CORE | | + +-------+ + + + | TOTAL CELL | 100 | | [facility] | | | COUNTED,BFL | | | LABORATORY | | | | | | SERVICES, | | | | | | CORE | | + +-------+ + + + + + | Specimen | + + | Pleural fluid - | | Pleural membrane | | structure (body | | structure) | + + + + + + + | Performing | Address | City/State/Zipcode | Phone Number | | Organization | | | | + + + + + | [facility] | [address] | [place] [address] | | | SERVICES, CORE | [address] | | | + + + + + CELL COUNT, BODY FL (05/08/2017 2:57 PM PDT) + + + + + + | Component | Value | Ref Range | Performed | Pathologist | | | | | At | Signature | + + + + + + | WBC, BODY | 2,099 (H) | 0 - 999 cu mm | [facility] | | | FLUID | | | LABORATORY | | | | | | SERVICES, | | | | | | CORE | | + + + + + + | RBC, BODY | 6,000 | cu mm | [facility] | | | FLUID | | | LABORATORY | | | | | | SERVICES, | | | | | | CORE | | + + + + + + + + | Specimen | + + | Pleural fluid - | | Pleural membrane | | structure (body | | structure) | + + + + + + + | Performing | Address | City/State/Zipcode | Phone Number | | Organization | | | | + + + + + | [facility] | [address] | [place] [address] | | | SERVICES, CORE | [address] | | | + + + + + GRAM SMEAR ONLY STAT (05/08/2017 2:56 PM PDT) + + + + + + | Component | Value | Ref Range | Performed | Pathologist | | | | | At | Signature | + + + + + + | GRAM STAIN | No organisms | No organisms | [facility] | | | RESULT | seenComment: Many WBC | seen | LABORATORY | | | | seen | | SERVICES, | | | | | | CORE | | + + + + + + | SMEAR | Cytospin | | [facility] | | | PREPARATION | | | LABORATORY | | | | | | SERVICES, | | | | | | CORE | | + + + + + + | SOURCE BODY | Pleural | | [facility] | | | SITE | | | LABORATORY | | | | | | SERVICES, | | | | | | CORE | | + + + + + + + + | Specimen | + + | Pleural fluid - | | Pleural membrane | | structure (body | | structure) | + + + + + + + | Performing | Address | City/State/Zipcode | Phone Number | | Organization | | | | + + + + + | [facility] | [address] | [place] [address] | | | SERVICES, CORE | [address] | | | + + + + + CULTURE, FUNGAL EXCEPT BLOOD, SKIN, HAIR, NAIL (05/08/2017 2:56 PM PDT) + + | Specimen | + + | Pleural fluid - | | Pleural membrane | | structure (body | | structure) | + + + + + | Narrative | Performed At | + + + | Culture Report: No fungus isolated at 3 weeks. Fungal Smear: | [facility] - | | No fungal elements seen | [facility] | | | [place] | + + + + + + + + | Performing | Address | City/State/Zipcode | Phone Number | | Organization | | | | + + + + + | [facility] | [address] | [place] [address] | | | [place] | | | | + + + + + CULTURE, AFB (ALL SPEC TYPES EXCEPT BLOOD) (05/08/2017 2:56 PM PDT) + + | Specimen | + + | Pleural fluid - | | Pleural membrane | | structure (body | | structure) | + + + + + | Narrative | Performed At | + + + | Culture Report: No acid fast bacteria isolated at 6 weeks. AFB | [facility] - | | Smear: AFB not detected | [facility] - | | | [place] | + + + + + + + + | Performing | Address | City/State/Zipcode | Phone Number | | Organization | | | | + + + + + | [facility] | [address] | [place] [address] | | | [place] | | | | + + + + + CULTURE, BODY FLUID (05/08/2017 2:56 PM PDT) + + | Specimen | + + | Pleural fluid - | | Pleural membrane | | structure (body | | structure) | + + + + + | Narrative | Performed At | + + + | Culture Report: No growth No anaerobic organisms isolated | [facility] - | | Gram Stain: No squamous epithelial cells Many polymorphonuclear | [facility] - | | cells No organisms seen | [place] | + + + + + + + + | Performing | Address | City/State/Zipcode | Phone Number | | Organization | | | | + + + + + | [facility] | [address] | [place] [address] | | | [place] | | | | + + + + + PH, BODY FLUID (05/08/2017 2:56 PM PDT) + +-------+ + + + | Component | Value | Ref Range | Performed | Pathologist | | | | | At | Signature | + +-------+ + + + | PH BODY | 7.71 | | [facility] | | | FLUID | | | LABORATORY | | | | | | SERVICES, | | | | | | CORE | | + +-------+ + + + + + | Specimen | + + | Pleural fluid - | | Pleural membrane | | structure (body | | structure) | + + + + + | Narrative | Performed At | + + + | Reference Ranges: | [facility] | | Serous Fluids (pleural,pericardial,ascitic) : 6.8-7.6 | LABORATORY | | | [address] | + + + + + + + + | Performing | Address | City/State/Zipcode | Phone Number | | Organization | | | | + + + + + | [facility] | [address] | [place] [address] | | | TON[facility]LE[address] | [address] | | | + + + + + LDH ENZYME LEVEL, BODY FLUID (05/08/2017 2:56 PM PDT) + +-------+ + + + | Component | Value | Ref Range | Performed | Pathologist | | | | | At | Signature | + +-------+ + + + | LDH BODY | 258 | U/L | [facility] | | | FLUID | | | LABORATORY | | | | | | SERVICES, | | | | | | CORE | | + +-------+ + + + + + | Specimen | + + | Pleural fluid - | | Pleural membrane | | structure (body | | structure) | + + + + + + + | Performing | Address | City/State/Zipcode | Phone Number | | Organization | | | | + + + + + | [facility] | [address] | [place] [address] | | | SERVICES, CORE | [address] | | | + + + + + PROTEIN, BODY FLUIDS (05/08/2017 2:56 PM PDT) + +-------+ + + + | Component | Value | Ref Range | Performed | Pathologist | | | | | At | Signature | + +-------+ + + + | PROTEIN | 2.4 | g/dL | [facility] | | | BODY FLUID | | | LABORATORY | | | | | | SERVICES, | | | | | | CORE | | + +-------+ + + + + + | Specimen | + + | Pleural fluid - | | Pleural membrane | | structure (body | | structure) | + + + + + + + | Performing | Address | City/State/Zipcode | Phone Number | | Organization | | | | + + + + + | [facility] | [address] | [place] [address] | | | SERVICES, CORE | [address] | | | + + + + + GLUCOSE, BODY FLUIDS (05/08/2017 2:56 PM PDT) + +-------+ + + + | Component | Value | Ref Range | Performed | Pathologist | | | | | At | Signature | + +-------+ + + + | GLUCOSE | 111 | mg/dL | [facility] | | | BODY FLUID | | | LABORATORY | | | | | | SERVICES, | | | | | | CORE | | + +-------+ + + + + + | Specimen | + + | Pleural fluid - | | Pleural membrane | | structure (body | | structure) | + + + + + + + | Performing | Address | City/State/Zipcode | Phone Number | | Organization | | | | + + + + + | [facility] | [address] | [place] [address] | | | SERVICES, CORE | [address] | | | + + + + + ICU PROCEDURAL THORACENTESIS (05/08/2017 2:08 PM PDT) + + | Specimen | + + | | + + + + + | Narrative | Performed At | + + + | Bedside ultrasound performed in the ICU. See inpatient admission | | | for details. | | + + + LDH TOTAL, PLASMA (05/08/2017 2:08 PM PDT) + +-------+ + + + | Component | Value | Ref Range | Performed | Pathologist | | | | | At | Signature | + +-------+ + + + | LD TOTAL, | 192 | <=250 U/L | [facility] | | | PLASMA | | | LABORATORY | | | | | | SERVICES, | | | | | | CORE | | + +-------+ + + + + + | Specimen | + + | Blood - Blood | | (substance) | + + + + + | Narrative | Performed At | + + + | Please draw a vancomycin trough level prior to 1400 dose on 05/08/17 | [facility] | | - [facility] [id number] | LABORATORY | | | SERVICES, CORE | + + + + + + + + | Performing | Address | City/State/Zipcode | Phone Number | | Organization | | | | + + + + + | [facility] | [address] | [place] [address] | | | [place], TONY | [address] | | | + + + + + VANCOMYCIN, TROUGH (05/08/2017 2:08 PM PDT) + +-------+ + + + | Component | Value | Ref Range | Performed | Pathologist | | | | | At | Signature | + +-------+ + + + | VANCOMYCIN, | 12.3 | 10.0 - 20.0 | [facility] | | | TROUGH | | ug/mL | LABORATORY | | | | | | SERVICES, | | | | | | CORE | | + +-------+ + + + + + | Specimen | + + | Blood - Blood | | (substance) | + + + + + | Narrative | Performed At | + + + | Please draw a vancomycin trough level prior to 1400 dose on 05/08/17 | [facility] | | - [facility] [id number] Reference range change effective 03/29/2017. | LABORATORY | | | SERVICES, CORE | + + + + + + + + | Performing | Address | City/State/Zipcode | Phone Number | | Organization | | | | + + + + + | [facility] | [address] | [place] [address] | | | SERVICES, CORE | [address] | | | + + + + + X-RAY PORTABLE CHEST 1 VIEW (05/08/2017 10:08 AM PDT) + + | Specimen | + + | | + + + + + | Narrative | Performed At | + + + | EXAM: RI CHEST 1 VIEW HISTORY: Extubation COMPARISON: | [facility] | | Yesterday FINDINGS: Endotracheal tube is been removed. | RADIOLOGY VOICE | | Postsurgical changes and support equipment are otherwise unchanged. | RECOGNITION | | Stable cardiomediastinal silhouette. Moderate bilateral pleural | | | effusions are unchanged. No new focal consolidation. No pneumothorax. | | | IMPRESSION: Bilateral pleural effusions and adjacent | | | compressive atelectasis. I have personally reviewed the images | | | and, if necessary, edited the report. I agree with the report as | | | now presented. | | + + + + + | Procedure Note | + + | Service Account, [employer] In Interface - 05/08/2017 10:19 AM PDT EXAM: RI CHEST 1 | | VIEW HISTORY: ExtubationCOMPARISON: YesterdayFINDINGS: Endotracheal tube is been | | removed. Postsurgical changes and support equipment are otherwise unchanged. Stable | | cardiomediastinal silhouette. Moderate bilateral pleural effusions are unchanged. No new | | focal consolidation. No pneumothorax.IMPRESSION: Bilateral pleural effusions and | | adjacent compressive atelectasis. I have personally reviewed the images and, if | | necessary, edited the report. I agree with the report as now presented. | | | |Endotracheal tube is been removed. Postsurgical changes and support equipment are otherwise unchanged. Stable cardiomediastinal silhouette. Moderate bilateral pleural effusions are un changed. No new focal consolidation. No pneumothorax. | | | |IMPRESSION: | | | |Bilateral pleural effusions and adjacent compressive atelectasis. | | | | | |I have personally reviewed the images and, if necessary, edited the report. I agree with t he report as now presented. | + + + +---------+ + + | Performing | Address | City/State/Zipcode | Phone Number | | Organization | | | | + +---------+ + + | [facility] | | | | | VOICE RECOGNITION | | | | + +---------+ + + CAPILLARY BLOOD GLUCOSE (NO CHG)[place] (05/08/2017 9:35 AM PDT) + +---------+ + + + | Component | Value | Ref Range | Performed | Pathologist | | | | | At | Signature | + +---------+ + + + | BLOOD | 182 (H) | 70 - 99 mg/dL | [facility] - | | | GLUCOSE, | | | [place] | | | POC | | | [facility] | | | | | | OF CARE | | | | | | TESTS | | + +---------+ + + + + + | Specimen | + + | | + + + + + + + | Performing | Address | City/State/Zipcode | Phone Number | | Organization | | | | + + + + + | [facility] | [address] | [place], [place] | | | [place] [facility] | [address] | [address] | | | TESTS | | | | + + + + + CAPILLARY BLOOD GLUCOSE (NO CHG), POC (05/08/2017 1:40 AM PDT) + +---------+ + + + | Component | Value | Ref Range | Performed | Pathologist | | | | | At | Signature | + +---------+ + + + | BLOOD | 203 (H) | 70 - 99 mg/dL | [facility] - | | | GLUCOSE, | | | [place] | | | POC | | | [facility] | | | | | | OF CARE | | | | | | TESTS | | + +---------+ + + + + + | Specimen | + + | | + + + + + + + | Performing | Address | City/State/Zipcode | Phone Number | | Organization | | | | + + + + + | [facility] | [address] | [place], [place] | | | [place] [facility] | [address] | [address] | | | TESTS | | | | + + + + + BLOOD CULTURE WORKUP (05/08/2017 1:19 AM PDT) + + + + + + | Component | Value | Ref Range | Performed | Pathologist | | | | | At | Signature | + + + + + + | CULTURE | Staphylococcus aureus, | | [facility] - | | | RESULT | Methicillin Resistant | | [facility] - | | | | (A) | | [place] | | + + + + + + + + | Specimen | + + | Blood - Structure of | | right wrist (body | | structure) | + + + + + | Narrative | Performed At | + + + | Culture Report: Methicillin Resistant Staphylococcus aureus | [facility] - | | Presumptive identification Refer to culture collected on 05/06/17 @ | [facility] - | | 09:21 AM for complete identification and susceptibilities Growth in | [place] | | Aerobic bottle Growth in Anaerobic bottle | | + + + + + + + + | Performing | Address | City/State/Zipcode | Phone Number | | Organization | | | | + + + + + | [facility] | [address] | [place] [address] | | | [place] | | | | + + + + + CBC (HEMOGRAM) ONLY (05/08/2017 1:19 AM PDT) + + + + + + | Component | Value | Ref Range | Performed | Pathologist | | | | | At | Signature | + + + + + + | WHITE CELL | 21.87 (H) | 3.50 - 10.80 | [facility] | | | COUNT | | K/cu mm | LABORATORY | | | | | | SERVICES, | | | | | | CORE | | + + + + + + | RED CELL | 2.99 (L) | 4.50 - 6.00 | [facility] | | | COUNT | | M/cu mm | LABORATORY | | | | | | SERVICES, | | | | | | CORE | | + + + + + + | HEMOGLOBIN | 9.4 (L) | 13.5 - 17.5 | [facility] | | | | | g/dL | LABORATORY | | | | | | SERVICES, | | | | | | CORE | | + + + + + + | HEMATOCRIT | 27.0 (L) | 41.0 - 53.0 % | [facility] | | | | | | LABORATORY | | | | | | SERVICES, | | | | | | CORE | | + + + + + + | MCV | 90.3 | 80.0 - 96.0 fL | [facility] | | | | | | LABORATORY | | | | | | SERVICES, | | | | | | CORE | | + + + + + + | MCHC | 34.8 | 33.0 - 35.5 | [facility] | | | | | g/dL | LABORATORY | | | | | | SERVICES, | | | | | | CORE | | + + + + + + | RDW SD | 47.6 (H) | 35.1 - 46.3 fL | [facility] | | | | | | LABORATORY | | | | | | SERVICES, | | | | | | CORE | | + + + + + + | PLATELET | 482 (H) | 150 - 400 K/cu | [facility] | | | COUNT | | mm | LABORATORY | | | | | | SERVICES, | | | | | | CORE | | + + + + + + | MPV | 9.5 (L) | 9.7 - 12.3 fL | [facility] | | | | | | LABORATORY | | | | | | SERVICES, | | | | | | CORE | | + + + + + + | NRBC% | 0.0 | 0.0 - 0.3 % | [facility] | | | | | | LABORATORY | | | | | | SERVICES, | | | | | | CORE | | + + + + + + | NRBC# | 0.00 | 0.00 - 0.02 | [facility] | | | | | K/cu mm | LABORATORY | | | | | | SERVICES, | | | | | | CORE | | + + + + + + + + | Specimen | + + | Blood - Blood | | (substance) | + + + + + + + | Performing | Address | City/State/Zipcode | Phone Number | | Organization | | | | + + + + + | [facility] | [address] | [place] [address] | | | SERVICES, CORE | [address] | | | + + + + + CULTURE, BLOOD BACTI & YEAST [facility] (05/08/2017 1:19 AM PDT) + + + + + + | Component | Value | Ref Range | Performed | Pathologist | | | | | At | Signature | + + + + + + | CULTURE | Not tested by molecular | | [facility] | | | RESULT | method, see culture | | LABORATORY | | | | report. (AA) | | SERVICES, | | | | | | CORE | | + + + + + + | GRAM STAIN | Gram positive cocci in | | [facility] | | | | clusters | | LABORATORY | | | | | | SERVICES, | | | | | | CORE | | + + + + + + + + | Specimen | + + | Blood - Structure of | | right wrist (body | | structure) | + + + + + | Narrative | Performed At | + + + | Growth in Aerobic Bottle. | [facility] | | | LABORATORY | | | SERVICES, CORE | + + + + + + + + | Performing | Address | City/State/Zipcode | Phone Number | | Organization | | | | + + + + + | [facility] | [address] | [place] [address] | | | SERVICES, CORE | [address] | | | + + + + + MAGNESIUM, PLASMA (05/08/2017 1:19 AM PDT) + +---------+ + + + | Component | Value | Ref Range | Performed | Pathologist | | | | | At | Signature | + +---------+ + + + | MAGNESIUM,P | 2.9 (H) | 1.6 - 2.6 mg/dL | [facility] | | | LASMA | | | LABORATORY | | | | | | SERVICES, | | | | | | CORE | | + +---------+ + + + + + | Specimen | + + | Blood - Blood | | (substance) | + + + + + | Narrative | Performed At | + + + | Reference range change effective 02/16/17. | [facility] | | | LABORATORY | | | [address] | + + + + + + + + | Performing | Address | City/State/Zipcode | Phone Number | | Organization | | | | + + + + + | [facility] | [address] | [place] [address] | | | SERVICES, CORE | [address] | | | + + + + + RENAL FUNCTION SET (NA,K,CL,CO2,BUN,CREAT,GLUC,CA,PHOS,ALB ) (05/08/2017 1:19 AM PDT) + +---------+ + + + | Component | Value | Ref Range | Performed | Pathologist | | | | | At | Signature | + +---------+ + + + | GLUCOSE, | 184 (H) | 70 - 99 mg/dL | [facility] | | | PLASMA | | | LABORATORY | | | (LAB) | | | SERVICES, | | | | | | CORE | | + +---------+ + + + | BUN, PLASMA | 20 | 6 - 20 mg/dL | [facility] | | | (LAB) | | | LABORATORY | | | | | | SERVICES, | | | | | | CORE | | + +---------+ + + + | CREATININE | 0.75 | 0.70 - 1.30 | [facility] | | | PLASMA | | mg/dL | LABORATORY | | | (LAB) | | | SERVICES, | | | | | | CORE | | + +---------+ + + + | EGFR | >60 | >60 mL/min | [facility] | | | - | | | LABORATORY | | | [place] | | | SERVICES, | | | | | | CORE | | + +---------+ + + + | EGFR NON | >60 | >60 mL/min | [facility] | | | -OBDULIA | | | LABORATORY | | | RICAN | | | SERVICES, | | | | | | CORE | | + +---------+ + + + | SODIUM, | 136 | 136 - 145 | [facility] | | | PLASMA | | mmol/L | LABORATORY | | | (LAB) | | | SERVICES, | | | | | | CORE | | + +---------+ + + + | POTASSIUM, | 3.7 | 3.4 - 5.0 | [facility] | | | PLASMA | | mmol/L | LABORATORY | | | (LAB) | | | SERVICES, | | | | | | CORE | | + +---------+ + + + | CHLORIDE, | 104 | 97 - 108 mmol/L | [facility] | | | PLASMA | | | LABORATORY | | | (LAB) | | | SERVICES, | | | | | | CORE | | + +---------+ + + + | TOTAL CO2, | 23 | 21 - 32 mmol/L | [facility] | | | PLASMA | | | LABORATORY | | | (LAB) | | | SERVICES, | | | | | | CORE | | + +---------+ + + + | CALCIUM, | 7.4 (L) | 8.6 - 10.2 | [facility] | | | PLASMA | | mg/dL | LABORATORY | | | (LAB) | | | SERVICES, | | | | | | CORE | | + +---------+ + + + | CALCIUM(ALB | 9.5 | 8.6 - 10.2 | [facility] | | | CORRECTED) | | mg/dL | LABORATORY | | | | | | SERVICES, | | | | | | CORE | | + +---------+ + + + | ALBUMIN, | 1.4 (L) | 3.5 - 4.7 g/dL | [facility] | | | PLASMA | | | LABORATORY | | | (LAB) | | | SERVICES, | | | | | | CORE | | + +---------+ + + + | PHOSPHORUS, | 3.1 | 2.4 - 4.7 mg/dL | [facility] | | | PLASMA | | | LABORATORY | | | (LAB) | | | SERVICES, | | | | | | CORE | | + +---------+ + + + | POTASSIUM | No Hemo | | [facility] | | | CMNT | | | LABORATORY | | | | | | SERVICES, | | | | | | CORE | | + +---------+ + + + | ANION GAP | 9 | mmol/L | [facility] | | | | | | LABORATORY | | | | | | SERVICES, | | | | | | CORE | | + +---------+ + + + | ANION | 15 (H) | 4 - 11 mmol/L | [facility] | | | GAP(ALB | | | LABORATORY | | | CORRECTED) | | | SERVICES, | | | | | | CORE | | + +---------+ + + + + + | Specimen | + + | Blood - Blood | | (substance) | + + + + + | Narrative | Performed At | + + + | Adult glucose reference range change effective 7-12-17. GFR is | [facility] | | estimated using the MDRD equation recommended by the National Kidney | LABORATORY | | Disease Education Program. Estimated GFR Interpretive Information: | SERVICES, CORE | | <60 mL/min/1.73 sq m Chronic Kidney Disease | | | <15 mL/min/1.73 sq m Kidney Failure Estimated | | | GFR greater that 60 mL/min/1.73 sq m is of limited clinical value. | | | The MDRD equation is not valid in the following situations: - | | | Patients under 18 years of age - Severe malnutrition or obesity - | | | Vegetarian diet - Rapidly changing kidney function | | + + + + + + + + | Performing | Address | City/State/Zipcode | Phone Number | | Organization | | | | + + + + + | [facility] | [address] | [place] [address] | | | SERVICES, TONY | [address] | | | + + + + + BLOOD CULTURE WORKUP (05/08/2017 1:14 AM PDT) + + + + + + | Component | Value | Ref Range | Performed | Pathologist | | | | | At | Signature | + + + + + + | CULTURE | Staphylococcus aureus, | | [place] - | | | RESULT | Methicillin Resistant | | [facility] - | | | | (A) | | [place] | | + + + + + + + + | Specimen | + + | Blood - Structure of | | left foot (body | | structure) | + + + + + | Narrative | Performed At | + + + | Culture Report: Methicillin Resistant Staphylococcus aureus | [facility] - | | Presumptive identification Refer to culture collected on 05/06/17 @ | [facility] - | | 09:21 AM for complete identification and susceptibilities Growth in | [place] | | Aerobic bottle Growth in Anaerobic bottle | | + + + + + + + + | Performing | Address | City/State/Zipcode | Phone Number | | Organization | | | | + + + + + | [facility] | [address] | [place] [address] | | | [place] | | | | + + + + + CULTURE, BLOOD BACTI & YEAST [facility] (05/08/2017 1:14 AM PDT) + + + + + + | Component | Value | Ref Range | Performed | Pathologist | | | | | At | Signature | + + + + + + | CULTURE | Not tested by molecular | | [facility] | | | RESULT | method, see culture | | LABORATORY | | | | report. (AA) | | SERVICES, | | | | | | CORE | | + + + + + + | GRAM STAIN | Gram positive cocci in | | [facility] | | | | clusters | | LABORATORY | | | | | | SERVICES, | | | | | | CORE | | + + + + + + + + | Specimen | + + | Blood - Structure of | | left foot (body | | structure) | + + + + + | Narrative | Performed At | + + + | Growth in Aerobic Bottle. Growth in Anaerobic Bottle. | [facility] | | | LABORATORY | | | SERVICES, CORE | + + + + + + + + | Performing | Address | City/State/Zipcode | Phone Number | | Organization | | | | + + + + + | [facility] | [address] | [place] [address] | | | SERVICES, TONY | [address] | | | + + + + + CAPILLARY BLOOD GLUCOSE (NO CHG), POC (05/07/2017 7:57 PM PDT) + +---------+ + + + | Component | Value | Ref Range | Performed | Pathologist | | | | | At | Signature | + +---------+ + + + | BLOOD | 156 (H) | 70 - 99 mg/dL | [facility] - | | | GLUCOSE, | | | [place] | | | POC | | | [facility] | | | | | | OF CARE | | | | | | TESTS | | + +---------+ + + + + + | Specimen | + + | | + + + + + + + | Performing | Address | City/State/Zipcode | Phone Number | | Organization | | | | + + + + + | [facility] | [address] | [place], [place] | | | [facility] | [address] | [address] | | | TESTS | | | | + + + + + PROCEDURE NOTE (05/07/2017 2:48 PM PDT)HEPATITIS C AB W/CONFIRMATION REFLEX PCR ( 7 2:19 PM PDT) + + + + + + | Component | Value | Ref Range | Performed | Pathologist | | | | | At | Signature | + + + + + + | HEP C AB | Not Detected | Not Detected | [facility] | | | | | | LABORATORY | | | | | | SERVICES, | | | | | | CORE | | + + + + + + + + | Specimen | + + | Blood - Blood | | (substance) | + + + + + + + | Performing | Address | City/State/Zipcode | Phone Number | | Organization | | | | + + + + + | [facility] | [address] | [place] [address] | | | SERVICES, CORE | [address] | | | + + + + + HIV-1 DNA PCR QUAL, BLOOD (05/07/2017 2:19 PM PDT) + + + + + + | Component | Value | Ref Range | Performed | Pathologist | | | | | At | Signature | + + + + + + | HIV 1 DNA | Not DetectedComment: | Not Detected | [facility] | | | PCR, QUAL | INTERPRETIVE | | REG UNIV | | | | INFORMATION: HIV-1 PCR, | | [facility] - [facility] | | | | Qualitative This test | | | | | | detects human | | | | | | immunodeficiency virus | | | | | | type 1 (HIV-1) DNA and | | | | | | RNA. The assay | | | | | | methodology is | | | | | | polymerase chain | | | | | | reaction (PCR) using the | | | | | | [employer] AmpliPrep/FLOYD | | | | | | TaqMan HIV-1 Qual Test. | | | | | | This test is optimized | | | | | | to yield equivalent | | | | | | amplification of Group M | | | | | | subtypes of HIV-1. A | | | | | | result of "Not Detected" | | | | | | does not rule out HIV-1 | | | | | | nucleic acid | | | | | | concentrations below the | | | | | | limit of detection of | | | | | | the assay or the | | | | | | presence of PCR | | | | | | inhibitors in the | | | | | | patient specimen. | | | | | | Improper specimen | | | | | | handling can cause false | | | | | | negatives. PCR may not | | | | | | detect infection in the | | | | | | first months of life. | | | | | | The diagnosis of HIV-1 | | | | | | infection should be made | | | | | | based on clinical | | | | | | presentation and results | | | | | | from additional | | | | | | diagnostic tests. | | | | | | Diagnosis should not | | | | | | be made based solely on | | | | | | a single HIV-1 test. | | | | | | False positives can be | | | | | | caused by PCR | | | | | | contamination. This | | | | | | assay should not be used | | | | | | for blood donor | | | | | | screening, associated | | | | | | re-entry protocols, or | | | | | | for screening Human | | | | | | Cell, Tissues and | | | | | | Cellular Tissue-Based | | | | | | Products (HCT/P). Test | | | | | | developed and | | | | | | characteristics | | | | | | determined by [facility] | | | | | | Laboratories. See | | | | | | Compliance Statement D: | | | | | | Tucker Blair.[employer]/CSPerformed | | | | | | by [id number] | | | | | | [place] | | | | | | [id number] | | | | | | [phone].[employer]. | | | | | | Nickolas peterson MD, | | | | | | Lab. Director | | | | + + + + + + + + | Specimen | + + | Blood - Blood | | (substance) | + + + + + + + | Performing | Address | City/State/Zipcode | Phone Number | | Organization | | | | + + + + + | [facility] | [address] | [place], [place] | | | UNIV [facility] | | [phone] | | + + + + + CAPILLARY BLOOD GLUCOSE (NO CHG), POC (05/07/2017 12:37 PM PDT) + +---------+ + + + | Component | Value | Ref Range | Performed | Pathologist | | | | | At | Signature | + +---------+ + + + | BLOOD | 134 (H) | 70 - 99 mg/dL | [facility] - | | | GLUCOSE, | | | [place] | | | POC | | | [facility] | | | | | | OF CARE | | | | | | TESTS | | + +---------+ + + + + + | Specimen | + + | | + + + + + + + | Performing | Address | City/State/Zipcode | Phone Number | | Organization | | | | + + + + + | [facility] | [address] | [place], [place] | | | [facility] | [facility] | [address] | | | TESTS | | | | + + + + + CT CHEST, ABDOMEN AND PELVIS W IV CONTRAST (05/07/2017 12:25 PM PDT) + + | Specimen | + + | | + + + + + | Narrative | Performed At | + + + | EXAM: CT of the chest, abdomen and pelvis with intravenous | [facility] | | contrast. HISTORY: T1 and T8 skip laminectomies performed | RADIOLOGY VOICE | | yesterday for washout of epidural abscess. History of prior rectal | RECOGNITION | | cancer. Please evaluate for malignancy. COMPARISON: Outside | | | noncontrast CT abdomen and pelvis of 05/02/17. Outside lumbar spine | | | MRI of 05/05/17. TECHNIQUE: CT of the chest, abdomen and pelvis | | | with 150 mL of Omnipaque 350 non-ionic intravenous contrast. Coronal | | | and sagittal reformats were created. FINDINGS: CHEST: The | | | heart and great vessels are unremarkable. No hilar, mediastinal, or | | | axillary adenopathy seen. New large bilateral pleural effusions | | | and associated dependent atelectasis are nonspecific, but possibly | | | postoperative. Lungs otherwise clear. LIVER: Unremarkable. | | | BILIARY: Unremarkable. PANCREAS: Unremarkable. SPLEEN: | | | Unremarkable. ADRENALS: Unremarkable. KIDNEYS/URETERS: Unremarkable. | | | PELVIC ORGANS/BLADDER: Unremarkable. GI TRACT: Unremarkable. | | | PERITONEUM: No free air. Small amount of nonspecific free fluid | | | present. LYMPH NODES: No lymphadenopathy. VESSELS: Unremarkable. | | | BONES AND SOFT TISSUES: Changes related to recent thoracic spinal | | | surgery noted. Multiple small rim-enhancing fluid collections within | | | the left erector spinae musculature at the level of the lumbar spine | | | persist, better documented on outside MRI. Largest measures 2.9 x 2.3 | | | CM posterior to the left transverse process of L1 (series 1, image | | | 137). No destructive bony lesions seen. IMPRESSION: 1. | | | Persistent small multifocal fluid collections within left erector | | | spinae musculature at the level of the lumbar spine are concerning for | | | undrained abscesses. 2. No signs of malignancy identified in the | | | chest, abdomen or pelvis. I have personally reviewed the images | | | and, if necessary, edited the report. I agree with the report as | | | now presented. | | + + + + + | Procedure Note | + + | Service Account, Radiant Res In Interface - 05/07/2017 1:02 PM PDT EXAM: CT of the | | chest, abdomen and pelvis with intravenous contrast.HISTORY: T1 and T8 skip | | laminectomies performed yesterday for washout of epidural abscess. History of prior | | rectal cancer. Please evaluate for malignancy.COMPARISON: Outside noncontrast CT abdomen | | and pelvis of 05/02/17. Outside lumbar spine MRI of 05/05/17.TECHNIQUE: CT of the | | chest, abdomen and pelvis with 150 mL of Omnipaque 350 non-ionic intravenous contrast. | | Coronal and sagittal reformats were created.FINDINGS:CHEST: The heart and great vessels | | are unremarkable. No hilar, mediastinal, or axillary adenopathy seen.New large bilateral | | pleural effusions and associated dependent atelectasis are nonspecific, but possibly | | postoperative. Lungs otherwise clear.LIVER: Unremarkable.BILIARY: Unremarkable.PANCREAS: | | Unremarkable.SPLEEN: Unremarkable.ADRENALS: Unremarkable.KIDNEYS/URETERS: | | Unremarkable.PELVIC ORGANS/BLADDER: Unremarkable.GI TRACT: Unremarkable.PERITONEUM: No | | free air. Small amount of nonspecific free fluid present.LYMPH NODES: No | | lymphadenopathy.VESSELS: Unremarkable.BONES AND SOFT TISSUES: Changes related to recent | | thoracic spinal surgery noted. Multiple small rim-enhancing fluid collections within the | | left erector spinae musculature at the level of the lumbar spine persist, better | | documented on outside MRI. Largest measures 2.9 x 2.3 CM posterior to the left | | transverse process of L1 (series 1, image 137). No destructive bony lesions | | seen.IMPRESSION: 1. Persistent small multifocal fluid collections within left erector | | spinae musculature at the level of the lumbar spine are concerning for undrained | | abscesses.2. No signs of malignancy identified in the chest, abdomen or pelvis.I have | | personally reviewed the images and, if necessary, edited the report. I agree with the | | report as now presented. | |GI TRACT: Unremarkable. | |PERITONEUM: No free air. Small amount of nonspecific free fluid present. | | | |LYMPH NODES: No lymphadenopathy. | |VESSELS: Unremarkable. | | | |BONES AND SOFT TISSUES: Changes related to recent thoracic spinal surgery noted. Multiple s mall rim-enhancing fluid collections within the left erector spinae musculature at the level of the lumbar spine persist, | |better documented on outside MRI. Largest measures 2.9 x 2.3 CM posterior to the left trans verse process of L1 (series 1, image 137). No destructive bony lesions seen. | | | | | |IMPRESSION: | | | |1. Persistent small multifocal fluid collections within left erector spinae musculature at the level of the lumbar spine are concerning for undrained abscesses. | | | |2. No signs of malignancy identified in the chest, abdomen or pelvis. | | | | | |I have personally reviewed the images and, if necessary, edited the report. I agree with t he report as now presented. | + + + +---------+ + + | Performing | Address | City/State/Zipcode | Phone Number | | Organization | | | | + +---------+ + + | [facility] | | | | | VOICE RECOGNITION | | | | + +---------+ + + TRANSTHORACIC ECHOCARDIOGRAM, ADULT (05/07/2017 9:42 AM PDT) + + + + + + | Component | Value | Ref Range | Performed | Pathologist | | | | | At | Signature | + + + + + + | BIPLANE, EF | 61 | | [facility] | | | | | | OF | | | | | | CARDIOLOGY | | + + + + + + | EJECTION | 55 to 60 | | [facility] | | | FRACTION | | | OF | | | | | | CARDIOLOGY | | + + + + + + | LA | 3.0 | | [facility] | | | DIMENSION | | | OF | | | | | | CARDIOLOGY | | + + + + + + | LVIDD | 5.5 | | [facility] | | | | | | OF | | | | | | CARDIOLOGY | | + + + + + + | MV E? | 0.1 | | [facility] | | | | | | OF | | | | | | CARDIOLOGY | | + + + + + + | MV E VMAX | 1.0 | | [facility] | | | | | | OF | | | | | | CARDIOLOGY | | + + + + + + | RV TAPSE | 2.1 | | [facility] | | | | | | OF | | | | | | CARDIOLOGY | | + + + + + + | RV TDI S? | 19.0 | | [facility] | | | | | | OF | | | | | | CARDIOLOGY | | + + + + + + | EJECTION | 57.5 | % | [facility] | | | FRACTION | | | OF | | | RANGE MEAN | | | CARDIOLOGY | | | VALUE | | | | | + + + + + + + + | Specimen | + + | | + + + +--- + | Narrative | Pe rformed At | + +--- + | [facility] | [facility] DEPT OF | | [facility] [address] | [place] RDIOLOGY | | [place], [place] [address] Ph: | | | Pt Name: CORNELIO FIGUEREDO | | | Study Date/Time 05/07/2017 / 9:42:43 AMMRN: [id number] | | | Most recent prior: -Acc #: [id number] | | | No. previous echos: 0DOB: 1955 61 years Heart Rate: | | | 99 bpmHeight: 61.0 in Blood Pressure: | | | 106/73 mm/HgWeight: 198.0 lb Gender: | | | MBSA: 1.88 m2 Order ID: | | | [id number] Robotics Software Engineer: FBSonographer 2: Chanell Manning | | | Referring Provider: Henri Locke ThanPatient Location: [address] [place] [address] | | | Performed: 2D, Color flow, Spectral Doppler and agitated saline bubble | | | study.Study Quality: Good.Exam Indication: Heart failure; Infective | | | endocarditisHistory: Worsening back pain, per sister, pt had colon CA | | | and treatment in last few years, was hyponatremic, leukocytosis with | | | bandemia, concern for loan documents closer infection, wbc 101 in csf, mri read as | | | extensive epidural abscess Patient history has been obtained from the | | | [facility] Transthoracic Echocardiographic Report | | | + | | | --------+Final Impressions: | | | | | | | | | | | | 1. | | | The left ventricular cavity size is normal. | | | 2. The ejection fraction is normal. | | | 3. Right ventricular | | | size, thickness and function are normal. 4. | | | Saline contrast study shows no evidence of right to left intra-atrial | | | shunting. | | | 5. No significant | | | valvular abnormalities seen. | | | 6. Large left pleural effusion noted. | | | 7. There are no prior exams available | | | for comparison. | | | | | | | | | + | | | --------+ Description of Findings: Cardiac Rhythm: Tachycardia.Left | | | Ventricle: The left ventricular cavity size is normal. Visually | | | estimated left ventricular ejection fraction is 55 - 60%. There is no | | | left ventricular hypertrophy. Spectral Doppler shows normal pattern of | | | LV diastolic filling. The ejection fraction is 61.0 % as measured by | | | Figueredo's biplane method. The ejection fraction is normal.Left | | | Ventricular Wall Motion: Left ventricular systolic thickening is | | | normal in all segments.Atria: Left atrial size is normal. Saline | | | contrast study shows no evidence of right to left intra-atrial | | | shunting. Normal right atrium. There is Lipomatous hypertrophy of the | | | interatrial septum noted.Right Ventricle: Right ventricular size, | | | thickness and function are normal. TAPSE measures 2.1cm. The RV TDI s' | | | velocity is 19cm/sec.Aortic Valve: The aortic valve is normal in | | | structure and function.Mitral Valve: The mitral valve is normal in | | | structure and function. No evidence of mitral valve | | | regurgitation.Tricuspid Valve: The tricuspid valve is normal in | | | structure and function. No tricuspid regurgitation.Pulmonic Valve: The | | | pulmonic valve is normal in structure and function. The peak trans | | | pulmonic gradient is 6.4 mmHg.Venous: Inferior vena cava is normal | | | with normal inspiratory collapse.Pericardium: Pleural effusion noted. | | | A trivial pericardial effusion is seen. Additional Findings: There are | | | no prior exams.2D Measurements Doppler | | | Measurements 2D NL Values Aortic | | | MitralLVID(d) 5.48 (3.5-5.7cm) Max Jose 1.82 Peak E | | | 1.01 cm m/s | | | m/sLVID(s) 2.55 Mean grad | | | 6.1 Peak A cm | | | mmHgIVS(d) 0.76 (0.6-1.1cm) LVOT Jose 1.44 E/A Ratio | | | cm m/sLVPW(d) | | | 0.84 (0.6-1.1cm) TDI (E/e') 7.2 | | | cm LVOT Diam 2.29 MV mn gdLA A/Ps 2D | | | 3.04 (2.7-3.9cm) cm cm | | | Tricuspid PulmonicLA vol A/L 63.0 (40-73ml) TR | | | Vmax PV Vmax 1.3BP ml | | | m/sLA vol A/L 33.5 | | | (16-34) RA Press 5 RVOT VTI 13.9index ml/m2 | | | mmHg cmLA vol MOD | | | 57.9 (40-73ml)BP ml Aorta: | | | Index:LA vol MOD 30.8 (16-34) Ao | | | Sinus 3.72 (2.1-3.5cm)index ml/m2 | | | cm Asc Ao | | | 3.44Biplane EF 61.0 % (prox) cmEvaluation of | | | chamber size and geometry is accomplished through the incorporation of | | | linear, volumetric, and indexed values Report electronically signed | | | by: [id number] Benjie Abreu MD (05/07/2017, 12:50:52 PM) Final | | | | | | cm Tricuspid Pulmonic | | |LA vol A/L 63.0 (40-73ml) TR Vmax PV Vmax 1.3 | | |BP ml m/s | | |LA vol A/L 33.5 (16-34) RA Press 5 RVOT VTI 13.9 | | |index ml/m2 mmHg cm | | |LA vol MOD 57.9 (40-73ml) | | |BP ml Aorta: Index: | | |LA vol MOD 30.8 (16-34) Ao Sinus 3.72 (2.1-3.5cm) | | |index ml/m2 cm | | | Asc Ao 3.44 | | |Biplane EF 61.0 % (prox) cm | | |Evaluation of chamber size and geometry is accomplished through the incorporation of | | |linear, volumetric, and indexed values | | | | | |Report electronically signed by: [id number] Benjie Abreu MD (05/07/2017, 12:50:52 PM) | | | | | | | | | | | | Final | | + +--- + + + | Procedure Note | + + | Interface, Cardiology Results - 05/07/2017 12:50 PM [facility] | | [facility] Echocardi[facility] [address] [place] [address] | | [place], [place] [address] Pt Name: CORNELIO MEJIA | | FIGUEREDO Study Date/Time 05/07/2017 / 9:42:43 AMMRN: [id number] Most | | recent prior: -Acc #: [id number] No. previous echos: 0DOB: 1955 61 | | years Heart Rate: 99 bpmHeight: 61.0 in Blood Pressure: 106/73 | | mm/HgWeight: 198.0 lb Gender: MBSA: 1.88 m2 | | Order ID: [id number] Robotics Software Engineer: FBSonographer 2: Chanell Villareal | | Provider: Henri HolguinPatient Location: [address] [place], [place] [address]alities Performed: 2D, Color flow, | | Spectral Doppler and agitated saline bubble study.Study Quality: Good.Exam Indication: | | Heart failure; Infective endocarditisHistory: Worsening back pain, per sister, pt had | | colon CA and treatment in last few years, was hyponatremic, leukocytosis with bandemia, | | concern for loan documents closer infection, wbc 101 in csf, mri read as extensive epidural abscess | | Patient history has been obtained from the E[facility] Transthoracic Echocardiographic | | Report+ +Fin | | al Impressions: | | | | 1. The left ventricular cavity size | | is normal. 2. The ejection fraction is normal. | | 3. Right ventricular size, thickness and function are | | normal. 4. Saline contrast study shows no evidence of right to left | | intra-atrial shunting. | | 5. No significant valvular abnormalities seen. 6. | | Large left pleural effusion noted. 7. There are | | no prior exams available for comparison. | | | | + + | | Description of Findings: Cardiac Rhythm: Tachycardia.Left Ventricle: The left | | ventricular cavity size is normal. Visually estimated left ventricular ejection fraction | | is 55 - 60%. There is no left ventricular hypertrophy. Spectral Doppler shows normal | | pattern of LV diastolic filling. The ejection fraction is 61.0 % as measured by | | Figueredo's biplane method. The ejection fraction is normal.Left Ventricular Wall Motion: | | Left ventricular systolic thickening is normal in all segments.Atria: Left atrial size | | is normal. Saline contrast study shows no evidence of right to left intra-atrial | | shunting. Normal right atrium. There is Lipomatous hypertrophy of the interatrial septum | | noted.Right Ventricle: Right ventricular size, thickness and function are normal. TAPSE | | measures 2.1cm. The RV TDI s' velocity is 19cm/sec.Aortic Valve: The aortic valve is | | normal in structure and function.Mitral Valve: The mitral valve is normal in structure | | and function. No evidence of mitral valve regurgitation.Tricuspid Valve: The tricuspid | | valve is normal in structure and function. No tricuspid regurgitation.Pulmonic Valve: | | The pulmonic valve is normal in structure and function. The peak trans pulmonic gradient | | is 6.4 mmHg.Venous: Inferior vena cava is normal with normal inspiratory | | collapse.Pericardium: Pleural effusion noted. A trivial pericardial effusion is seen. | | Additional Findings: There are no prior exams.2D Measurements Doppler | | Measurements 2D NL Values Aortic MitralLVID(d) 5.48 | | (3.5-5.7cm) Max Jose 1.82 Peak E 1.01 cm m/s | | m/sLVID(s) 2.55 Mean grad 6.1 Peak A cm | | mmHgIVS(d) 0.76 (0.6-1.1cm) LVOT Jose 1.44 E/A Ratio | | cm m/sLVPW(d) 0.84 (0.6-1.1cm) TDI (E/e') | | 7.2 cm LVOT Diam 2.29 MV mn gdLA A/Ps 2D 3.04 (2.7-3.9cm) | | cm cm Tricuspid PulmonicLA vol A/L 63.0 | | (40-73ml) TR Vmax PV Vmax 1.3BP ml | | m/sLA vol A/L 33.5 (16-34) RA Press 5 RVOT VTI 13.9index | | ml/m2 mmHg cmLA vol MOD 57.9 (40-73ml)BP ml | | Aorta: Index:LA vol MOD 30.8 (16-34) Ao Sinus | | 3.72 (2.1-3.5cm)index ml/m2 cm | | Asc Ao 3.44Biplane EF 61.0 % (prox) cmEvaluation of chamber size and | | geometry is accomplished through the incorporation of linear, volumetric, and indexed | | values Report electronically signed by: [id number] Benjie Abreu MD (05/07/2017, 12:50:52 | | PM) Final | |Right Ventricle: Right ventricular size, thickness and function are normal. TAPSE | |measures 2.1cm. The RV TDI s' velocity is 19cm/sec. | |Aortic Valve: The aortic valve is normal in structure and function. | |Mitral Valve: The mitral valve is normal in structure and function. No evidence of | |mitral valve regurgitation. | |Tricuspid Valve: The tricuspid valve is normal in structure and function. No | |tricuspid regurgitation. | |Pulmonic Valve: The pulmonic valve is normal in structure and function. The peak | |trans pulmonic gradient is 6.4 mmHg. | |Venous: Inferior vena cava is normal with normal inspiratory collapse. | |Pericardium: Pleural effusion noted. A trivial pericardial effusion is seen. | | | |Additional Findings: There are no prior exams. | |2D Measurements Doppler Measurements | | | | 2D NL Values Aortic Mitral | |LVID(d) 5.48 (3.5-5.7cm) Max Jose 1.82 Peak E 1.01 | | cm m/s m/s | |LVID(s) 2.55 Mean grad 6.1 Peak A | | cm mmHg | |IVS(d) 0.76 (0.6-1.1cm) LVOT Jose 1.44 E/A Ratio | | cm m/s | |LVPW(d) 0.84 (0.6-1.1cm) TDI (E/e') 7.2 | | cm LVOT Diam 2.29 MV mn gd | |LA A/Ps 2D 3.04 (2.7-3.9cm) cm | | cm Tricuspid Pulmonic | |LA vol A/L 63.0 (40-73ml) TR Vmax PV Vmax 1.3 | |BP ml m/s | |LA vol A/L 33.5 (16-34) RA Press 5 RVOT VTI 13.9 | |index ml/m2 mmHg cm | |LA vol MOD 57.9 (40-73ml) | |BP ml Aorta: Index: | |LA vol MOD 30.8 (16-34) Ao Sinus 3.72 (2.1-3.5cm) | |index ml/m2 cm | | Asc Ao 3.44 | |Biplane EF 61.0 % (prox) cm | |Evaluation of chamber size and geometry is accomplished through the incorporation of | |linear, volumetric, and indexed values | | | |Report electronically signed by: [id number] Benjie Abreu MD (05/07/2017, 12:50:52 PM) | | | | | | | | Final | + + + + + + + | Performing | Address | City/State/Zipcode | Phone Number | | Organization | | | | + + + + + | [facility] | [address] [facility] | [place], [place] | | | CARDIOLOGY | [address] | [address] | | + + + + + PROCEDURE NOTE (05/07/2017 7:31 AM PDT) + + + | Narrative | Performed At | + + + | Henri Holguin MD 05/07/2017 7:31 AM INPATIENT BRIEF OPERATIVE | | | NOTE Procedure Date: 05/06/17 Author: Katrina Figueredo, | | | ,MPH Attending Physician: Dr. Henri Holguin MD Assistants: Katrina Edmondson | | | MD Terell,MPH Prior to the beginning of the procedure, the team | | | paused to verify the patient | | | | | | s identity, the procedure to be performed (in accordance with the | | | consent,) and the correct side/site. The patient was positioned | | | appropriately. All relevant images and results were properly labeled | | | and displayed. We addressed antibiotic prophylaxis and fluids for | | | irrigation as applicable to this patient. Any safety precautions | | | were addressed. Preoperative Diagnosis: holospinal epidural | | | abscess causing severe stenosis, greatest at C2 and T8 | | | Additional Diagnoses: Rectal cancer dx 2001 s/p rxn Severe | | | hyponatremia to Na 124 corrected to Na 131 before transfe | | | Postoperative Diagnosis: same Procedure Performed: Skip | | | laminectomies at T1 and T8 for evacuation of epidural abscesses, use | | | of fluoroscopy and interpretation Estimated Blood Loss: 75 mL | | | Fluids: per anesthesia encounter Specimens: epidural abscess | | | swab and fluid, epidural soft tissue sent for gram stain/culture | | | Complications: Respiratory failure after extubation requiring | | | reintubation in the operating room, left hemiplegia prior to | | | re-intubation (following commands on the right) Drains: Hammer, | | | MARGAUX x2 Disposition: direct to NSICU Findings: epidural abscess | | | irrigated with red rubber catheter cranially and caudally, passed | | | easily without evidence of stenosis I was present for the | | | entire procedure as described in the note for this encounter, and | | | agree with the resident | | | | | | s findings. Henri Holguin MD [address] [facility] | | | [id number] [address] | | | | | + + + ART LINE (05/07/2017 4:06 AM PDT) + + + | Narrative | Performed At | + + + | ALEISHA Wright 05/07/2017 4:06 AM ARTERIAL LINE | | | Performed by: HUY COLON Authorized by: HUY COLON ART | | | Line Insertion Procedure Note Indications: Beat to beat blood | | | pressure monitoring and Frequent lab draws Procedure location: | | | Providers: Attending name: Attending physically present: No | | | Advanced Practice Provider name: Shaun Pre-Procedure Consent: | | | written consent not obtained Verbal consent not obtained The | | | procedure was performed in an emergent situation Patient identity | | | confirmed per policy: Yes Team Pause: Immediatly prior to the | | | procedure a pause per protocol was called. A pause verifies correct | | | patient, procedure, equipment, director of operations support and site/side marked as | | | required. CLABSI Prevention Bundle: Insertion site: Left Radial, | | | Mando's test performed Skin preparation: Chloraprep Protective | | | barrier: Cap, Mask, Hand scrub, Gloves and Partially draped. | | | Sterile Ultrasound Used, Line secured: Tape and StatLock | | | Anesthesia Anesthesia: local infiltration Local anesthetic: | | | Lidocaine 1% Procedure Details Patient was placed in appropriate | | | position Catheter size: 20g Line was secured by tape and StatLock | | | Procedure comments: Easy placement on first attempt Attempts | | | 1 attempt(s) were made. Complications Type: None | | + + + X-RAY PORTABLE CHEST 1 VIEW (05/07/2017 1:49 AM PDT) + + | Specimen | + + | | + + + + + | Narrative | Performed At | + + + | EXAM: RI CHEST 1 VIEW HISTORY: 61-year-old male admitted for | [facility] | | evacuation of thoracic epidural abscess. COMPARISON: Chest | RADIOLOGY VOICE | | radiograph 05/06/2017. FINDINGS: Endotracheal tube terminates 5 | RECOGNITION | | cm above the rizwana. Multiple midline surgical drains noted. The | | | mediastinal silhouette is otherwise unchanged. Left greater than right | | | large layering pleural effusions are present. There is moderate | | | bilateral lower lobe atelectasis, otherwise no focal consolidation. | | | No pulmonary edema. No pneumothorax. The bones are intact. Wound | | | closure andrei project over the midline cervical and thoracic | | | regions. IMPRESSION: Persistent large bilateral layering | | | pleural effusions with associated atelectasis. I have | | | personally reviewed the images and, if necessary, edited the report. | | | I agree with the report as now presented. | | + + + + + | Procedure Note | + + | Service Account, Radiant Res In Interface - 05/07/2017 10:27 AM PDT EXAM: RI CHEST 1 | | VIEWHISTORY: 61-year-old male admitted for evacuation of thoracic epidural | | abscess.COMPARISON: Chest radiograph 05/06/2017.FINDINGS:Endotracheal tube terminates 5 | | cm above the rizwana. Multiple midline surgical drains noted. The mediastinal silhouette | | is otherwise unchanged. Left greater than right large layering pleural effusions are | | present. There is moderate bilateral lower lobe atelectasis, otherwise no focal | | consolidation. No pulmonary edema. No pneumothorax. The bones are intact. Wound | | closure andrei project over the midline cervical and thoracic | | regions.IMPRESSION:Persistent large bilateral layering pleural effusions with associated | | atelectasis.I have personally reviewed the images and, if necessary, edited the report. | | I agree with the report as now presented. | |IMPRESSION: | | | |Persistent large bilateral layering pleural effusions with associated atelectasis. | | | | | |I have personally reviewed the images and, if necessary, edited the report. I agree with t he report as now presented. | + + + +---------+ + + | Performing | Address | City/State/Zipcode | Phone Number | | Organization | | | | + +---------+ + + | [facility] | | | | | VOICE RECOGNITION | | | | + +---------+ + + OPERATION RECORD (05/07/2017 1:34 AM PDT) + + | Procedure Note | + + | Henri Holguin MD - 05/07/2017 1:34 AM PDT Date of Service: 05/06/2017 Attending | | Surgeon: Henri Holguin MD Furnace Filler(s): Katrina Figueredo MD, MPH | | Preoperative Diagnosis: Holospinal epidural | | abscess.Postoperative Diagnosis: Holospinal epidural abscess.Procedure: T2 and T8 skip | | laminectomies for evacuation of epidural abscess.Anesthesia: General.Estimated Blood | | Loss: 75 mL.Complications: None apparent.Indications For Procedure: Mr. Cornelio Figueredo | | is a 61-year-old man who was admitted to [facility] yesterday with back pain and confusion. | | On examination, he was neurologically intact. He had evidence for an epidural abscess | | spanning from C2 to L2. Based on his symptoms and imaging findings, I recommended to | | the patient skip laminectomies for evacuation of his epidural abscess. Evacuation of | | his abscess would prevent spinal cord compromise. It would also help with antibiotic | | penetration, as well as determination of the organisms responsible for his abscess. | | Informed written consent was obtained from the patient who agreed to proceed.Description | | Of Procedure: Mr. Figueredo was brought to the operating room where a formal time-out | | was performed verifying the correct patient and procedure. General anesthesia was | | induced, and the patient was endotracheally intubated. He was turned prone onto a | | Nik OSI table with care taken to pad all pressure points, including his wrists, | | elbows, iliac crest, thighs, knees, and feet. AP fluoroscopy was used to localize the | | T2 and T8 vertebral levels. These two levels were marked in the midline, then prepped | | and draped in the usual sterile fashion. Local anesthetic was administered. Each of | | the 2 incisions were made with a 10-blade scalpel, and further midline and subperiosteal | | dissection was performed with Bovie cauterization. Once the T2 and T8 laminae were | | fully exposed, a high-speed drill was used to drill bilateral troughs in these laminae. | | After transecting the spinous ligaments above and below both T2 and T8, the laminae | | were removed en bloc. At each level, there was some overlying ligamentum flavum that | | was removed with a Kerrison rongeur. There was some spontaneous return of pus, which | | was sent for culture. Mostly, however, it appeared that the pus was well-organized | | phlegmon. Once a thorough removal of the ligamentum had been performed at both of these | | laminectomy levels, a red rubber catheter was passed while continuously irrigated. | | This was first done from the T8 lamina and inferiorly, then superiorly. We could | | actually visualize the catheter coming out of the T2 laminectomy defect. This was then | | repeated at the T2 laminectomy inferiorly, where we could see the red rubber catheter | | coming through the T8 laminectomy defect. This was then repeated superiorly from the T2 | | laminectomy as well. We irrigated until the return of the effluent was clear in all | | directions. Certainly initially, there was return of purulent-looking material. Once | | we were satisfied with the extent of our irrigation, the wounds were copiously | | irrigated. A 7-flat MARGAUX drain was tunneled through each incision and sutured to the | | skin. The wounds were then closed in layers with 0 Vicryl sutures in the fascia, 2-0 | | Vicryl sutures in the subcutaneous fat, 3-0 Vicryl sutures in the dermis, and andrei in | | the skin. The wounds were dressed sterilely. The patient was returned supine to his | | stretcher. He tolerated the procedure without apparent complication.Henri Holguin, | | BARBARA/SHELBY: 05/06/2017 22:32:27DT: 05/07/2017 01:34:56Job #: [id number] | | | | /[id number] | + + BLOOD CULTURE WORKUP (05/07/2017 12:53 AM PDT) + + + + + + | Component | Value | Ref Range | Performed | Pathologist | | | | | At | Signature | + + + + + + | CULTURE | Staphylococcus aureus, | | [facility] - | | | RESULT | Methicillin Resistant | | [facility] - | | | | (A) | | [place] | | + + + + + + + + | Specimen | + + | Blood - Structure of | | left foot (body | | structure) | + + + + + | Narrative | Performed At | + + + | Culture Report: Methicillin Resistant Staphylococcus aureus | [facility] - | | Presumptive identification Refer to culture collected 05/06/17 @ | [facility] - | | 09:21 AM for complete identification and susceptibilities Growth in | [place] | | Aerobic bottle Growth in Anaerobic bottle | | + + + + + + + + | Performing | Address | City/State/Zipcode | Phone Number | | Organization | | | | + + + + + | [facility] | [address] | [place] [address] | | | [place] | | | | + + + + + BLOOD CULTURE WORKUP (05/07/2017 12:53 AM PDT) + + + + + + | Component | Value | Ref Range | Performed | Pathologist | | | | | At | Signature | + + + + + + | CULTURE | Staphylococcus aureus, | | [facility] - | | | RESULT | Methicillin Resistant | | [facility] - | | | | (A) | | [place] | | + + + + + + + + | Specimen | + + | Blood - Entire right | | upper arm (body | | structure) | + + + + + | Narrative | Performed At | + + + | Culture Report: Methicillin Resistant Staphylococcus aureus | [facility] - | | Presumptive identification Refer to culture collected 05/06/17 @ | [facility] - | | 09:21 AM for complete identification and susceptibilities Growth in | [place] | | Aerobic bottle Growth in Anaerobic bottle | | + + + + + + + + | Performing | Address | City/State/Zipcode | Phone Number | | Organization | | | | + + + + + | [facility] | [address] | [place] [address] | | | [place] | | | | + + + + + CULTURE, URINE [facility] (05/07/2017 12:53 AM PDT) + + + + + + | Component | Value | Ref Range | Performed | Pathologist | | | | | At | Signature | + + + + + + | URINE | No growth (<1000 cfu/mL) | | [facility] | | | CULTURE | after 48 hours | | LABORATORY | | | [facility] | | | SERVICES, | | | | | | CORE | | + + + + + + + + | Specimen | + + | Urine - Catheter, | | device (physical | | object) | + + + + + + + | Performing | Address | City/State/Zipcode | Phone Number | | Organization | | | | + + + + + | [facility] | [address] | [place] [address] | | | SERVICES, CORE | [address] | | | + + + + + CULTURE, BLOOD BACTI & YEAST [facility] (05/07/2017 12:53 AM PDT) + + + + + + | Component | Value | Ref Range | Performed | Pathologist | | | | | At | Signature | + + + + + + | CULTURE | Not tested by molecular | | [facility] | | | RESULT | method, see culture | | LABORATORY | | | | report. (AA) | | SERVICES, | | | | | | CORE | | + + + + + + | GRAM STAIN | Gram positive cocci in | | [facility] | | | | clusters | | LABORATORY | | | | | | SERVICES, | | | | | | CORE | | + + + + + + + + | Specimen | + + | Blood - Entire right | | upper arm (body | | structure) | + + + + + | Narrative | Performed At | + + + | Growth in Aerobic Bottle. Growth in Anaerobic Bottle. | [facility] | | | LABORATORY | | | [address] | + + + + + + + + | Performing | Address | City/State/Zipcode | Phone Number | | Organization | | | | + + + + + | [facility] | [address] | [place] [address] | | | [address] | [address] | | | + + + + + CULTURE, BLOOD BACTI & YEAST [facility] (05/07/2017 12:53 AM PDT) + + + + + + | Component | Value | Ref Range | Performed | Pathologist | | | | | At | Signature | + + + + + + | CULTURE | Not tested by molecular | | [facility] | | | RESULT | method, see culture | | LABORATORY | | | | report. (AA) | | SERVICES, | | | | | | CORE | | + + + + + + | GRAM STAIN | Gram positive cocci in | | [facility] | | | | clusters | | LABORATORY | | | | | | SERVICES, | | | | | | CORE | | + + + + + + + + | Specimen | + + | Blood - Structure of | | left foot (body | | structure) | + + + + + | Narrative | Performed At | + + + | Growth in Aerobic Bottle. Growth in Anaerobic Bottle. | [facility] | | | LABORATORY | | | SERVICES, CORE | + + + + + + + + | Performing | Address | City/State/Zipcode | Phone Number | | Organization | | | | + + + + + | [facility] | [address] | [place] [address] | | | SERVICES, CORE | [address] | | | + + + + + BLOOD GASES, ARTERIAL - LAB (05/07/2017 12:53 AM PDT) + + + + + + | Component | Value | Ref Range | Performed | Pathologist | | | | | At | Signature | + + + + + + | PAT TEMP | Comment: ng | Degree C | [facility] | | | ARTERIAL | | | LABORATORY | | | | | | SERVICES, | | | | | | CORE | | + + + + + + | FIO2 | Comment: ng | | [facility] | | | ARTERIAL | | | LABORATORY | | | | | | SERVICES, | | | | | | CORE | | + + + + + + | PH ARTERIAL | 7.37 | 7.37 - 7.44 | [facility] | | | | | | LABORATORY | | | | | | SERVICES, | | | | | | CORE | | + + + + + + | PCO2 | 38 | 32 - 43 mmHg | [facility] | | | ARTERIAL | | | LABORATORY | | | | | | SERVICES, | | | | | | CORE | | + + + + + + | PO2 | 73 | 72 - 104 mmHg | [facility] | | | ARTERIAL | | | LABORATORY | | | | | | SERVICES, | | | | | | CORE | | + + + + + + | HCO3 | 21 | 21 - 28 mmol/L | [facility] | | | ARTERIAL | | | LABORATORY | | | | | | SERVICES, | | | | | | CORE | | + + + + + + | TOTAL CO2 | 22 | 22 - 28 mmol/L | [facility] | | | ARTERIAL | | | LABORATORY | | | | | | SERVICES, | | | | | | CORE | | + + + + + + | BASE EXCESS | -3.4 | mmol/L | [facility] | | | ARTERIAL | | | LABORATORY | | | | | | SERVICES, | | | | | | CORE | | + + + + + + | O2 SAT, | 94.5 | 92.0 - 98.0 % | [facility] | | | ARTERIAL | | | LABORATORY | | | | | | SERVICES, | | | | | | CORE | | + + + + + + + + | Specimen | + + | Blood - Blood | | (substance) | + + + + + + + | Performing | Address | City/State/Zipcode | Phone Number | | Organization | | | | + + + + + | [facility] | [address] | [place] [address] | | | SERVICES, CORE | [address] | | | + + + + + URINE, MICROSCOPIC EXAM (05/07/2017 12:53 AM PDT) + +---------+ + + + | Component | Value | Ref Range | Performed | Pathologist | | | | | At | Signature | + +---------+ + + + | RED CELLS | 10 (H) | 0 - 3 /hpf | [facility] | | | | | | LABORATORY | | | | | | SERVICES, | | | | | | CORE | | + +---------+ + + + | WHITE CELLS | 2 | 0 - 5 /hpf | [facility] | | | | | | LABORATORY | | | | | | SERVICES, | | | | | | CORE | | + +---------+ + + + | BACTERIA | Few (A) | None /hpf | [facility] | | | | | | LABORATORY | | | | | | SERVICES, | | | | | | CORE | | + +---------+ + + + | YEAST (LAB) | None | None /hpf | [facility] | | | | | | LABORATORY | | | | | | SERVICES, | | | | | | CORE | | + +---------+ + + + | SQUAMOUS | None | None /hpf | [facility] | | | EPITHELIAL | | | LABORATORY | | | | | | SERVICES, | | | | | | CORE | | + +---------+ + + + | MUCOUS | None | None /hpf | [facility] | | | | | | LABORATORY | | | | | | SERVICES, | | | | | | CORE | | + +---------+ + + + | TRICHOMONAS | None | None /hpf | [facility] | | | | | | LABORATORY | | | | | | SERVICES, | | | | | | CORE | | + +---------+ + + + | NON-SQUAMOU | Few (A) | None /hpf | [facility] | | | S EPITH | | | LABORATORY | | | | | | SERVICES, | | | | | | CORE | | + +---------+ + + + | HYALINE | 0 | 0 - 2 /lpf | [facility] | | | CASTS | | | LABORATORY | | | | | | SERVICES, | | | | | | CORE | | + +---------+ + + + | GRANULAR | 5 (H) | 0 - 2 /lpf | [facility] | | | CASTS | | | LABORATORY | | | | | | SERVICES, | | | | | | CORE | | + +---------+ + + + | CELLULAR | 0 | <=0 /lpf | [facility] | | | CASTS | | | LABORATORY | | | | | | SERVICES, | | | | | | CORE | | + +---------+ + + + | TRIPLE P04 | None | None /hpf | [facility] | | | CRYSTALS | | | LABORATORY | | | | | | SERVICES, | | | | | | CORE | | + +---------+ + + + | CALCIUM | None | None /hpf | [facility] | | | OXALATE | | | LABORATORY | | | [place] | | | SERVICES, | | | | | | CORE | | + +---------+ + + + | URIC ACID | None | None /hpf | [facility] | | | CRYSTALS | | | LABORATORY | | | | | | SERVICES, | | | | | | CORE | | + +---------+ + + + | AMORPHOUS | None | None /hpf | [facility] | | | CRYSTALS | | | LABORATORY | | | | | | SERVICES, | | | | | | CORE | | + +---------+ + + + + + | Specimen | + + | Urine - Catheter, | | device (physical | | object) | + + + + + + + | Performing | Address | City/State/Zipcode | Phone Number | | Organization | | | | + + + + + | [facility] | [address] | [place] [address] | | | SERVICES, CORE | [address] | | | + + + + + URINE SCREEN FOR CULTURE (05/07/2017 12:53 AM PDT) + + + + + + | Component | Value | Ref Range | Performed | Pathologist | | | | | At | Signature | + + + + + + | URINE | Positive (A) | Negative | [facility] | | | SCREEN FOR | | | LABORATORY | | | CULTURE | | | SERVICES, | | | | | | CORE | | + + + + + + + + | Specimen | + + | Urine - Catheter, | | device (physical | | object) | + + + + + | Narrative | Performed At | + + + | Culture Screen Positive, specimen sent for culture. | [facility] | | | LABORATORY | | | SERVICES, CORE | + + + + + + + + | Performing | Address | City/State/Zipcode | Phone Number | | Organization | | | | + + + + + | [facility] | [address] | [place] [address] | | | SERVICES, CORE | [address] | | | + + + + + COAGULOPATHY PANEL (INR,APTT,FIBRINOGEN) (05/07/2017 12:20 AM PDT) + + + + + + | Component | Value | Ref Range | Performed | Pathologist | | | | | At | Signature | + + + + + + | INR | 1.21 (H) | 0.90 - 1.20 INR | [facility] | | | | | | LABORATORY | | | | | | SERVICES, | | | | | | CORE | | + + + + + + | APTT | 26.3 | 26.0 - 36.0 | [facility] | | | | | seconds | LABORATORY | | | | | | SERVICES, | | | | | | CORE | | + + + + + + | FIBRINOGEN | 697 (H) | 200 - 450 mg/dL | [facility] | | | LEVEL | | | LABORATORY | | | | | | SERVICES, | | | | | | CORE | | + + + + + + + + | Specimen | + + | Blood - Blood | | (substance) | + + + + + | Narrative | Performed At | + + + | INR Therapeutic ranges for full anticoagulation: INR for | [facility] | | Venous Thromboembolism (2.0 - 3.0) INR INR for | LABORATORY | | most patients with mech. valves (2.5 - 3.5) INR APTT | SERVICES, CORE | | Therapeutic Range: (75 - 120) sec | | | Heparin levels of 0.35 - 0.7 U/mL | | + + + + + + + + | Performing | Address | City/State/Zipcode | Phone Number | | Organization | | | | + + + + + | [facility] | [address] | [place] [address] | | | [address] | [address] | | | + + + + + X-RAY SPINE THORACIC 1 VIEW (05/07/2017 12:11 AM PDT) + + | Specimen | + + | | + + + + + | Narrative | Performed At | + + + | - At the time of the study, no professional interpretation was | | | requested. - | | + + + LIVER SET (AST,ALT,BILI TOTAL,BILI DIRECT,ALK PHOS,ALB,PROT TOTAL) (05/07/2017 12:10 AM PDT ) + +---------+ + + + | Component | Value | Ref Range | Performed | Pathologist | | | | | At | Signature | + +---------+ + + + | ALBUMIN, | 1.3 (L) | 3.5 - 4.7 g/dL | [facility] | | | PLASMA | | | LABORATORY | | | (LAB) | | | SERVICES, | | | | | | CORE | | + +---------+ + + + | BILIRUBIN | 0.8 | 0.3 - 1.2 mg/dL | [facility] | | | TOTAL | | | LABORATORY | | | | | | SERVICES, | | | | | | CORE | | + +---------+ + + + | BILIRUBIN | 0.4 (H) | 0.0 - 0.3 mg/dL | [facility] | | | DIRECT | | | LABORATORY | | | | | | SERVICES, | | | | | | CORE | | + +---------+ + + + | ALK PHOS | 128 | 53 - 128 U/L | [facility] | | | | | | LABORATORY | | | | | | SERVICES, | | | | | | CORE | | + +---------+ + + + | AST(SGOT) | 63 (H) | <=41 U/L | [facility] | | | | | | LABORATORY | | | | | | SERVICES, | | | | | | CORE | | + +---------+ + + + | ALT (SGPT) | 84 (H) | <=60 U/L | [facility] | | | | | | LABORATORY | | | | | | SERVICES, | | | | | | CORE | | + +---------+ + + + | TOTAL | 5.2 (L) | 6.4 - 8.2 g/dL | [facility] | | | PROTEIN, | | | LABORATORY | | | PLASMA | | | SERVICES, | | | (LAB) | | | CORE | | + +---------+ + + + + + | Specimen | + + | Blood - Blood | | (substance) | + + + + + + + | Performing | Address | City/State/Zipcode | Phone Number | | Organization | | | | + + + + + | [facility] | [address] [facility] | [place] [address] | | | SERVICES, CORE | [address] | | | + + + + + CBC (HEMOGRAM) ONLY (05/07/2017 12:10 AM PDT) + + + + + + | Component | Value | Ref Range | Performed | Pathologist | | | | | At | Signature | + + + + + + | WHITE CELL | 26.73 (H) | 3.50 - 10.80 | [facility] | | | COUNT | | K/cu mm | LABORATORY | | | | | | SERVICES, | | | | | | CORE | | + + + + + + | RED CELL | 3.14 (L) | 4.50 - 6.00 | [facility] | | | COUNT | | M/cu mm | LABORATORY | | | | | | SERVICES, | | | | | | CORE | | + + + + + + | HEMOGLOBIN | 9.6 (L) | 13.5 - 17.5 | [facility] | | | | | g/dL | LABORATORY | | | | | | SERVICES, | | | | | | CORE | | + + + + + + | HEMATOCRIT | 28.6 (L) | 41.0 - 53.0 % | [facility] | | | | | | LABORATORY | | | | | | SERVICES, | | | | | | CORE | | + + + + + + | MCV | 91.1 | 80.0 - 96.0 fL | [facility] | | | | | | LABORATORY | | | | | | SERVICES, | | | | | | CORE | | + + + + + + | MCHC | 33.6 | 33.0 - 35.5 | [facility] | | | | | g/dL | LABORATORY | | | | | | SERVICES, | | | | | | CORE | | + + + + + + | RDW SD | 47.8 (H) | 35.1 - 46.3 fL | [facility] | | | | | | LABORATORY | | | | | | SERVICES, | | | | | | CORE | | + + + + + + | PLATELET | 401 (H) | 150 - 400 K/cu | [facility] | | | COUNT | | mm | LABORATORY | | | | | | SERVICES, | | | | | | CORE | | + + + + + + | MPV | 9.5 (L) | 9.7 - 12.3 fL | [facility] | | | | | | LABORATORY | | | | | | SERVICES, | | | | | | CORE | | + + + + + + | NRBC% | 0.0 | 0.0 - 0.3 % | [facility] | | | | | | LABORATORY | | | | | | SERVICES, | | | | | | CORE | | + + + + + + | NRBC# | 0.00 | 0.00 - 0.02 | [facility] | | | | | K/cu mm | LABORATORY | | | | | | SERVICES, | | | | | | CORE | | + + + + + + + + | Specimen | + + | Blood - Blood | | (substance) | + + + + + + + | Performing | Address | City/State/Zipcode | Phone Number | | Organization | | | | + + + + + | [facility] | [address] | [place] [address] | | | SERVICES, CORE | [address] | | | + + + + + RENAL FUNCTION SET (NA,K,CL,CO2,BUN,CREAT,GLUC,CA,PHOS,ALB ) (05/07/2017 12:10 AM PDT) + +---------+ + + + | Component | Value | Ref Range | Performed | Pathologist | | | | | At | Signature | + +---------+ + + + | GLUCOSE, | 107 (H) | 70 - 99 mg/dL | [facility] | | | PLASMA | | | LABORATORY | | | (LAB) | | | SERVICES, | | | | | | CORE | | + +---------+ + + + | BUN, PLASMA | 13 | 6 - 20 mg/dL | [facility] | | | (LAB) | | | LABORATORY | | | | | | SERVICES, | | | | | | CORE | | + +---------+ + + + | CREATININE | 0.80 | 0.70 - 1.30 | [facility] | | | PLASMA | | mg/dL | LABORATORY | | | (LAB) | | | SERVICES, | | | | | | CORE | | + +---------+ + + + | EGFR | >60 | >60 mL/min | [facility] | | | - | | | LABORATORY | | | [facility] | | | SERVICES, | | | | | | CORE | | + +---------+ + + + | EGFR NON | >60 | >60 mL/min | [facility] | | | -OBDULIA | | | LABORATORY | | | [facility] | | | SERVICES, | | | | | | CORE | | + +---------+ + + + | SODIUM, | 137 | 136 - 145 | [facility] | | | PLASMA | | mmol/L | LABORATORY | | | (LAB) | | | SERVICES, | | | | | | CORE | | + +---------+ + + + | POTASSIUM, | 4.3 | 3.4 - 5.0 | [facility] | | | PLASMA | | mmol/L | LABORATORY | | | (LAB) | | | SERVICES, | | | | | | CORE | | + +---------+ + + + | CHLORIDE, | 106 | 97 - 108 mmol/L | [facility] | | | PLASMA | | | LABORATORY | | | (LAB) | | | SERVICES, | | | | | | CORE | | + +---------+ + + + | TOTAL CO2, | 21 | 21 - 32 mmol/L | [facility] | | | PLASMA | | | LABORATORY | | | (LAB) | | | SERVICES, | | | | | | CORE | | + +---------+ + + + | CALCIUM, | 7.1 (L) | 8.6 - 10.2 | [facility] | | | PLASMA | | mg/dL | LABORATORY | | | (LAB) | | | SERVICES, | | | | | | CORE | | + +---------+ + + + | CALCIUM(ALB | 9.3 | 8.6 - 10.2 | [facility] | | | CORRECTED) | | mg/dL | LABORATORY | | | | | | SERVICES, | | | | | | CORE | | + +---------+ + + + | ALBUMIN, | 1.2 (L) | 3.5 - 4.7 g/dL | [facility] | | | PLASMA | | | LABORATORY | | | (LAB) | | | SERVICES, | | | | | | CORE | | + +---------+ + + + | PHOSPHORUS, | 4.6 | 2.4 - 4.7 mg/dL | [facility] | | | PLASMA | | | LABORATORY | | | (LAB) | | | SERVICES, | | | | | | CORE | | + +---------+ + + + | POTASSIUM | No Hemo | | [facility] | | | CMNT | | | LABORATORY | | | | | | SERVICES, | | | | | | CORE | | + +---------+ + + + | ANION GAP | 10 | mmol/L | [facility] | | | | | | LABORATORY | | | | | | SERVICES, | | | | | | CORE | | + +---------+ + + + | ANION | 17 (H) | 4 - 11 mmol/L | [facility] | | | GAP(ALB | | | LABORATORY | | | CORRECTED) | | | SERVICES, | | | | | | CORE | | + +---------+ + + + + + | Specimen | + + | Blood - Blood | | (substance) | + + + + + | Narrative | Performed At | + + + | Adult glucose reference range change effective 7-12-17. GFR is | [facility] | | estimated using the MDRD equation recommended by the National Kidney | LABORATORY | | Disease Education Program. Estimated GFR Interpretive Information: | SERVICES, CORE | | <60 mL/min/1.73 sq m Chronic Kidney Disease | | | <15 mL/min/1.73 sq m Kidney Failure Estimated | | | GFR greater that 60 mL/min/1.73 sq m is of limited clinical value. | | | The MDRD equation is not valid in the following situations: - | | | Patients under 18 years of age - Severe malnutrition or obesity - | | | Vegetarian diet - Rapidly changing kidney function | | + + + + + + + + | Performing | Address | City/State/Zipcode | Phone Number | | Organization | | | | + + + + + | [facility] | [address] | [place] [address] | | | SERVICES, CORE | [address] | | | + + + + + LACTATE (05/07/2017 12:10 AM PDT) + +-------+ + + + | Component | Value | Ref Range | Performed | Pathologist | | | | | At | Signature | + +-------+ + + + | LACTATE | 1.2 | mmol/L | [facility] | | | | | | LABORATORY | | | | | | SERVICES, | | | | | | CORE | | + +-------+ + + + + + | Specimen | + + | Blood - Blood | | (substance) | + + + + + | Narrative | Performed At | + + + | Reference Range: Venous blood: 0.5 - 2.2 mmol/L Critical | [facility] | | >= 4.0 mmol/L Arterial blood: 0.5 - 1.6 mmol/L Critical >= 4.0 | LABORATORY | | mmol/L | SERVICES, CORE | + + + + + + + + | Performing | Address | City/State/Zipcode | Phone Number | | Organization | | | | + + + + + | [facility] | [address] | [place] [address] | | | [address] | | | + + + + + OR FLUOROSCOPY > 1 HOUR (05/06/2017 11:30 PM PDT) + + | Specimen | + + | | + + + + + | Narrative | Performed At | + + + | - At the time of the study, no professional interpretation was | | | requested. - | | + + + CULTURE, WOUND DEEP W/ ANAEROBE (05/06/2017 10:34 PM PDT) + + + + + + | Component | Value | Ref Range | Performed | Pathologist | | | | | At | Signature | + + + + + + | CULTURE | Staphylococcus aureus, | | [facility] - | | | RESULT | Methicillin Resistant | | [facility] - | | | | (A) | | [place] | | + + + + + + + + | Specimen | + + | Swab - Fluid | | specimen from | | epidural space | | (specimen) | + + + + + | Narrative | Performed At | + + + | Culture Report: 2+ Methicillin Resistant Staphylococcus aureus | [facility] - | | 1+ Skin chava No anaerobic organisms isolated Gram Stain: No | [facility] - | | squamous epithelial cells Few polymorphonuclear cells Few Gram | [place] | | positive cocci | | + + + + + + + + | Organism | Antibiotic | Method | Susceptibility | + + + + + | Staphylococcus | Cefazolin | SUSCEPTIBILITY-[facility]OR[facility] | Resistant | | aureus, Methicillin | | | | | Resistant | | | | + + + + + | Staphylococcus | Clindamycin | SUSCEPTIBILITY-DORINA | Sensitive | | aureus, Methicillin | | | | | Resistant | | | | + + + + + | Staphylococcus | Erythromycin | SUSCEPTIBILITY-DORINA | Resistant | | aureus, Methicillin | | | | | Resistant | | | | + + + + + | Staphylococcus | Oxacillin | SUSCEPTIBILITY-DORINA | Resistant | | aureus, Methicillin | | | | | Resistant | | | | + + + + + | Staphylococcus | Penicillin | SUSCEPTIBILITY-DORINA | Resistant | | aureus, Methicillin | | | | | Resistant | | | | + + + + + | Staphylococcus | Trimethoprim/Sulfa | SUSCEPTIBILITY-DORINA | Sensitive | | aureus, Methicillin | | | | | Resistant | | | | + + + + + | Staphylococcus | Tetracycline | SUSCEPTIBILITY-DORINA | Sensitive | | aureus, Methicillin | | | | | Resistant | | | | + + + + + | Staphylococcus | Vancomycin | SUSCEPTIBILITY-DORINA | Sensitive | | aureus, Methicillin | | | | | Resistant | | | | + + + + + + + + + + | Performing | Address | City/State/Zipcode | Phone Number | | Organization | | | | + + + + + | [facility] - | [address] | [place] [address] | | | [facility] | | | | + + + + + CULTURE, WOUND DEEP W/ ANAEROBE (05/06/2017 10:34 PM PDT) + + + + + + | Component | Value | Ref Range | Performed | Pathologist | | | | | At | Signature | + + + + + + | CULTURE | Staphylococcus aureus, | | [facility] | | | RESULT | Methicillin Resistant | | [facility] | | | | (A) | | [place] | | + + + + + + + + | Specimen | + + | Abscess - Fluid | | specimen from | | epidural space | | (specimen) | + + + + + | Narrative | Performed At | + + + | Culture Report: 3+ Methicillin Resistant Staphylococcus aureus | [facility] - | | Presumptive identification Refer to culture collected 05/06/17 at [facility] - | | [id number], site #1 for complete identification and susceptibilities No | [place] | | anaerobic organisms isolated Gram Stain: No squamous epithelial | | | cells Moderate polymorphonuclear cells Few Gram positive cocci | | + + + + + + + + | Performing | Address | City/State/Zipcode | Phone Number | | Organization | | | | + + + + + | [facility] - | [address] | [place] [address] | | | [place] | | | | + + + + + CULTURE, TISSUE (05/06/2017 10:34 PM PDT) + + + + + + | Component | Value | Ref Range | Performed | Pathologist | | | | | At | Signature | + + + + + + | CULTURE | Staphylococcus aureus, | | [facility] | | | RESULT | Methicillin Resistant | | [facility] - | | | | (A) | | [place] | | + + + + + + + + | Specimen | + + | Tissue - Fluid | | specimen from | | epidural space | | (specimen) | + + + + + | Narrative | Performed At | + + + | Culture Report: 3+ Methicillin Resistant Staphylococcus aureus | [facility] - | | Presumptive identification Refer to culture collected 05/06/17 at | [facility] - | | [id number], site #1 for complete identification and susceptibilities No | [place] | | anaerobic organisms isolated Gram Stain: No squamous epithelial | | | cells Moderate polymorphonuclear cells Few Gram positive cocci | | + + + + + + + + | Performing | Address | City/State/Zipcode | Phone Number | | Organization | | | | + + + + + | [facility] - | [address] | [place] [address] | | | [place] | | | | + + + + + BLOOD CULTURE WORKUP (05/06/2017 9:21 AM PDT) + + + + + + | Component | Value | Ref Range | Performed | Pathologist | | | | | At | Signature | + + + + + + | CULTURE | Staphylococcus aureus, | | [facility] | | | RESULT | Methicillin Resistant | | [facility] | | | | (A) | | [place] | | + + + + + + + + | Specimen | + + | Blood - Antecubital | | region structure | | (body structure) | + + + + + | Narrative | Performed At | + + + | Culture Report: Methicillin Resistant Staphylococcus aureus | [facility] - | | Growth in Aerobic bottle Growth in Anaerobic bottle | [facility] - | | | [place] | + + + + + + + + | Organism | Antibiotic | Method | Susceptibility | + + + + + | Staphylococcus | Cefazolin | SUSCEPTIBILITY-DORINA | Resistant | | aureus, Methicillin | | | | | Resistant | | | | + + + + + | Staphylococcus | Clindamycin | SUSCEPTIBILITY-DORINA | Sensitive | | aureus, Methicillin | | | | | Resistant | | | | + + + + + | Staphylococcus | Erythromycin | SUSCEPTIBILITY-DORINA | Resistant | | aureus, Methicillin | | | | | Resistant | | | | + + + + + | Staphylococcus | Oxacillin | SUSCEPTIBILITY-DORINA | Resistant | | aureus, Methicillin | | | | | Resistant | | | | + + + + + | Staphylococcus | Penicillin | SUSCEPTIBILITY-DORINA | Resistant | | aureus, Methicillin | | | | | Resistant | | | | + + + + + | Staphylococcus | Trimethoprim/Sulfa | SUSCEPTIBILITY-DORINA | Sensitive | | aureus, Methicillin | | | | | Resistant | | | | + + + + + | Staphylococcus | Tetracycline | SUSCEPTIBILITY-DORINA | Sensitive | | aureus, Methicillin | | | | | Resistant | | | | + + + + + | Staphylococcus | Vancomycin | SUSCEPTIBILITY-DORINA | Sensitive | | aureus, Methicillin | | | | | Resistant | | | | + + + + + + + + + + | Performing | Address | City/State/Zipcode | Phone Number | | Organization | | | | + + + + + | [facility] - | [address] | [place] [address] | | | [place] | | | | + + + + + CULTURE, BLOOD BACTI & YEAST [facility] (05/06/2017 9:21 AM PDT) + + + + + + | Component | Value | Ref Range | Performed | Pathologist | | | | | At | Signature | + + + + + + | CULTURE | Staphylococcus aureus, | | [facility] | | | RESULT | Methicillin Resistant | | LABORATORY | | | | (AA) | | SERVICES, | | | | | | CORE | | + + + + + + | GRAM STAIN | Gram positive cocci in | | [facility] | | | | clusters | | LABORATORY | | | | | | SERVICES, | | | | | | CORE | | + + + + + + + + | Specimen | + + | Blood - Antecubital | | region structure | | (body structure) | + + + + + | Narrative | Performed At | + + + | Growth in Aerobic Bottle. Growth in Anaerobic Bottle. Organism | [facility] | | Identified by Molecular ID, to be confirmed by culture. | LABORATORY | | | SERVICES, CORE | + + + + + + + + | Performing | Address | City/State/Zipcode | Phone Number | | Organization | | | | + + + + + | [facility] | [address] | [place] [address] | | | SERVICES, CORE | [address] | | | + + + + + X-RAY CHEST 2 VIEW (05/06/2017 8:49 AM PDT) + + | Specimen | + + | | + + + + + | Narrative | Performed At | + + + | EXAM: CHEST 2 VIEWS HISTORY: Preoperative evaluation for | [facility] | | epidural abscess. Dyspnea. COMPARISON: CT abdomen 05/02/17. | RADIOLOGY VOICE | | FINDINGS: The cardiac silhouette is obscured by moderate left and | RECOGNITION | | small right pleural effusions. Associated compressive atelectasis is | | | noted. No pulmonary edema or pneumothorax. IMPRESSION: | | | Moderate left and small right pleural effusions with associated | | | atelectasis. I have personally reviewed the images and, if | | | necessary, edited the report. I agree with the report as now | | | presented. | | + + + + + | Procedure Note | + + | Service Account, Radiant Res In Interface - 05/06/2017 11:52 AM PDT EXAM: CHEST 2 | | VIEWS HISTORY: Preoperative evaluation for epidural abscess. Dyspnea.COMPARISON: CT | | abdomen 05/02/17.FINDINGS: The cardiac silhouette is obscured by moderate left and small | | right pleural effusions. Associated compressive atelectasis is noted. No pulmonary | | edema or pneumothorax. IMPRESSION: Moderate left and small right pleural effusions with | | associated atelectasis.I have personally reviewed the images and, if necessary, edited | | the report. I agree with the report as now presented. | | | |The cardiac silhouette is obscured by moderate left and small right pleural effusions. Asso ciated compressive atelectasis is noted. No pulmonary edema or pneumothorax. | | | |IMPRESSION: | | | |Moderate left and small right pleural effusions with associated atelectasis. | | | | | |I have personally reviewed the images and, if necessary, edited the report. I agree with t he report as now presented. | + + + +---------+ + + | Performing | Address | City/State/Zipcode | Phone Number | | Organization | | | | + +---------+ + + | [facility] | | | | | VOICE RECOGNITION | | | | + +---------+ + + CBC (HEMOGRAM) ONLY (05/06/2017 7:25 AM PDT) + + + + + + | Component | Value | Ref Range | Performed | Pathologist | | | | | At | Signature | + + + + + + | WHITE CELL | 17.90 (H) | 3.50 - 10.80 | [facility] | | | COUNT | | K/cu mm | LABORATORY | | | | | | SERVICES, | | | | | | CORE | | + + + + + + | RED CELL | 3.66 (L) | 4.50 - 6.00 | [facility] | | | COUNT | | M/cu mm | LABORATORY | | | | | | SERVICES, | | | | | | CORE | | + + + + + + | HEMOGLOBIN | 11.2 (L) | 13.5 - 17.5 | [facility] | | | | | g/dL | LABORATORY | | | | | | SERVICES, | | | | | | CORE | | + + + + + + | HEMATOCRIT | 32.7 (L) | 41.0 - 53.0 % | [facility] | | | | | | LABORATORY | | | | | | SERVICES, | | | | | | CORE | | + + + + + + | MCV | 89.3 | 80.0 - 96.0 fL | [facility] | | | | | | LABORATORY | | | | | | SERVICES, | | | | | | CORE | | + + + + + + | MCHC | 34.3 | 33.0 - 35.5 | [facility] | | | | | g/dL | LABORATORY | | | | | | SERVICES, | | | | | | CORE | | + + + + + + | RDW SD | 45.1 | 35.1 - 46.3 fL | [facility] | | | | | | LABORATORY | | | | | | SERVICES, | | | | | | CORE | | + + + + + + | PLATELET | 481 (H)Comment: This is | 150 - 400 K/cu | [facility] | | | COUNT | an edited result. | mm | LABORATORY | | | | Previous result was 481 | | SERVICES, | | | | K/cu mm on 05/06/2017at | | CORE | | | | 900 PDT. | | | | + + + + + + | MPV | 10.0Comment: This is an | 9.7 - 12.3 fL | [facility] | | | | edited result. Previous | | LABORATORY | | | | result was 10.0 fL on | | SERVICES, | | | | 05/06/2017at 900 PDT. | | CORE | | + + + + + + | NRBC% | Comment: Not measured | 0.0 - 0.3 % | [facility] | | | | | | LABORATORY | | | | | | SERVICES, | | | | | | CORE | | + + + + + + + + | Specimen | + + | Blood - Blood | | (substance) | + + + + + + + | Performing | Address | City/State/Zipcode | Phone Number | | Organization | | | | + + + + + | [facility] | [address] | [place] [address] | | | SERVICES, CORE | [address] | | | + + + + + CONFIRMATORY ABO/RH (05/06/2017 7:25 AM PDT) + + + + + + | Component | Value | Ref Range | Performed | Pathologist | | | | | At | Signature | + + + + + + | ABO Group | A | | [facility] | | | | | | LABORATORY | | | | | | SERVICES, | | | | | | TRANSFUSION | | | | | | MEDICINE | | + + + + + + | Rh Type | Positive | | [facility] | | | | | | LABORATORY | | | | | | SERVICES, | | | | | | TRANSFUSION | | | | | | MEDICINE | | + + + + + + + + | Specimen | + + | Blood - Blood | | (substance) | + + + + + + + | Performing | Address | City/State/Zipcode | Phone Number | | Organization | | | | + + + + + | [facility] | [address] | [place] [address] | | | SERVICES, | [address] | | | | TRANSFUSION MEDICINE | | | | + + + + + BLOOD CULTURE WORKUP (05/06/2017 7:15 AM PDT) + + + + + + | Component | Value | Ref Range | Performed | Pathologist | | | | | At | Signature | + + + + + + | CULTURE | Staphylococcus aureus, | | [facility] - | | | RESULT | Methicillin Resistant | | [facility] - | | | | (A) | | [facility] | | + + + + + + + + | Specimen | + + | Blood - Structure of | | right wrist (body | | structure) | + + + + + | Narrative | Performed At | + + + | Culture Report: Methicillin Resistant Staphylococcus aureus | [facility] - | | Presumptive identification Refer to culture collected 05/06/17 @ | [facility] - | | 09:21 AM for complete identification and susceptibilities Growth in | [place] | | Aerobic bottle | | + + + + + + + + | Performing | Address | City/State/Zipcode | Phone Number | | Organization | | | | + + + + + | [facility] - | [address] | [place] [address] | | | [place] | | | | + + + + + CULTURE, BLOOD BACTI & YEAST [facility] (05/06/2017 7:15 AM PDT) + + + + + + | Component | Value | Ref Range | Performed | Pathologist | | | | | At | Signature | + + + + + + | CULTURE | Not tested by molecular | | [facility] | | | RESULT | method, see culture | | LABORATORY | | | | report. (AA) | | SERVICES, | | | | | | CORE | | + + + + + + | GRAM STAIN | Gram positive cocci in | | [facility] | | | | clusters | | LABORATORY | | | | | | SERVICES, | | | | | | CORE | | + + + + + + + + | Specimen | + + | Blood - Structure of | | right wrist (body | | structure) | + + + + + | Narrative | Performed At | + + + | Growth in Aerobic Bottle. | [facility] | | | LABORATORY | | | [address] | + + + + + + + + | Performing | Address | City/State/Zipcode | Phone Number | | Organization | | | | + + + + + | [facility] | [address] | [place] [address] | | | [address], TONY | [address] | | | + + + + + BASIC METABOLIC SET (NA, K, CL, TCO2, BUN, CR, GLU, CA) (05/06/2017 7:15 AM PDT) + + + + + + | Component | Value | Ref Range | Performed | Pathologist | | | | | At | Signature | + + + + + + | GLUCOSE, | 101 (H) | 70 - 99 mg/dL | [facility] | | | PLASMA | | | LABORATORY | | | (LAB) | | | SERVICES, | | | | | | CORE | | + + + + + + | BUN, PLASMA | 9 | 6 - 20 mg/dL | [facility] | | | (LAB) | | | LABORATORY | | | | | | SERVICES, | | | | | | CORE | | + + + + + + | CREATININE | 0.66 (L) | 0.70 - 1.30 | [facility] | | | PLASMA | | mg/dL | LABORATORY | | | (LAB) | | | SERVICES, | | | | | | CORE | | + + + + + + | EGFR | >60 | >60 mL/min | [facility] | | | - | | | LABORATORY | | | [facility] | | | SERVICES, | | | | | | CORE | | + + + + + + | EGFR NON | >60 | >60 mL/min | [facility] | | | -OBDULIA | | | LABORATORY | | | [facility] | | | SERVICES, | | | | | | CORE | | + + + + + + | SODIUM, | 133 (L) | 136 - 145 | [facility] | | | PLASMA | | mmol/L | LABORATORY | | | (LAB) | | | SERVICES, | | | | | | CORE | | + + + + + + | POTASSIUM, | 4.0 | 3.4 - 5.0 | [facility] | | | PLASMA | | mmol/L | LABORATORY | | | (LAB) | | | SERVICES, | | | | | | CORE | | + + + + + + | CHLORIDE, | 104 | 97 - 108 mmol/L | [facility] | | | PLASMA | | | LABORATORY | | | (LAB) | | | SERVICES, | | | | | | CORE | | + + + + + + | TOTAL CO2, | 18 (L) | 21 - 32 mmol/L | [facility] | | | PLASMA | | | LABORATORY | | | (LAB) | | | SERVICES, | | | | | | CORE | | + + + + + + | CALCIUM, | 7.7 (L) | 8.6 - 10.2 | [facility] | | | PLASMA | | mg/dL | LABORATORY | | | (LAB) | | | SERVICES, | | | | | | CORE | | + + + + + + | ANION GAP | 11 | mmol/L | [facility] | | | | | | LABORATORY | | | | | | SERVICES, | | | | | | CORE | | + + + + + + | POTASSIUM | No Hemo | | [facility] | | | CMNT | | | LABORATORY | | | | | | SERVICES, | | | | | | CORE | | + + + + + + + + | Specimen | + + | Blood - Blood | | (substance) | + + + + + | Narrative | Performed At | + + + | Adult glucose reference range change effective 7-12-17. GFR is | [facility] | | estimated using the MDRD equation recommended by the National Kidney | LABORATORY | | Disease Education Program. Estimated GFR Interpretive Information: | SERVICES, CORE | | <60 mL/min/1.73 sq m Chronic Kidney Disease | | | <15 mL/min/1.73 sq m Kidney Failure Estimated | | | GFR greater that 60 mL/min/1.73 sq m is of limited clinical value. | | | The MDRD equation is not valid in the following situations: - | | | Patients under 18 years of age - Severe malnutrition or obesity - | | | Vegetarian diet - Rapidly changing kidney function | | + + + + + + + + | Performing | Address | City/State/Zipcode | Phone Number | | Organization | | | | + + + + + | [facility] | [address] | [place] [address] | | | SERVICES, CORE | [address] | | | + + + + + 12 LEAD ECG (05/05/2017 8:52 PM PDT) + + + + + + | Component | Value | Ref Range | Performed | Pathologist | | | | | At | Signature | + + + + + + | VENTRICULAR | 118 | bpm | [facility] | | | RATE | | | OF | | | | | | CARDIOLOGY | | + + + + + + | ATRIAL RATE | 118 | ms | [facility] | | | | | | OF | | | | | | CARDIOLOGY | | + + + + + + | P-R | 136 | ms | [facility] | | | INTERVAL | | | OF | | | | | | CARDIOLOGY | | + + + + + + | P AXIS | 31 | deg | [facility] | | | | | | OF | | | | | | CARDIOLOGY | | + + + + + + | QRS | 83 | ms | [facility] | | | DURATION | | | OF | | | | | | CARDIOLOGY | | + + + + + + | QT | 305 | ms | [facility] | | | | | | OF | | | | | | CARDIOLOGY | | + + + + + + | BOB-STACIE | 428 | ms | [facility] | | | | | | OF | | | | | | CARDIOLOGY | | + + + + + + | R AXIS | -48 | deg | [facility] | | | | | | OF | | | | | | CARDIOLOGY | | + + + + + + | T AXIS | 25 | deg | [facility] | | | | | | OF | | | | | | CARDIOLOGY | | + + + + + + | ECG | Sinus tachycardia | | [facility] | | | IMPRESSION | | | OF | | | | | | CARDIOLOGY | | + + + + + + | 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, old- | | [facility] | | | IMPRESSION | ABNORMAL ECG - | | OF | | | | | | CARDIOLOGY | | + + + + + + | ECG | Electronically signed | | [facility] | | | IMPRESSION | by: SONA WYATT | | OF | | | | 05-07-2017 20:32:02 | | CARDIOLOGY | | + + + + + + + + | Specimen | + + | | + + + + + | Narrative | Performed At | + + + | | | + + + + + + + + | Performing | Address | City/State/Zipcode | Phone Number | | Organization | | | | + + + + + | [facility] | [address] | [place], [place] | | | CARDIOLOGY | [address] | [address] | | + + + + + RBC MORPHOLOGY (05/05/2017 8:39 PM PDT) + + + + + + | Component | Value | Ref Range | Performed | Pathologist | | | | | At | Signature | + + + + + + | DAREN CELLS | 1+(10-25cells/HPF) | | [facility] | | | | | | LABORATORY | | | | | | SERVICES, | | | | | | CORE | | + + + + + + + + | Specimen | + + | Blood - Blood | | (substance) | + + + + + + + | Performing | Address | City/State/Zipcode | Phone Number | | Organization | | | | + + + + + | [facility] | [address] | [place] [address] | | | SERVICES, CORE | [address] | | | + + + + + ANTIBODY SCREEN (05/05/2017 8:39 PM PDT) + + + + + + | Component | Value | Ref Range | Performed | Pathologist | | | | | At | Signature | + + + + + + | Antibody | Negative | | [facility] | | | Screen | | | LABORATORY | | | | | | SERVICES, | | | | | | TRANSFUSION | | | | | | MEDICINE | | + + + + + + + + | Specimen | + + | Blood - Blood | | (substance) | + + + + + + + | Performing | Address | City/State/Zipcode | Phone Number | | Organization | | | | + + + + + | [facility] | [address] | [place] [address] | | | SERVICES, | [address] | | | | TRANSFUSION MEDICINE | | | | + + + + + ABO & RH TYPE (05/05/2017 8:39 PM PDT) + + + + + + | Component | Value | Ref Range | Performed | Pathologist | | | | | At | Signature | + + + + + + | ABO Group | A | | [facility] | | | | | | LABOR[facility] | | | | | | SERVICES, | | | | | | TRANSFUSION | | | | | | MEDICINE | | + + + + + + | Rh Type | Positive | | [facility] | | | | | | LAB[facility] | | | | | | SERVICES, | | | | | | TRANSFUSION | | | | | | MEDICINE | | + + + + + + + + | Specimen | + + | Blood - Blood | | (substance) | + + + + + + + | Performing | Address | City/State/Zipcode | Phone Number | | Organization | | | | + + + + + | [facility] | [address] | [place] [address] | | | SERVICES, | [address] | | | | TRANSFUSION MEDICINE | | | | + + + + + CBC AND AUTO DIFF (05/05/2017 8:39 PM PDT) + + + + + + | Component | Value | Ref Range | Performed | Pathologist | | | | | At | Signature | + + + + + + | WHITE CELL | 25.20 (H) | 3.50 - 10.80 | [facility] | | | COUNT | | K/cu mm | LABORATORY | | | | | | SERVICES, | | | | | | CORE | | + + + + + + | RED CELL | 3.77 (L) | 4.50 - 6.00 | [facility] | | | COUNT | | M/cu mm | LABORATORY | | | | | | SERVICES, | | | | | | CORE | | + + + + + + | HEMOGLOBIN | 11.6 (L) | 13.5 - 17.5 | [facility] | | | | | g/dL | LABORATORY | | | | | | SERVICES, | | | | | | CORE | | + + + + + + | HEMATOCRIT | 33.3 (L) | 41.0 - 53.0 % | [facility] | | | | | | LABORATORY | | | | | | SERVICES, | | | | | | CORE | | + + + + + + | MCV | 88.3 | 80.0 - 96.0 fL | [facility] | | | | | | LABORATORY | | | | | | SERVICES, | | | | | | CORE | | + + + + + + | MCHC | 34.8 | 33.0 - 35.5 | [facility] | | | | | g/dL | LABORATORY | | | | | | SERVICES, | | | | | | CORE | | + + + + + + | RDW SD | 44.2 | 35.1 - 46.3 fL | [facility] | | | | | | LABORATORY | | | | | | SERVICES, | | | | | | CORE | | + + + + + + | PLATELET | 440 (H) | 150 - 400 K/cu | [facility] | | | COUNT | | mm | LABORATORY | | | | | | SERVICES, | | | | | | CORE | | + + + + + + | MPV | 9.4 (L) | 9.7 - 12.3 fL | [facility] | | | | | | LABORATORY | | | | | | SERVICES, | | | | | | CORE | | + + + + + + | NRBC% | 0.0 | 0.0 - 0.3 % | [facility] | | | | | | LABORATORY | | | | | | SERVICES, | | | | | | CORE | | + + + + + + | NRBC# | 0.00 | 0.00 - 0.02 | [facility] | | | | | K/cu mm | LABORATORY | | | | | | SERVICES, | | | | | | CORE | | + + + + + + | NEUTROPHIL | 88.3 (H) | 50.0 - 70.0 % | [facility] | | | % | | | LABORATORY | | | | | | SERVICES, | | | | | | CORE | | + + + + + + | LYMPHOCYTE | 3.5 (L) | 18.0 - 42.0 % | [facility] | | | % | | | LABORATORY | | | | | | SERVICES, | | | | | | CORE | | + + + + + + | MONOCYTE % | 6.5 | 3.5 - 9.0 % | [facility] | | | | | | LABORATORY | | | | | | SERVICES, | | | | | | CORE | | + + + + + + | EOS % | 0.1 (L) | 1.0 - 3.0 % | [facility] | | | | | | LABORATORY | | | | | | SERVICES, | | | | | | CORE | | + + + + + + | BASO % | 0.4 | 0.0 - 2.0 % | [facility] | | | | | | LABORATORY | | | | | | SERVICES, | | | | | | CORE | | + + + + + + | IG% | 1.2 (H)Comment: Immature | 0.0 - 0.6 % | [facility] | | | | Granulocytes (IG) | | LABORATORY | | | | include metamyelocytes, | | SERVICES, | | | | myelocytes and | | CORE | | | | promyelocytes. Bands | | | | | | are not included in the | | | | | | IG count. Bands are | | | | | | included in the | | | | | | neutrophil count. | | | | + + + + + + | NEUTROPHIL | 22.27 (H) | 1.80 - 7.70 | [facility] | | | # | | K/cu mm | LABORATORY | | | | | | SERVICES, | | | | | | CORE | | + + + + + + | LYMPHOCYTE | 0.88 (L) | 1.00 - 4.80 | [facility] | | | # | | K/cu mm | LABORATORY | | | | | | SERVICES, | | | | | | CORE | | + + + + + + | MONOCYTE # | 1.64 (H) | 0.10 - 0.90 | [facility] | | | | | K/cu mm | LABORATORY | | | | | | SERVICES, | | | | | | CORE | | + + + + + + | EOS # | 0.03 | 0.00 - 0.50 | [facility] | | | | | K/cu mm | LABORATORY | | | | | | SERVICES, | | | | | | CORE | | + + + + + + | BASO # | 0.09 | 0.00 - 0.10 | [facility] | | | | | K/cu mm | LABORATORY | | | | | | SERVICES, | | | | | | CORE | | + + + + + + | IG# | 0.29 (H) | 0.00 - 0.03 | [facility] | | | | | K/cu mm | LABORATORY | | | | | | SERVICES, | | | | | | CORE | | + + + + + + + + | Specimen | + + | Blood - Blood | | (substance) | + + + + + | Narrative | Performed At | + + + | Immature Granulocytes (IG) include metamyelocytes, myelocytes | [facility] | | and promyelocytes. Bands are not included in the IG count. Bands are | LABORATORY | | included in the neutrophil count. | SERVICES, CORE | + + + + + + + + | Performing | Address | City/State/Zipcode | Phone Number | | Organization | | | | + + + + + | [facility] | [address] | [place] [address] | | | SERVICES, CORE | [address] | | | + + + + + SEDIMENTATION RATE (05/05/2017 8:39 PM PDT) + +--------+ + + + | Component | Value | Ref Range | Performed | Pathologist | | | | | At | Signature | + +--------+ + + + | SEDIMENTATI | 95 (H) | 0 - 20 mm/hr | [facility] | | | ON RATE | | | LABORATORY | | | | | | SERVICES, | | | | | | CORE | | + +--------+ + + + + + | Specimen | + + | Blood - Blood | | (substance) | + + + + + | Narrative | Performed At | + + + | Conditions such as cold agglutinins, anemia, hemolysis, icterus or | [facility] | | lipemia may affect sedimentation rate. | LABORATORY | | | SERVICES, CORE | + + + + + + + + | Performing | Address | City/State/Zipcode | Phone Number | | Organization | | | | + + + + + | [facility] | [address] | [place] [address] | | | SERVICES, CORE | [address] | | | + + + + + C-REACTIVE PROTEIN (05/05/2017 8:39 PM PDT) + + + + + + | Component | Value | Ref Range | Performed | Pathologist | | | | | At | Signature | + + + + + + | C-REACTIVE | 256.0 (H) | <10.0 mg/L | [facility] | | | PROTEIN | | | LABORATORY | | | | | | SERVICES, | | | | | | CORE | | + + + + + + + + | Specimen | + + | Blood - Blood | | (substance) | + + + + + | Narrative | Performed At | + + + | New method, new reference range and new reporting units as of | [facility] | | 12/06/2013. | LABORATORY | | | SERVICES, CORE | + + + + + + + + | Performing | Address | City/State/Zipcode | Phone Number | | Organization | | | | + + + + + | [facility] | [address] | [place] [address] | | | SERVICES, CORE | [address] | | | + + + + + COAGULOPATHY PANEL (INR,APTT,FIBRINOGEN) (05/05/2017 8:39 PM PDT) + + + + + + | Component | Value | Ref Range | Performed | Pathologist | | | | | At | Signature | + + + + + + | INR | 1.20 | 0.90 - 1.20 INR | [facility] | | | | | | LABORATORY | | | | | | SERVICES, | | | | | | CORE | | + + + + + + | APTT | 29.5 | 26.0 - 36.0 | [facility] | | | | | seconds | LABORATORY | | | | | | SERVICES, | | | | | | CORE | | + + + + + + | FIBRINOGEN | >750 (H) | 200 - 450 mg/dL | [facility] | | | LEVEL | | | LABORATORY | | | | | | SERVICES, | | | | | | CORE | | + + + + + + + + | Specimen | + + | Blood - Blood | | (substance) | + + + + + | Narrative | Performed At | + + + | INR Therapeutic ranges for full anticoagulation: INR for | [facility] | | Venous Thromboembolism (2.0 - 3.0) INR INR for | LABORATORY | | most patients with mech. valves (2.5 - 3.5) INR APTT | [facility], CORE | | Therapeutic Range: (75 - 120) sec | | | Heparin levels of 0.35 - 0.7 U/mL | | + + + + + + + + | Performing | Address | City/State/Zipcode | Phone Number | | Organization | | | | + + + + + | [facility] | [address] | [place] [address] | | | TONY MCLEAN | [address] | | | + + + + + RENAL FUNCTION SET (NA,K,CL,CO2,BUN,CREAT,GLUC,CA,PHOS,ALB ) (05/05/2017 8:39 PM PDT) + +---------+ + + + | Component | Value | Ref Range | Performed | Pathologist | | | | | At | Signature | + +---------+ + + + | GLUCOSE, | 134 (H) | 70 - 99 mg/dL | [facility] | | | PLASMA | | | LABORATORY | | | (LAB) | | | SERVICES, | | | | | | CORE | | + +---------+ + + + | BUN, PLASMA | 9 | 6 - 20 mg/dL | [facility] | | | (LAB) | | | LABORATORY | | | | | | SERVICES, | | | | | | CORE | | + +---------+ + + + | CREATININE | 0.74 | 0.70 - 1.30 | [facility] | | | PLASMA | | mg/dL | LABORATORY | | | (LAB) | | | SERVICES, | | | | | | CORE | | + +---------+ + + + | EGFR | >60 | >60 mL/min | [facility] | | | - | | | LABORATORY | | | [place] | | | SERVICES, | | | | | | CORE | | + +---------+ + + + | EGFR NON | >60 | >60 mL/min | [facility] | | | -OBDULIA | | | LABORATORY | | | RICAN | | | SERVICES, | | | | | | CORE | | + +---------+ + + + | SODIUM, | 133 (L) | 136 - 145 | [facility] | | | PLASMA | | mmol/L | LABORATORY | | | (LAB) | | | SERVICES, | | | | | | CORE | | + +---------+ + + + | POTASSIUM, | 3.8 | 3.4 - 5.0 | [facility] | | | PLASMA | | mmol/L | LABORATORY | | | (LAB) | | | SERVICES, | | | | | | CORE | | + +---------+ + + + | CHLORIDE, | 104 | 97 - 108 mmol/L | [facility] | | | PLASMA | | | LABORATORY | | | (LAB) | | | SERVICES, | | | | | | CORE | | + +---------+ + + + | TOTAL CO2, | 24 | 21 - 32 mmol/L | [facility] | | | PLASMA | | | LABORATORY | | | (LAB) | | | SERVICES, | | | | | | CORE | | + +---------+ + + + | CALCIUM, | 7.5 (L) | 8.6 - 10.2 | [facility] | | | PLASMA | | mg/dL | LABORATORY | | | (LAB) | | | SERVICES, | | | | | | CORE | | + +---------+ + + + | CALCIUM(ALB | 9.5 | 8.6 - 10.2 | [facility] | | | CORRECTED) | | mg/dL | LABORATORY | | | | | | SERVICES, | | | | | | CORE | | + +---------+ + + + | ALBUMIN, | 1.5 (L) | 3.5 - 4.7 g/dL | [facility] | | | PLASMA | | | LABORATORY | | | (LAB) | | | SERVICES, | | | | | | CORE | | + +---------+ + + + | PHOSPHORUS, | 3.1 | 2.4 - 4.7 mg/dL | [facility] | | | PLASMA | | | LABORATORY | | | (LAB) | | | SERVICES, | | | | | | CORE | | + +---------+ + + + | POTASSIUM | No Hemo | | [facility] | | | CMNT | | | LABORATORY | | | | | | SERVICES, | | | | | | CORE | | + +---------+ + + + | ANION GAP | 5 | mmol/L | [facility] | | | | | | LABORATORY | | | | | | SERVICES, | | | | | | CORE | | + +---------+ + + + | ANION | 11 | 4 - 11 mmol/L | [facility] | | | GAP(ALB | | | LABORATORY | | | CORRECTED) | | | SERVICES, | | | | | | CORE | | + +---------+ + + + + + | Specimen | + + | Blood - Blood | | (substance) | + + + + + | Narrative | Performed At | + + + | Adult glucose reference range change effective 7-12-17. GFR is | [facility] | | estimated using the MDRD equation recommended by the National Kidney | LABORATORY | | Disease Education Program. Estimated GFR Interpretive Information: | SERVICES, CORE | | <60 mL/min/1.73 sq m Chronic Kidney Disease | | | <15 mL/min/1.73 sq m Kidney Failure Estimated | | | GFR greater that 60 mL/min/1.73 sq m is of limited clinical value. 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 | + + | Hyponatremia Hyposmolality and/or hyponatremia | + + | Acute respiratory insufficiency, postoperative Other pulmonary insufficiency, not | | elsewhere classified, following trauma and surgery | + + | Pleural effusion Unspecified pleural effusion | + + | Chronic alcoholism (HCC) Other and unspecified alcohol dependence, unspecified | | drinking behavior | + + | Encounter for long-term (current) use of antibiotics | + + | MRSA bacteremia Bacteremia | + + documented in this encounter Administered Medications + +--------+ +--------+------+------+ | Medication Order | MAR | Action | Dose | Rate | Site | | | Action | Date | | | | + +--------+ +--------+------+------+ | acetaminophen (TYLENOL) tablet | Given | 05/06/20 | 650 mg | | | | 325-650 mg 325-650 mg, oral, | | 17 5:42 | | | | | EVERY 6 HOURS NEEDED, Starting | | PM PDT | | | | | 05/05/17 at 2020, Until Fri | | | | | | | 05/07/17 at 0036, mild pain, | | | | | | | multimodal pain control, fever | | | | | | | greater than 38.5 degrees C | | | | | | + +--------+ +--------+------+------+ +-------+ +--------+---+---+ | Given | 05/06/20 | 650 mg | | | | | 17 11:29 | | | | | | AM PDT | | | | +-------+ +--------+---+---+ | Given | 05/06/20 | 325 mg | | | | | 17 1:41 | | | | | | AM PDT | | | | +-------+ +--------+---+---+ +---+---+ | | | +---+---+ + +-------+ +--------+---+---+ | acetaminophen (TYLENOL) tablet | Given | 05/08/20 | 650 mg | | | | 325-650 mg 325-650 mg, oral, | | 17 10:10 | | | | | EVERY 6 HOURS NEEDED, Starting | | PM PDT | | | | | 05/07/17 at 0036, Until Sun | | | | | | | 05/09/17 at 0037, mild pain, | | | | | | | headache, fever, multimodal pain | | | | | | | control | | | | | | + +-------+ +--------+---+---+ +-------+ +--------+---+---+ | Given | 05/08/20 | 650 mg | | | | | 17 11:06 | | | | | | AM PDT | | | | +-------+ +--------+---+---+ | Given | 05/07/20 | 650 mg | | | | | 17 6:15 | | | | | | PM PDT | | | | +-------+ +--------+---+---+ +---+---+ | | | +---+---+ + +-------+ +--------+---+---+ | acetaminophen (TYLENOL) tablet | Given | 05/18/20 | 650 mg | | | | 650 mg 650 mg, oral, EVERY 6 | | 17 12:59 | | | | | HOURS NEEDED, Starting Sun | | AM PST | | | | | 05/09/17 at 0033, Until Tue | | | | | | | 05/18/17 at 2210, mild pain, | | | | | | | headache, fever, multimodal pain | | | | | | | control | | | | | | + +-------+ +--------+---+---+ +-------+ +--------+---+---+ | Given | 05/12/20 | 650 mg | | | | | 17 3:21 | | | | | | AM PST | | | | +-------+ +--------+---+---+ | Given | 05/11/20 | 650 mg | | | | | 17 8:25 | | | | | | PM PST | | | | +-------+ +--------+---+---+ +---+---+ | | | +---+---+ + +-------+ +-------+---+---+ | bisacodyl (DULCOLAX) | Given | 05/13/20 | 10 mg | | | | suppository 10 mg 10 mg, rectal, | | 17 6:54 | | | | | DAILY NEEDED, Starting Wed | | AM PST | | | | | 05/05/17 at 2020, Until Tue | | | | | | | 05/18/17 at 2210, 2nd line for no | | | | | | | BM in past 2 days OR if no | | | | | | | response to MIRALAX or if patient | | | | | | | unable to tolerate oral | | | | | | + +-------+ +-------+---+---+ +---+---+ | | | +---+---+ + +-------+ +-----+---+---+ | ceFEPIme (MAXIPIME) injection 2 | Given | 05/07/20 | 2 g | | | | g 2 g, intravenous, EVERY 8 | | 17 9:29 | | | | | HOURS, First dose on Wed05/07/17 | | AM PDT | | | | | at 0015, Until Discontinued | | | | | | + +-------+ +-----+---+---+ +-------+ +-----+---+---+ | Given | 05/07/20 | 2 g | | | | | 17 2:12 | | | | | | AM PDT | | | | +-------+ +-----+---+---+ +---+---+ | | | +---+---+ + +-------+ +-------+---+---------+ | enoxaparin (LOVENOX) injection | Given | 05/17/20 | 40 mg | | Abdomen | | 40 mg 40 mg, subcutaneous, EVERY | | 17 11:12 | | | | | EVENING, First dose on Sat | | PM PST | | | | | 05/08/17 at 2100, Until | | | | | | | Discontinued | | | | | | + +-------+ +-------+---+---------+ +-------+ +-------+---+---------+ | Given | 05/16/20 | 40 mg | | Abdomen | | | 17 9:50 | | | | | | PM PST | | | | +-------+ +-------+---+---------+ | Given | 05/15/20 | 40 mg | | Abdomen | | | 17 10:43 | | | | | | PM PST | | | | +-------+ +-------+---+---------+ +---+---+ | | | +---+---+ + +-------+ +--------+---+---+ | fentaNYL (SUBLIMAZE) injection | Given | 05/11/20 | 25 mcg | | | | 25-100 mcg 25-100 mcg, | | 17 2:30 | | | | | intravenous, INTRAPROCEDURE PRN, | | PM PST | | | | | 20 doses, Starting Wed05/11/17 at | | | | | | | 1403, Until Wed05/11/17 at 1528, | | | | | | | periprocedural pain management | | | | | | + +-------+ +--------+---+---+ +-------+ +--------+---+---+ | Given | 05/11/20 | 25 mcg | | | | | 17 2:25 | | | | | | PM PST | | | | +-------+ +--------+---+---+ | Given | 05/11/20 | 25 mcg | | | | | 17 2:09 | | | | | | PM PST | | | | +-------+ +--------+---+---+ +---+---+ | | | +---+---+ + +-------+ +-------+---+---+ | hydrALAZINE (APRESOLINE) | Given | 05/07/20 | 10 mg | | | | injection 10-20 mg 10-20 mg, | | 17 8:16 | | | | | intravenous, EVERY 20 MINUTES | | AM PDT | | | | | NEEDED, Starting Wed05/07/17 at | | | | | | | 0813, Until Wed05/07/17 at 0834, | | | | | | | hypertension, first line | | | | | | + +-------+ +-------+---+---+ +---+---+ | | | +---+---+ + +-------+ +--------+---+---+ | HYDROmorphone (DILAUDID) | Given | 05/07/20 | 0.5 mg | | | | injection 0.5-1.5 mg 0.5-1.5 mg, | | 17 2:00 | | | | | intravenous, EVERY 2 HOURS | | AM PDT | | | | | NEEDED, Starting Wed05/07/17 at | | | | | | | 0036, Until 05/09/17 at 0037, | | | | | | | severe pain | | | | | | + +-------+ +--------+---+---+ +---+---+ | | | +---+---+ + +-------+ +---------+---+---------+ | insulin lispro (HUMALOG) | Given | 05/10/20 | 2 Units | | Abdomen | | injection subcutaneous, FOUR | | 17 10:06 | | | | | TIMES DAILY, First dose on Wed | | PM PST | | | | | 05/07/17 at 1745, Until | | | | | | | Discontinued | | | | | | + +-------+ +---------+---+---------+ +-------+ +---------+---+---------+ | Given | 05/08/20 | 4 Units | | Right | | | 17 10:57 | | | Arm | | | AM PDT | | | | +-------+ +---------+---+---------+ | Given | 05/08/20 | 3 Units | | Abdomen | | | 17 2:05 | | | | | | AM PDT | | | | +-------+ +---------+---+---------+ +---+---+ | | | +---+---+ + +---------+ +--------+---+---+ | iohexol (OMNIPAQUE) 350 mg | IV Push | 05/07/20 | 100 mL | | | | iodine/mL injection 100 mL 100 | | 17 12:25 | | | | | mL, intravenous, ONCE, 1 dose, | | PM PDT | | | | | 05/07/17 at 1300 | | | | | | + +---------+ +--------+---+---+ +---+---+ | | | +---+---+ + +---------+ +--------+---+---+ | iohexol (OMNIPAQUE) 350 mg | IV Push | 05/10/20 | 100 mL | | | | iodine/mL injection 100 mL 100 | | 17 4:30 | | | | | mL, intravenous, ONCE, 1 dose, | | PM PST | | | | | 11/6/17 at 1630 | | | | | | + +---------+ +--------+---+---+ +---+---+ | | | +---+---+ + +---------+ +--------+---+---+ | iohexol (OMNIPAQUE) 350 mg | IV Push | 05/17/20 | 100 mL | | | | iodine/mL injection 100 mL 100 | | 17 1:00 | | | | | mL, intravenous, ONCE, 1 dose, | | PM PST | | | | | 05/17/17 at 1300 | | | | | | + +---------+ +--------+---+---+ +---+---+ | | | +---+---+ + +-------+ +---------+---+---+ | lactobacillus rhamnosus (GG) | Given | 05/18/20 | 1 | | | | (CULTURELLE) 15 billion cell | | 17 9:05 | capsule | | | | capsule 1 capsule 1 capsule, | | AM PST | | | | | oral, DAILY, First dose on Wed | | | | | | | 05/12/17 at 1745, Until | | | | | | | Discontinued | | | | | | + +-------+ +---------+---+---+ +-------+ +---------+---+---+ | Given | 05/17/20 | 1 | | | | | 17 9:00 | capsule | | | | | AM PST | | | | +-------+ +---------+---+---+ | Given | 05/16/20 | 1 | | | | | 17 9:48 | capsule | | | | | AM PST | | | | +-------+ +---------+---+---+ +---+---+ | | | +---+---+ + + + +---------+---+--------+ | lidocaine (LIDODERM) 5 % patch | Applied | 05/12/20 | 1 patch | | Left | | 1 patch 1 patch, transdermal, | Patch | 17 12:00 | | | Lower | | EVERY 24 HOURS, First dose on Fri | | PM PST | | | Back | | 05/07/17 at 1200, Until | | | | | | | Discontinued | | | | | | + + + +---------+---+--------+ +---+---+ | | | +---+---+ + +-------+ +---+---+---+ | lidocaine (XYLOCAINE URO-JET) 2 | Given | 05/09/20 | | | | | % samia tse, NEEDED, | | 17 5:54 | | | | | Starting 05/08/17 at 0116, | | AM PST | | | | | Until 05/18/17 at 2210, | | | | | | | straight caths | | | | | | + +-------+ +---+---+---+ +-------+ +---+---+---+ | Given | 05/09/20 | | | | | | 17 2:28 | | | | | | AM PST | | | | +-------+ +---+---+---+ | Given | 05/08/20 | | | | | | 17 10:59 | | | | | | PM PDT | | | | +-------+ +---+---+---+ +---+---+ | | | +---+---+ + +-------+ +---+---+---+ | lidocaine (XYLOCAINE) 10 mg/mL | Given | 05/08/20 | | | | | (1 %) injection infiltration, | | 17 2:54 | | | | | ONCE, 1 dose, 05/08/17 at 1445 | | PM PDT | | | | + +-------+ +---+---+---+ +---+---+ | | | +---+---+ + +-------+ +------+---+---+ | melatonin tablet 3 mg 3 mg, | Given | 05/17/20 | 3 mg | | | | oral, EVERY EVENING, First dose | | 17 11:12 | | | | | on 05/14/17 at 0030, Until | | PM PST | | | | | Discontinued | | | | | | + +-------+ +------+---+---+ + +---+ | | | + +---+ | menthol-zinc oxide (CALAZIME) | | | topical paste 0.2%-16.5% | | | topical, THREE TIMES DAILY | | | NEEDED, Starting e 05/18/17 at | | | 0349, Until Wed05/18/17 at 2210, | | | skin irritation/breakdown | | + +---+ | | | + +---+ + +-------+ +--------+---+---+ | midazolam (PF) (VERSED) | Given | 05/11/20 | 0.5 mg | | | | injection 1-5 mg 1-5 mg, | | 17 2:40 | | | | | intravenous, INTRAPROCEDURE PRN, | | PM PST | | | | | 20 doses, Starting Wed05/11/17 at | | | | | | | 1403, Until Wed05/11/17 at 1528, | | | | | | | periprocedural sedation | | | | | | + +-------+ +--------+---+---+ +-------+ +--------+---+---+ | Given | 05/11/20 | 0.5 mg | | | | | 17 2:25 | | | | | | PM PST | | | | +-------+ +--------+---+---+ | Given | 05/11/20 | 0.5 mg | | | | | 17 2:10 | | | | | | PM PST | | | | +-------+ +--------+---+---+ +---+---+ | | | +---+---+ + + + +---+ +---+ | NaCl 0.9%-KCl 20 mEq/L IV | Rate/Dos | 05/06/20 | | 50 mL/hr | | | infusion intravenous, | e Verify | 17 9:34 | | | | | CONTINUOUS, Starting 05/05/17 | | AM PDT | | | | | at 2100, Until Wed05/07/17 at | | | | | | | 0107, at 50 mL/hr | | | | | | + + + +---+ +---+ + + +---+ +---+ | Rate/Dose Verify | 05/06/20 | | 50 mL/hr | | | | 17 1:40 | | | | | | AM PDT | | | | + + +---+ +---+ | New Bag | 11/01/20 | | 50 mL/hr | | | | 17 8:52 | | | | | | PM PDT | | | | + + +---+ +---+ +---+---+ | | | +---+---+ + +-------+ +------+---+---+ | ondansetron (ZOFRAN) injection | Given | 05/05/20 | 4 mg | | | | 4 mg 4 mg, intravenous, EVERY 12 | | 17 8:48 | | | | | HOURS, 2 doses, First dose on | | PM PDT | | | | | 05/05/17 at 2100, Last dose on | | | | | | | [facility] 05/06/17 at 0900 | | | | | | + +-------+ +------+---+---+ +---+---+ | | | +---+---+ + +-------+ +------+---+---+ | oxyCODONE (immediate release) | Given | 05/06/20 | 5 mg | | | | (ROXICODONE) tablet 5-15 mg 5-15 | | 17 5:42 | | | | | mg, oral, EVERY 3 HOURS | | PM PDT | | | | | NEEDED, Starting 05/05/17 at | | | | | | | 2021, Until Wed05/07/17 at 0036, | | | | | | | moderate pain, severe pain | | | | | | + +-------+ +------+---+---+ +-------+ +------+---+---+ | Given | 05/06/20 | 5 mg | | | | | 17 11:29 | | | | | | AM PDT | | | | +-------+ +------+---+---+ | Given | 05/06/20 | 5 mg | | | | | 17 1:40 | | | | | | AM PDT | | | | +-------+ +------+---+---+ +---+---+ | | | +---+---+ + +-------+ +-------+---+---+ | oxyCODONE (immediate release) | Given | 05/18/20 | 10 mg | | | | (ROXICODONE) tablet 5-15 mg 5-15 | | 17 3:42 | | | | | mg, oral, EVERY 3 HOURS | | PM PST | | | | | NEEDED, Starting Wed05/07/17 at | | | | | | | 0036, Until Wed05/18/17 at 2210, | | | | | | | moderate pain | | | | | | + +-------+ +-------+---+---+ +-------+ +-------+---+---+ | Given | 05/18/20 | 10 mg | | | | | 17 12:59 | | | | | | AM PST | | | | +-------+ +-------+---+---+ | Given | 05/17/20 | 5 mg | | | | | 17 12:48 | | | | | | PM PST | | | | +-------+ +-------+---+---+ +---+---+ | | | +---+---+ + + + + +-------+---+ | PHENYLEPHrine 50 mg/250 mL (0.2 | Rate/Dos | 05/07/20 | 0.1 | 2.7 | | | mg/mL) IV infusion (ADC) 0.1-2 | e Change | 17 1:15 | mcg/kg/m | mL/hr | | | mcg/kg/min | | AM PDT | in | | | | 90 kg Order-specific weight | | | | | | | (2.7-54 mL/hr), intravenous, | | | | | | | CONTINUOUS, Starting Wed05/07/17 | | | | | | | at 0145, Until Wed05/07/17 at | | | | | | | 0508 | | | | | | + + + + +-------+---+ + + + +-------+---+ | Rate/Dose Change | 05/07/20 | 0.3 | 8.1 | | | | 17 12:45 | mcg/kg/m | mL/hr | | | | AM PDT | in | | | + + + +-------+---+ +---+---+ | | | +---+---+ + +-------+ +------+---+---+ | polyethylene glycol (MIRALAX) | Given | 05/11/20 | 17 g | | | | packet 17 g 17 g, oral, DAILY, | | 17 9:24 | | | | | First dose on [place] 05/06/17 at | | AM PST | | | | | 0900, Until Discontinued | | | | | | + +-------+ +------+---+---+ +-------+ +------+---+---+ | Given | 05/08/20 | 17 g | | | | | 17 10:57 | | | | | | AM PDT | | | | +-------+ +------+---+---+ +---+---+ | | | +---+---+ + +-------+ +------+---+---+ | polyethylene glycol (MIRALAX) | Given | 05/15/20 | 17 g | | | | packet 17 g 17 g, oral, DAILY, | | 17 9:03 | | | | | First dose on [facility] 05/13/17 at | | AM PST | | | | | 1315, Until Discontinued | | | | | | + +-------+ +------+---+---+ +-------+ +------+---+---+ | Given | 05/14/20 | 17 g | | | | | 17 8:36 | | | | | | AM PST | | | | +-------+ +------+---+---+ | Given | 05/13/20 | 17 g | | | | | 17 1:51 | | | | | | PM PST | | | | +-------+ +------+---+---+ +---+---+ | | | +---+---+ + +-------+ +------+---+---+ | polyethylene glycol (MIRALAX) | Given | 05/12/20 | 34 g | | | | packet 34 g 34 g, oral, THREE | | 17 5:57 | | | | | TIMES DAILY NEEDED, Starting | | PM PST | | | | | 05/05/17 at 2020, Until Tue | | | | | | | 05/18/17 at 2210, 1st line - for | | | | | | | no BM for 2 days | | | | | | + +-------+ +------+---+---+ +-------+ +------+---+---+ | Given | 05/08/20 | 34 g | | | | | 17 10:11 | | | | | | PM PDT | | | | +-------+ +------+---+---+ +---+---+ | | | +---+---+ + +---------+ +--------+---+---+ | potassium chloride IV | New Bag | 05/10/20 | 40 mEq | | | | (peripheral line) 40 mEq 40 mEq, | | 17 1:58 | | | | | intravenous, ONCE, 1 dose, Mon | | PM PST | | | | | 05/10/17 at 1230 | | | | | | + +---------+ +--------+---+---+ +---+---+ | | | +---+---+ + +---------+ +--------+---+---+ | potassium chloride IV | New Bag | 05/11/20 | 40 mEq | | | | (peripheral line) 40 mEq 40 mEq, | | 17 11:21 | | | | | intravenous, ONCE, 1 dose, Tue | | AM PST | | | | | 05/11/17 at 1030 | | | | | | + +---------+ +--------+---+---+ +---+---+ | | | +---+---+ + +-------+ +--------+---+---+ | potassium chloride SR (K-DUR) | Given | 05/09/20 | 20 mEq | | | | tablet 20-40 mEq 20-40 mEq, | | 17 7:20 | | | | | oral, NEEDED, Starting Sun | | AM PST | | | | | 05/09/17 at 0435, Until Sun | | | | | | | 05/09/17 at 0933, hypokalemia per | | | | | | | protocol. See administration | | | | | | | instructions. | | | | | | + +-------+ +--------+---+---+ +-------+ +--------+---+---+ | Given | 05/09/20 | 40 mEq | | | | | 17 5:17 | | | | | | AM PST | | | | +-------+ +--------+---+---+ +---+---+ | | | +---+---+ + +---------+ + +-------+---+ | propofol (DIPRIVAN) injection | New Bag | 05/07/20 | 20 | 10.8 | | | 0.5-50 mcg/kg/min | | 17 7:23 | mcg/kg/m | mL/hr | | | 90 kg Order-specific weight | | AM PDT | in | | | | (0.27-27 mL/hr), intravenous, | | | | | | | CONTINUOUS, Starting Wed05/07/17 | | | | | | | at 0145, Until Wed05/07/17 at | | | | | | | 0805 | | | | | | + +---------+ + +-------+---+ + + + +-------+---+ | Rate/Dose Change | 05/07/20 | 20 | 10.8 | | | | 17 6:00 | mcg/kg/m | mL/hr | | | | AM PDT | in | | | + + + +-------+---+ | Rate/Dose Verify | 05/07/20 | 35 | 18.9 | | | | 17 3:00 | mcg/kg/m | mL/hr | | | | AM PDT | in | | | + + + +-------+---+ +---+---+ | | | +---+---+ + +-------+ + +---+---+ | senna (SENOKOT) tablet 1 tablet | Given | 05/15/20 | 1 tablet | | | | 1 tablet, oral, DAILY, First | | 17 9:03 | | | | | dose on Allyssa 05/13/17 at 1315, | | AM PST | | | | | Until Discontinued | | | | | | + +-------+ + +---+---+ +-------+ + +---+---+ | Given | 05/14/20 | 1 tablet | | | | | 17 8:36 | | | | | | AM PST | | | | +-------+ + +---+---+ | Given | 05/13/20 | 1 tablet | | | | | 17 1:51 | | | | | | PM PST | | | | +-------+ + +---+---+ + +---+ | | | + +---+ | senna (SENOKOT) tablet 2 tablet | | | 2 tablet, oral, TWICE DAILY, | | | First dose (after last | | | modification) on 05/16/17 at | | | 2100, Until Discontinued | | + +---+ | | | + +---+ + +-------+ +---------+---+---+ | senna-docusate (SENOKOT S) | Given | 05/11/20 | 2 | | | | 8.6-50 mg 2 tablet 2 tablet, | | 17 9:23 | tablets | | | | oral, TWICE DAILY, First dose on | | AM PST | | | | | 05/05/17 at 2215, Until | | | | | | | Discontinued | | | | | | + +-------+ +---------+---+---+ +-------+ +---------+---+---+ | Given | 05/09/20 | 2 | | | | | 17 8:57 | tablets | | | | | AM PST | | | | +-------+ +---------+---+---+ | Given | 05/08/20 | 2 | | | | | 17 9:50 | tablets | | | | | PM PDT | | | | +-------+ +---------+---+---+ +---+---+ | | | +---+---+ + +-------+ +-------+---+---+ | simethicone chew (MYLICON) | Given | 05/08/20 | 80 mg | | | | tablet 80 mg 80 mg, oral, THREE | | 17 6:55 | | | | | TIMES DAILY NEEDED, Starting | | PM PDT | | | | | 05/05/17 at 2255, Until Sun | | | | | | | 05/09/17 at 1425, bloating | | | | | | + +-------+ +-------+---+---+ +-------+ +-------+---+---+ | Given | 05/06/20 | 80 mg | | | | | 17 11:28 | | | | | | AM PDT | | | | +-------+ +-------+---+---+ | Given | 05/05/20 | 80 mg | | | | | 17 11:37 | | | | | | PM PDT | | | | +-------+ +-------+---+---+ +---+---+ | | | +---+---+ + + + +-------+-------+---+ | sodium chloride 0.9% IV | Rate/Dos | 05/07/20 | 100 | 100 | | | infusion 100 mL/hr, intravenous, | e Verify | 17 10:00 | mL/hr | mL/hr | | | CONTINUOUS, Starting Wed05/07/17 | | AM PDT | | | | | at 0145, Until Wed05/07/17 at | | | | | | | 1050 | | | | | | + + + +-------+-------+---+ + + +-------+-------+---+ | Rate/Dose Verify | 05/07/20 | 100 | 100 | | | | 17 9:00 | mL/hr | mL/hr | | | | AM PDT | | | | + + +-------+-------+---+ | Rate/Dose Verify | 05/07/20 | 100 | 100 | | | | 17 8:00 | mL/hr | mL/hr | | | | AM PDT | | | | + + +-------+-------+---+ +---+---+ | | | +---+---+ + +---------+ + +---+---+ | sodium chloride 0.9% IV | New Bag | 05/07/20 | 1,000 mL | | | | infusion 1,000 mL, intravenous, | | 17 1:34 | | | | | ONCE, 1 dose, 05/07/17 at 0200 | | AM PDT | | | | + +---------+ + +---+---+ +---+---+ | | | +---+---+ + +---------+ + +-------+---+ | sodium chloride 0.9% IV | New Bag | 05/09/20 | 1,000 mL | 500 | | | infusion 1,000 mL, intravenous, | | 17 1:06 | | mL/hr | | | ONCE, 1 dose, [place] 05/09/17 at 0115 | | AM PDT | | | | + +---------+ + +-------+---+ +---+---+ | | | +---+---+ + +---------+ + +-------+---+ | sodium chloride 0.9% IV | New Bag | 05/13/20 | 1,000 mL | 500 | | | infusion 1,000 mL, intravenous, | | 17 10:30 | | mL/hr | | | ONCE, 1 dose, [facility] 05/13/17 at 0845 | | AM PST | | | | + +---------+ + +-------+---+ +---+---+ | | | +---+---+ + +-------+ +--------+---+---+ | tamsulosin (FLOMAX) capsule 0.4 | Given | 05/10/20 | 0.4 mg | | | | mg 0.4 mg, oral, DAILY, First | | 17 9:56 | | | | | dose on 05/08/17 at 0900, | | AM PST | | | | | Until Discontinued | | | | | | + +-------+ +--------+---+---+ +-------+ +--------+---+---+ | Given | 05/09/20 | 0.4 mg | | | | | 17 8:57 | | | | | | AM PST | | | | +-------+ +--------+---+---+ | Given | 05/08/20 | 0.4 mg | | | | | 17 9:35 | | | | | | AM PDT | | | | +-------+ +--------+---+---+ +---+---+ | | | +---+---+ + +-------+ +--------+---+---+ | tamsulosin (FLOMAX) capsule 0.8 | Given | 05/18/20 | 0.8 mg | | | | mg 0.8 mg, oral, DAILY, First | | 17 9:05 | | | | | dose (after last modification) on | | AM PST | | | | | 05/11/17 at 0900, Until | | | | | | | Discontinued | | | | | | + +-------+ +--------+---+---+ +-------+ +--------+---+---+ | Given | 05/17/20 | 0.8 mg | | | | | 17 9:00 | | | | | | AM PST | | | | +-------+ +--------+---+---+ | Given | 05/16/20 | 0.8 mg | | | | | 17 9:47 | | | | | | AM PST | | | | +-------+ +--------+---+---+ +---+---+ | | | +---+---+ + +-------+ +--------+---+---+ | thiamine tablet 100 mg 100 mg, | Given | 05/18/20 | 100 mg | | | | oral, DAILY, First dose on Wed | | 9:05 | | | | | 05/12/17 at 1115, Until | | AM PST | | | | | Discontinued | | | | | | + +-------+ +--------+---+---+ +-------+ +--------+---+---+ | Given | 05/17/20 | 100 mg | | | | | 17 9:00 | | | | | | AM PST | | | | +-------+ +--------+---+---+ | Given | 05/16/20 | 100 mg | | | | | 17 9:47 | | | | | | AM PST | | | | +-------+ +--------+---+---+ +---+---+ | | | +---+---+ + +---------+ + +---+---+ | vancomycin (VANCOCIN) IV 1,250 | New Bag | 05/12/20 | 1,250 mg | | | | mg 1,250 mg, intravenous, EVERY | | 17 8:00 | | | | | 8 HOURS, First dose (after last | | AM PST | | | | | modification) on Wed05/11/17 at | | | | | | | 0000, Until Discontinued | | | | | | + +---------+ + +---+---+ +---------+ + +---+---+ | New Bag | 05/12/20 | 1,250 mg | | | | | 17 12:03 | | | | | | AM PST | | | | +---------+ + +---+---+ | New Bag | 05/11/20 | 1,250 mg | | | | | 17 4:20 | | | | | | PM PST | | | | +---------+ + +---+---+ +---+---+ | | | +---+---+ + +---------+ + +---+---+ | vancomycin (VANCOCIN) IV 1,500 | New Bag | 05/08/20 | 1,500 mg | | | | mg 1,500 mg, intravenous, EVERY | | 17 2:20 | | | | | 12 HOURS, First dose on Wed | | PM PDT | | | | | 05/07/17 at 0130, Until | | | | | | | Discontinued | | | | | | + +---------+ + +---+---+ +---------+ + +---+---+ | New Bag | 05/08/20 | 1,500 mg | | | | | 17 1:55 | | | | | | AM PDT | | | | +---------+ + +---+---+ | New Bag | 05/07/20 | 1,500 mg | | | | | 17 2:28 | | | | | | PM PDT | | | | +---------+ + +---+---+ +---+---+ | | | +---+---+ + +---------+ + +---+---+ | vancomycin (VANCOCIN) IV 1,500 | New | 05/18/20 | 1,500 mg | | | | mg 1,500 mg, intravenous, EVERY | | 17 9:04 | | | | | 12 HOURS, First dose (after last | | AM PST | | | | | modification) on Wed05/14/17 at | | | | | | | 0900, Until Discontinued | | | | | | + +---------+ + +---+---+ +---------+ + +---+---+ | New Bag | 05/17/20 | 1,500 mg | | | | | 17 11:12 | | | | | | PM PST | | | | +---------+ + +---+---+ | New Bag | 05/17/20 | 1,500 mg | | | | | 17 9:00 | | | | | | AM PST | | | | +---------+ + +---+---+ +---+---+ | | | +---+---+ + +---------+ + +---+---+ | vancomycin (VANCOCIN) IV 1,750 | New Bag | 05/10/20 | 1,750 mg | | | | mg 1,750 mg, intravenous, EVERY | | 17 2:23 | | | | | 12 HOURS, First dose (after last | | PM PST | | | | | modification) on 05/09/17 at | | | | | | | 0200, Until Discontinued | | | | | | + +---------+ + +---+---+ +---------+ + +---+---+ | New Bag | 05/10/20 | 1,750 mg | | | | | 17 2:15 | | | | | | AM PST | | | | +---------+ + +---+---+ | New Bag | 05/09/20 | 1,750 mg | | | | | 17 2:36 | | | | | | PM PST | | | | +---------+ + +---+---+ +---+---+ | | | +---+---+ + +---------+ + +---+---+ | vancomycin (VANCOCIN) IV 2,000 | New Bag | 05/13/20 | 2,000 mg | | | | mg 2,000 mg, intravenous, EVERY | | 17 8:04 | | | | | 12 HOURS, First dose (after last | | PM PST | | | | | modification) on Wed05/12/17 at | | | | | | | 1800, Until Discontinued | | | | | | + +---------+ + +---+---+ +---------+ + +---+---+ | New Bag | 05/13/20 | 2,000 mg | | | | | 17 8:03 | | | | | | AM PST | | | | +---------+ + +---+---+ | New Bag | 05/12/20 | 2,000 mg | | | | | 17 5:57 | | | | | | PM PST | | | | +---------+ + +---+---+ +---+---+ | | | +---+---+ + +-------+ +---+---+---+ | white petrolatum-mineral oil | Given | 05/15/20 | | | | | (EUCERIN) cream topical, TWICE | | 17 10:44 | | | | | DAILY, First dose on Wed05/12/17 | | PM PST | | | | | at 1115, Until Discontinued | | | | | | + +-------+ +---+---+---+ +-------+ +---+---+---+ | Given | 05/15/20 | | | | | | 17 9:09 | | | | | | AM PST | | | | +-------+ +---+---+---+ | Given | 05/14/20 | | | | | | 17 8:37 | | | | | | AM PST | | | | +-------+ +---+---+---+ +---+---+ | | | +---+---+ documented in this encounter Additional Health Concerns + + + + | Infection | Noted Time | Resolved Time | + + + + | Methicillin Resistant Staph Aureus | 05/07/2017 12:00 AM | | | | PDT | | + + + + documented as of this encounter
--- OUTSIDE RECORDS SUMMARY | ~2019-11-01 | XMS | Encounter Summary ---
Demographics + + + | Address | [address] | | | [place] [address] | + + + | Home Phone | | + + + | Preferred Language | Unknown | + + + | Marital Status | Single | + + + | Scientology Affiliation | CAT | + + + | Race | White | + + + | Ethnic Group | Not or | + + + Author + + + | Author | [facility] | + + + | Organization | [facility] | + + + | Address | Unknown | + + + | Phone | Unavailable | + + + Support + + + + + | Name | Relationship | Address | Phone | + + + + + | Sona Escalona | [place] | [address] | | | | | [place] | | | | | [address] | | + + + + + | Sondra Zuelta | ECON | Unknown | | + + + + + Care Team Providers + +------+ + | Care Occup Ther Name | Role | Phone | + +------+ + | Griffin Shi DO | PCP | | + +------+ + Encounter Details +--------+ + + + + | Date | Type | Department | Care Team | Description | +--------+ + + + + | 12/06/ | Documentati | Infectious | Camille Gomez MD | | | 2017 | on | [facility] | [address] | | | | | [address] | [address] | | | | | [address] | [place], [place] | | | | | [place], [address] floor | [address] | | | | | [place], [place] | [phone] | | | | | [address] | | | | | | [phone] | | | +--------+ + + + [...]
--- OUTSIDE RECORDS SUMMARY | ~2019-11-01 | XMS | Encounter Summary ---
Demographics + + + | Address | [address] | | | [place] [address] | + + + | Home Phone | | + + + | Preferred Language | Unknown | + + + | Marital Status | Single | + + + | Buddhism Affiliation | CAT | + + + | Race | White | + + + | Ethnic Group | Not or | + + + Author + + + | Author | [facility] | + + + | Organization | [facility] | + + + | Address | Unknown | + + + | Phone | Unavailable | + + + Support + + + + + | Name | Relationship | Address | Phone | + + + + + | Sona Escalona | [place] | [address] | | | | | [place] | | | | | [address] | | + + + + + | Sondra Zuleta | ECON | Unknown | | + + + + + Care Team Providers + +------+ + | Care Communications Specialist Name | Role | Phone | + +------+ + | Griffin Shi DO | PCP | | + +------+ + Encounter Details +--------+ + + + + | Date | Type | Department | Care Team | Description | +--------+ + + + + | 05/14/ | Document-Sc | Health Information | Unknown . | | | 2017 | anned | Services [address] | | | | | | [address] | | | | | | Mailcode: [id number] | | | | | | [facility] | | | | | | [place], [place] | | | | | | [address] | | | | | | [phone] | | | +--------+ + + + [...]
--- OUTSIDE RECORDS SUMMARY | ~2019-11-01 | XMS | Encounter Summary ---
Demographics + + + | Address | [address] | | | [place] [address] | + + + | Home Phone | | + + + | Preferred Language | Unknown | + + + | Marital Status | Single | + + + | Mormon Affiliation | CAT | + + + | Race | White | + + + | Ethnic Group | Not or | + + + Author + + + | Author | [facility] | + + + | Organization | [facility] | + + + | Address | Unknown | + + + | Phone | Unavailable | + + + Support + + + + + | Name | Relationship | Address | Phone | + + + + + | Sona Escalona | [place] | [address] | | | | | [place] | | | | | [address] | | + + + + + | Sondra Zuleta | ECON | Unknown | | + + + + + Care Team Providers + +------+ + | Care Employment Instructional Associate Name | Role | Phone | + +------+ + | Griffin Shi DO | PCP | | + +------+ + Reason for Visit + + + | Reason | Comments | + + + | Lab Results | | + + + Encounter Details +--------+ + + + + | Date | Type | Department | Care Team | Description | +--------+ + + + + | 06/22/ | Documentati | Infectious | Camille Gomez MD | Lab Results | | 2017 | on | [facility] | [address] | | | | | [address] | [facility] | | | | | [address] | [place], [place] | | | | | [place], [facility] floor | [address] | | | | | [place], [place] | [phone] | | | | | [address] | | | | | | [phone] | | | +--------+ + + + [...]
--- OUTSIDE RECORDS SUMMARY | ~2019-11-01 | XMS | Encounter Summary ---
Demographics + + + | Address | [address] | | | [place] [address] | + + + | Home Phone [...] Author + + + | Author | [facility] | + + + | Organization | [facility] | + + + | Address | Unknown | + + + | Phone | Unavailable | + + + Support + + + + + | Name | Relationship | Address | Phone | + + + + + | Sona Escalona | [place] | [address] | | | | | [place] | | | | | [address] | | + + + + + | Sondra Zuleta | ECON | Unknown | | + + + + + Care Team Providers + +------+ + | Care Wrapper Stripper Name | Role | Phone | + +------+ + | Griffin Shi DO | PCP | | + +------+ + Encounter Details +--------+ + + + + | Date | Type | Department | Care Team | Description | +--------+ + + + + | 05/07/ | Document-Sc | Health Information | Unknown . | | | 2017 | anned | Services [address] | | | | | | [address] | | | | | | Mailcode: [id number] | | | | | | [facility] | | | | | | [place], [place] | | | | | | [address] | | | | | | [phone] | | | +--------+ + + + [...]
--- OUTSIDE RECORDS SUMMARY | ~2019-11-01 | XMS | Encounter Summary ---
Demographics + + + | Address | [address] | | | [place] [address] | + + + | Home Phone | | + + + | Preferred Language | Unknown | + + + | Marital Status | Single | + + + | Scientologist Affiliation | CAT | + + + | Race | White | + + + | Ethnic Group | Not or | + + + Author + + + | Author | [facility] | + + + | Organization | [facility] | + + + | Address | Unknown | + + + | Phone | Unavailable | + + + Support + + + + + | Name | Relationship | Address | Phone | + + + + + | Sona Escalona | BROOK | [address] | | | | | [place] | | | | | [address] | | + + + + + | Sondra Zuleta | ECON | Unknown | | + + + + + Care Team Providers + +------+ + | Care Senior Application Security Consultant Name | Role | Phone | + +------+ + | Griffin Shi DO | PCP | | + +------+ + Reason for Visit Office Visit - E/M Services (Routine) +--------+--------+ + + + + | Status | Reason | Specialty | Diagnoses / | Referred By | Referred To | | | | | Procedures | Contact | Contact | +--------+--------+ + + + + | Closed | | Infectious | Diagnoses | Non-[facility] | Patricia, | | | | Disease | Intraspinal | Epic Dept | Camille Oconnell MD | | | | | abscess and | | [address] | | | | | granuloma | | [address] | | | | | Bacteremia | | Rd [place], | | | | | | | [place] | | | | | | | [address] | | | | | | | Phone: | | | | | | | [phone] | | | | | | | Fax: | | | | | | | [phone] | +--------+--------+ + + + + Encounter Details +--------+---------+ + + + | Date | Type | Department | Care Team | Description | +--------+---------+ + + + | 06/09/ | Office | Infectious | Camille Gomez MD | Abscess in epidural | | 2017 | Visit | [facility] | [address] | space of spine | | | | [address] | [facility] [address] | (Primary Dx); MRSA | | | | [facility] | [place], [place] | bacteremia; Pleural | | | | Pavilion, 3rd floor | [address] | effusion; Encounter | | | | [place], [place] | [phone] | for long-term | | | | [address] | | (current) use of | | | | [phone] | | antibiotics | +--------+---------+ + + + Social History + +-------+ [...] + + + | Blood Pressure | 126/80 | 06/09/2017 12:44 PM | | | | | PST | | + + + + + | Pulse | 107 | 06/09/2017 12:44 PM | | | | | PST | | + + + + + | Temperature | 36.2 C (97.2 F) | 06/09/2017 12:44 PM | | | | | PST | | + + + + + | Respiratory Rate | - | - | | + + + + + | Oxygen Saturation | 100% | 06/09/2017 12:44 PM | | | | | PST | | + + + + + | Inhaled Oxygen | - | - | | | Concentration | | | | + + + + + | Weight | 71.2 kg (157 lb) | 06/09/2017 12:44 PM | | | | | PST | | + + + + + | Height | - | - | | + + + + + | Body Mass Index | 22.53 | 06/03/2017 12:55 PM | | | | | PST | [...] documented as of this encounter Progress Notes Camille Gomez MD - 06/09/2017 12:00 PM PST INFECTIOUS DISEASES CLINIC FOLLOW UP Referrring Physician: No Referring Provider Per Patient NO REFERRING PROVIDER PER PT Primary Care Physician: [facility] [address] [facility] [place] [address] Assessment/Plan MRSA bacteremia MRSA epidural abscess status post decompression with T1 and T8 skip laminectomies Erector spinae abscess status post drainage Moderate pleural effusion status post thoracentesis Central venous access in place Encounter for long-term antibiotics requiring intensive monitoring for antibiotic toxic ity Ludin Escalona is a 61 y.o. male with a hx of rectal cancer admitted with MRSA bacterem ia and extensive MRSA epidural abscess (C2-L2) s/p decompression with T1 and T8 skip laminec tomies (05/06), erector spinae abscess s/p percutaneous drain placement (05/11) now presenting for follow-up on IV vancomycin. Ludin is doing well and his inflammatory markers are decrea sing nicely. We will add on an ESR and to next week's labs and anticipate stopping as schedu led on the . I've also ordered a chest x-ray to follow up on his prior rim-enhancing col lection in the left pleural space given he continues to have pain there and we want to ensur e that we have resolved all issues prior to pulling his PICC line. We discussed infection, antibiotics, duration of therapy, lab results, and follow-up planni leyda, as described above. It is recommended that Mr. Escalona follow up in Infectious Diseases Clinic as needed I have communicated my evaluation and treatment plan from today's visit with the patient's care team including the primary care provider and outpatient infusion provider. History other than "Interim History" below is directly copied from previous ID notes to tyson victor. In addition I reviewed the history from the patient's [facility] hospital admiss ion, including but not limited to all pertinent ID consultation notes, surgical procedures & findings, culture results & lab tests, pathology reports, case management notes, and the [facility] discharge summary. History: 61 y.o. male with remote h/o rectal cancer admitted with MRSA bacteremia and exten sive MRSA epidural abscess (C2-L2) s/p decompression with T1 and T8 skip laminectomies (05/06 ), erector spinae abscess s/p percutaneous drain placement (05/11). Blood cultures negative a s of 05/11. Paraspinal abscess drain with ~50cc out past 24 hours. 05/06 - T2and T8 skip laminectomies for evacuation of epidural abscess 05/08 - L thoracentesis 05/11 - US guided percutaneous drain placement L erector spinae muscle abscess 05/17 - notable rim enhancing lesion in L pleural space 05/18 - thoracentesis Diagnosis: MRSA C2-L2 epidural abscess, MRSA bacteremia All antibiotic agents and dosing: vancomycin IV, goal trough ~15 Duration: 6 weeks Start date:05/11/17 Anticipated stop date: 06/22/17 PMH, SH, Surg Hx, FH reviewed/updated Interim History Mr. Escalona presents today from home. The patient has been receiving vancomycin as direct ed without missed doses. There have been no noticeable antibiotic side effects There have be en no fevers, chills, or night sweats. Patient denies any nausea, vomiting, diarrhea. The korina damon reports no difficulties with their vascular access device. He feels well and states that his energy has been improving as has his appetite. He states that he does not have pain unless he lays on his left side for prolonged period of time nor does he have pain in his back unless he states he overexerts himself. Otherwise he feels rat her well All others negative except for those mentioned above Current Medications: medications. Current Outpatient Prescriptions Medication Sig acetaminophen 325 mg oral tablet Take 2 tablets by mouth every six hours as needed lidocaine 5 % topical adhesive patch,medicated Apply 1 patch to skin every twenty-four hours Apply patch to most painful area; Patch may remain in place for up to 12 hours in any 24-hour period. oxyCODONE (immediate release) 5 mg oral tablet Take 1-2 tablets by mouth every six hour s as needed for moderate pain polyethylene glycol 17 gram oral powder in packet Mix 1 packet and take orally once steph ly tamsulosin 0.4 mg oral capsule,extended release 24hr Take 2 capsules by mouth once bill y vancomycin 1,000 mg intravenous recon soln Inject 1,500 mg into the vein (IV) every twe lve hours for 39 days. To be admixed per infusion pharmacy standard policy and/or procedure. No current facility-administered medications for this visit. Antibiotic Summary: Vancomycin 05/07 - present Allergies: No new allergic reactions have been noted today. Review of patient's allergies indicates no known allergies. Physical Exam: VS: Wt 71.2 kg (157 lb), BP 126/80, Pulse 107, Temperature 36.2 C (97.2 F), Temperature source Forehead, SpO2 100%, BMI 22.53 kg/(m^2). General: The patient was sitting comfortably at rest. Looked well HEENT: eomi, anicteric sclera, PERRL LAD: no lad CV: S1S2 no MRG Pulm:CTAB b/l no wheezes/rhonchi Abd:soft, nt, nd, + BS : deferred Musculoskeletal: no edema Skin/wound:All skin is extremely dry and flaking, surgical site appears well-healed though there is a hyperpigmentation about the wounds Neurologic: grossly intact Psychiatric: appropriate, good insight Lines: The picc site was clean, without redness Diagnostic Tests: Recent lab results were reviewed to detect antibiotic side effects and to assess response to treatment for infection. Microbiology Summary: 05/06 epidural aspirate - MRSA 05/06 epidural soft tissue - MRSA 05/06 epidural abscess swab - MRSA 07/08 pleural fluid - gs: many polys, no orgs; cx: NGTD BCx: 2 - MRSA /3 - MRSA /4 - MRSA /5 - MRSA /6 - MRSA /7 - NGTD 11/8 - NGTD Radiology Summary: 05/17 CT a/p Left paraspinal muscle abscess contains appropriate position pigtail drain. Ab scess cavity is collapsed around the drain. Small residual deep rim enhancing collection in the pleural space, along the posterior costophrenic recess diaphragm measuring 3.4 x 1.1 cm, previously 4.9 x 2.7 cm. 1. Since 05/10/17, resolution of the left paraspinal muscle abscess . However there is a small residual contiguous deeper abscess within the right diaphragm/pos terior costophrenic recess. 2. More conspicuous left parietal pleural enhancement with pleural effusion could represent spread of infection to the pleural space, particularly given persistent diaphragm/posterior costophrenic recess abscess. Camille Gomez MD INFECTIOUS DISEASES AT [address] Mailcode: [address] [place] [address] documented in this enc ounter Plan of Treatment Not on filedocumented as of this encounter Procedures + +--------+ + + + | Procedure Name | Priori | Date/Time | Associated Diagnosis | Comments | | | ty | | | | + +--------+ + + + | ORDERS OTHER | | 06/09/2017 | | Results for this | | | | 12:00 AM | | procedure are in the | | | | PST | | results section. | + +--------+ + + + documented in this encounter Results ORDERS OTHER (06/09/2017 12:00 AM PST) + + + | Narrative | Performed At | + + + | | | + + + documented in this encounter Visit Diagnoses + + | Diagnosis | + + | Abscess in epidural space of spine - Primary | + + | MRSA bacteremia Bacteremia | + + | Pleural effusion Unspecified pleural effusion | + + | Encounter for long-term (current) use of antibiotics | + + documented in this encounter Additional Health Concerns + + + + | Infection | Noted Time | Resolved Time | + + + + | Methicillin Resistant Staph Aureus | 05/07/2017 12:00 AM | | | | PDT | | + + + + documented as of this encounter
--- OUTSIDE RECORDS SUMMARY | ~2019-11-01 | XMS | Encounter Summary ---
Demographics + + + | Address | [address] | | | [place] [address] | + + + | Home Phone | | + + + | Preferred Language | Unknown | + + + | Marital Status | Single | + + + | Scientologist Affiliation | Unknown | + + + | Race | Unknown | + + + | Ethnic Group | Unknown | + + + Author + + + | Author | [facility] | | | and [place] | + + + | Organization | [facility] | | | and [place] | [...] Team Providers + +------+ + | Care Insurance Verifier Name | Role | Phone | + +------+ + PCP | Unavailable | + +------+ + Encounter Details +--------+ + + + + | Date | Type | Department | Care Team | Description | +--------+ + + + + | 12/08/ | Hospital | [facility] | | | | 2011 | Encounter | [facility] | | | | | | [address] | | | | | | [place] | | | | | | [address] | | | | | | [phone] | | | +--------+ + + + [...] | + +--------+ + + + | COMPREHENSIVE | Routin | 12/09/2011 | | Results for this | | METABOLIC PANEL | e | 9:47 AM | | procedure are in the | | | | PDT | | results section. | + +--------+ + + + documented in this encounter Results Comprehensive Metabolic Panel (12/09/2011 9:47 AM PDT) + + + + + + | Component | Value | Ref Range | Performed | Pathologist | | | | | At | Signature | + + + + + + | Glucose | 111 (H) | 70 - 109 mg/dL | [facility] | | | | | [facility] | | [facility] | [facility] | | | | | | [facility] - | | | | | | LABORATORY | | + + + + + + | Calcium | 8.9 | 8.3 - 10.5 | [facility] | | | | | mg/dL | [facility] | | | | | | [facility] | | | | | | C[facility] - | | | | | | LABORATORY | | + + + + + + | Alkaline | 46 | 40 - 110 IU/L | [facility] | | | Phosphatase | | | [facility] | | | | | | [facility] | | | | | | CENTER - | | | | | | LABORATORY | | + + + + + + | AST | 27 | 10 - 42 IU/L | [facility] | | | | | | [facility] | | | | | | [facility] | | | | | | C[facility] - | | | | | | LABORATORY | | + + + + + + | ALT | 33 | 6 - 45 IU/L | [facility] | | | | | | [facility] | | | | | | [facility] | | | | | | C[facility] - | | | | | | LABORATORY | | + + + + + + | Bilirubin | 0.8 | 0.2 - 1.0 mg/dL | [facility] | | | Total | | | [facility] | | | | | | MEDICAL | | | | | | CENTER - | | | | | | LABORATORY | | + + + + + + | Total | 6.9 | 6.0 - 7.8 gm/dL | [facility] | | | Protein | | | [facility] | | | | | | [facility]ICAL | | | | | | CENTER - | | | | | | LABORATORY | | + + + + + + | Albumin | 4.0 | 3.2 - 5.0 gm/dL | [facility] | | | | | | [facility] | | | | | | [facility] | | | | | | CENTER - | | | | | | LABORATORY | | + + + + + + | BUN | 10 | 7 - 18 mg/dL | [facility] | | | | | | [facility] | | | | | | [facility] | | | | | | CENTER - | | | | | | LABORATORY | | + + + + + + | Creatinine | 0.93 | 0.60 - 1.30 | [facility] | | | | | mg/dL | [facility] | | | | | | [facility] | | | | | | CENTER - | | | | | | LABORATORY | | + + + + + + | Estimated | >60Comment: For | >60 mL/min/A | [facility] | | | GFR | -Americans, | | [facility] | | | | please multiply the | | MEDICAL | | | | result by 1.210 | | CENTER - | | | | This is an estimated | | LABORATORY | | | | GFR and is based on a | | | | | | standard adult | | | | | | body mass (A=1.73m2) and | | | | | | serum creatinine | | | | + + + + + + | BUN/Creatin | 10.8 (L) | 12 - 20 | [facility] | | | ine Ratio | | | [facility] | | | | | | MEDICAL | | | | | | CENTER - | | | | | | LABORATORY | | + + + + + + | Na | 139 | 136 - 149 mEq/L | [facility] | | | | | | [facility] | | | | | | [facility] | | | | | | CENTER - | | | | | | LABORATORY | | + + + + + + | K | 4.5 | 3.5 - 5.1 mEq/l | [facility] | | | | | | [facility] | | | | | | [facility] | | | | | | CENTER - | | | | | | LABORATORY | | + + + + + + | Cl | 110 (H) | 98 - 109 mEq/l | [facility] | | | | | | [facility] | | | | | | [facility] | | | | | | CENTER - | | | | | | LABORATORY | | + + + + + + | CO2 | 24 | 24 - 31 mEq/L | [facility] | | | | | | [facility] | | | | | | [facility] | | | | | | CENTER - | | | | | | LABORATORY | | + + + + + + | Anion Gap | 9.5 | 6.0 - 17.0 | [facility] | | | | | | [facility] | | | | | | [facility]ICAL | | | | | | CENTER - | | | | | | LABORATORY | | + + + + + + + + | Specimen | + + | | + + + + + + + | Performing | Address | City/State/Zipcode | Phone Number | | Organization | | | | + + + + + | [facility] | [address] | [place] | [phone] | | [facility] | | [address] | | | - LABORATORY | | | | + + + + + | [facility] | [address] | [place] | | | [facility] | | [id number] | | | - LABORATORY | | | | + + + + + documented in this encounter Visit Diagnoses Not on filedocumented in this encounter"
--- OUTSIDE RECORDS SUMMARY | ~2019-11-01 | XMS | Encounter Summary ---
Demographics + + + | Address | [address] | | | [place] [address] | + + + | Home Phone | | + + + | Preferred Language | Unknown | + + + | Marital Status | Single | + + + | Temple Affiliation | Unknown | + + + | Race | Unknown | + + + | Ethnic Group | Unknown | + + + Author + + + | Author | [facility] | | | and [place] | + + + | Organization | [facility] | | | and [place] [...] Team Providers + +------+ + | Care State Manager Name | Role | Phone | + +------+ + PCP | Unavailable | + +------+ + Encounter Details +--------+ + + + + | Date | Type | Department | Care Team | Description | +--------+ + + + + | 12/08/ | Hospital | [facility] | | | | 2011 | Encounter | MED CTR [facility] OP | | | | | | [address] | | | | | | [place] | | | | | | [address] | | | | | | [phone] | | | +--------+ + + + [...] [address] | [place] | [phone] | | [facility] | | [address] | | | - LABORATORY | | | | + + + + + | [facility] | [address] | [place] | | | [facility] | | [address] | | | - LABORATORY | | | | + + + + + documented in this encounter Visit Diagnoses Not on filedocumented in this encounter"
--- OUTSIDE RECORDS SUMMARY | ~2019-11-01 | XMS | Encounter Summary ---
Demographics + + + | Address | [address] | | | [place] [address] | + + + | Home Phone | | + + + | Preferred Language | Unknown | + + + | Marital Status | Single | + + + | Methodist Affiliation | CAT | + + + | Race | White | + + + | Ethnic Group | Not or | + + + Author + + + | Author | [facility] | + + + | Organization | [facility] | + + + | Address | Unknown | + + + | Phone | Unavailable | + + + Support + + + + + | Name | Relationship | Address | Phone | + + + + + | Sona Escalona | BROOK | [address] | | | | | [place] | | | | | [address] | | + + + + + | Sondra Zuleta | ECON | Unknown | | + + + + + Care Team Providers + +------+ + | Care Procurement Manager Name | Role | Phone | + +------+ + | Griffin Shi DO | PCP | | + +------+ + Encounter Details +--------+ + + + + | Date | Type | Department | Care Team | Description | +--------+ + + + + | 12/04/ | Documentati | Infectious | Camille Gomez MD | | | 2017 | on | [facility] at [facility] | [address] | | | | | [address] | [address] | | | | | [address] [facility] | [place], [place] | | | | | [place], [address] floor | [address] | | | | | [place], [place] | [phone] | | | | | [address] | | | | | | [phone] | | | +--------+ + + + [...]
--- OUTSIDE RECORDS SUMMARY | ~2019-11-01 | XMS | Clinical Summary ---
Demographics + + + | Address | [address] | | | [place] [address] | + + + | Home Phone [...] Author + + + | Author | [facility] | + + + | Organization | [facility] | + + + | Address | Unknown | + + + | Phone | Unavailable | + + + Support + + + + + | Name | Relationship | Address | Phone | + + + + + | Sona Escalona | BROOK | [address] | | | | | [place] | | | | | [address] | | + + + + + | Sondra Zuleta | ECON | Unknown | | + + + + + Care Team Providers + +------+ + | Care Animal Warden Name | Role | Phone | + +------+ + | Griffin Shi DO | PCP | | + +------+ + Source Comments JUDY is fully live on both [facility] and [facility] InPatient.[facility] Allergies No Known Allergies Medications + + + +---------+------+------+-------+ | Medication | Sig | Dispensed | Refills | Star | End | Statu | | | | | | t | Date | s | | | | | | Date | | | + + + +---------+------+------+-------+ | acetaminophen 325 | Take 2 tablets by | 100 | 0 | 11/1 | | Activ | | mg oral | mouth every six | tablet | | 4/20 | | e | | tabletIndications: | hours as needed | | | 17 | | | | back pain | | | | | | | + + + +---------+------+------+-------+ | lidocaine 5 % | Apply 1 patch to | 10 | 0 | 11/1 | | Activ | | topical adhesive | skin every | patch | | 4/20 | | e | | patch,medicated | twenty-four hours | | | 17 | | | | | Apply patch [...] | period. | | | | | | + + + +---------+------+------+-------+ | oxyCODONE | Take 1-2 tablets by | 50 | 0 | 11/1 | | Activ | | (immediate release) | mouth every six | tablet | | 4/20 | | e | | 5 mg oral | hours as needed for | | | 17 | | | | tabletIndications: | moderate pain | | | | | | | Abscess in epidural | | | | | | | | space of spine | | | | | | | + + + +---------+------+------+-------+ | polyethylene | Mix 1 packet and | 14 | 0 | 11/1 | | Activ | | glycol 17 gram oral | take orally once | packet | | 4/20 | | e | | powder in packet | daily | | | 17 | | | + + + +---------+------+------+-------+ | tamsulosin 0.4 mg | Take 2 capsules by | 60 | 0 | 11/1 | | Activ | | oral | mouth once daily | capsule | | 4/20 | | e | | capsule,extended | | | | 17 | | | | release | | | | | | | | 24hrIndications: | | | | | | | | Urinary retention | | | | | | | + + + +---------+------+------+-------+ Active Problems + + + | Problem | Noted Date | + + + | Encounter for long-term (current) use of antibiotics | 05/17/2017 | + + + | MRSA bacteremia | 05/17/2017 | + + + | Pleural effusion | 05/07/2017 | + + + + + | Last Assessment & Plan: Ordered CT C/A/P due to concern for | | mets from his rectal cancer. Scans unremarkable. Noted plerual | | effusion with atelecasis. Given contrast load will aviod | | diuresis. HDS with no increased oxygen saturation. Diagnostic | | thoracentesis performed per ID. Results transudative. Continue to | | monitor | + + + + + | Chronic alcoholism | 05/07/2017 | + + + + + | Last Assessment & Plan: CIWA protocol without benzo. Now off | | CIWA LFT unremarkable Continue thiamine, folate | |Continue thiamine, folate | + + + + + | Acute respiratory insufficiency, postoperative | 05/06/2017 | + + + + + | Last Assessment & Plan: Extubated in the OR then quickly | | reintubated for increased work and shallowing breathing. | | Extubated 05/07/17 without much difficulty Encourage ISEncourage | | OOB | |Encourage OOB | + + + + + | Abscess in epidural space of spine | 05/05/2017 | + + + + + | Last Assessment & Plan: Admit to NSICU following skip | | laminectomies at level T2 and T8 for evacuation of epidural | | abscess Frequent neuro checks Goals: MAP > 65, normonatremia, | | euvolemia. He was noted to be hypotensive following re | | intubation, concerning for sepsis. Arteria line placed on arrival | | to NSICU with stable blood pressures. Art line removed 05/07/17 | | MARGAUX x2, monitor output On vanc/cefepime No activity restrictionsNo | | need for MRI given improvement of exam on arrival to NSICU Per | | NSGY progress note 05/06 -- he has a blood culture from OSH with | | +GPCs + MRSA. Continue vancomycin, No signs of vegetation on TTE. | | Per ID no need for MARGARET at this time F/u ID recs | + + Social History + +-------+ +--------+------+ [...] | + + Last Filed Vital Signs + + + [...] + + + + | Height | 177.8 cm (5' 10") | 06/03/2017 12:55 PM | | | | | PST | | + + + + + | Body Mass Index | 22.53 | 06/03/2017 12:55 PM | | | | | PST | | + + + + + Plan of Treatment + + + + + | Health Maintenance | Due Date | Last Done | Comments | + + + + + | Pneumococcal | | | | | vaccination (1 of 1 | 4 | | | | - PPSV23) | | | | + + + + + | Influenza (Flu) | | | | | vaccination (#1) | 9 | | | + + + + + Results Not on filefrom Last 3 Months Additional Health Concerns + + + + | Infection | Noted Time | Resolved Time | + + + + | Methicillin Resistant Staph Aureus | 05/07/2017 12:00 AM | | | | PDT | | + + + + Insurance + +--------+ +--------+ + +------+ | Payer | Benefi | Subscriber | Effect | Phone | Address | Type | | | t Plan | ID | reid | | | | | | / | | Dates | | | | | | Group | | | | | | + +--------+ +--------+ + +------+ | [employer] [place] | BLUE | [phone] | Effect | [phone] | [address] | PPO | | | CROSS | | reid | [address] | [id number] | | | | [place] | | for | | [place], | | | | [place] | | all | | [place] [address] | | | | | | dates | | | | + +--------+ +--------+ + +------+ + +--------+ +--------+ + + | Guarantor Name | Accoun | Relation to | Date | Phone | Billing Address | | | t Type | Patient | of | | | | | | | | | | + +--------+ +--------+ + + | Ludin Escalona | Person | Self [birth year] | [address] | | | al/[place] | | 1956 | [phone] | [place] | | | [place] | | | [address] (Home) | [address] | + +--------+ +--------+ + + Advance Directives + + + + + | Code Status | Date | Date | Comments | | | Activated | Inactivated | | + + + + + | Full Code | 05/07/2017 | 05/18/2017 | | | | 12:36 AM | 10:15 PM | | + + + + + + + + +---+ | | | | | + + + +---+ | Full Code | 05/05/2017 | 05/07/2017 | | | | 8:22 PM | 12:36 AM | | + + + +---+
--- OUTSIDE RECORDS SUMMARY | ~2019-11-01 | XMS | Encounter Summary ---
Demographics + + + | Address | [address] | | | [place] [address] | + + + | Home Phone | | + + + | Preferred Language | Unknown | + + + | Marital Status | Single | + + + | Druze Affiliation | CAT | + + + | Race | White | + + + | Ethnic Group | Not or | + + + Author + + + | Author | [facility] | + + + | Organization | [facility] | + + + | Address | Unknown | + + + | Phone | Unavailable | + + + Support + + + + + | Name | Relationship | Address | Phone | + + + + + | Sona Escalona | [place] | [address] | | | | | [place] | | | | | [address] | | + + + + + | Sondra Zuleta | ECON | Unknown | | + + + + + Care Team Providers + +------+ + | Care Spray Worker Name | Role | Phone | + +------+ + | Griffin Shi DO | PCP | | + +------+ + Encounter Details +--------+ + + + + | Date | Type | Department | Care Team | Description | +--------+ + + + + | 06/04/ | Telephone | [facility] at | Divya Medrano | | | 2016 | | [facility] [address] | [place] | | | | | [facility] [place] [facility] | | | | | | [facility], | | | | | | [facility] | | | | | | [place], [place] | | | | | | [address] | | | | | | [phone] | | | +--------+ + + + [...]
--- OUTSIDE RECORDS SUMMARY | ~2019-11-01 | XMS | Encounter Summary ---
Demographics + + + | Address | [address] | | | [place] [address] | + + + | Home Phone | | + + + | Preferred Language | Unknown | + + + | Marital Status | Single | + + + | Hindu Affiliation | CAT | + + + | Race | White | + + + | Ethnic Group | Not or | + + + Author + + + | Author | [facility] | + + + | Organization | [facility] | + + + | Address | Unknown | + + + | Phone | Unavailable | + + + Support + + + + + | Name | Relationship | Address | Phone | + + + + + | Sona Escalona | [place] | [address] | | | | | [place] | | | | | [address] | | + + + + + | Sondra Zuleta | ECON | Unknown | | + + + + + Care Team Providers + +------+ + | Care Consumer Marketing Manager Name | Role | Phone | + +------+ + | Griffin Shi DO | PCP | | + +------+ + Reason for Visit + + + | Reason | Comments | + + + | Care Coordination | | + + + Encounter Details +--------+ + + + + | Date | Type | Department | Care Team | Description | +--------+ + + + + | 06/11/ | Telephone | Infectious | Camille Gomez MD | Care Coordination | | 2017 | | [facility] at [facility] | [address] | | | | | [address] | [facility] | | | | | [facility] | [place], [place] | | | | | [place], [facility] floor | [address] | | | | | [place], [place] | [phone] | | | | | [address] | | | | | | [phone] | | | +--------+ + + + [...]
--- OUTSIDE RECORDS SUMMARY | ~2019-11-01 | XMS | Encounter Summary ---
Demographics + + + | Address | [address] | | | [place] [address] | + + + | Home Phone | | + + + | Preferred Language | Unknown | + + + | Marital Status | Single | + + + | Yarsani Affiliation | CAT | + + + | Race | White | + + + | Ethnic Group | Not or | + + + Author + + + | Author | [facility] | + + + | Organization | [facility] | + + + | Address | Unknown | + + + | Phone | Unavailable | + + + Support + + + + + | Name | Relationship | Address | Phone | + + + + + | Sona Escalona | [place] | [address] | | | | | [place] | | | | | [address] | | + + + + + | Sondra Zuleta | ECON | Unknown | | + + + + + Care Team Providers + +------+ + | Care Inspector [employer] Name | Role | Phone | + +------+ + | Griffin Shi DO | PCP | | + +------+ + Encounter Details +--------+ + + + + | Date | Type | Department | Care Team | Description | +--------+ + + + + | 05/07/ | Procedure | Diagnostic Imaging | | | | 2016 | Pass | Services at [facility] | | | | | | [address] | | | | | | [place] | | | | | | [facility], [address] [place] [address] | | | | | | [place], [place] | | | | | | [address] | | | | | | [phone] | | | +--------+ + + + [...]
--- OUTSIDE RECORDS SUMMARY | ~2019-11-01 | XMS | Encounter Summary ---
Demographics + + + | Address | [address] | | | [place] [address] | + + + | Home Phone | | + + + | Preferred Language | Unknown | + + + | Marital Status | Single | + + + | Pentecostalism Affiliation | CAT | + + + | Race | White | + + + | Ethnic Group | Not or | + + + Author + + + | Author | [facility] | + + + | Organization | [facility] | + + + | Address | Unknown | + + + | Phone | Unavailable | + + + Support + + + + + | Name | Relationship | Address | Phone | + + + + + | Sona Figueredo | BROOK | [address] | | | | | [place] | | | | | [phone] | | + + + + + | Sondra Zuleta | ECON | Unknown | | + + + + + Care Team Providers + +------+ + | Care Help Desk Specialist Name | Role | Phone | [...] Description | +--------+---------+ + + + | 05/06/ | Surgery | 6A Intra Op [id number] | Henri Holguin MD | T1 AND T8 SKIP | | 2017 - | | [facility] | [address] | LAMINECTOMIES FOR | | | | Rd [facility] | [place], [place] | WASHOUT OF EPIDURAL | | 05/07/ | | Hospital Admitting | [phone] | ABSCESS | | 2017 | | Desk Located on the | [phone] | microbiology x 3 | | | | 9th floor | | | | | | [facility] [place] | | | | | | [address] | | | +--------+---------+ + + + Social History [...] Baldwin MD - 05/18/2017 2:21 PM PST [facility] Discharge Summary Discharging Provider: Duy Baldwin MD [...] growth on culture. Studies sent from therapeut brandon awad on 05/17/17 remained exudative but not convincingly [...] in 2013, undetec table. Repeat CEA negative. Pertinent Findings: [...] name): ID / Dr. Gomez Neurosurgery/ Dr. Than Discharge Medications: Medication List START taking these [...] Thank you for entrusting your care to [facility] Internal Medicine. If you have any problems or concerns before you are able to follow up with your Primary Care Provider, please call and ask the head kiln operator to page the attending physician, Wali Soto MD, who was caring for you at discharge. If that physician is not available, ask the head kiln operator to page the physician prison guard supervisor for the Medical Teaching Service. Call us right away if any of the following occur: -Weakness -high fevers -bleeding Home Health Referral after Hospitalization Comments: I certify that this patient is under my care and that I, or Nurse Practitioner or Physician Soap Mixer working with me, had a face to face encounter with this patient on 05/18/2017 On behalf of Attending Physician: Wali Soto MD I am ordering and certify that the following services are medically necessary [facility] Shelter Evaluate and Treat I certify that the [...] Selected Specialties Address Phone Number Fax Number [facility] Selected Home Health Services [address] [facility] [place] [address] Social Care Services No service has been selected for the patient. Follow Up: Future Appointments Provider Department Dept Phone Center 06/03/2017 12:55 PM [facility] [phone] [facility] Contact information for other follow-up providers JAMAAL SHI DO. Go on 05/24/2017. Specialty: Internal Medicine Why: At 10:45 on 05/24/17 with your PCP, Dr. Shi. Contact information [facility] Internal Medicin [address] [facility] [address] Contact information for after-discharge custodial Care [facility] Specialties: Home Health Services, Hospice Contact information [address] [facility] [address] Discharge Physical Exam: Last 24 hour min/max [...] Wali Soto MD - 05/18/2017 4:[address] [facility] JORGE PROGRESS NOTE ADMIT DATE: 05/05/2017 8:06 PM [...] 6) MRSA bacteremia Wali Soto MD Clinical Enrollment Consultant, Internal Medicine Pager [phone] documented in this encounter Discharge Instructions Instructions Cynthia Leigh RN - 05/18/2017[facility] has accepte [facility] you for home health services. They plan to start care tomorrow and will contact you direct ly to schedule. If you do not hear from them by tomorrow, please call them directly at the n umber listed above. Patient Education Materials: Pt received vanco instructions from new waverly. Discharge Nurse: Cynthia DIAZ Date: 05/18/2017 Discharge [...] from prior study Wali Soto MD Clinical Enrollment Consultant, Internal Medicine Pager [phone] Anette Marshall - 1 07/17/2016 3:25 PM PST GM5 [place] PROGRESS NOTE PHYSICIAN DAT INSTRUCTOR STUDENT NOTE FOR EDUCATIONAL PURPOSES ONLY Author: HORACE Ortiz-S Attending Physician: Wali Soto MD DEMOGRAPHIC INFORMATION Name: Cornelio Figueredo Age: 61 y.o. Birthdate: 1955 Sex: male Address: [address] [place] [address] PCP: Jamaal Shi DO Hospital Day:12 24 [...] hours (or 3 results) Recent Labs 05/15/17 0505/17/17 0540 WBC 12.01* 8.63 HB 9.7* 9.7* HCT 29.0* 28.7* PLT 473* 500* Chemistries last 72 Hours (or 3 results): Recent Labs 05/15/17 0505/16/17 0552 05/17/17 0540 NA 131* 131* 131* K 4.2 4.3 4.3 CL 96* 97 95* BICARB 27 29 28 BUN 9 10 9 CR 0.67* 0.82 0.82 CA 8.0* 8.1* 8.2* PO4 4.0 4.1 3.8 Liver panel last 72 hours (or 3 results) Recent Labs 05/15/17 0526 05/16/17 0552 05/17/17 0540 ALB 1.7* 1.9* 2.0* [...] Maker Primary Surrogate Decision Maker Ann (sister) [phone] This patient was staffed with my attending, Wlai Soto MD, and they agree with my asse ssment and plan. JOSÉ MIGUEL OrtizS Physician Soap Mixer Student [facility] [place] Pager [phone] Associated attestation - Duy Baldwin MD - [...] blood cultures. PICC placed 05/15/17. Discharge tomorrow. Carni Sahu PA-C - 05/17/2017 1:17 PM PSTFormatting [...] URO-JET) 2 % jelly, , urethral, PRN, ALEISHA Wright melatonin tablet 3 mg, 3 mg, oral, [...] 72 hours (or 3 results) Recent Labs 05/05/17203805/14/1745005/15/17 0521 05/17/17 0540 WBC 25.20* < > [...] notes and imaging. Gisela Sahu PA-C, RDMS [id number] Darshan Riddle MD - 05/16/2017 2:[address] [facility] 5 GENERAL MEDICINE ATTENDING PROGRESS NOTE HOSPITAL [...] Darshan Parada MD Department of Internal Medicine [facility] [place] I spent more than 35 minutes tqyo-uw-acmv with the patient of which greater than [...] on culture. Plans for dx/therapeutic thoracentesis by [facility] radiology tomorrow via US guidance. -O2 titrate [...] Maker Primary Surrogate Decision Maker Ann (sister) [phone] This patient was staffed with my attending, Dr. Parada, who agrees with my assessment and marianna n. Kimber Elizabeth MD Internal Medicine PGY1 [facility] Infectious Disease Outpatient Referral for Discharge Planning [Y] This an OPAT Referral. [Type "Y" for all [facility] patients requiring IV antibiotics in all outpatient sett ings. Type "N" if NO IV antibiotics are recommended.] [Y] This is an [facility] ID Clinic Referral. [Type "Y" for all [facility] patients requiring [facility] ID Clinic Visits. Type "N" if no [facility] ID Clinic visits are recommended.] This referral [...] time Barriers to safe OPAT: lives in [facility], possible mild cognitive impairment Vascular Access:PICC Follow Up: [facility] ID faculty with preference to schedule with Dr. Harris or ID attending , Dr. Gomez in 2-3 weeks post hospital discharge Bid Analyst: For all patients requiring IV antibiotic therapy, please route your OPAT Marianna n of Care Note (.CMOPAT) to [facility] "p OPAT/Infectious Diseases clinic" Pool at discharge. Ple ase communicate to primary team that you will be notifying Infectious Diseases of the OPAT P tammie of Care. Darshan Riddle MD - 9:[address] [facility] 5 GENERAL MEDICINE ATTENDING PROGRESS NOTE HOSPITAL DAY 10 I personally interviewed the patient, performed the hyman elements of the physical examinatio n, reviewed new lab data in EPIC, looked at any new radiology images and have developed an u pdated assessment and plan together with the 5 residents (Dr. Baldwin and Dr. Pillai). [...] Darshan Parada MD Department of Internal Medicine [facility] I spent more than 35 minutes copu-nd-tiqe with the patient of which greater than 50% was sp ent counseling the patient. Anette Marshall - 1:07 PM PST GM5 [place] PROGRESS NOTE PHYSICIAN DAT INSTRUCTOR STUDENT NOTE FOR EDUCATIONAL PURPOSES ONLY Author: Anette Daniel PA-S Attending Physician: Darshan Parada MD DEMOGRAPHIC INFORMATION Name: Cornelio Figueredo Age: 61 y.o. Birthdate: 1955 Sex: male Address: [address] [place] [address] [place] [address] PCP: Jamaal Shi DO Hospital Day:10 24 [...] go home. 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 Patient [...] Maker Primary Surrogate Decision Maker Ann (sister) [phone] This patient was staffed with my attending, Darshan Parada MD, and they agree with my asses sment and plan. HORACE Ortiz-S Physician Soap Mixer Student [facility] Pager [phone] Associated attestation - Duy Baldwin MD - [...] possibly)Darshan Parada MD - 05/14/2017 8:[address] [facility] GM 5 GENERAL MEDICINE ATTENDING PROGRESS [...] Darshan Parada MD Department of Internal Medicine [facility] I spent more than 35 minutes wvvw-ma-zqfg with the patient of which greater than 50% was sp ent counseling the patient. FloAnette aburto - 1:49 PM PST GM5 [place] PROGRESS NOTE PHYSICIAN DAT INSTRUCTOR STUDENT NOTE FOR EDUCATIONAL PURPOSES ONLY Author: Anette Daniel PA-S Attending Physician: Darshan Parada MD DEMOGRAPHIC INFORMATION Name: Cornelio Figueredo Age: 61 y.o. Birthdate: 1955 Sex: male Address: [address] [place] [address] [place] [address] PCP: Jamaal Shi DO Hospital Day:9 24 [...] 72 hours (or 3 results) Recent Labs 05/12/1735405/13/1751105/14/171 WBC 13.42* 14.37* 13.90* HB 9.4* 9.6* 9.4* HCT 27.5* 28.1* 27.8* PLT 423* 458* 454* Chemistries last 72 Hours (or 3 results): Recent Labs 05/12/1735405/13/1751105/14/17 0451 NA 133* 128* 132* K 4.1 4.4 4.3 CL 98 96* 98 BICARB 28 27 26 BUN 7 6 7 CR 0.72 0.76 0.70 CA 7.6* 7.6* 7.9* PO4 3.6 3.9 3.6 Liver panel last 72 hours (or 3 results) Recent Labs 05/12/1735405/13/1751105/14/17 0451 ALB 1.5* 1.6* 1.7* Micro: BCx [...] 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 Will [...] Maker Primary Surrogate Decision Maker Ann (sister) [phone] This patient was staffed with my attending, Darshan Parada MD, and they agree with my asses sment and plan. HORACE Ortiz-S Physician Soap Mixer Student [facility] Pager [phone] Associated attestation - Gabby Pillai MD - [...] for placement on 05/15. Gabby Pillai MD Air Traffic Control Equipment Repairer, PGY-1 [facility] Pager [phone] Darshan Parada MD - 05/13/2017 4:[address] [facility] 5 GENERAL MEDICINE ATTENDING PROGRESS NOTE HOSPITAL [...] Darshan Parada MD Department of Internal Medicine [facility] [place] I spent more than 35 minutes ueql-an-mbtl with the patient of which greater than 50% was sp ent counseling the patient. Anette Marshall - 2:00 PM PST GM5 [place] PROGRESS NOTE PHYSICIAN DAT INSTRUCTOR STUDENT NOTE FOR EDUCATIONAL PURPOSES ONLY Author: HORACE Ortiz-S Attending Physician: Darshan Parada MD DEMOGRAPHIC INFORMATION Name: Cornelio Figueredo Age: 61 y.o. 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 Will [...] Maker Primary Surrogate Decision Maker Ann (sister) [phone] This patient was staffed with my attending, Darshan Parada MD, and they agree with my asses sment and plan. HORACE Ortiz-S Physician Soap Mixer Student [facility] Pager [phone] Associated attestation - Gabby Pillai MD - [...] for placement on 05/14. Gabby Pillai MD Air Traffic Control Equipment Repairer, PGY-1 [facility] Pager [phone] Darshan Parada MD - 05/12/2017 5:[address] [facility] 5 GENERAL MEDICINE ATTENDING PROGRESS NOTE HOSPITAL DAY 7 I personally interviewed the patient, performed the hyman elements of the physical examinatio n, reviewed new lab data in EPIC, looked at any new radiology images and have developed an u pdated assessment and plan together with the 5 residents (Dr. Baldwin and Dr. Pillai). [...] Darshan Parada MD Department of Internal Medicine [facility] I spent more than 35 minutes habd-ks-edah with the patient of which greater than 50% was sp ent counseling the patient. FloAnette aburto - 2:53 PM PST GM5 [place] PROGRESS NOTE PHYSICIAN DAT INSTRUCTOR STUDENT NOTE FOR EDUCATIONAL PURPOSES ONLY Author: Anette Daniel, PA-S Attending Physician: Darshan Parada MD DEMOGRAPHIC INFORMATION Name: Cornelio Figueredo Age: 61 y.o. Birthdate: 1955 Sex: male Address: [address] [place] [address] [place] [address] PCP: Jamaal Shi DO Hospital Day:7 24 [...] 72 hours (or 3 results) Recent Labs 05/10/1742005/11/1742705/12/17 035 ALB 1.5* 1.5* 1.5* Troponin (05/11/17 08:55) [...] Maker Primary Surrogate Decision Maker Ann (sister) [phone] This patient was staffed with my attending, Darshan Parada MD, and they agree with my asses sment and plan. JOSÉ MIGUEL OrtizS Physician Soap Mixer Student [facility] Pager [phone] Associated attestation - Duy Baldwin MD - [...] detectable.Darshan Parada MD - 05/11/2017 5:11 PM PST 5 GENERAL MEDICINE ATTENDING PROGR ESS NOTE [...] Darshan Parada MD Department of Internal Medicine [facility] I spent more than 35 minutes ridq-md-htkg with the patient of which greater than 50% was sp ent counseling the patient. Cody Del Cid MD - 01/2017 3:01 PM PSTInterventional Radiology Post-Procedure Note 05/11/2017 3:01 PM Procedure Performed: Drainage Tube Providers: IR Attending: ADDIS GANDARA IR Fellow: ANNE MARIE GRIFFITH IR Resident: MICHELLE YUSUF Access: Side: Midline Site: [...] see fully dictated report for further details. MurielAnette roman - 05/11 12:58 PM PST GM5 [place] PROGRESS NOTE PHYSICIAN DAT INSTRUCTOR STUDENT NOTE FOR EDUCATIONAL PURPOSES ONLY Author: Anette Daniel PA-S Attending Physician: Darshan Parada MD DEMOGRAPHIC INFORMATION Name: Cornelio Figueredo Age: 61 y.o. Birthdate: 1955 Sex: male Address: [address] [place] [address] PCP: Jamaal Shi DO Hospital Day:6 24 [...] 72 hours (or 3 results) Recent Labs 05/09/1713205/10/1742005/11/17427 WBC 17.50* 18.01* 17.93* HB 9.5* 9.5* 9.7* HCT 28.0* 27.1* 28.3* PLT 505* 479* 453* Chemistries last 72 Hours (or 3 results): Recent Labs 05/09/1713205/10/1742005/11/17427 NA 136 134* 132* K 3.3* 3.2* 3.6 CL 102 100 97 BICARB 25 28 27 BUN 13 8 7 CR 0.68* 0.64* 0.62* CA 7.0* 7.4* 7.4* MG 2.2 2.3 -- PO4 3.0 2.8 2.6 Liver panel last 72 hours (or 3 results) Recent Labs 05/09/17 0133 05/10/17 0421 05/11/17 0428 ALB 1.4* 1.5* 1.5* Vancomycin trough (05/10/17) [...] to the present. Reports frustration with b radha unable to void. May be due to [...] Maker Primary Surrogate Decision Maker Ann (sister) [phone] This patient was staffed with my attending, Darshan Parada MD, and they agree with my asses sment and plan. JOSÉ MIGUEL OrtizS Physician Soap Mixer Student [facility] [place] [facility] Pager [phone] Associated attestation - Duy Baldwin MD - [...] INTERVENTIONAL RADIOLOGY PRE-PROCEDURE HISTORY AND PHYSICAL LOCATION: [facility] 16-1 SEX: Male AGE: 61 y.o. : [...] with moderate sedation. Kim Yusuf MD pgr [phone] [facility] Interventional [facility] No past medical history on file. No past surgical history on file. Current Medication List Not on File Abel Marcus - 2016 2:44 PM PSTTransthoracic echocardiogram completed. Final report to follow. nette Daniel - 12/2016 2:33 PM PST GM5 [place] PROGRESS NOTE PHYSICIAN DAT INSTRUCTOR STUDENT NOTE FOR EDUCATIONAL PURPOSES ONLY Author: JOSÉ MIGUEL OrtizS Attending Physician: Darshan Parada MD DEMOGRAPHIC INFORMATION Name: Cornelio Figueredo Age: 61 y.o. Birthdate: 1955 Sex: male Address: [address] [place] [address] PCP: Jamaal Shi DO Hospital Day:5 24 [...] 72 hours (or 3 results) Recent Labs 05/08/1711805/09/1713205/10/17 0421 WBC 21.87* 17.50* 18.01* HB 9.4* 9.5* [...] 72 hours (or 3 results) Recent Labs 05/08/1711805/09/1713205/10/17 0421 ALB 1.4* 1.4* 1.5* Lab Results Component [...] inpatient #Recal Cancer Hx, s/p resection in 2011 [...] Maker Primary Surrogate Decision Maker Ann (sister) [phone] This patient was staffed with my attending, Darshan Parada MD, and they agree with my asses sment and plan. HORACE Ortiz-S Physician Soap Mixer Student [facility] Pager [phone] Associated attestation - Gabby Pillai MD - [...] ml Wt Readings from Last 3 Encounters: 05/10/17 83.7 kg (184 lb 8.4 oz) Exam: [...] abx after blood cultures a re cleared. Gabyb Pillai MD Air Traffic Control Equipment Repairer, PGY-1 [facility] Pager [phone] Yanely Ayala MD - 05/09/2017 10:47 AM PSTFormatting of this note might be different fro m the original. . Neuroscience Intensive Care Unit Attending Progress Note Attending Pager #[phone] ICU Admission Reason Most Recent Value ICU [...] team members Provider Role Specialty Ipt Neurosurgery #[id number] Treatment Team Neurological Surgery [id number] Treatment Team -- Ipt Gen Med Expected [...] ICU NEURO Place of Service:- Inpatient CSN: [id number] Suggested Modifier: GC - Resident Involved Suggested CPT: TO BEHAVIORAL HEALTH COUNSELOR Author:Yanely Ayala MD [place] [address] P China Cardona MD - 05/09/2017 5:19 AM PST NEUROSURGERY [...] Recorded Labs: Complete Blood Count/Coags Recent Labs 05/06/1725 05/07/17 0010 05/08/17 0119 WBC 17.90* 26.73* 21.87* HB 11.2* 9.6* 9.4* HCT 32.7* 28.6* 27.0* PLT 481* 401* 482* Invalid input(s): INR CSF Results No results for input(s): WBCCSF, RBCCSF, GLUCOSECSF, PROTEINCSF in the last 8640 hours. Chemistry Recent Labs 05/05/17203805/06/1715 05/07/17 0010 05/08/17 0119 05/08/17 0140 05/08/17 [...] follow up thoracic effusion cultures China Vo [facility] PGY4 Pager [phone] 05/09/17 5:20 AM Associated attestation - Henri Holguin MD - 05/09/2017 11:21 AM PSTWill continue drain toda y. I personally interviewed the patient, performed the pertinent parts of the physical examina tion and personally formulated the plan with the resident. I agree with the residents docum entation and have documented any additions or exceptions. Henri Holguin MD [facility] [address] [id number] Branden Diego MD - 05/08/2017 7:00 PM PDTFormatting of this note might be different fro tracey the original. . Neuroscience Intensive Care Unit Team Progress Note NSICU ASSIGNED #[id number] ICU Admission Reason Most Recent Value ICU [...] team members Provider Role Specialty Ipt Neurosurgery #[id number] Treatment Team Neurological Surgery Ipt Critical Care Nsicu #[id number] Treatment Team -- Patient Lines/Drains/Airways Status Active Lines, Drains and Airways Name: Placement date: Placement time: Site: Days: Drain MARGAUX Midline;Upper back 05/06/17 222 back 1 Peripheral IV Left Wrist 05/04/17 [...] by Branden Diego MD Author:Branden Diego MD [place] [address] [place] [id number] signed by Branden Diego MD at 05/08/2017 7:01 PM P DTDurrantSimi MD - 05/08/2017 6:57 PM PDTFormatting of this note might be different f rom the original. . Neuroscience Intensive Care Unit Attending Progress Note Attending Pager #[phone] ICU Admission Reason Most Recent Value ICU [...] team members Provider Role Specialty Ipt Neurosurgery #[id number] Treatment Team Neurological Surgery Ipt Critical Care [facility] #42329 Treatment Team -- Code Status Code Status [...] 05/08/2017 Simi Acosta MD Author:Simi Acosta MD [address] [address]Rsal[place]ot[place]epna signed by Simi Acosta MD at 05/09/2017 1:49 AM Jass Laurent MD - 05/08/2017 8:57 AM PDTFormatting of this note might be different fro m the original. NEUROSURGERY PROGRESS NOTE Attending Physician: Henri Holguin [...] Last 3 Completed Shifts 05/07 701 - 05/08 700 In: 2970.2 [P.O.:1855; I.V.:515.2] Out: 1675 [Urine:1570; Drains:105] No Data Recorded No Data Recorded Labs: Complete Blood Count/Coags Recent Labs 05/06/1772405/07/170 05/08/17 0119 WBC 17.90* 26.73* 21.87* HB 11.2* 9.6* 9.4* HCT 32.7* 28.6* 27.0* PLT 481* 401* 482* Invalid input(s): INR CSF Results No results for input(s): WBCCSF, RBCCSF, GLUCOSECSF, PROTEINCSF in the last 8640 hours. Chemistry Recent Labs 05/05/17203805/06/1771405/07/170 05/07/17195605/08/17 0119 05/08/17 0140 NA 133* 133* [...] Please contact the neurosurgery resident on-call pager [phone] with questions. Jass Soria MD PGY-4 Neurological Surgery Pager [phone] Associated attestation - Henri Holguin MD - 05/08/2017 2:24 PM PDTI personally interviewed the patient, performed the pertinent parts of the physical examination and personally formu lated the plan with the resident. I agree with the resident's documentation and have docume nted any additions or exceptions. Henri Holguin MD [facility] [address] [address] Yanely Ayala MD - 05/08/2017 7:20 AM PDTFormatting of this note might be different fro m the original. . Neuroscience Intensive Care Unit Attending Progress Note Attending Pager #[phone] ICU Admission Reason Most Recent Value ICU [...] team members Provider Role Specialty Ipt Neurosurgery #[id number] Treatment Team Neurological Surgery Ipt Critical Care [facility] #03098 Treatment Team -- Code Status Code Status [...] tions/additions as noted. Date of Service: 05/08/2017 EPIC DEPARTMENT: ANE ICU NEURO Place of Service:- Inpatient CSN: [id number] Suggested Modifier: GC - Resident Involved Suggested CPT: TO BEHAVIORAL HEALTH COUNSELOR Author:Yanely Ayala MD [address] [address]Ijlvpkdfhnnpdv signed by Yanely Ayala MD at 05/08/2017 3:32 PM P DTDuSimi posey MD - 05/07/2017 7:12 PM PDTFormatting of this note might be different f rom the original. . Neuroscience Intensive Care Unit Attending Progress Note Attending Pager #[phone] ICU Admission Reason Most Recent Value ICU [...] team members Provider Role Specialty Ipt Neurosurgery #[id number] Treatment Team Neurological Surgery Ipt Critical Care Nsicu #18527 Treatment Team -- Code Status Code Status [...] 05/07/2017 Simi Acosta MD Author:Simi Acosta MD [facility] [address] [place] [id number] signed by Simi Acosta MD at 05/08/2017 1:13 AM Zo Byrnes MD - 05/07/2017 4:07 PM PDT . Neuroscience Intensive Care Unit Attending Progress Note Attending Pager #[phone] ICU Admission Reason Most Recent Value ICU [...] the OSH with confusion, they did LP ([id number], 70% neutrophils, low glucose, high protein) Cx [...] team members Provider Role Specialty Ipt Neurosurgery #13587 Treatment Team Neurological Surgery Ipt Critical Care Nsicu #19425 Treatment Team -- Code Status Code Status Full Code Quality section I have spent a total of 38 minutes in the direct care and management of this patient indepe ndent of any time spent teaching or performing any separately billable procedures. I reviewe d the documented findings, all data and the recent imaging available. Greater than 50% of th is time was spent on counseling and coordination of care. I saw and evaluated the patient at the bedside together with Dr. Mendoza.Please see their note for details. I agree with the a ssessment and plan as described in the resident's note with the following exceptions/additio ns as noted. Date of Service: 05/07/2017 [facility] DEPARTMENT: ANE ICU NEURO Place of Service:- Inpatient CSN: [id number] Suggested Modifier: GC - Resident Involved Suggested CPT: TO BEHAVIORAL HEALTH COUNSELOR Author:Zo Baldwin MD [address] [place] [id number] signed by Zo Baldwin MD at 05/07/2017 4:10 PM Branden Roberto MD - 05/07/2017 3:58 PM PDT . Neuroscience Intensive Care Unit Team Progress Note NSICU ASSIGNED #[id number] ICU Admission Reason Most Recent Value ICU [...] team members Provider Role Specialty Ipt Neurosurgery #37147 Treatment Team Neurological Surgery Ipt Critical Care Nsicu #15279 Treatment Team -- Patient Lines/Drains/Airways Status Active [...] by Branden Diego MD Author:Branden Diego MD [address] [place] [address]Qepxnkvdssekka signed by Branden Diego MD at 05/07/2017 4:01 PM Adebayo Rosado - 05/07/2017 11:24 AM PDTTransthoracic echocardiogram completed. [...] Please contact the neurosurgery resident on-call pager [phone] with questions. Rola Nelson MD Neurosurgery Resident Pager #[phone] NSGY pager #[phone] Associated attestation - Henri Holguin MD - 05/07/2017 11:05 AM PDTI personally interviewed the patient, performed the pertinent parts of the physical examination and personally formu lated the plan with the resident. I agree with the resident's documentation and have docume nted any additions or exceptions. Henri Holguin MD [facility]C NSI [id number] [address] Rola Nelson MD - 05/07/2017 5:18 AM [...] MD Neurosurgery Resident 5:18 AM, 05/07/2017 Pager #[phone] Rola Blood MD - 05/06/2017 7:42 PM [...] MD Neurosurgery Resident 7:42 PM, 05/06/2017 Pager #[phone] Divya Castillo P A-C - 05/06/2017 7:41 AM PDT Neurosurgery Progress [...] sensation intact in all 4 extremities Motor: Retort Pre Cooker Bicep Tricep Delt R 5 5 5 [...] epidural abscess. The patient was transferred to [facility] for ongoing management. Plan for pos sible [...] be consented and marked. Divya Roman PA-C [facility] [address]K [address] [address] [place] [address] documented in th is encounter Plan of [...] + +--------+ + + + | DIFFERENTIAL, JOHNL | Routin | 05/17/2017 | | Results [...] + +--------+ + + + | NON LATHE MACHINE OPERATOR CYTOLOGY | Routin | 05/17/2017 | [...] | + +--------+ + + + | CHRISTIANE SAAB (ALL | Urgent | 05/08/2017 | | [...] Note | + + | Service Account, RadiWakingApp Res In Interface - 05/17/2017 2:19 PM [...] A 19 gauge Yueh | | | centesis catheter needle was placed in the pleural [...] used for local anesthesia. A 19 gauge TraNet'te centesis catheter | | needle was placed in [...] | + + + + + | [facility] | [address] | [place] [address] | | | SERVICES, CORE | [address] | | | + + + + + HANG GARZA (05/17/2017 12:04 PM PST) + +-------+ + [...] | + + + + + | [facility] | [address] | [place] [address] | | | SERVICES, TONY | [address] | | | + + + [...] | + + + + + | [facility] | [address] | [place] [address] | | | SERVICES, CORE | PARK [...] | + + + + + | [facility] | [address] | [place] [address] | | | TONY MCLEAN | [address] | | | + + + [...] + | [facility] - | [address] | [place] [address] | | | [place] | | | [...] No growth No anaerobic organisms isolated | [facility] - | | Gram Stain: No squamous epithelial cells Many polymorphonuclear | AIR[facility] - | | cells No organisms seen | [place] | + + + + + + + + | Performing | Address | City/State/Zipcode | Phone Number | | Organization | | | | + + + + + | [facility] - | [address] | [place] [address] | | | [place] | | | [...] + | [facility] | [address] | [place] [address] | | | TONY MCLEAN | [address] | | | + + + [...] [facility] | [address] | [place] [address] | | | SERVICES, CORE | PARK [...] | + + + + + | [facility] | [address] | [place] [address] | | | SERVICES, CORE | [address] | | | + + + [...] [facility] | [address] | [place] [address] | | | SERVICES, CORE | PARK [...] | + + + + + | [facility] | [address] | [place] [address] | | | SERVICES, CORE | [address] | | | + + + [...] | | | LABORATORY | | | [place] | | | SERVICES, | | | [...] [facility] | [address] | [place] [address] | | | SERVICES, CORE | PARK [...] | + + + + + | [facility] | [address] | [place] [address] | | | SERVICES, CORE | [address] | | | + + + [...] | + + + + + | [facility] | [address] | [place] [address] | | | SERVICES, [facility] | [address] | | | + + + + + NON LATHE MACHINE OPERATOR CYTOLOGY (05/17/2017) + + + + + + | Component | Value | Ref Range | Performed | Pathologist | | | | | At | Signature | + + + + + + | NON-LATHE MACHINE OPERATOR | SOURCE OF SPECIMEN:A | | [...] Lawrence | | | | | | CT([facility])Alum Plant Operator | | | | | | Date [...] | + + + + + | [facility] | [address] | [place] [address] | | | PATHOLOGY | [address] | | | + + + [...] | | | LABORATORY | | | [place] | | | SERVICES, | | | [...] | + + + + + | [facility] | [address] | [place] [address] | | | SERVICES, CORE | [address] | | | + + + [...] thank you | [facility] | | pharmacy [id number] Reference range change effective 03/29/2017. | LABORATORY | | | SERVICES, CORE | + + + + + + + + | Performing | Address | City/State/Zipcode | Phone Number | | Organization | | | | + + + + + | [facility] | [address] | [place] [address] | | | SERVICES, CORE | [address] | | | + + + + + X-RAY PORTABLE CHEST 1 VIEW (05/15/2017 1:10 PM PST) + + | Specimen | + + | | + + + + + | Narrative | Performed At | + + + | EXAM: PA CHEST 1 VIEW 05/15/17 12:35:07 HISTORY: PICC [...] Service Account, Radiant Res In Interface - 05/15/2017 3:15 PM PST EXAM: PA CHEST 1 | | VIEW 05/15/17 12:35:07HISTORY: [...] | | Procedure Note Indications:Antibiotics Procedure location: Unit:5A | | | Room: 16 Providers: Attending [...] correct patient, procedure, equipment, | | | underwriting support manager and site/side marked as required. CLABSI Prevention [...] | area Basilic vein. Catheter lot number: [id number] with a length of 55 | | [...] | | | LABORATORY | | | [place] | | | SERVICES, | | | [...] [facility] | [address] | [place] [address] | | | SERVICES, CORE | [address] | | | + + + [...] [facility] | [address] | [place] [address] | | | SERVICES, CORE | PARK [...] | Reference range change effective 03/29/2017. | [facility] | | | LABORATORY | | | TONY MCLEAN | + + + + + + + + | Performing | Address | City/State/Zipcode | Phone Number | | Organization | | | | + + + + + | [facility] | [address] | [place] [address] | | | SERVICES, TONY | [address] | | | + + + [...] | + + + + + | [facility] | [address] | [place] [address] | | | SERVICES, CORE | [address] | | | + + + [...] | | | LABORATORY | | | [place] | | | SERVICES, | | | [...] | + + + + + | [facility] | [address] | [place] [address] | | | SERVICES, CORE | PARK [...] [facility] | [address] | [place] [address] | | | SERVICES, CORE | PARK [...] | | | LABORATORY | | | [place] | | | SERVICES, | | | [...] | + + + + + | [facility] | [address] | [place] [address] | | | SERVICES, CORE | PARK [...] + | [facility] | [address] | [place], [place] | | | [facility] | [address] | [address] | | | TESTS | | | [...] | + + + + + | [facility] | [address] | [place] [address] | | | SERVICES, CORE | [address] | | | + + + + + CULTURE, BLOOD BACTI & YEAST [facility] (05/12/2017 1:19 PM PST) + + + [...] | + + + + + | [facility] | [address] | [place] [address] | | | SERVICES, CORE | [address] | | | + + + [...] + | [facility] | [address] | [place] [address] | | | SERVICES, CORE | PARK [...] | | | LABORATORY | | | [place] | | | SERVICES, | | | [...] | + + + + + | [facility] | [address] | [place] [address] | | | TONY MCLEAN | [address] | | | + + + [...] [facility] | [address] | [place], [place] | | | [facility] | [facility] | [address] | | | TESTS | | | [...] [facility] | [address] | [place], [place] | | | [place] [facility] | [address] | [address] | | | TESTS | | | [...] [facility] | [address] | [place] [address] | | | SERVICES, TONY | [address] | | | + + + + + IR DRAIN PROCEDURE (05/11/2017 2:36 PM PST) + + | Specimen | + + | | + + + + + | Narrative | Performed At | + + + | Procedure: Ultrasound and fluoroscopically guided soft tissue | [facility] | | collection drainage Primary Tanning Solution Maker: Cliff Griffith M.D.; | RADIOLOGY VOICE | | Cody Yusuf M.D. Attending Tanning Solution Maker: Addis Gandara MD | RECOGNITION | | Preoperative diagnosis: Paraspinal collection Postoperative | | | diagnosis: Same Operations: Operation 1. US guided placement | | | 18 gauge needle in left paraspinal collection Operation 2. | | | Ultrasound Fluoroscopic guided placement of 12 Mosotho biliary | | | drainage catheter in [...] | | | performed and a 12 Mosotho biliary drainage catheter was advanced into | | | the collection using ultrasound and fluoroscopic guidance. The | | | catheter was aspirated and placed to gravity drainage. The catheter | | | was secured in place. A completion image was obtained. | | | Medications: Versed 2 mg IV, fentanyl 100 mcg IV Gffw-tw-rhru time | | | for physician supervised sedation: 30 minutes Sedation administered | | | under direct physician supervision by an RN Findings: The US | | | findings are consistent with multiloculated complicated fluid | | | collection in the left paraspinal muscles. Purulent fluid was | | | aspirated and sent for culture. A 12 Mosotho drainage catheter was | | | positioned [...] Service Account, Radiant Res In Interface - 05/12/2017 10:17 AM PST Procedure: | | Ultrasound and fluoroscopically guided soft tissue collection drainagePrimary | | Tanning Solution Maker: lCiff Griffith M.D.; Cody Yusuf M.D.Attending Tanning Solution Maker: Addis | | Nichol MDPreoperative diagnosis: Paraspinal collectionPostoperative diagnosis: | | SameOperations:Operation 1. US guided placement 18 gauge needle in left paraspinal | | collectionOperation 2. Ultrasound Fluoroscopic guided placement of 12 Mosotho biliary | | drainage catheter in collectionIndications:59 [...] was | | performed and a 12 Mosotho biliary drainage catheter was advanced into the collection | | using ultrasound and fluoroscopic guidance. The catheter was aspirated and placed to | | gravity drainage. The catheter was secured in place. A completion image was | | obtained.Medications: Versed 2 mg IV, fentanyl 100 mcg JKVpyw-rs-dndi time for physician | | supervised sedation: 30 minutesSedation administered under direct physician supervision | | by an RNFindings:The US findings are consistent with multiloculated complicated fluid | | collection in the left paraspinal muscles. Purulent fluid was aspirated and sent for | | culture. A 12 Mosotho drainage catheter was positioned in the | [...] serial dilation was performed and a 12 Mosotho biliary drainage | |catheter was advanced into the collection using ultrasound and fluoroscopic guidance. The catheter was aspirated and placed to gravity drainage. The catheter was secured in place. A completion image was obtained. | | | |Medications: Versed 2 mg IV, fentanyl 100 mcg IV | |Glnu-ti-lxgi time for physician supervised sedation: 30 minutes | |Sedation administered under direct physician supervision by an RN | | | |Findings: | | | |The US findings are consistent with multiloculated complicated fluid collection in the left paraspinal muscles. Purulent fluid was aspirated and sent for culture. A 12 Mosotho drainage catheter was positioned in the collection. [...] + | [facility] | [address] | [place], [place] | | | [facility] | [address] | [address] | | | TESTS | | | | + + + + + CULTURE, BLOOD BACTI & YEAST [facility] (05/11/2017 8:55 AM PST) + + + [...] [facility] | [address] | [place] [address] | | | SERVICES, CORE | [address] | | | + + + [...] | + + + + + | [facility] | [address] | [place] [address] | | | SERVICES, TONY | [address] | | | + + + + + 12 LEAD ECG (05/11/2017 8:41 AM PST) + + + + + + | Component | Value | Ref Range | Performed | Pathologist | | | | | At | Signature | + + + + + + | VENTRICULAR | 93 | bpm | [facility] | | [...] + + + + + + | QTC-STACIE | 420 | ms | [facility] [...] DEPT OF | [address] | [place], [place] | | | CARDIOLOGY | [facility] | [address] | | + + + + + [...] | + + + + + | [facility] | [address] | [place] [address] | | | SERVICES, CORE | [address] | | | + + + [...] | | | LABORATORY | | | [place] | | | SERVICES, | | | [...] | + + + + + | [facility] | [address] | [place] [address] | | | SERVICES, CORE | [address] | | | + + + [...] [facility] | [address] | [place], [place] | | | [facility] | [address] | [address] | | | TESTS | | | [...] [facility] | [address] | [place], [place] | | | [place] [facility] | [address] | [address] | | | TESTS | | | [...] effective 03/29/2017. | LABORATORY | | | TONY MCLEAN | + + + + + + + + | Performing | Address | City/State/Zipcode | Phone Number | | Organization | | | | + + + + + | [facility] | [address] | [place] [address] | | | SERVICES, TONY | [address] | | | + + + [...] formed At | + +---- + | [facility] | [facility] OF | | [facility] Adult Echocardiography [facility] [address] | | [address] [place], [place] [address] Ph: | | | Pt Name: CORNELIO FIGUEREDO | | | Study Date/Time 05/10/2017 / 1:57:15 PMMRN: [id number] | | | Most recent prior: 05/07/2017Acc #: [id number] | | | No. previous echos: 0DOB: 1955 61 years Heart | | | Rate: 100 bpmHeight: 70.0 in Blood | | | Pressure: 139/80 mm/HgWeight: 184.0 lb | | | Gender: MBSA: 2.01 m2 | | | Order ID: [id number] Mophead Trimmer And Wrapper: Abel RAO | | | Referring Provider: Darshan Horvath Location: [address] [place] [address] | | | Performed: Limited 2D and Color Doppler.Study Quality: Good.Exam | | | Indication: Infective endocarditisHistory: 61 year old man with a | | | remote h/o rectal cancer who [facility] 3 | | | [...] | indexed values Report electronically signed by: [id number] Abrahan | | | Raquel SHAIKH (05/10/2017, [...] | | | |Report electronically signed by: [id number] Abrahan García MD (05/10/2017, 3:24:48 PM) | | |Fellow participating in diagnosis: Camille Verdugo MD | | | | | | | | | | | | Final | | + +---- + + + | Procedure Note | + + | Interface, Cardiology Results - 05/10/2017 3:24 PM [facility] | | [facility] Echocardiography Laboratory [address] [place] [address] | | [place], [place] [address] Pt Name: CORNELIO MEJIA | | TERELL Study Date/Time 05/10/2017 / 1:57:15 PMMRN: [id number] [facility] | | recent prior: 05/07/2017Acc #: [id number] No. previous echos: 0DOB: | | 1955 61 years Heart Rate: 100 bpmHeight: 70.0 in Blood | | Pressure: 139/80 mm/HgWeight: 184.0 lb Gender: MBSA: | | 2.01 m2 Order ID: [id number] Mophead Trimmer And Wrapper: Abel Prieto | | RCSReferring Provider: Darshan Horvath Location: [facility] Performed: Limited 2D | | and Color Doppler.Study Quality: Good.Exam Indication: Infective endocarditisHistory: | | 61 year old man with a remote h/o rectal cancer who originally presented [facility] with | | 3 months [...] and indexed values Report electronically signed by: [id number] | | Abrahan García MD (05/10/2017, 3:24:48 [...] | | | |Report electronically signed by: [id number] Abrahan García MD (05/10/2017, 3:24:48 PM) | |Fellow participating in diagnosis: Camille Verdugo MD | | | | | | | | Final | + + + + + + + | Performing | Address | City/State/Zipcode | Phone Number | | Organization | | | | + + + + + | [facility] | [address] | [place], [place] | | | CARDIOLOGY | [address] | [address] | | + + + + + [...] | | | POC | | | [facility] | | | | | | [...] [facility] | [address] | [place], [place] | | | [facility] | [facility] | [address] | | | TESTS | | | [...] complete identification and susceptibilities Growth in | [place] | | Aerobic bottle Growth in Anaerobic bottle | | + + + + + + + + | Performing | Address | City/State/Zipcode | Phone Number | | Organization | | | | + + + + + | [facility] | [address] | [place] [address] | | | [place] | | | | + + + [...] + | [facility] | [address] | [place] [address] | | | SERVICES, CORE | [address] | | | + + + + + CULTURE, BLOOD BACTI & YEAST [facility] (05/10/2017 4:21 AM PST) + + + [...] + + | [facility] | [address] | [place] [address] | | | SERVICES, CORE | [address] | | | + + + [...] [facility] | [address] | [place] [address] | | | SERVICES, CORE | [address] [...] | | | LABORATORY | | | [place] | | | SERVICES, | | | [...] | + + + + + | [facility] | [address] | [place] [address] | | | SERVICES, CORE | [address] [...] | + + + + + | [facility] | [address] | [place] [address] | | | SERVICES, CORE | [address] | | | + + + [...] | + + + + + | [facility] | [address] | [place] [address] | | | SERVICES, TONY | P[address] [...] [facility] | [address] | [place], [place] | | | [facility] | [facility] | [address] | | | TESTS | | | [...] (H) | 70 - 99 mg/dL | [facility] - | | | GLUCOSE, | | [...] [facility] | [address] | [place], [place] | | | [place] [facility] | [address] | [address] | | | TESTS | | | [...] [facility] | [address] | [place], [place] | | | [facility] | [facility] | [address] | | | TESTS | | | | + + + + + CAPILLARY BLOOD GLUCOSE (NO CHG)DEVON (05/09/2017 9:56 AM PST) + +-------+ + [...] [facility] | [address] | [place], [place] | | | [facility] | [facility] | [address] | | | TESTS | | | [...] complete identification and susceptibilities Growth in | [place] | | Aerobic bottle Growth in Anaerobic bottle | | + + + + + + + + | Performing | Address | City/State/Zipcode | Phone Number | | Organization | | | | + + + + + | [facility] - | [address] | [place] [address] | | | [place] | | | | + + + + + CULTURE, BLOOD BACTI & YEAST [facility] (05/09/2017 1:33 AM PDT) + + + + + + | Component | Value | Ref Range | Performed | Pathologist | | | | | At | Signature | + + + + + + | CULTURE | Not tested by molecular | | [place] | | | RESULT | method, see [...] [facility] | [address] | [place] [address] | | | SERVICES, CORE | P[address] [...] | + + + + + | [facility] | [address] | [place] [address] | | | SERVICES, CORE | [address] | | | + + + + + MAGNESIUM, PLASMA (05/09/2017 1:33 AM PDT) + +-------+ + + + | Component | Value | Ref Range | Performed | Pathologist | | | | | At | Signature | + +-------+ + + + | MAGNESIUM,P | 2.2 | 1.6 - 2.6 mg/dL | [facility] | | | LASMA | | | [...] [facility] | [address] | [place] [address] | | | TONY MCLEAN | [address] | | | + + + [...] | | | LABORATORY | | | [place] | | | SERVICES, | | | [...] | + + + + + | [facility] | [address] | [place] [address] | | | SERVICES, TONY | [address] | | | + + + [...] Culture Report: Methicillin Resistant Staphylococcus aureus | [facility] - | | Presumptive identification Refer to culture collected 05/06/17 @ [facility] - | | 09:21 for complete identification and susceptibilities Growth in | [place] | | Aerobic bottle Growth in Anaerobic bottle | | + + + + + + + + | Performing | Address | City/State/Zipcode | Phone Number | | Organization | | | | + + + + + | [facility] - | [address] | [place] [address] | | | [place] | | | | + + + + + CULTURE, BLOOD BACTI & YEAST [facility] (05/09/2017 1:29 AM PDT) + + + [...] | + + + + + | [facility] | [address] | [place] [address] | | | CARIDAD, TONY | [address] | | | + + + + + CAPILLARY BLOOD GLUCOSE (NO CHG), POC (05/08/2017 9:59 PM PDT) + +---------+ + + + | Component | Value | Ref Range | Performed | Pathologist | | | | | At | Signature | + +---------+ + + + | BLOOD | 107 (H) | 70 - 99 mg/dL | [facility] - | | | GLUCOSE, | | [...] + + + | [facility] | [address] | [place], [place] | | | [facility] | [address] | [address] | | | TESTS | | | [...] Service Account, Radiant Res In Interface - 05/08/2017 6:31 PM PDT [...] [facility] | [address] | [place], [place] | | | [facility] | [address] | [address] | | | TESTS | | | [...] [facility] | [address] | [place] [address] | | | SERVICES, CORE | [address] [...] | + + + + + | [facility] | [address] | [place] [address] | | | SERVICES, CORE | [address] | | | + + + + + GRAM DEREK ONLY, STAT (05/08/2017 2:56 PM PDT) + + [...] + + + + + | [facility] | [address] | [place] [address] | | | SERVICES, CORE | [address] [...] + | [facility] | [address] | [place] [address] | | | [place] | | | | + + + [...] detected | AIRPORT - | | | [place] | + + + + + + + + | Performing | Address | City/State/Zipcode | Phone Number | | Organization | | | | + + + + + | [facility] | [address] | [place] [address] | | | [place] | | | | + + + [...] | | cells No organisms seen | [facility] | + + + + + + + + | Performing | Address | City/State/Zipcode | Phone Number | | Organization | | | | + + + + + | [facility] - | [address] | [place] [address] | | | [place] | | | [...] | + + + + + | [facility] | [address] | [place] [address] | | | SERVICES, CORE | PARK [...] [facility] | [address] | [place] [address] | | | SERVICES, CORE | [address] | | | + + + + + PROTEIN, BODY FLUIDS (05/08/2017 2:56 PM PDT) + +-------+ + + + | Component | Value | Ref Range | Performed | Pathologist | | | | | At | Signature | + +-------+ + + + | PROTEIN | 2.4 | g/dL | [facility] | | | [...] [facility] | [address] | [place] [address] | | | SERVICES, CORE | PARK [...] | + + + + + | [facility] | [address] | [place] [address] | | | SERVICES, CORE | [address] | | | + + + [...] prior to 1400 dose on 05/08/17 | [facility] | | - [facility] [id number] | LABORATORY | | | SERVICES, CORE | + + + + + + + + | Performing | Address | City/State/Zipcode | Phone Number | | Organization | | | | + + + + + | [facility] | [address] | [place] [address] | | | SERVICES, CORE | PARK [...] on 05/08/17 | [facility] | | - [facility] [id number] Reference range change effective 03/29/2017. | LABORATORY | | | SERVICES, CORE | + + + + + + + + | Performing | Address | City/State/Zipcode | Phone Number | | Organization | | | | + + + + + | [facility] | [address] | [place] [address] | | | SERVICES, [facility] | [address] | | | + + + + + X-RAY PORTABLE CHEST 1 VIEW (05/08/2017 10:08 AM PDT) + + | Specimen | + + | | + + + + + | Narrative | Performed At | + + + | EXAM: PA CHEST 1 VIEW HISTORY: Extubation COMPARISON: | [facility] | | Yesterday FINDINGS: Endotracheal tube is [...] Note | + + | Service Account, BUKA In Interface - 05/08/2017 10:19 AM PDT EXAM: PA CHEST 1 | | VIEW HISTORY: ExtubationCOMPARISON: [...] CAPILLARY BLOOD GLUCOSE (NO CHG), POC (05/08/2017 9:35 AM PDT) + +---------+ + [...] + + | Performing | Address | City/State/[facility] | Phone Number | | Organization | | | | + + + + + | [facility] | [address] | [place], [place] | | | [employer] | [facility] | [address] | | | TESTS | | | [...] + + + + + | [facility] | [address] | [place], [place] | | | [employer] | [address] | [address] | | | TESTS | | | [...] | | | | (A) | | [place] | | + + + + + [...] complete identification and susceptibilities Growth in | [place] | | Aerobic bottle Growth in Anaerobic bottle | | + + + + + + + + | Performing | Address | City/State/Zipcode | Phone Number | | Organization | | | | + + + + + | [facility] - | [address] | [place] [address] | | | [place] | | | [...] [facility] | [address] | [place] [address] | | | SERVICES, CORE | [address] | | | + + + + + CULTURE, BLOOD BACTI & YEAST [facility] (05/08/2017 1:19 AM PDT) + + + [...] [facility] | [address] | [place] [address] | | | TONY MCLEAN | [address] | | | + + + [...] | + + + + + | [facility] | [address] | [place] [address] | | | TONY MCLEAN | [address] | | | + + + [...] | | | LABORATORY | | | [place] | | | SERVICES, | | | [...] | + + + + + | [facility] | [address] | [place] [address] | | | SERVICES, CORE | PARK [...] in | [place] | | Aerobic bottle Growth in Anaerobic bottle | | + + + + + + + + | Performing | Address | City/State/Zipcode | Phone Number | | Organization | | | | + + + + + | [facility] - | [address] | [place] [address] | | | [place] | | | | + + + + + CULTURE, BLOOD BACTI & YEAST [facility] (05/08/2017 1:14 AM PDT) + + + [...] [facility] | [address] | [place] [address] | | | TONY MCLEAN | [address] | | | + + + [...] + + + + + | [facility] | [address] | [place], [place] | | | [facility] | [address] | [address] | | | TESTS | | | [...] | + + + + + | [facility] | [address] | [place] [address] | | | SERVICES, CORE | [address] | | | + + + [...] | | | | | determined by [facility] | | | | | | Laboratories. See | | | | | | Compliance Statement D: | | | | | | [employer]/CSPerformed | | | | | | by [address] | | | | | | [facility],[place] | | | | | | [id number] | | | | | | [phone].[employer] | | | | | | [facility] state hospitalNickolas MD, | | | | | | [...] [facility] | [address] | [place], [place] | | | [facility] | | [address] | | + + + + + [...] [facility] | [address] | [place], [place] | | | [facility] | [address] | [address] | | | TESTS | | | [...] rformed At | + +--- + | [facility] | [facility] DEPT OF | | [facility] Adult Echocardiography Laboratory [address] | [place] RDIOLOGY | | [place], [place] [address] Ph: | | | Pt Name: CORNELIO MEJIA TERELL | | | Study Date/Time 05/07/2017 / 9:42:43 AMMRN: [id number] | | | Most recent prior: -Acc #: [id number] | | | No. previous echos: 0DOB: 1955 61 years Heart Rate: | | | 99 bpmHeight: 61.0 in Blood Pressure: | | | 106/73 mm/HgWeight: 198.0 lb Gender: | | | MBSA: 1.88 m2 Order ID: | | | [id number] Mophead Trimmer And Wrapper: FBSonographer 2: Chanell Manning | | | Referring Provider: Henri HolguinPatient Location: [address] [place] [address] | | | Performed: 2D, Color flow, Spectral Doppler and agitated saline bubble | | | study.Study Quality: Good.Exam Indication: Heart failure; Infective | | | endocarditisHistory: Worsening back pain, per sister, pt had colon CA | | | and treatment in last few years, was hyponatremic, leukocytosis with | | | bandemia, concern for post form remover infection, wbc 101 in csf, mri read as | | | extensive epidural abscess Patient history has been obtained from the | | | EHR Transthoracic Echocardiographic Report | | | [...] Report electronically signed | | | by: [id number] Benjie Abreu MD (05/07/2017, 12:50:52 PM) Final [...] | | | |Report electronically signed by: [id number] Benjie Abreu MD (05/07/2017, 12:50:52 PM) | | | | | | | | | | | | Final | | + +--- + + + | Procedure Note | + + | Interface, Cardiology Results - 05/07/2017 12:50 PM [facility] Last Chance | | [facility] Echocardiography Laboratory [address] [place] [address] | | [place], [place] [address] Pt Name: CORNELIO MEJIA | | FIGUEREDO Study Date/Time 05/07/2017 / 9:42:43 AMMRN: [id number] Most | | recent prior: -[facility] #: [id number] No. previous echos: 0DOB: 1955 61 | | years Heart Rate: 99 bpmHeight: 61.0 in Blood Pressure: 106/73 | | mm/HgWeight: 198.0 lb Gender: MBSA: 1.88 m2 | | Order ID: [id number] Mophead Trimmer And Wrapper: FBSonographer 2: Chanell Villareal | | Provider: Henri HolguinPatient Location: [address] [place] [address] Performed: 2D, Color flow, | | Spectral Doppler and agitated saline bubble study.Study Quality: Good.Exam Indication: | | Heart failure; Infective endocarditisHistory: Worsening back pain, per sister, pt had | | colon CA and treatment in last few years, was hyponatremic, leukocytosis with bandemia, | | concern for post form remover infection, wbc 101 in csf, mri read [...] | | values Report electronically signed by: [id number] Benjie Abreu MD (05/07/2017, 12:50:52 | | [...] | | | |Report electronically signed by: [id number] Benjie Abreu MD (05/07/2017, 12:50:52 PM) | | | | | | | | Final | + + + + + + + | Performing | Address | City/State/[facility]code | Phone Number | | Organization | | | | + + + + + | [facility] | [address] [facility] [address] | [place], [place] | | | CARDIOLOGY | [address] | [address] | | + + + + + PROCEDURE NOTE (05/07/2017 7:31 AM PDT) + + + | Narrative | Performed At | + + + | Henri Holguin MD 05/07/2017 7:31 AM INPATIENT BRIEF OPERATIVE | | | NOTE Procedure Date: 05/06/17 Author: Katrina Figueredo | | | ,MPH Attending Physician: Dr. [...] | | Additional Diagnoses: Rectal cancer dx 2002 s/p rxn Severe | | | hyponatremia [...] re-intubation (following commands on the right) Drains: Harman, | | | MARGAUX x2 Disposition: direct [...] | | | | | s findings. MD [facility] Collins 7C NSI [address] [facility] | | | [address] [address] | | | | | + + [...] correct | | | patient, procedure, equipment, underwriting support manager and site/side marked as | | | [...] At | + + + | EXAM: PA CHEST 1 VIEW HISTORY: 61-year-old male admitted [...] Interface - 05/07/2017 10:27 AM PDT EXAM: PA CHEST 1 | | VIEWHISTORY: 61-year-old male [...] Attending | | Surgeon: Henri Holguin MD Soap Mixer(s): Katrina Figueredo MD, MPH | | Preoperative Diagnosis: Holospinal epidural | | abscess.Postoperative Diagnosis: Holospinal epidural abscess.Procedure: T2 and T8 skip | | laminectomies for evacuation of epidural abscess.Anesthesia: General.Estimated Blood | | Loss: 75 mL.Complications: None apparent.Indications For Procedure: Mr. Cornelio Figueredo | | is a 61-year-old man who was admitted to [facility] yesterday with back pain and confusion. | [...] procedure without apparent complication.Henri Holguin, | | MDGUSTAVO/MODCLIVED: 05/06/2017 22:32:27DT: 05/07/2017 01:34:56Job #: [id number] | | | | /[id number] | + + BLOOD CULTURE WORKUP (05/07/2017 [...] | | | | (A) | | [place] | | + + + + + [...] Refer to culture collected 05/06/17 @ | [facility] - | | 09:21 AM for complete identification and susceptibilities Growth in | [place] | | Aerobic bottle Growth in Anaerobic bottle | | + + + + + + + + | Performing | Address | City/State/Zipcode | Phone Number | | Organization | | | | + + + + + | [facility] - | [address] | [place] [address] | | | [place] | | | [...] complete identification and susceptibilities Growth in | [facility] | | Aerobic bottle Growth in Anaerobic bottle | | + + + + + + + + | Performing | Address | City/State/Zipcode | Phone Number | | Organization | | | | + + + + + | [facility] - | [address] | [place] [address] | | | [place] | | | | + + + [...] | + + + + + | [facility] | [address] | [place] [address] | | | SERVICES, CORE | [address] | | | + + + [...] | + + + + + | [facility] | [address] | [place] [address] | | | TONY MCLEAN | [address] | | | + + + [...] [facility] | [address] | [place] [address] | | | SERVICES, CORE | PARK [...] [facility] | [address] | [place] [address] | | | SERVICES, CORE | P[address] [...] | + + + + + | [facility] | [address] | [place] [address] | | | SERVICES, CORE | [address] | | | + + + [...] | + + + + + | [facility] | [address] | [place] [address] | | | SERVICES, TONY | [address] | | | + + + [...] valves (2.5 - 3.5) INR APTT | [facility], CORE | | Therapeutic Range: (75 - 120) sec | | | Heparin levels of 0.35 - 0.7 U/mL | | + + + + + + + + | Performing | Address | City/State/Zipcode | Phone Number | | Organization | | | | + + + + + | [facility] | [address] | [place] [address] | | | [facility], CORE | [address] | | | + + + [...] [facility] | [address] | [place] [address] | | | SERVICES, CORE | PARK [...] [facility] | [address] | [place] [address] | | | SERVICES, CORE | PARK [...] | | | LABORATORY | | | [place] | | | SERVICES, | | | [...] | + + + + + | [facility] | [address] | [place] [address] | | | SERVICES, CORE | P[address] [...] 4.0 | LABORATORY | | mmol/L | TONY MCLEAN | + + + + + + + + | Performing | Address | City/State/Zipcode | Phone Number | | Organization | | | | + + + + + | [facility] | [address] | [place] [address] | | | TONY MCLEAN | [address] | | | + + + [...] + | [facility] - | [address] | [place] [address] | | | [place] | | | | + + + [...] identification Refer to culture collected 05/06/17 at [facility] - | | 2234, site #1 for complete identification and susceptibilities No | [place] | | anaerobic organisms isolated Gram Stain: No squamous epithelial | | | cells Moderate polymorphonuclear cells Few Gram positive cocci | | + + + + + + + + | Performing | Address | City/State/Zipcode | Phone Number | | Organization | | | | + + + + + | [facility] - | [address] | [place] [address] | | | [place] | | | | + + + [...] Report: 3+ Methicillin Resistant Staphylococcus aureus | [facility] - | | Presumptive identification Refer to culture collected 05/06/17 at [facility] - | | 0404, site #1 for complete identification and susceptibilities No | [place] | | anaerobic organisms isolated Gram Stain: No squamous epithelial | | | cells Moderate polymorphonuclear cells Few Gram positive cocci | | + + + + + + + + | Performing | Address | City/State/Zipcode | Phone Number | | Organization | | | | + + + + + | [facility] - | [address] | [place] [address] | | | [place] | | | | + + + [...] + | [facility] - | [address] | [place] [address] | | | [place] | | | | + + + + + CULTURE, BLOOD BACTI & YEAST [facility] (05/06/2017 9:21 AM PDT) + + + [...] | + + + + + | [facility] | [address] | [place] [address] | | | SERVICES, CORE | PARK [...] Note | + + | Service Account, Cliff Lopez In Interface - 05/06/2017 11:52 AM PDT [...] | | CORE | | | | 0901 PDT. | | | | + + + + + + | [facility] | 10.0Comment: This is an | 9.7 - 12.3 fL | [facility] | | | | edited result. Previous | | LABORATORY | | | | result was 10.0 fL on | | SERVICES, | | | | 05/06/2017at 0901 PDT. | | CORE | | + [...] [facility] | [address] | [place] [address] | | | SERVICES, CORE | [address] | | | + + + [...] | + + + + + | [facility] | [address] | [place] [address] | | | SERVICES, | [address] | | | | TRANSFUSION MEDICINE [...] Culture Report: Methicillin Resistant Staphylococcus aureus | [facility] - | | Presumptive identification Refer to culture collected 05/06/17 @ | [facility] - | | 09:21 AM for complete identification and susceptibilities Growth in | [facility] | | Aerobic bottle | | + + + + + + + + | Performing | Address | City/State/Zipcode | Phone Number | | Organization | | | | + + + + + | [facility] - | [address] | [place] [address] | | | [place] | | | | + + + + + CULTURE, BLOOD BACTI & YEAST [facility] (05/06/2017 7:15 AM PDT) + + + [...] | | LABORATORY | | | SERVICES, TONY | + + + + + + + + | Performing | Address | City/State/Zipcode | Phone Number | | Organization | | | | + + + + + | [facility] | [address] | [place] [address] | | | SERVICES, CORE | [address] | | | + + + [...] | | | LABORATORY | | | [place] | | | SERVICES, | | | [...] | + + + + + | [facility] | [address] | [place] [address] | | | SERVICES, CORE | [address] | | | + + + [...] + + + + | [facility] | [address] | ms | [facility] [...] + + + + + | [facility] | [address] | [place], [place] | | | CARDIOLOGY | [address] | [address] | | + + + + + [...] [facility] | [address] | [place] [address] | | | SERVICES, CORE | P[address] [...] | + + + + + | [facility] | [address] | [place] [address] | | | SERVICES, | [address] | | | | TRANSFUSION MEDICINE [...] [facility] | [address] | [place] [address] | | | SERVICES, | [address] [...] [facility] | [address] | [place] [address] | | | SERVICES, CORE | P[address] [...] [facility] | [address] | [place] [address] | | | SERVICES, CORE | [address] [...] and new reporting units as of | [facility] | | 12/06/2013. | LABORATORY | | | SERVICES, CORE | + + + + + + + + | Performing | Address | City/State/Zipcode | Phone Number | | Organization | | | | + + + + + | [facility] | [address] | [place] [address] | | | SERVICES, CORE | P[address] [...] | + + + + + | [facility] | [address] | [place] [address] | | | SERVICES, CORE | [address] | | | + + + [...] | | | LABORATORY | | | [place] | | | SERVICES, | | | [...] [facility] | [address] | [place] [address] | | | SERVICES, CORE | [address] | | | + + + [...] +--------+ +--------+------+------+ +-------+ +--------+---+---+ | Given | 05/12/20 | [...] | | +---+---+ + +-------+ +-------+---+---+ | bupivacaine-EPINEPHrine | Given | 05/06/20 | 20 mL | | | | (MARCAINE-EPINEPHRINE) 0.25 | | 17 9:10 | | | | | %-1:200,000 injection | | PM PDT | | | | | INTRAPROCEDURE PRN, Starting Allyssa | | | | | | | 05/06/17 at 2110, Until Allyssa | | | | | | | 05/06/17 at 2349 | | | | | | + [...] 05/09/20 | | | | | % jelly urethral, NEEDED, | | 17 5:54 | | [...] 11:12 | | | | | on Wed05/14/17 at 0030, Until | | PM PST | | | | | Discontinued | | | | | | + +-------+ +------+---+---+ + +---+ | | | + +---+ | menthol-zinc oxide (CALAZIME) | | | topical paste 0.2%-16.5% | | | topical, THREE TIMES DAILY | | | NEEDED, Starting Wed05/18/17 at | | | 0349, Until Wed05/18/17 at 2210, | | | skin irritation/breakdown | | + +---+ | | | + +---+ + +-------+ +-------+---+---+ | oxyCODONE (immediate release) [...] | | | | First dose on Wed05/13/17 at | | AM PST | | [...] | | | | | 05/05/17 at 1, Until Tue | | | | | [...] PDT | | | | +-------+ +------+---+---+ + +---+ | | | + +---+ | senna (SENOKOT) tablet 2 tablet | | | 2 tablet, oral, TWICE DAILY, | | | First dose (after last | | | modification) on 05/16/17 at | | | 2100, Until Discontinued | | + +---+ | | | + +---+ + +-------+ +--------+---+---+ | tamsulosin (FLOMAX) capsule [...] DAILY, First dose on Wed | | 17 9:05 | | | | | 05/12/17 [...] | | +---+---+ + +-------+ +--------+---+---+ | thrombin 5000 unit topical | Given | 05/06/20 | 5,000 | | | | solution INTRAPROCEDURE PRN, | | 17 9:37 | Units | | | | Starting Allyssa 05/06/17 at 2137, | | PM PDT | | | | | Until Allyssa 05/06/17 at 2349 | | | | | | + +-------+ +--------+---+---+ +---+---+ | | | +---+---+ + +---------+ + +---+---+ | vancomycin (VANCOCIN) IV 1,500 | New Bag | 05/18/20 | 1,500 mg | | [...]
--- OUTSIDE RECORDS SUMMARY | ~2019-11-01 | XMS | Encounter Summary ---
Demographics + + + | Address | [address] | | | [place] [address] | + + + | Home Phone [...] Author + + + | Author | [facility] | + + + | Organization | [facility] | + + + | Address | Unknown | + + + | Phone | Unavailable | + + + Support + + + + + | Name | Relationship | Address | Phone | + + + + + | Sona Escalona | BROOK | [address] | | | | | [place] | | | | | [address] | | + + + + + | Sondra Zuleta | ECON | Unknown | | + + + + + Care Team Providers + +------+ + | Care Subsea Engineer Name | Role | Phone | + [...] [id number] | | | | | | [facility] | | | | | | [place], [place] | | | | | | [address] | | | | | | [phone] | | | +--------+ + + + [...]
--- OUTSIDE RECORDS SUMMARY | ~2019-11-01 | XMS | Encounter Summary ---
Demographics + + + | Address | [address] | | | [place] [address] | + + + | Home Phone | | + + + | Preferred Language | Unknown | + + + | Marital Status | Single | + + + | Bahai Affiliation | CAT | + + + | Race | White | + + + | Ethnic Group | Not or | + + + Author + + + | Author | [facility] | + + + | Organization | [facility] | + + + | Address | Unknown | + + + | Phone | Unavailable | + + + Support + + + + + | Name | Relationship | Address | Phone | + + + + + | Sona Escalona | BROOK | [address] | | | | | [place] | | | | | [address] | | + + + + + | Sondra Song | ECON | Unknown | | + + + + + Care Team Providers + +------+ + | Care Quality Cloth Tester Name | Role | Phone | + +------+ + | Griffin Shi DO | PCP | | + +------+ + Reason for Visit + + + | Reason | Comments | + + + | Care Management | | + + + Encounter Details +--------+ + + + + | Date | Type | Department | Care Team | Description | +--------+ + + + + | 06/22/ | Telephone | Infectious | Camille Gomez MD | Care Management | | 2017 | | [facility] at [facility] | [address] | | | | | [address] | [facility] | | | | | Loop Physician's | [place], [place] | | | | | [place], [address] [place] [address] | [address] | | | | | [place], [place] | [phone] | | | | | [address] | | | | | | [phone] | | | +--------+ + + + [...]
--- OUTSIDE RECORDS SUMMARY | ~2019-11-01 | XMS | Encounter Summary ---
Demographics + + + | Address | [address] | | | [place] [address] | + + + | Home Phone | | + + + | Preferred Language | Unknown | + + + | Marital Status | Single | + + + | Alevism Affiliation | CAT | + + + | Race | White | + + + | Ethnic Group | Not or | + + + Author + + + | Author | [facility] | + + + | Organization | [facility] | + + + | Address | Unknown | + + + | Phone | Unavailable | + + + Support + + + + + | Name | Relationship | Address | Phone | + + + + + | Sona Escalona | BROOK | [address] | | | | | [place] | | | | | [address] | | + + + + + | Sondra Zuleta | ECON | Unknown | | + + + + + Care Team Providers + +------+ + | Care Card Runner Name | Role | Phone | + +------+ + | Griffin Shi DO | PCP | | + +------+ + Reason for Visit + + + | Reason | Comments | + + + | Transitional Care | | | Management | | + + + | Infectious disease | | + + + Encounter Details +--------+ + + + + | Date | Type | Department | Care Team | Description | +--------+ + + + + | 05/21/ | Telephone | Infectious | Heydi Johnson, | Transitional Care | | 2017 | | [facility] at [facility] | RN [address] | Management; | | | | [address] | [facility] | Infectious disease | | | | Loop Physician's | [place], [place] | | | | | [place], [facility] | [address] | | | | | [place], [place] | [phone] | | | | | [address] | | | | | | [phone] | | | +--------+ + + + [...]
--- OUTSIDE RECORDS SUMMARY | ~2019-11-01 | XMS | Encounter Summary ---
Demographics + + + | Address | [address] | | | [place] [address] | + + + | Home Phone | | + + + | Preferred Language | Unknown | + + + | Marital Status | Single | + + + | Synagogue Affiliation | CAT | + + + | Race | White | + + + | Ethnic Group | Not or | + + + Author + + + | Author | [facility] | + + + | Organization | [facility] | + + + | Address | Unknown | + + + | Phone | Unavailable | + + + Support + + + + + | Name | Relationship | Address | Phone | + + + + + | Sona Escalona | BROOK | [address] | | | | | [place] | | | | | [address] | | + + + + + | Sondra Zuleta | ECON | Unknown | | + + + + + Care Team Providers + +------+ + | Care Administrative Officer Name | Role | Phone | + +------+ + | Griffin Shi DO | PCP | | + +------+ + Encounter Details +--------+ + + + + | Date | Type | Department | Care Team | Description | +--------+ + + + + | 11/30/ | Documentati | Infectious | Camille Gomez MD | | | 2017 | on | [facility] | [address] | | | | | [address] | [address] | | | | | [address] [facility] | [place], [place] | | | | | [place], [address] floor | [address] | | | | | [place], [place] | [phone] | | | | | [address] | | | | | | [phone] | | | +--------+ + + + [...]
--- OUTSIDE RECORDS SUMMARY | ~2019-11-01 | XMS | Encounter Summary ---
Demographics + + + | Address | [address] | | | [place] [address] | + + + | Home Phone | | + + + | Preferred Language | Unknown | + + + | Marital Status | Single | + + + | Episcopalian Affiliation | CAT | + + + [...] [place] | | | | | [address] | | + + + + + | Sondra Zuleta | ECON | Unknown | | + + + + + Care Team Providers + +------+ + | Care Continuous Crusher Operator Name | Role | Phone | + +------+ + | Griffin hSi DO | PCP | | + +------+ + Reason for Visit + + + | Reason | Comments | + + + | Treatment | | | Clarification | | + + + Encounter Details +--------+ + + + + | Date | Type | Department | Care Team | Description | +--------+ + + + + | 05/31/ | Telephone | Infectious | Camille Gomez MD | Treatment | | 2017 | | [facility] at [facility] | [address] | Clarification | | | | [address] | [address]annie | | | | | Loop Physician's | [place], [place] | | | | | Berenice, [address] [place] [address] | [address] | | | | | [place], [place] | [phone] | | | | | [address] | | | | | | [phone] | | | +--------+ + + + [...]
--- OUTSIDE RECORDS SUMMARY | ~2019-11-01 | XMS | Clinical Summary ---
Demographics + + + | Address | [address] | | | [place] [address] | + + + | Home Phone | | + + + | Preferred Language | Unknown | + + + | Marital Status | Single | + + + | Taoism Affiliation | CAT | + + + [...] [place] | | | | | [address] | | + + + + + | Sondra Zuleta | ECON | Unknown | | + + + + + Care Team Providers + +------+ + | Care Funeral Home Assistant Name | Role | Phone | + +------+ + | Griffin Shi DO | PCP | | + +------+ + Source Comments JUDY is fully live on both [facility] Ambulatory and [facility] InPatient.[facility] Allergies No Known Allergies Medications + + [...] | BLUE | xxxxxxxxx | Effect | [phone] | [address] | P[address] | | | CROSS | | reid | [address] | [id number] [address] | | | | [place] | | for | | [place], | | | | L | | all | | [place] [address] | | | | | | dates [...] chacho | | | 2 (Home) | [address] | + +--------+ +--------+ + + Advance [...]
--- OUTSIDE RECORDS SUMMARY | ~2019-11-01 | XMS | Encounter Summary ---
Demographics + + + | Address | [address] | | | [place] [address] | + + + | Home Phone | | + + + | Preferred Language | Unknown | + + + | Marital Status | Single | + + + | Christian Affiliation | CAT | + + + [...] [place] | | | | | [address] | | + + + + + | Sondra Zuleta | ECON | Unknown | | + + + + + Care Team Providers + +------+ + | Care Superintendent Job Name | Role | Phone | + +------+ + | Griffin Shi DO | PCP | | + +------+ + Encounter Details +--------+ + + + + | Date | Type | Department | Care Team | Description | +--------+ + + + + | 06/04/ | Telephone | Spine Center at | Divya Medrano | | | 2016 | | [facility] [address] | [address] | | | | | [facility] | | | | | | [facility] Healing, | | | | | | [facility] | | | | | | [place], [place] | | | | | | [address] | | | | | | [phone] | | | +--------+ + + + [...]
--- OUTSIDE RECORDS SUMMARY | ~2019-11-01 | XMS | Encounter Summary ---
Demographics + + + | Address | [address] | | | [place] [address] | + + + | Home Phone | | + + + | Preferred Language | Unknown | + + + | Marital Status | Single | + + + | Mu-Ism Affiliation | CAT | + + + | Race | White | + + + | Ethnic Group | Not or | + + + Author + + + | Author | [facility] | + + + | Organization | [facility] | + + + | Address | Unknown | + + + | Phone | Unavailable | + + + Support + + + + + | Name | Relationship | Address | Phone | + + + + + | Sona Escalona | BROOK | [address] | | | | | [place] | | | | | [address] | | + + + + + | Sondra Zuleta | ECON | Unknown | | + + + + + Care Team Providers + +------+ + | Care Research Clerk Name | Role | Phone | + +------+ + | Griffin Shi DO | PCP | | + +------+ + Encounter Details +--------+ + + + + | Date | Type | Department | Care Team | Description | +--------+ + + + + | 05/17/ | Procedure | Diagnostic Imaging | | | | 2016 | Pass | Services at [facility] | | | | | | [address] | | | | | | Jannie KIM | | | | | | [facility], [address] [place] [address] | | | | | | [place], [place] | | | | | | [address] | | | | | | [phone] | | | +--------+ + + + [...]
--- OUTSIDE RECORDS SUMMARY | ~2019-11-01 | XMS | Encounter Summary ---
Demographics + + + | Address | [address] | | | [place] [address] | + + + | Home Phone | | + + + | Preferred Language | Unknown | + + + | Marital Status | Single | + + + | Judaism Affiliation | CAT | + + + [...] [place] | | | | | [address] | | + + + + + | Sondra Zuleta | ECON | Unknown | | + + + + + Care Team Providers + +------+ + | Care Quantitative Researcher Name | Role | Phone | + [...] [id number] | | | | | | [facility] | | | | | | [place], [place] | | | | | | [address] | | | | | | [phone] | | | +--------+ + + + [...]
--- OUTSIDE RECORDS SUMMARY | ~2019-11-01 | XMS | Encounter Summary ---
Demographics + + + | Address | [address] | | | [place] [address] | + + + | Home Phone | | + + + | Preferred Language | Unknown | + + + | Marital Status | Single | + + + | Voodoo Affiliation | CAT | + + + | Race | White | + + + | Ethnic Group | Not or | + + + Author + + + | Author | [facility] | + + + | Organization | [facility] | + + + | Address | Unknown | + + + | Phone | Unavailable | + + + Support + + + + + | Name | Relationship | Address | Phone | + + + + + | Sona Escalona | BROOK | [address] | | | | | [place] | | | | | [address] | | + + + + + | Sondra Zuleta | ECON | Unknown | | + + + + + Care Team Providers + +------+ + | Care Platform Supervisor Name | Role | Phone | + [...] | +--------+ + + + + | 06/29/ | Telephone | Infectious | Candice Burgos, | [facility] line | | 2017 | | [facility] at [facility] | RN [address] | | | | | [address] | [address] | | | | | Loop Physician's | [place], [place] | | | | | Pavilion, 3rd floor | [address] | | | | | [place], [place] | [phone] | | | | | [address] | | | | | | [phone] | | | +--------+ + + + [...]
--- OUTSIDE RECORDS SUMMARY | ~2019-11-01 | XMS | Encounter Summary ---
Demographics + + + | Address | [address] | | | [place] [address] | + + + | Home Phone | | + + + | Preferred Language | Unknown | + + + | Marital Status | Single | + + + | Quaker Affiliation | CAT | + + + | Race | White | + + + | Ethnic Group | Not or | + + + Author + + + | Author | [facility] | + + + | Organization | [facility] | + + + | Address | Unknown | + + + | Phone | Unavailable | + + + Support + + + + + | Name | Relationship | Address | Phone | + + + + + | Sona Escalona | BROOK | [address] | | | | | [place] | | | | | [address] | | + + + + + | Sondra Zuleta | ECON | Unknown | | + + + + + Care Team Providers + +------+ + | Care Ham Facer Name | Role | Phone | + [...] floor | | | | | | [place], [place] | | | | | | [address] | | | +--------+ + + + [...]
--- OUTSIDE RECORDS SUMMARY | ~2019-11-01 | XMS | Encounter Summary ---
Demographics + + + | Address | [address] | | | [place] [address] | + + + | Home Phone | | + + + | Preferred Language | Unknown | + + + | Marital Status | Single | + + + | Lutheran Affiliation | CAT | + + + | Race | White | + + + | Ethnic Group | Not or | + + + Author + + + | Author | [facility] | + + + | Organization | [facility] | + + + | Address | Unknown | + + + | Phone | Unavailable | + + + Support + + + + + | Name | Relationship | Address | Phone | + + + + + | Sona Escalona | BROOK | [address] | | | | | [place] | | | | | [address] | | + + + + + | Sondra Zuleta | ECON | Unknown | | + + + + + Care Team Providers + +------+ + | Care Timber Setter Name | Role | Phone | + [...] | | [address] | [facility] | | | | | Loop Physician's | [place], [place] | | | | | Berenice, [facility] floor | [address] | | | | | [place], [place] | [phone] | | | | | [address] | | | | | | [phone] | | | +--------+ + + + [...]
--- OUTSIDE RECORDS SUMMARY | ~2019-11-01 | XMS | Encounter Summary ---
Demographics + + + | Address | [address] | | | [place] [address] | + + + | Home Phone | | + + + | Preferred Language | Unknown | + + + | Marital Status | Single | + + + | Restorationism Affiliation | CAT | + + + [...] [place] | | | | | [address] | | + + + + + | Sondra Song | ECON | Unknown | | + + + + + Care Team Providers + +------+ + | Care Apartment Leasing Specialist Name | Role | Phone | [...] | | | [address] | [facility] | | | | | Loop Physician's | [place], [place] | | | | | Berenice, [address] [place] [address] | [address] | | | | | [place], [place] | [phone] | | | | | [address] | | | | | | [phone] | | | +--------+ + + + [...]
--- OUTSIDE RECORDS SUMMARY | ~2019-11-01 | XMS | Encounter Summary ---
Demographics + + + | Address | [address] | | | [place] [address] | + + + | Home Phone | | + + + | Preferred Language | Unknown | + + + | Marital Status | Single | + + + | Faith Affiliation | CAT | + + + | Race | White | + + + | Ethnic Group | Not or | + + + Author + + + | Author | [facility] | + + + | Organization | [facility] | + + + | Address | Unknown | + + + | Phone | Unavailable | + + + Support + + + + + | Name | Relationship | Address | Phone | + + + + + | Sona Escalona | BROOK | [address] | | | | | [place] | | | | | [address] | | + + + + + | Sondra Zuleta | ECON | Unknown | | + + + + + Care Team Providers + +------+ + | Care Supervisor Lending Activities Name | Role | Phone | + [...] Telephone | Infectious | Candice Burgos, | [facility] line | | 2017 | | [facility] at [facility] | RN [address] | | | | | [address] | [address] | | | | | Loop Physician's | [place], [place] | | | | | Pavilion, 3rd floor | [address] | | | | | [place], [place] | [phone] | | | | | [address] | | | | | | [phone] | | | +--------+ + + + [...]
--- OUTSIDE RECORDS SUMMARY | ~2019-11-01 | XMS | Encounter Summary ---
Demographics + + + | Address | [address] | | | [place] [address] | + + + | Home Phone [...] Author + + + | Author | [facility] | + + + | Organization | [facility] | + + + | Address | Unknown | + + + | Phone | Unavailable | + + + Support + + + + + | Name | Relationship | Address | Phone | + + + + + | Sona Escalona | BROOK | [address] | | | | | [place] | | | | | [address] | | + + + + + | Sondra Zuleta | ECON | Unknown | | + + + + + Care Team Providers + +------+ + | Care Brazing Machine Operator Name | Role | Phone | + +------+ + | Griffin Shi DO | PCP | | + +------+ + Encounter Details +--------+ + + + + | Date | Type | Department | Care Team | Description | +--------+ + + + + | 05/10/ | Procedure | Diagnostic Imaging | | | | 2016 | Pass | Services at [facility] | | | | | | [address] | | | | | | Jannie KIM | | | | | | [facility], [address] [place] [address] | | | | | | [place], [place] | | | | | | [address] | | | | | | [phone] | | | +--------+ + + + [...]
--- OUTSIDE RECORDS SUMMARY | ~2019-11-01 | XMS | Encounter Summary ---
Demographics + + + | Address | [address] | | | [place] [address] | + + + | Home Phone | | + + + | Preferred Language | Unknown | + + + | Marital Status | Single | + + + | Jehovah'S Witness Affiliation | CAT | + + + | Race | White | + + + | Ethnic Group | Not or | + + + Author + + + | Author | [facility] | + + + | Organization | [facility] | + + + | Address | Unknown | + + + | Phone | Unavailable | + + + Support + + + + + | Name | Relationship | Address | Phone | + + + + + | Sona Escalona | BROOK | [address] | | | | | [place] | | | | | [address] | | + + + + + | Sondra Zuleta | ECON | Unknown | | + + + + + Care Team Providers + +------+ + | Care Senior Php Software Developer Name | Role | Phone | + [...] Event | [address] | MD Kourtney [address] | | | | | [facility] | [address] | | | | | Hospital Admitting | [facility] [place] | | | | | Desk Located on the | [address] | | | | | 9th floor | [phone] | | | | | [facility] [place] | | | | | | [address] | Jean Nelson, | | | | | | MDPhD [address] | | | | | | [address] | | | | | | [place], [place] | | | | | | [address] | | | | | | [phone] | | | | | | | [...] | | 1 | Med | History: [facility] Relevant Meds/Labs/Echo/Imaging Allergies | | | 2 [...] | | (7.5); Oral; Breath Sounds | FISH AND WILDLIFE WARDEN | | | | bilaterally, Continous | [...] 11:31 | | | | | Starting Allyssa 05/06/17 at 2331, | | PM PDT [...]
--- OUTSIDE RECORDS SUMMARY | ~2019-11-01 | XMS | Encounter Summary ---
Demographics + + + | Address | [address] | | | [place] [address] | + + + | Home Phone | | + + + | Preferred Language | Unknown | + + + | Marital Status | Single | + + + | Jainism Affiliation | CAT | + + + | Race | White | + + + | Ethnic Group | Not or | + + + Author + + + | Author | [facility] | + + + | Organization | [facility] | + + [...] [place] | | | | | [address] | | + + + + + | Sondra Zuleta | ECON | Unknown | | + + + + + Care Team Providers + +------+ + | Care Bait Tier Name | Role | Phone | + +------+ + | Griffin Shi DO | PCP | | + +------+ + Reason for Visit + + + | Reason | Comments | + + + | RN Care Management | | + + + | Infectious disease | | + + + Encounter Details +--------+ + + + + | Date | Type | Department | Care Team | Description | +--------+ + + + + | 05/19/ | Documentati | Infectious | Candice Burgos, | RN Care Management; | | 2017 | on | [facility] at [facility] | RN [address] | Infectious disease | | | | [address] | [facility] | | | | | Loop Physician's | [place], [place] | | | | | [place]renice, [address] [place] [address] | [address] | | | | | [place], [place] | [phone] | | | | | [address] | | | | | | [phone] | | | +--------+ + + + [...]
--- OUTSIDE RECORDS SUMMARY | ~2019-11-01 | XMS | Encounter Summary ---
Demographics + + + | Address | [address] | | | [place] [address] | + + + | Home Phone | | + + + | Preferred Language | Unknown | + + + | Marital Status | Single | + + + | Baptist Affiliation | CAT | + + + | Race | White | + + + | Ethnic Group | Not or | + + + Author + + + | Author | [facility] | + + + | Organization | [facility] | + + + | Address | Unknown | + + + | Phone | Unavailable | + + + Support + + + + + | Name | Relationship | Address | Phone | + + + + + | Sona Escalona | BROOK | [address] | | | | | [place] | | | | | [address] | | + + + + + | Sondra Zuleta | ECON | Unknown | | + + + + + Care Team Providers + +------+ + | Care Nutrition Services Associate Name | Role | Phone | + +------+ + | Griffin Shi DO | PCP | | + +------+ + Reason for Visit +---------+ + | Reason | Comments | +---------+ + | Post Op | | +---------+ + Encounter Details +--------+---------+ + + + | Date | Type | Department | Care Team | Description | +--------+---------+ + + + | 06/03/ | Office | Spine Center at | Divya Medrano | Abscess in epidural | | 2017 | Visit | [facility] [address] | [address] | space of spine | | | | Ave Center for | | (Primary Dx) | | | | Health and Healing, | | | | | | Building | | | | | | Floor [place], [place] | | | | | | [address] | | | | | | [phone] | | | +--------+---------+ + + + [...] + + + | Blood Pressure | - | - | | + + + + + | Pulse | - | - | | + + + + + | Temperature | - | - | | + + + + + | Respiratory Rate | - | - | | + + + + + | Oxygen Saturation | - | - | | + + + + + | Inhaled Oxygen | - | - | | | Concentration | | | | + + + + + | Weight | 71.7 kg (158 lb) | 06/03/2017 12:55 PM | | | | | PST | | + + + + + | Height | 177.8 cm (5' 10") | 06/03/2017 12:55 PM | | | | | PST | | + + + + + | Body Mass Index | 22.67 | 06/03/2017 12:55 PM | | | [...] documented as of this encounter Progress Notes Divya Medrano PA-C - 06/03/2017 12:55 PM PSTFormatting of this note might be differen t from the original. POST OP VISIT Subjective: Ludin Escalona presents to clinic today for a routine post-operative visit after undergoing T2 and T8 skip laminectomies for evacuation of epidural abscess on 05/06/17 due to holospinal epidural abscess. The patient states he is doing "great". He endorses itc rory around the incision but denies any back pain, BLE/BUE pain, weakness, numbness and pare sthesias. He is eager to have the andrei removed. The patient is very pleased with the outc ome of the surgery. Objective: Ht 1.778 m (5' 10") | Wt 71.7 kg (158 lb) | BMI 22.67 kg/(m^2) General: NAD Neuro: A+O x 3. EOMI. Face symmetric. Walks with smooth gait. Incision: C/D/I, no erythema or edema, andrei intact Motor: Blood Bank Laboratory Professional Bicep Tricep Delt R 5 5 5 5 L 5 5 5 5 HF KF KE DF PF EHL R 5 5 5 5 5 5 L 5 5 5 5 5 5 SILT in BLE and BUE Assesment: Ludin Escalona is a 61 y.o. male s/p T2 and T8 skip laminectomies for evacua tion of epidural abscess on 05/06/17 due to holospinal epidural abscess. The patient is doing great. He has no concerning symptoms and is following closely with ID for antibiotics. Stap les were removed without complication. Plan: - [place] removed without complication. - OK to return to work. - Pain medication: None needed. - RTC at 3 months post-op for reassessment. Should the patient have any questions or debra rns prior to their next visit they will contact the clinic. [facility] [address] [place] [address] documented in th is encounter Plan of Treatment Not on filedocumented as of this encounter Visit Diagnoses + + | Diagnosis | + + | Abscess in epidural space of spine - Primary | + + documented in this encounter Additional Health Concerns + + + + | Infection | Noted Time | Resolved Time | + + + + | Methicillin Resistant Staph Aureus | 05/07/2017 12:00 AM | | | | PDT | | + + + + documented as of this encounter
--- OUTSIDE RECORDS SUMMARY | ~2019-11-01 | XMS | Encounter Summary ---
Demographics + + + | Address | [address] | | | [place] [address] | + + + | Home Phone | | + + + | Preferred Language | Unknown | + + + | Marital Status | Single | + + + | Zoroastrianism Affiliation | CAT | + + + [...] [place] | | | | | [address] | | + + + + + | Sondra Zuleta | ECON | Unknown | | + + + + + Care Team Providers + +------+ + | Care Electronic Masking System Operator Name | Role | Phone | [...] | 2017 - | | [address] [facility] | [address] | LAMINECTOMIES FOR | | | | [address] [facility] | [place], [place] | WASHOUT OF EPIDURAL | | 05/07/ | | Hospital Admitting | [address] | ABSCESS | | 2017 | | Desk Located on the | [phone] | microbiology x 3 | | | | 9th floor | | | | | | [facility] [place] | | | | | | [address] | | | +--------+---------+ + + + [...] Baldwin MD - 05/18/2017 2:21 PM PST [facility] Discharge Summary Discharging Provider: Duy Baldwin MD [...] Thank you for entrusting your care to [facility] Internal Medicine. If you have any problems or concerns before you are able to follow up with your Primary Care Provider, please call and ask the band ripsaw operator to page the attending physician, Wali Soto MD, who was caring for you at discharge. If that physician is not available, ask the band ripsaw operator to page the physician credit control clerk for the Medical Teaching Service. Call us right away if any of the following occur: -Weakness -high fevers -bleeding Home Health Referral after Hospitalization Comments: I certify that this patient is under my care and that I, or Nurse Practitioner or Physician Sales Assoc working with me, had a face to face encounter with this patient on 05/18/2017 On behalf of Attending Physician: Wali Soto MD I am ordering and certify that the following services are medically necessary [facility] Custodial Evaluate and Treat I certify that the [...] Selected Specialties Address Phone Number Fax Number [facility] Selected Home Health Services [address] [facility] [place] [id number] Social Care Services No service has been selected for the patient. Follow Up: Future Appointments Provider Department Dept Phone Center 06/03/2017 12:55 PM [facility] [phone] [facility] [place] Contact information for other follow-up providers JAMAAL SHI DO. Go on 05/24/2017. Specialty: Internal Medicine Why: At 10:45 on 05/24/17 with your PCP, Dr. Shi. Contact information [facility] Internal Medicin [address] [facility] [address] Contact information for after-discharge nursing home Care Medical [facility]. Specialties: Home Health Services, Hospice Contact information [address] [facility] [address] Discharge Physical Exam: Last 24 hour min/max [...] Wali Soto MD - 05/18/2017 4:20 PM [facility] PROGRESS NOTE ADMIT DATE: [...] 6) MRSA bacteremia Wali Soto MD Clinical Electric Dolly Operator, Internal Medicine Pager [phone] documented in this encounter Discharge Instructions Instructions Cynthia Leigh RN - 05/18/2017[facility] has accepte d you for home health services. They plan to start care tomorrow and will contact you direct ly to schedule. If you do not hear from them by tomorrow, please call them directly at the n umber listed above. Patient Education Materials: Pt received vanco instructions from [place]. Discharge Nurse: Cynthia DIAZ Date: 05/18/2017 Discharge [...] from prior study Wali Soto MD Clinical Electric Dolly Operator, Internal Medicine Pager [phone] Anette Marshall - 1 07/17/2016 3:25 PM PST GM5 [place] PROGRESS NOTE PHYSICIAN CEMENT FINISHER APPRENTICE STUDENT NOTE FOR EDUCATIONAL PURPOSES ONLY Author: HORACE Ortiz-S Attending Physician: Wali Soto MD DEMOGRAPHIC INFORMATION Name: Cornelio Figueredo Age: 61 y.o. Birthdate: 1955 Sex: male Address: [address] [place] [address] PCP: Jamaal Shi DO Hospital Day:12 24 [...] Maker Primary Surrogate Decision Maker Ann (sister) [phone] This patient was staffed with my attending, Wali Soto MD, and they agree with my asse ssment and plan. JOSÉ MIGUEL OrtizS Physician Sales Assoc Student [facility] [place] Pager [phone] Associated attestation - Duy Baldwin MD - [...] notes and imaging. Gisela Sahu PA-C, RDMS [id number] Darshan Riddle MD - 05/16/2017 2:03 PM [facility] 5 GENERAL MEDICINE ATTENDING PROGRESS NOTE [...] Darshan Parada MD Department of Internal Medicine [facility] I spent more than 35 minutes osex-dc-esun with the patient of which greater than [...] Plans for dx/therapeutic thoracentesis by [facility] radiology tomorrow via US guidance. -O2 titrate [...] Maker Primary Surrogate Decision Maker Ann (sister) [phone] This patient was staffed with my attending, Dr. Parada, who agrees with my assessment and marianna n. Kimber Elizabeth MD Internal Medicine PGY1 [facility] Infectious Disease Outpatient Referral for Discharge Planning [Y] This an OPAT Referral. [Type "Y" for all [facility] patients requiring IV antibiotics in all outpatient sett ings. Type "N" if NO IV antibiotics are recommended.] [Y] This is an [facility] ID Clinic Referral. [Type "Y" for all [facility] patients requiring [facility] ID Clinic Visits. Type "N" if no [facility] ID Clinic visits are recommended.] This referral [...] time Barriers to safe OPAT: lives in [facility], possible mild cognitive impairment Vascular Access:PICC Follow Up: [facility] ID faculty with preference to schedule with Dr. Harris or ID attending , Dr. Gomez in 2-3 weeks post hospital discharge Mop Man: For all patients requiring IV antibiotic therapy, please route your OPAT Marianna n of Care Note (.CMOPAT) to [facility] "p OPAT/Infectious Diseases clinic" Pool at discharge. Ple ase communicate to primary team that you will be notifying Infectious Diseases of the OPAT P tammie of Care. Darshan Riddle MD - 9:42 PM [facility] 5 GENERAL MEDICINE ATTENDING PROGRESS NOTE [...] Darshan Parada MD Department of Internal Medicine [facility] I spent more than 35 minutes unbd-ve-goga with the patient of which greater than 50% was sp ent counseling the patient. Anette Marshall - 1:07 PM PST [facility]5 [place] PROGRESS NOTE PHYSICIAN CEMENT FINISHER APPRENTICE STUDENT NOTE FOR EDUCATIONAL PURPOSES ONLY Author: Anette Daniel PA-S Attending Physician: Darshan Parada MD DEMOGRAPHIC INFORMATION Name: Cornelio Figueredo Age: 61 y.o. Birthdate: 1955 Sex: male Address: [address] [place] [address] [place] [address] PCP: Jamaal Shi DO Hospital Day:10 24 [...] considerations include SIADH due to lung and CUSTOMER SUPPORT REPRESENTATIVE pathology, however urine output <3L. Patient was [...] Maker Primary Surrogate Decision Maker Ann (sister) [phone] This patient was staffed with my attending, Darshan Parada MD, and they agree with my asses sment and plan. HORACE Ortiz-S Physician Sales Assoc Student [facility] Pager [phone] Associated attestation - Duy Baldwin MD - [...] possibly)Darshan Parada MD - 05/14/2017 8:54 PM [facility] 5 GENERAL MEDICINE ATTENDING PROGRESS NOTE [...] Darshan Parada MD Department of Internal Medicine [facility] I spent more than 35 minutes nieg-bk-utfn with the patient of which greater than 50% was sp ent counseling the patient. FloAnette aburto - 1:49 PM PST [facility] [place] PROGRESS NOTE PHYSICIAN CEMENT FINISHER APPRENTICE STUDENT NOTE FOR EDUCATIONAL PURPOSES ONLY Author: Anette Daniel PA-S Attending Physician: Darshan Parada MD DEMOGRAPHIC INFORMATION Name: Cornelio Figueredo Age: 61 y.o. 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 Will continue [...] Maker Primary Surrogate Decision Maker Ann (sister) [phone] This patient was staffed with my attending, Darshan Parada MD, and they agree with my asses sment and plan. HORACE Ortiz-S Physician Sales Assoc Student [facility] Pager [phone] Associated attestation - Gabby Pillai MD - [...] for placement on 05/15. Gabby Pillai MD Ecg Technician, PGY-1 [facility] Pager [phone] Darshan Parada MD - 05/13/2017 4:13 PM [facility] 5 GENERAL MEDICINE ATTENDING PROGRESS NOTE [...] Darshan Parada MD Department of Internal Medicine [facility] I spent more than 35 minutes cbcp-hv-luza with the patient of which greater than 50% was sp ent counseling the patient. Anette Marshall - 2:00 PM PST [facility]5 [place] PROGRESS NOTE PHYSICIAN CEMENT FINISHER APPRENTICE STUDENT NOTE FOR EDUCATIONAL PURPOSES ONLY Author: HORACE Ortiz-S Attending Physician: Darshan Parada MD DEMOGRAPHIC INFORMATION Name: Cornelio Figueredo Age: 61 y.o. 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 Will trial [...] Maker Primary Surrogate Decision Maker Ann (sister) [phone] This patient was staffed with my attending, Darshan Parada MD, and they agree with my asses sment and plan. HORACE Ortiz-S Physician Sales Assoc Student [facility] Pager [phone] Associated attestation - Gabby Pillai MD - [...] for placement on 05/14. Gabby Pillai MD Ecg Technician, PGY-1 [facility] Pager [phone] Darshan Parada MD - 05/12/2017 5:41 PM [facility] 5 GENERAL MEDICINE ATTENDING PROGRESS NOTE [...] Darshan Parada MD Department of Internal Medicine [facility] I spent more than 35 minutes irpu-wp-elsb with the patient of which greater than 50% was sp ent counseling the patient. FloAnette aburto - 2:53 PM PST GM5 [place] PROGRESS NOTE PHYSICIAN CEMENT FINISHER APPRENTICE STUDENT NOTE FOR EDUCATIONAL PURPOSES ONLY Author: Anette Daniel, PA-S Attending Physician: Darshan Parada MD DEMOGRAPHIC INFORMATION Name: Cornelio Figueredo Age: 61 y.o. Birthdate: 1955 Sex: male Address: [address] [place] [address] [place] [address] PCP: Jamaal Shi DO Hospital Day:7 24 [...] Maker Primary Surrogate Decision Maker Ann (sister) [phone] This patient was staffed with my attending, Darshan Parada MD, and they agree with my asses sment and plan. JOSÉ MIGUEL OrtizS Physician Sales Assoc Student [facility] Pager [phone] Associated attestation - Duy Baldwin MD - [...] Darshan Parada MD Department of Internal Medicine [facility] I spent more than 35 minutes knup-eu-wxkt with the patient of which greater than [...] PM PST GM5 [place] PROGRESS NOTE PHYSICIAN CEMENT FINISHER APPRENTICE STUDENT NOTE FOR EDUCATIONAL PURPOSES ONLY Author: Anette Daniel PA-S Attending Physician: Darshan Parada MD DEMOGRAPHIC INFORMATION Name: Cornelio Figueredo Age: 61 y.o. Birthdate: 1955 Sex: male Address: [address] [place] [address] PCP: Jamaal Shi DO Hospital Day:6 24 [...] Maker Primary Surrogate Decision Maker Ann (sister) [phone] This patient was staffed with my attending, Darshan Parada MD, and they agree with my asses sment and plan. JOSÉ MIGUEL OrtizS Physician Sales Assoc Student [facility] Pager [phone] Associated attestation - Duy Baldwin MD - [...] INTERVENTIONAL RADIOLOGY PRE-PROCEDURE HISTORY AND PHYSICAL LOCATION: [facility] 16-1 SEX: Male AGE: 61 y.o. [...] with moderate sedation. Kim Yusuf MD pgr [phone] [facility] Interventional [place] No past medical history on file. No past surgical history on file. Current Medication List Not on File Abel Marcus - 2016 2:44 PM PSTTransthoracic echocardiogram completed. Final report to follow. nette Daniel - 12/2016 2:33 PM PST GM5 [place] PROGRESS NOTE PHYSICIAN CEMENT FINISHER APPRENTICE STUDENT NOTE FOR EDUCATIONAL PURPOSES ONLY Author: JOSÉ MIGUEL OrtizS Attending Physician: Darshan Parada MD DEMOGRAPHIC INFORMATION Name: Cornelio Figueredo Age: 61 y.o. Birthdate: 1955 Sex: male Address: [address] [place] [address] PCP: Jamaal Shi DO Hospital Day:5 24 [...] Maker Primary Surrogate Decision Maker Ann (sister) [phone] This patient was staffed with my attending, Darshan Parada MD, and they agree with my asses sment and plan. HORACE Ortiz-S Physician Sales Assoc Student [facility] Pager [phone] Associated attestation - Gabby Pillai MD - [...] cultures a re cleared. Gabby Pillai MD Ecg Technician, PGY-1 [facility] Pager [phone] Yanely Ayala MD - 05/09/2017 10:47 AM PSTFormatting of this note might be different fro m the original. . Neuroscience Intensive Care Unit Attending Progress Note Attending Pager #[phone] ICU Admission Reason Most Recent Value ICU [...] team members Provider Role Specialty Ipt Neurosurgery #10806 Treatment Team Neurological Surgery [facility] Team -- Ipt Gen Med Expected [...] ICU NEURO Place of Service:- Inpatient CSN: [id number] Suggested Modifier: GC - Resident Involved Suggested CPT: TO MACHINE FUR CLEANER Author:Yanely Ayala MD [place] [address] P China Cardona MD - 05/09/2017 5:19 [...] follow up thoracic effusion cultures China Vo [facility] PGY4 Pager [phone] 05/09/17 5:20 AM Associated attestation - Henri [...] [address] [address] Branden Diego MD - 05/08/2017 7:00 PM PDTFormatting of this note might be different fro tracey the original. . Neuroscience Intensive Care Unit Team Progress Note NSICU ASSIGNED #[id number] ICU Admission Reason Most Recent Value ICU [...] team members Provider Role Specialty Ipt Neurosurgery #36092 Treatment Team Neurological Surgery Ipt Critical Care Nsicu #13226 Treatment Team -- Patient Lines/Drains/Airways Status Active [...] Glycemic Control: insulin sliding Created by Branden iDego MD Author:Branden Diego MD [place] [address] [place] [address]Rtfthqjmeoryoz signed by Branden Diego MD at 05/08/2017 7:01 PM P DTDurrantSimi MD - 05/08/2017 6:57 PM PDTFormatting of this note might be different f rom the original. . Neuroscience Intensive Care Unit Attending Progress Note Attending Pager #[phone] ICU Admission Reason Most Recent Value ICU [...] team members Provider Role Specialty Ipt Neurosurgery #60086 Treatment Team Neurological Surgery Ipt Critical Care Nsicu #22211 Treatment Team -- Code Status Code Status [...] 05/08/2017 Simi Acosta MD Author:Simi Acosta MD [address] [id number] signed by Simi Acosta MD at 05/09/2017 [...] Please contact the neurosurgery resident on-call pager [phone] with questions. Jass Soria MD PGY-4 Neurological Surgery Pager [phone] Associated attestation - Henri Holguin MD - 05/08/2017 2:24 PM PDTI personally interviewed the patient, performed the pertinent parts of the physical examination and personally formu lated the plan with the resident. I agree with the resident's documentation and have docume nted any additions or exceptions. Henri Holguin MD [place] [facility]C NSI [address] [address] Yanely Ayala MD - 05/08/2017 7:20 AM PDTFormatting of this note might be different fro m the original. . Neuroscience Intensive Care Unit Attending Progress Note Attending Pager #[phone] ICU Admission Reason Most Recent Value ICU [...] team members Provider Role Specialty Ipt Neurosurgery #14924 Treatment Team Neurological Surgery Ipt Critical Care Nsicu #36664 Treatment Team -- Code Status Code Status [...] ICU NEURO Place of Service:- Inpatient CSN: [id number] Suggested Modifier: GC - Resident Involved Suggested CPT: TO MACHINE FUR CLEANER Author:Yanely Ayala MD [address] [address]Buofqpyfiwbxxk signed by Yanely Ayala MD at 05/08/2017 3:32 PM P DTDuSimi posey MD - 05/07/2017 7:12 PM PDTFormatting of this note might be different f rom the original. . Neuroscience Intensive Care Unit Attending Progress Note Attending Pager #[phone] ICU Admission Reason Most Recent Value ICU [...] team members Provider Role Specialty Ipt Neurosurgery #05184 Treatment Team Neurological Surgery Ipt Critical Care Nsicu #10182 Treatment Team -- Code Status Code Status [...] 05/07/2017 Simi Acosta MD Author:Simi Acosta MD [facility] [address] [place] [address]Tsatscqkkxsnsh signed by Simi Acosta MD at 05/08/2017 1:13 AM Zo Byrnes MD - 05/07/2017 4:07 PM PDT . Neuroscience Intensive Care Unit Attending Progress Note Attending Pager #[phone] ICU Admission Reason Most Recent Value ICU [...] the OSH with confusion, they did LP ([id number], 70% neutrophils, low glucose, high protein) Cx [...] team members Provider Role Specialty Ipt Neurosurgery #32304 Treatment Team Neurological Surgery Ipt Critical Care Nsicu #47107 Treatment Team -- Code Status Code Status [...] ns as noted. Date of Service: 05/07/2017 [facility] DEPARTMENT: ANE ICU NEURO Place of Service:- Inpatient CSN: [id number] Suggested Modifier: GC - Resident Involved Suggested CPT: TO MACHINE FUR CLEANER Author:Zo Baldwin MD [address] [address] [place] [address]Nhwfaeoqvpytll signed by Zo Baldwin MD at 05/07/2017 4:10 PM Branden Roberto MD - 05/07/2017 3:58 PM PDT . Neuroscience Intensive Care Unit Team Progress Note NSICU ASSIGNED #[id number] ICU Admission Reason Most Recent Value ICU [...] team members Provider Role Specialty Ipt Neurosurgery #45279 Treatment Team Neurological Surgery Ipt Critical Care Nsicu #27477 Treatment Team -- Patient Lines/Drains/Airways Status Active [...] by Branden Diego MD Author:Branden Diego MD [place] [address] [place] [address]Rksjlmemkefofk signed by Branden Diego MD at 05/07/2017 [...] Please contact the neurosurgery resident on-call pager [phone] with questions. Rola Nelson MD Neurosurgery Resident Pager #[phone] NSGY pager #[phone] Associated attestation - Henri Holguin MD - 05/07/2017 11:05 AM PDTI personally interviewed the patient, performed the pertinent parts of the physical examination and personally formu lated the plan with the resident. I agree with the resident's documentation and have docume nted any additions or exceptions. Henri Holguin MD [facility] [address] [facility] [address] Rola Nelson MD - 05/07/2017 5:18 AM [...] MD Neurosurgery Resident 5:18 AM, 05/07/2017 Pager #[phone] Rola Blood MD - 05/06/2017 7:42 PM [...] MD Neurosurgery Resident 7:42 PM, 05/06/2017 Pager #[phone] Divya Castillo P A-C - 05/06/2017 7:41 [...] sensation intact in all 4 extremities Motor: Senior Enlisted Advisor Bicep Tricep Delt R 5 5 5 [...] epidural abscess. The patient was transferred to [facility] for ongoing management. Plan for pos sible [...] be consented and marked. Divya Roman PA-C [facility] [address] [address]kpv12 [place] [address] documented in th is encounter Plan of [...] + +--------+ + + + | NON EMBEDDED SOFTWARE PROGRAMMER CYTOLOGY | Routin | 05/17/2017 | | [...] Note | + + | Service Account, RadiimgScrimmage Res In Interface - 05/17/2017 2:19 PM [...] used for local anesthesia. A 19 gauge [employer] centesis catheter | | needle was placed [...] [facility] | [address] | [place] [address] | | | SERVICES, CORE | [address] [...] | + + + + + | [facility] | [address] | [place] [address] | | | SERVICES, TONY | DEBBIE [...] | + + + + + | [facility] | [address] | [place] [address] | | | SERVICES, CORE | PARK [...] | + + + + + | [facility] | [address] | [place] [address] | | | TONY MCLEAN | [address]E [...] + | [facility] | [address] | [place] [address] | | | [place] | | | [...] + | [facility] | [address] | [place] [address] | | | [place] | | | [...] + | [facility] | [address] | [place] [address] | | | TONY MCLEAN | [address]E [...] [facility] | [address] | [place] [address] | | | SERVICES, CORE | PARK [...] | + + + + + | [facility] | [address] | [place] [address] | | | SERVICES, CORE | DEBBIE [...] [facility] | [address] | [place] [address] | | | SERVICES, CORE | PARK [...] | + + + + + | [facility] | [address] | [place] [address] | | | SERVICES, CORE | DEBBIE [...] | | | LABORATORY | | | [facility] | | | SERVICES, | | | [...] [facility] | [address] | [place] [address] | | | SERVICES, CORE | PARK [...] | + + + + + | [facility] | [address] | [place] [address] | | | SERVICES, CORE | DEBBIE [...] | + + + + + | [facility] | [address] | [place] [address] | | | SERVICES, [facility] | [address] | | | + + + + + NON EMBEDDED SOFTWARE PROGRAMMER CYTOLOGY (05/17/2017) + + + + + + | Component | Value | Ref Range | Performed | Pathologist | | | | | At | Signature | + + + + + + | NON-EMBEDDED SOFTWARE PROGRAMMER | SOURCE OF SPECIMEN:A | | [facility] [...] Lawrence | | | | | | CT([facility])Transformer Inspector | | | | | | Date [...] | + + + + + | [facility] | [address] | [place] [address] | | | PATHOLOGY | [address] [...] | | | LABORATORY | | | [place] | | | SERVICES, | | | [...] | + + + + + | [facility] | [address] | [place] [address] | | | SERVICES, CORE | DEBBIE [...] thank you | [facility] | | pharmacy [id number] Reference range change effective 03/29/2017. | LABORATORY | | | SERVICES, CORE | + + + + + + + + | Performing | Address | City/State/Zipcode | Phone Number | | Organization | | | | + + + + + | [facility] | [address] | [place] [address] | | | SERVICES, CORE | [address] | | | + + + + + X-RAY PORTABLE CHEST 1 VIEW (05/15/2017 1:10 PM PST) + + | Specimen | + + | | + + + + + | Narrative | Performed At | + + + | EXAM: NJ CHEST 1 VIEW 05/15/17 12:35:07 HISTORY: PICC [...] Interface - 05/15/2017 3:15 PM PST EXAM: [place] CHEST 1 | | VIEW 05/15/17 12:35:07HISTORY: [...] correct patient, procedure, equipment, | | | it support analyst and site/side marked as required. CLABSI Prevention [...] | area Basilic vein. Catheter lot number: [id number] with a length of 55 | | [...] | | | LABORATORY | | | [facility] | | | SERVICES, | | | [...] [facility] | [address] | [place] [address] | | | SERVICES, CORE | [address]BIE [...] [facility] | [address] | [place] [address] | | | SERVICES, CORE | PARK [...] [facility] | [address] | [place] [address] | | | SERVICES, TONY | DEBBIE [...] | + + + + + | [facility] | [address] | [place] [address] | | | SERVICES, CORE | DEBBIE [...] | | | LABORATORY | | | [facility] | | | SERVICES, | | | [...] | + + + + + | [facility] | [address] | [place] [address] | | | SERVICES, CORE | PARK [...] [facility] | [address] | [place] [address] | | | SERVICES, CORE | PARK [...] | | | LABORATORY | | | [address] | | | SERVICES, | | | [...] | + + + + + | [facility] | [address] | [place] [address] | | | SERVICES, CORE | PARK [...] ARMINDA | [address] | [place], [place] | | | T[facility] RE[facility]ES OF [facility] | [address] | [address] | | | TESTS | | | [...] | + + + + + | [facility] | [address] | [place] [address] | | | SERVICES, CORE | [address] | | | + + + + + CULTURE, BLOOD BACTI & YEAST [facility] (05/12/2017 1:19 PM PST) + + + [...] | + + + + + | [facility] | [address] | [place] [address] | | | SERVICES, CORE | DEBBIE [...] LABORATORY | [address] | [place] [address] | | | SERVICES, CORE | PARK [...] | | | LABORATORY | | | KYRGYZ | | | SERVICES, | | | [...] | + + + + + | [facility] | [address] | [place] [address] | | | TONY MCLEAN | DEBBIE [...] MARQUAM | [address] | [place], [place] | | | TESFAYE REVELES OF HECTOR | [facility] | [address] | | | TESTS | | | [...] HILLIARD | [address] | [place], [place] | | | [place] [facility]INT [facility] CARE | [address] | [address] | | | TESTS | | | [...] [facility] | [address] | [place] [address] | | | SERVICES, TONY | [address] | | | + + + + + IR DRAIN PROCEDURE (05/11/2017 2:36 PM PST) + + | Specimen | + + | | + + + + + | Narrative | Performed At | + + + | Procedure: Ultrasound and fluoroscopically guided soft tissue | [facility] | | collection drainage Primary Appian Bpm Developer: Cliff Griffith M.D.; | RADIOLOGY VOICE | | Cody Yusuf M.D. Attending Appian Bpm Developer: Addis Gandara MD | RECOGNITION | | Preoperative diagnosis: Paraspinal collection Postoperative | | | diagnosis: Same Operations: Operation 1. US guided placement | | | 18 gauge needle in left paraspinal collection Operation 2. | | | Ultrasound Fluoroscopic guided placement of 12 Spanish biliary | | | drainage catheter in [...] | | | performed and a 12 Spanish biliary drainage catheter was advanced into | | | the collection using ultrasound and fluoroscopic guidance. The | | | catheter was aspirated and placed to gravity drainage. The catheter | | | was secured in place. A completion image was obtained. | | | Medications: Versed 2 mg IV, fentanyl 100 mcg IV Uepa-ib-wfho time | | | for physician supervised sedation: 30 minutes Sedation administered | | | under direct physician supervision by an RN Findings: The US | | | findings are consistent with multiloculated complicated fluid | | | collection in the left paraspinal muscles. Purulent fluid was | | | aspirated and sent for culture. A 12 Spanish drainage catheter was | | | positioned [...] guided soft tissue collection drainagePrimary | | Appian Bpm Developer: Cliff Griffith M.D.; Cody Yusuf M.D.Attending Appian Bpm Developer: Addis | | Nichol MDPreoperative diagnosis: Paraspinal collectionPostoperative diagnosis: | | SameOperations:Operation 1. US guided placement 18 gauge needle in left paraspinal | | collectionOperation 2. Ultrasound Fluoroscopic guided placement of 12 Spanish biliary | | drainage catheter in collectionIndications:61 [...] was | | performed and a 12 Spanish biliary drainage catheter was advanced into the collection | | using ultrasound and fluoroscopic guidance. The catheter was aspirated and placed to | | gravity drainage. The catheter was secured in place. A completion image was | | obtained.Medications: Versed 2 mg IV, fentanyl 100 mcg TNFwhr-zo-qxnx time for physician | | supervised sedation: 30 minutesSedation administered under direct physician supervision | | by an RNFindings:The US findings are consistent with multiloculated complicated fluid | | collection in the left paraspinal muscles. Purulent fluid was aspirated and sent for | | culture. A 12 Spanish drainage catheter was positioned in the | [...] serial dilation was performed and a 12 Spanish biliary drainage | |catheter was advanced into the collection using ultrasound and fluoroscopic guidance. The catheter was aspirated and placed to gravity drainage. The catheter was secured in place. A completion image was obtained. | | | |Medications: Versed 2 mg IV, fentanyl 100 mcg IV | |Nwyx-df-mffu time for physician supervised sedation: 30 minutes | |Sedation administered under direct physician supervision by an RN | | | |Findings: | | | |The US findings are consistent with multiloculated complicated fluid collection in the left paraspinal muscles. Purulent fluid was aspirated and sent for culture. A 12 Spanish drainage catheter was positioned in the collection. [...] ARMINDA | [address] | [place], [place] | | | [facility] OF [facility] | [address] | [address] | | | TESTS | | | | + + + + + CULTURE, BLOOD BACTI & YEAST [facility] (05/11/2017 8:55 AM PST) + + + [...] JUDY ROMEO | [address] | [place] [address] | | | SERVICES, CORE | DEBBIE [...] | + + + + + | [facility] | [address] | [place] [address] | | | SERVICES, TONY | DEBBIE [...] DEPT OF | [address] | [place], [place] | | | CARDIOLOGY | [facility] | [address] | | + + + + + [...] | + + + + + | [facility] | [address] | [place] [address] | | | SERVICES, CORE | DEBBIE [...] | | | LABORATORY | | | KYRGYZ | | | SERVICES, | | | [...] | + + + + + | [facility] | [address] | [place] [address] | | | SERVICES, CORE | DEBBIE [...] MARQUAM | [address] | [place], [place] | | | TESFA[facility] REVELES OF CARE | [address] | [address] | | | TESTS | | | [...] MARQUAM | [address] | [place], [place] | | | [place] [facility] OF CARE | [address] | [address] | | | TESTS | | | [...] [facility] | [address] | [place] [address] | | | SERVICES, TONY | DEBBIE [...] formed At | + +---- + | [facility] | [facility] DEPT OF | | [facility] Adult Echocardiography Laboratory [address] | | [place], [place] [address] Ph: | | | Pt Name: CORNELIO FIGUEREDO | | | Study Date/Time 05/10/2017 / 1:57:15 PMMRN: [id number] | | | Most recent prior: 05/07/2017Acc #: [id number] | | | No. previous echos: 0DOB: 1955 61 years Heart | | | Rate: 100 bpmHeight: 70.0 in Blood | | | Pressure: 139/80 mm/HgWeight: 184.0 lb | | | Gender: MBSA: 2.01 m2 | | | Order ID: [id number] Affirmative Action Specialist: Abel RAO | | | Referring Provider: Darshan Horvath Location: [address] [place] [address] | | | Performed: Limited 2D and Color Doppler.Study Quality: Good.Exam | | | Indication: Infective endocarditisHistory: 61 year old man with a | | | remote h/o rectal cancer who originally presented to [facility] ED with 3 | | | months [...] | indexed values Report electronically signed by: [id number] Abrahan | | | Raquel SHAIKH (05/10/2017, [...] | | | |Report electronically signed by: [id number] Abrahan García MD (05/10/2017, 3:24:48 PM) | | |Fellow participating in diagnosis: Camille Verdugo MD | | | | | | | | | | | | Final | | + +---- + + + | Procedure Note | + + | Interface, Cardiology Results - 05/10/2017 3:24 PM [facility] | | [facility] Echocardiography Laboratory [address] [place] [address] | | [place], [place] [address] Pt Name: CORNELIO MEJIA | | TERELL Study Date/Time 05/10/2017 / 1:57:15 PMMRN: [id number] [facility] | | recent prior: 05/07/2017Acc #: [id number] No. previous echos: 0DOB: | | 1955 61 years Heart Rate: 100 bpmHeight: 70.0 in Blood | | Pressure: 139/80 mm/HgWeight: 184.0 lb Gender: MBSA: | | 2.01 m2 Order ID: [id number] Affirmative Action Specialist: Abel Prieto | | RCSReferring Provider: Darshan Horvath Location: [facility] Performed: Limited 2D | | and Color Doppler.Study Quality: Good.Exam Indication: Infective endocarditisHistory: | | 61 year old man with a remote h/o rectal cancer who originally presented to [facility] ED with | | 3 months of [...] and indexed values Report electronically signed by: [id number] | | Abrahan García MD (05/10/2017, 3:24:48 [...] | | | |Report electronically signed by: [id number] Abrahan García MD (05/10/2017, 3:24:48 PM) | |Fellow participating in diagnosis: Camille Verdugo MD | | | | | | | | Final | + + + + + + + | Performing | Address | City/State/Zipcode | Phone Number | | Organization | | | | + + + + + | [facility] | [address] | [place], [place] | | | CARDIOLOGY | [address] | [address] | | + + + + + [...] HILLIARD | [address] | [place], [place] | | | [facility] | [facility] | [address] | | | TESTS | | | [...] complete identification and susceptibilities Growth in | [place] | | Aerobic bottle Growth in Anaerobic bottle | | + + + + + + + + | Performing | Address | City/State/Zipcode | Phone Number | | Organization | | | | + + + + + | [facility] - | [address] | [place] [address] | | | [place] | | | | + + + [...] LABORATORY | [address] | [place] [address] | | | SERVICES, CORE | [address] | | | + + + + + CULTURE, BLOOD BACTI & YEAST [facility] (05/10/2017 4:21 AM PST) + + + [...] [facility] | [address] | [place] [address] | | | SERVICES, CORE | DEBBIE [...] [facility] | [address] | [place] [address] | | | SERVICES, CORE | PARK [...] | | | LABORATORY | | | KYRGYZ | | | SERVICES, | | | [...] | + + + + + | [facility] | [address] | [place] [address] | | | SERVICES, CORE | PARK [...] | + + + + + | [facility] | [address] | [place] [address] | | | SERVICES, CORE | DEBBIE [...] | + + + + + | [facility] | [address] | [place] [address] | | | SERVICES, TONY | PARK [...] PEREZAM | [address] | [place], [place] | | | ETSFAYE REVELES OF HECTOR | [facility] | [address] | | | TESTS | | | [...] (H) | 70 - 99 mg/dL | [facility] - | | | GLUCOSE, | | [...] HILLIARD | [address] | [place], [place] | | | [place] POINT OF CARE | [address] | [address] | | | TESTS | | | [...] HILLIARD | [address] | [place], [place] | | | TES[employer] RE[facility]ELES OF HECTRO | [facility] | [address] | | | TESTS | | | [...] HILLIARD | [address] | [place] | | | TESFAYE REVELES OF CARE | [facility] | [address] | | | TESTS | | | [...] complete identification and susceptibilities Growth in | [place] | | Aerobic bottle Growth in Anaerobic bottle | | + + + + + + + + | Performing | Address | City/State/Zipcode | Phone Number | | Organization | | | | + + + + + | [facility] - | [address] | [place] [address] | | | [place] | | | | + + + + + CULTURE, BLOOD BACTI & YEAST [facility] (05/09/2017 1:33 AM PDT) + + + [...] [facility] | [address] | [place] [address] | | | SERVICES, CORE | PARK [...] | + + + + + | [facility] | [address] | [place] [address] | | | SERVICES, CORE | [address] | | | + + + + + MAGNESIUM, PLASMA (05/09/2017 1:33 AM PDT) + +-------+ + + + | Component | Value | Ref Range | Performed | Pathologist | | | | | At | Signature | + +-------+ + + + | MAGNESIUM,P | 2.2 | 1.6 - 2.6 mg/dL | [facility] | | | LASMA | | | [...] [facility] | [address] | [place] [address] | | | TONY MCLEAN | DEBBIE [...] | | | LABORATORY | | | KYRGYZ | | | SERVICES, | | | [...] | + + + + + | [facility] | [address] | [place] [address] | | | SERVICES, TONY | DEBBIE [...] Culture Report: Methicillin Resistant Staphylococcus aureus | [facility] - | | Presumptive identification Refer to culture collected 05/06/17 @ [facility] - | | 09:21 for complete identification and susceptibilities Growth in | [place] | | Aerobic bottle Growth in Anaerobic bottle | | + + + + + + + + | Performing | Address | City/State/Zipcode | Phone Number | | Organization | | | | + + + + + | [facility] - | [address] | [place] [address] | | | [place] | | | | + + + [...] | + + + + + | [facility] | [address] | [place] [address] | | | CARIDAD, TONY | DEBBIE [...] (H) | 70 - 99 mg/dL | [facility] - | | | GLUCOSE, | | [...] + + + | JUDY HILLIARD | [address] | [place], [place] | | | [facility] OF [facility] | [address] | [address] | | | TESTS | | | [...] MARQUAM | [address] | [place], [place] | | | TESFAYE REVELES OF CARE | [address] | [address] | | | TESTS | | | [...] [facility] | [address] | [place] [address] | | | SERVICES, CORE | PARK [...] | + + + + + | [facility] | [address] | [place] [address] | | | SERVICES, CORE | PARK [...] + + + + + | JUDY [facility] | [address] | [place] [address] | | | SERVICES, CORE | PARK [...] + | [facility] - | [address] | [place] [address] | | | [place] | | | | + + + [...] detected | [facility] - | | | [place] | + + + + + + + + | Performing | Address | City/State/Zipcode | Phone Number | | Organization | | | | + + + + + | [facility] - | [address] | [place] [address] | | | [place] | | | | + + + [...] | | cells No organisms seen | [facility] | + + + + + + + + | Performing | Address | City/State/Zipcode | Phone Number | | Organization | | | | + + + + + | [facility] - | [address] | [place] [address] | | | [place] | | | [...] | + + + + + | [facility] | [address] | [place] [address] | | | SERVICES, CORE | PARK [...] [facility] | [address] | [place] [address] | | | SERVICES, CORE | PARK [...] [facility] | [address] | [place] [address] | | | SERVICES, CORE | PARK [...] | + + + + + | [facility] | [address] | [place] [address] | | | SERVICES, CORE | DEBBIE [...] | [facility] | | - [facility] [phone] | LABORATORY | | | SERVICES, CORE | + + + + + + + + | Performing | Address | City/State/Zipcode | Phone Number | | Organization | | | | + + + + + | [facility] | [address] | [place] [address] | | | SERVICES, CORE | PARK [...] on 05/08/17 | JUDY | | - [facility] [id number] Reference range change effective 03/29/2017. | LABORATORY | | | SERVICES, CORE | + + + + + + + + | Performing | Address | City/State/Zipcode | Phone Number | | Organization | | | | + + + + + | [facility] | [address] | [place] [address] | | | SERVICES, [facility] | [address] | | | + + + + + X-RAY PORTABLE CHEST 1 VIEW (05/08/2017 10:08 AM PDT) + + | Specimen | + + | | + + + + + | Narrative | Performed At | + + + | EXAM: [place] CHEST 1 VIEW HISTORY: Extubation COMPARISON: | [facility] | | Yesterday FINDINGS: Endotracheal tube is [...] Note | + + | Service Account, Gleam In Interface - 05/08/2017 10:19 AM PDT EXAM: [place] CHEST 1 | | VIEW HISTORY: ExtubationCOMPARISON: [...] + + | Performing | Address | City/State/[facility] Cent[facility]ode | Phone Number | | Organization | | | | + + + + + | JUDY - ARMINDA | [address] | [place], [place] | | | T[employer] RE[employer]ES OF HECTOR | [facility] | [address] | | | TESTS | | | [...] Ro ABLOWELL | [address] | [place], [place] | | | TES[employer]YE RE[employer]ELES OF HECTOR | [address] | [address] | | | TESTS | | | [...] | | | | (A) | | [place] | | + + + + + [...] complete identification and susceptibilities Growth in | [place] | | Aerobic bottle Growth in Anaerobic bottle | | + + + + + + + + | Performing | Address | City/State/Zipcode | Phone Number | | Organization | | | | + + + + + | [facility] - | [address] | [place] [address] | | | [place] | | | [...] [facility] | [address] | [place] [address] | | | SERVICES, CORE | PARK [...] [facility] | [address] | [place] [address] | | | TONY MCLEAN | [address]BBIE [...] | + + + + + | [facility] | [address] | [place] [address] | | | TONY MCLEAN | [address]BI[address] [...] | | | LABORATORY | | | KYRGYZ | | | SERVICES, | | | [...] | + + + + + | [facility] | [address] | [place] [address] | | | SERVICES, CORE | PARK [...] + | [facility] - | [address] | [place] [address] | | | [place] | | | | + + + [...] [facility] | [address] | [place] [address] | | | TONY MCLENA | [address] | | | + [...] ARMINDA | [address] | [place], [place] | | | [place] POINT OF CARE | [address] | [address] | | | TESTS | | | [...] | + + + + + | [facility] | [address] | [place] [address] | | | SERVICES, CORE | DEBBIE [...] | | | | | determined by [employer] | | | | | | Laboratories. See | | | | | | Compliance Statement D: | | | | | | [employer]CohBar/CSPerformed | | | | | | by [employer],[address] | | | | | | Franc[facility],[place] | | | | | | [id number] | | | | | | [phone].[employer]. | | | | | | cache valley hospitalNickolas MD, | | | | | [...] [facility] | [address] | [place], [place] | | | [facility] | | [address] | | + + + + + [...] HILLIARD | [address] | [place], [place] | | | [facility]ES OF [facility] | [address] | [address] | | | TESTS | | | [...] rformed At | + +--- + | [facility] | [facility] DEPT OF | | [facility] Adult Echocardiography Laboratory [address] | [address] RDI[address] | | [place], [place] [address] Ph: | | | Pt Name: CORNELIO MEJIA TERELL | | | Study Date/Time 05/07/2017 / 9:42:43 AMMRN: [id number] | | | Most recent prior: -Acc #: [id number] | | | No. previous echos: 0DOB: 1955 61 years Heart Rate: | | | 99 bpmHeight: 61.0 in Blood Pressure: | | | 106/73 mm/HgWeight: 198.0 lb Gender: | | | MBSA: 1.88 m2 Order ID: | | | [id number] Affirmative Action Specialist: FBSonographer 2: Chanell Manning | | | Referring Provider: Henri HolguinPatient Location: [address] [place] [address] | | | Performed: 2D, Color flow, Spectral Doppler and agitated saline bubble | | | study.Study Quality: Good.Exam Indication: Heart failure; Infective | | | endocarditisHistory: Worsening back pain, per sister, pt had colon CA | | | and treatment in last few years, was hyponatremic, leukocytosis with | | | bandemia, 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, wbc 101 in csf, mri read [...] Report electronically signed | | | by: [id number] Benjie Abreu MD (05/07/2017, 12:50:52 PM) Final [...] | | | |Report electronically signed by: [id number] Benjie Abreu MD (05/07/2017, 12:50:52 PM) | | | | | | | | | | | | Final | | + +--- + + + | Procedure Note | + + | Interface, Cardiology Results - 05/07/2017 12:50 PM [facility] | | [facility] Echocardiography Laboratory [address] [place] [address] | | [place], [place] [address] Pt Name: CORNELIO MEJIA | | FIGUEREDO Study Date/Time 05/07/2017 / 9:42:43 AMMRN: [id number] Most | | recent prior: -[facility] #: [id number] No. previous echos: 0DOB: 1955 61 | | years Heart Rate: 99 bpmHeight: 61.0 in Blood Pressure: 106/73 | | mm/HgWeight: 198.0 lb Gender: MBSA: 1.88 m2 | | Order ID: [id number] Affirmative Action Specialist: FBSonographer 2: Chanell Villareal | | Provider: Henri HolguinPatient Location: [address] [place] [address] Performed: 2D, Color flow, | | Spectral Doppler and agitated saline bubble study.Study Quality: Good.Exam Indication: | | Heart failure; Infective endocarditisHistory: Worsening back pain, per sister, pt had | | colon CA and treatment in last few years, was hyponatremic, leukocytosis with bandemia, | | 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, wbc 101 in csf, mri read [...] | | values Report electronically signed by: [id number] Benjie Abreu MD (05/07/2017, 12:50:52 | | [...] | | | |Report electronically signed by: [id number] Benjie Abreu MD (05/07/2017, 12:50:52 PM) | | | | | | | | Final | + + + + + + + | Performing | Address | City/State/[facility] Centercode | Phone Number | | Organization | | | | + + + + + | [facility] | [address] | [place], [place] | | | CARDIOLOGY | [address] | [address] | | + + + + + [...] findings. MD JUDY Collins 7C NSI [address] [facility] | | | [id number] [address] | | | | | + + [...] correct | | | patient, procedure, equipment, it support analyst and site/side marked as | | | [...] At | + + + | EXAM: [place] CHEST 1 VIEW HISTORY: 61-year-old male admitted [...] Interface - 05/07/2017 10:27 AM PDT EXAM: [place] CHEST 1 | | VIEWHISTORY: 61-year-old male [...] Attending | | Surgeon: Henri Holguin MD Sales Assoc(s): Katrina Figueredo MD, MPH | | Preoperative Diagnosis: Holospinal epidural | | abscess.Postoperative Diagnosis: Holospinal epidural abscess.Procedure: T2 and T8 skip | | laminectomies for evacuation of epidural abscess.Anesthesia: General.Estimated Blood | | Loss: 75 mL.Complications: None apparent.Indications For Procedure: Mr. Cornelio Figueredo | | is a 61-year-old man who was admitted to [facility] yesterday with back pain and confusion. | [...] | MDGUSTAVO/MODCLIVED: 05/06/2017 22:32:27DT: 05/07/2017 01:34:56Job #: [id number] | | | | /[id number] | + + BLOOD CULTURE WORKUP (05/07/2017 [...] | | | | (A) | | [place] | | + + + + + [...] Refer to culture collected 05/06/17 @ | [facility] - | | 09:21 AM for complete identification and susceptibilities Growth in | [place] | | Aerobic bottle Growth in Anaerobic bottle | | + + + + + + + + | Performing | Address | City/State/Zipcode | Phone Number | | Organization | | | | + + + + + | [facility] - | [address] | [place] [address] | | | [place] | | | [...] complete identification and susceptibilities Growth in | [facility] | | Aerobic bottle Growth in Anaerobic bottle | | + + + + + + + + | Performing | Address | City/State/Zipcode | Phone Number | | Organization | | | | + + + + + | [facility] | [address] | [place] [address] | | | [place] | | | | + + + [...] | + + + + + | [facility] | [address] | [place] [address] | | | SERVICES, CORE | DEBBIE [...] | + + + + + | [facility] | [address] | [place] [address] | | | TONY MCLEAN | DEBBIE [...] [facility] | [address] | [place] [address] | | | SERVICES, CORE | PARK [...] [facility] | [address] | [place] [address] | | | SERVICES, CORE | PARK [...] | + + + + + | [facility] | [address] | [place] [address] | | | SERVICES, CORE | DEBBIE [...] | + + + + + | [facility] | [address] | [place] [address] | | | SERVICES, TONY | DEBBIE [...] valves (2.5 - 3.5) INR APTT | [facility], CORE | | Therapeutic Range: (75 - 120) sec | | | Heparin levels of 0.35 - 0.7 U/mL | | + + + + + + + + | Performing | Address | City/State/Zipcode | Phone Number | | Organization | | | | + + + + + | [facility] | [address] | [place] [address] | | | [facility] | [address] | | | [...] [facility] | [address] | [place] [address] | | | SERVICES, CORE | PARK [...] [facility] | [address] | [place] [address] | | | SERVICES, CORE | PARK [...] | | | LABORATORY | | | [facility] | | | SERVICES, | | | [...] | + + + + + | [facility] | [address] | [place], [place] [id number] | | | SERVICES, CORE | PARK [...] [facility] | [address] | [place] [address] | | | TONY MCLEAN | DEBBIE [...] + | [facility] | [address] | [place] [address] | | | [place] | | | | + + + [...] identification Refer to culture collected 05/06/17 at [facility] - | | 2234, site #1 for complete identification and susceptibilities No | [place] | | anaerobic organisms isolated Gram Stain: No squamous epithelial | | | cells Moderate polymorphonuclear cells Few Gram positive cocci | | + + + + + + + + | Performing | Address | City/State/Zipcode | Phone Number | | Organization | | | | + + + + + | [facility] - | [address] | [place] [address] | | | [place] | | | | + + + [...] Report: 3+ Methicillin Resistant Staphylococcus aureus | [facility] - | | Presumptive identification Refer to culture collected 05/06/17 at [facility] - | | 2204, site #1 for complete identification and susceptibilities No | [place] | | anaerobic organisms isolated Gram Stain: No squamous epithelial | | | cells Moderate polymorphonuclear cells Few Gram positive cocci | | + + + + + + + + | Performing | Address | City/State/Zipcode | Phone Number | | Organization | | | | + + + + + | [facility] - | [address] | [place] [address] | | | [place] | | | | + + + [...] + | [facility] - | [address] | [place] [address] | | | [place] | | | [...] | + + + + + | [facility] | [address] | [place] [address] | | | SERVICES, CORE | PARK [...] [facility] | [address] | [place] [address] | | | SERVICES, CORE | DEBBIE [...] | + + + + + | [facility] | [address] | [place] [address] | | | SERVICES, | [address] [...] Culture Report: Methicillin Resistant Staphylococcus aureus | [facility] - | | Presumptive identification Refer to culture collected 05/06/17 @ | [facility] - | | 09:21 AM for complete identification and susceptibilities Growth in | [facility] | | Aerobic bottle | | + + + + + + + + | Performing | Address | City/State/Zipcode | Phone Number | | Organization | | | | + + + + + | [facility] - | [address] | [place] [address] | | | [place] | | | | + + + [...] [facility] | [address] | [place] [address] | | | SERVICES, CORE | DEBBIE [...] | | | LABORATORY | | | [facility] | | | SERVICES, | | | [...] | + + + + + | [facility] | [address] | [place] [address] | | | SERVICES, CORE | DEBBIE [...] + + | [facility] | [address] | [place], [place] | | | CARDIOLOGY | [address] | [address] | | + + + + + [...] [facility] | [address] | [place] [address] | | | SERVICES, CORE | PARK [...] | + + + + + | [facility] | [address] | [place] [address] | | | SERVICES, | [address] [...] [facility] | [address] | [place] [address] | | | SERVICES, | [address] [...] [facility] | [address] | [place] [address] | | | SERVICES, CORE | PARK [...] [facility] | [address] | [place] [address] | | | SERVICES, CORE | PARK [...] + + | [facility] | [address] | [place] [address] | | | SERVICES, CORE | PARK [...] | + + + + + | [facility] | [address] | [place] [address] | | | SERVICES, CORE | DEBBIE [...] | | | LABORATORY | | | [facility] | | | SERVICES, | | | [...] [facility] | [address] | [place] [address] | | | SERVICES, CORE | DEBBIE [...]
--- OUTSIDE RECORDS SUMMARY | ~2019-11-01 | XMS | Encounter Summary ---
Demographics + + + | Address | [address] | | | [place] [address] | + + + | Home Phone | | + + + | Preferred Language | Unknown | + + + | Marital Status | Single | + + + | Sabianist Affiliation | CAT | + + + | Race | White | + + + | Ethnic Group | Not or | + + + Author + + + | Author | [facility] | + + + | Organization | [facility] | + + + | Address | Unknown | + + + | Phone | Unavailable | + + + Support + + + + + | Name | Relationship | Address | Phone | + + + + + | Sona Figueredo | BROOK | [address] | | | | | [place] | | | | | [address] | | + + + + + | Sondra Zuleta | ECON | Unknown | | + + + + + Care Team Providers + +------+ + | Care Tubing Tester Name | Role | Phone | [...] + + | 05/05/ | Hospital | [address] | Henri Holguin MD | | | 2017 - | Encounter | [address] | [address] | | | | | [facility] | [facility] [place] | | | 05/18/ | | [place], [place] | [address] | | | 2016 | | [address] | [phone] | | | | | [phone] | | | | | | | Darshan Parada MD | | | | | | [address] | | | | | | [place], | | | | | | [place] [address] | | | | | | [phone] | | | | | | | | | | | | Wali Soto MD | | | | | | [address] | | | | | | [place], | | | | | | [place] [address] | | | | | | [phone] | | | | | | | [...] Baldwin MD - 05/18/2017 2:21 PM PST [facility] Discharge Summary Discharging Provider: Duy Baldwin MD [...] Thank you for entrusting your care to [facility] Internal Medicine. If you have any problems or concerns before you are able to follow up with your Primary Care Provider, please call and ask the charging operator to page the attending physician, Wali Soto MD, who was caring for you at discharge. If that physician is not available, ask the charging operator to page the physician production officer for the Medical Teaching Service. Call us right away if any of the following occur: -Weakness -high fevers -bleeding Home Health Referral after Hospitalization Comments: I certify that this patient is under my care and that I, or Nurse Practitioner or Physician Axle Polisher working with me, had a face to face encounter with this patient on 05/18/2017 On behalf of Attending Physician: Wali Soto MD I am ordering and certify that the following services are medically necessary [facility] Health Detention Evaluate and Treat I certify that the [...] Selected Specialties Address Phone Number Fax Number [facility]osp Selected Home Health Services [address] [facility] [place] [phone] Social Care Services No service has been selected for the patient. Follow Up: Future Appointments Provider Department Dept Phone Center 06/03/2017 12:55 PM [facility] [phone] [facility] Contact information for other follow-up providers JAMAAL SHI DO. Go on 05/24/2017. Specialty: Internal Medicine Why: At 10:45 on 05/24/17 with your PCP, Dr. Shi. Contact information [facility] Internal Medicin [address] [facility] [place] [id number] Contact information for after-discharge [facility]. Specialties: Home Health Services, Hospice Contact information [address] [facility] [place] [address] Discharge Physical Exam: Last 24 hour [...] 6) MRSA bacteremia Wali Soto MD Clinical Gas Appliance Servicer Helper, Internal Medicine Pager [phone] documented in this encounter Discharge Instructions Instructions Cynthia Leigh RN - 05/18/2017[facility] has accepte d you for home [...] from prior study Wali Soto MD Clinical Gas Appliance Servicer Helper, Internal Medicine Pager [phone] Anette Marshall - Rosales 07/17/2016 3:25 PM PST [facility] [place] PROGRESS NOTE PHYSICIAN RECORDS MANAGEMENT TECHNICIAN STUDENT NOTE FOR EDUCATIONAL PURPOSES ONLY Author: Anette Daniel PA-S Attending Physician: Wali Soto MD DEMOGRAPHIC INFORMATION Name: Cornelio Figueredo Age: 61 y.o. Birthdate: 1955 Sex: male Address: [address] [place] [address] PCP: Jamaal Shi DO Hospital Day:12 24 [...] Maker Primary Surrogate Decision Maker Ann (sister) [phone] This patient was staffed with my attending, Wali Soto MD, and they agree with my asse ssment and plan. HORACE Ortiz-S Physician Axle Polisher Student [facility] [place] Pager [phone] Associated attestation - Duy Baldwin MD - [...] notes and imaging. Gisela Sahu PA-C, RDMS [id number] okong, Darshan Webster MD - 05/16/2017 2:03 PM PST 5 GENERAL MEDICINE ATTENDING PROGRESS NOTE HOSPITAL DAY 11 I personally interviewed the patient, performed the hyman elements of the physical examinatio n, reviewed new lab data in [facility], looked at any new radiology images and [...] Darshan Parada MD Department of Internal Medicine [facility] I spent more than 35 minutes ehxs-dy-pqvg with the patient of which greater than [...] Maker Primary Surrogate Decision Maker Ann (sister) [phone] This patient was staffed with my attending, Dr. Parada, who agrees with my assessment and marianna n. Kimber Elizabeth MD Internal Medicine PGY1 [facility] Infectious Disease Outpatient Referral for Discharge Planning [Y] This an OPAT Referral. [Type "Y" for all [facility] patients requiring IV antibiotics in all outpatient sett ings. Type "N" if NO IV antibiotics are recommended.] [Y] This is an [facility] ID Clinic Referral. [Type "Y" for all [facility] patients requiring [facility] ID Clinic Visits. Type "N" if no [facility] ID Clinic visits are recommended.] [...] time Barriers to safe OPAT: lives in [place], [place], possible mild cognitive impairment Vascular Access:PICC Follow Up: [facility] ID faculty with preference to schedule with Dr. Harris or ID attending , Dr. Gomez in 2-3 weeks post hospital discharge Manager Education: For all patients requiring IV antibiotic therapy, please route your OPAT Marianna n of Care Note (.CMOPAT) to [facility] "p OPAT/Infectious Diseases clinic" Pool at discharge. Ple ase communicate to primary team that you will be notifying Infectious Diseases of the OPAT P tammie of Care. ope, Darshan Webster MD - 9:42 PM [facility] 5 GENERAL MEDICINE ATTENDING PROGRESS NOTE [...] Darshan Parada MD Department of Internal Medicine [facility] I spent more than 35 minutes dcix-ue-hmsm with the patient of which greater than 50% was sp ent counseling the patient. Anette Marshall - 1:07 PM PST [facility]5 [place] PROGRESS NOTE PHYSICIAN RECORDS MANAGEMENT TECHNICIAN STUDENT NOTE FOR EDUCATIONAL PURPOSES ONLY Author: Anette Daniel PA-S Attending Physician: Darshan Parada MD DEMOGRAPHIC INFORMATION Name: Cornelio Figueredo Age: 61 y.o. Birthdate: 1955 Sex: male Address: [address] [place] [address] PCP: Jamaal Shi DO Hospital Day:10 24 [...] considerations include SIADH due to lung and DRAFTER PLUMBING pathology, however urine output <3L. Patient was [...] Maker Primary Surrogate Decision Maker Ann (sister) [phone] This patient was staffed with my attending, Darshan Parada MD, and they agree with my asses sment and plan. JOSÉ MIGUEL OrtizS Physician Axle Polisher Student [facility] Pager [phone] Associated attestation - Duy Baldwin MD - [...] possibly)Darshan Parada MD - 05/14/2017 8:54 PM [facility] GM 5 GENERAL MEDICINE ATTENDING [...] Darshan Parada MD Department of Internal Medicine [facility] I spent more than 35 minutes zqfo-bw-ydzn with the patient of which greater than 50% was sp ent counseling the patient. Anette Marshall - 1:49 PM PST [facility]5 [place] PROGRESS NOTE PHYSICIAN RECORDS MANAGEMENT TECHNICIAN STUDENT NOTE FOR EDUCATIONAL PURPOSES ONLY Author: Anette Daniel, PA-S Attending Physician: Darshan Parada MD DEMOGRAPHIC INFORMATION Name: Cornelio Figueredo Age: 61 y.o. Birthdate: 1955 Sex: male Address: [address] [place] [address] [place] [address] PCP: Jamaal hSi DO Hospital Day:9 24 Hour Events: - [...] considerations include SIADH due to lung and DRAFTER PLUMBING pathology, however urine output <3L. Will continue [...] Maker Primary Surrogate Decision Maker Ann (sister) [phone] This patient was staffed with my attending, Darshan Parada MD, and they agree with my asses sment and plan. RAJ Ortiz Physician Axle Polisher Student [facility] [place] Pager [phone] Associated attestation - Gabby Pillai MD - [...] for placement on 05/15. Gabby Pillai MD Fifth Grade Teacher, PGY-1 [facility] Pager [phone] Darshan Parada MD - 05/13/2017 4:13 PM [...] Darshan Parada MD Department of Internal Medicine [facility] I spent more than 35 minutes lleq-dg-riml with the patient of which greater than 50% was sp ent counseling the patient. Anette Marshall - 2:00 PM PST [facility]5 [place] PROGRESS NOTE PHYSICIAN RECORDS MANAGEMENT TECHNICIAN STUDENT NOTE FOR EDUCATIONAL PURPOSES ONLY Author: Anette Daniel, PA-S Attending Physician: Darshan Parada MD DEMOGRAPHIC INFORMATION Name: Cornelio Figueredo Age: 61 y.o. 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 Will trial [...] Maker Primary Surrogate Decision Maker Ann (sister) [phone] This patient was staffed with my attending, Darshan Parada MD, and they agree with my asses sment and plan. HORACE Ortiz-S Physician Axle Polisher Student [facility] Pager [phone] Associated attestation - Gabby Pillai MD - [...] for placement on 05/14. Gabby Pillai MD Fifth Grade Teacher, PGY-1 [facility] Pager [phone] Darshan Parada MD - 05/12/2017 5:41 PM [facility] 5 GENERAL MEDICINE ATTENDING PROGRESS NOTE HOSPITAL DAY 7 I personally interviewed the patient, performed the hyman elements of the physical examinatio n, reviewed new lab data in [place], looked at any new radiology images and [...] Darshan Parada MD Department of Internal Medicine [facility] I spent more than 35 minutes njvd-fa-xtpk with the patient of which greater than 50% was sp ent counseling the patient. Anette Marshall - 2:53 PM PST [facility]5 [place] PROGRESS NOTE PHYSICIAN RECORDS MANAGEMENT TECHNICIAN STUDENT NOTE FOR EDUCATIONAL PURPOSES ONLY Author: Anette Daniel PA-S Attending Physician: Darshan Parada MD DEMOGRAPHIC INFORMATION Name: Cornelio Figueredo Age: 61 y.o. Birthdate: 1955 Sex: male Address: [address] [place] [address] [place] [address] PCP: Jamaal Shi DO Hospital Day:7 24 [...] Maker Primary Surrogate Decision Maker Ann (sister) [phone] This patient was staffed with my attending, Darshan Parada MD, and they agree with my asses sment and plan. HORACE Ortiz-S Physician Axle Polisher Student [facility] [place] Pager [phone] Associated attestation - Duy Baldwin MD - [...] Darshan Parada MD Department of Internal Medicine [facility] I spent more than 35 minutes gulb-ga-xnew with the patient of which greater than [...] PM PST GM5 [place] PROGRESS NOTE PHYSICIAN RECORDS MANAGEMENT TECHNICIAN STUDENT NOTE FOR EDUCATIONAL PURPOSES ONLY Author: Anette Daniel PA-S Attending Physician: Darshan Parada MD DEMOGRAPHIC INFORMATION Name: Cornelio Figueredo Age: 61 y.o. Birthdate: 1955 Sex: male Address: [address] [place] [address] PCP: Jamaal Shi DO Hospital Day:6 24 [...] diarrhea. Will change scheduled miralax and s uyli to PRN. To consider C difficile antigen [...] Maker Primary Surrogate Decision Maker Ann (sister) [phone] This patient was staffed with my attending, Darshan Parada MD, and they agree with my asses sment and plan. JOSÉ MIGUEL OrtizS Physician Axle Polisher Student [facility] Pager [phone] Associated attestation - Duy Baldwin MD - [...] INTERVENTIONAL RADIOLOGY PRE-PROCEDURE HISTORY AND PHYSICAL LOCATION: [facility] 16-1 SEX: Male AGE: 61 y.o. [...] with moderate sedation. Kim Yusuf MD pgr [phone] [facility] Interventional [place] No past medical history on file. No past surgical history on file. Current Medication List Not on File Abel Marcus - 2016 2:44 PM PSTTransthoracic echocardiogram completed. Final report to follow. Anette Marshall - 12/2016 2:33 PM PST [facility]5 [place] PROGRESS NOTE PHYSICIAN RECORDS MANAGEMENT TECHNICIAN STUDENT NOTE FOR EDUCATIONAL PURPOSES ONLY Author: JOSÉ MIGUEL OrtizS Attending Physician: Darshan Parada MD DEMOGRAPHIC INFORMATION Name: Cornelio Figueredo Age: 61 y.o. Birthdate: 1955 Sex: male Address: [address] [place] [address] PCP: Jamaal Shi DO Hospital Day:5 24 [...] Maker Primary Surrogate Decision Maker Ann (sister) [phone] This patient was staffed with my attending, Darshan Parada MD, and they agree with my asses sment and plan. JOSÉ MIGUEL OrtizS Physician Axle Polisher Student [facility] Pager [phone] Associated attestation - Gabby Pillai MD - [...] cultures a re cleared. Gabby Pillai MD Fifth Grade Teacher, PGY-1 [facility] Pager [phone] Yanely Ayala MD - 05/09/2017 10:47 AM PSTFormatting of this note might be different fro tracey the original. . Neuroscience Intensive Care Unit Attending Progress Note Attending Pager #[phone] ICU Admission Reason Most Recent Value ICU [...] team members Provider Role Specialty Ipt Neurosurgery #64919 Treatment Team Neurological Surgery Ipt Critical Care Nsicu #39527 Treatment Team -- Ipt Gen Med Expected [...] ICU NEURO Place of Service:- Inpatient CSN: [id number] Suggested Modifier: GC - Resident Involved Suggested CPT: TO AIR TECHNICIAN Author:Yanely Ayala MD [address] [address]Yqqiejldusrzfe signed by Yanely Aylaa MD at 05/09/2017 12:19 PM China Muñoz [...] follow up thoracic effusion cultures [place] Vo [facility] PGY4 Pager [phone] 05/09/17 5:20 AM Associated attestation - Henri [...] NSI [address] [address] Branden Diego MD - 05/08/2017 7:00 PM PDTFormatting of this note might be different fro m the original. . Neuroscience Intensive Care Unit Team Progress Note NSICU ASSIGNED #[id number] ICU Admission Reason Most Recent Value ICU [...] team members Provider Role Specialty Ipt Neurosurgery #09433 Treatment Team Neurological Surgery Ipt Critical Care Nsicu #72351 Treatment Team -- Patient Lines/Drains/Airways Status Active [...] by Branden Diego MD Author:Branden Diego MD [address] [address]Ikbiaeuzjfmfah signed by Branden Diego MD at 05/08/2017 7:01 PM P DTDuSimi posey MD - 05/08/2017 6:57 PM PDTFormatting of this note might be different f rom the original. . Neuroscience Intensive Care Unit Attending Progress Note Attending Pager #[phone] ICU Admission Reason Most Recent Value ICU [...] team members Provider Role Specialty Ipt Neurosurgery #14085 Treatment Team Neurological Surgery Ipt Critical Care Nsicu #87800 Treatment Team -- Code Status Code Status [...] 05/08/2017 Simi Acosta MD Author:Simi Acosta MD [address] [id number] signed by Simi Acosta MD at 05/09/2017 [...] Please contact the neurosurgery resident on-call pager [phone] with questions. Jass Soria MD PGY-4 Neurological Surgery Pager [phone] Associated attestation - Henri Holguni MD - 05/08/2017 2:24 PM PDTI personally interviewed the patient, performed the pertinent parts of the physical examination and personally formu lated the plan with the resident. I agree with the resident's documentation and have docume nted any additions or exceptions. Henri Holguin MD [place] 7C N[facility] [address] [address] Yanely Ayala MD - 05/08/2017 7:20 AM PDTFormatting of this note might be different fro m the original. . Neuroscience Intensive Care Unit Attending Progress Note Attending Pager #[phone] ICU Admission Reason Most Recent Value ICU [...] team members Provider Role Specialty Ipt Neurosurgery #45794 Treatment Team Neurological Surgery Ipt Critical Care Nsicu #79149 Treatment Team -- Code Status Code Status [...] tions/additions as noted. Date of Service: 05/08/2017 [facility] DEPARTMENT: ANE ICU NEURO Place of Service:- Inpatient CSN: [id number] Suggested Modifier: GC - Resident Involved Suggested CPT: TO AIR TECHNICIAN Author:Yanely Ayala MD [address] [address] [place] [email or web address] signed by Yanely Ayala MD at 05/08/2017 3:32 PM P Simi Ward MD - 05/07/2017 7:12 PM PDTFormatting of this note might be different f rom the original. . Neuroscience Intensive Care Unit Attending Progress Note Attending Pager #[phone] ICU Admission Reason Most Recent Value ICU [...] team members Provider Role Specialty Ipt Neurosurgery #57446 Treatment Team Neurological Surgery Ipt Critical Care Nsicu #46530 Treatment Team -- Code Status Code Status [...] 05/07/2017 Simi Acosta MD Author:Simi Acosta MD [address] [address]Ungjrwvyevoree signed by Simi Acosta MD at 05/08/2017 1:13 AM Zo Byrnes MD - 05/07/2017 4:07 PM PDT . Neuroscience Intensive Care Unit Attending Progress Note Attending Pager #[phone] ICU Admission Reason Most Recent Value ICU [...] the OSH with confusion, they did LP ([id number], 70% neutrophils, low glucose, high protein) Cx [...] team members Provider Role Specialty Ipt Neurosurgery #95462 Treatment Team Neurological Surgery Ipt Critical Care Nsicu #66814 Treatment Team -- Code Status Code Status [...] ns as noted. Date of Service: 05/07/2017 [facility] DEPARTMENT: ANE ICU NEURO Place of Service:- Inpatient [facility]: [id number] Suggested Modifier: GC - Resident Involved Suggested CPT: TO AIR TECHNICIAN Author:Zo Baldwin MD [address] [place] [address]Jeoujskpvsnahp signed by Zo Baldwin MD at 05/07/2017 4:10 PM PDTBranden Diego MD - 05/07/2017 3:58 PM PDT . Neuroscience Intensive Care Unit Team Progress Note NSICU ASSIGNED #[id number] ICU Admission Reason Most Recent Value ICU [...] team members Provider Role Specialty Ipt Neurosurgery #89220 Treatment Team Neurological Surgery Ipt Critical Care Nsicu #57236 Treatment Team -- Patient Lines/Drains/Airways Status Active [...] by Branden Diego MD Author:Branden Diego MD [address] [place] [address]Xfqqdftropredf signed by Branden Diego MD at 05/07/2017 [...] Please contact the neurosurgery resident on-call pager [phone] with questions. Rola Nelson MD Neurosurgery Resident Pager #[phone] [facility] pager #[phone] Associated attestation - Henri Holguin MD - 05/07/2017 11:05 AM PDTI personally interviewed the patient, performed the pertinent parts of the physical examination and personally formu lated the plan with the resident. I agree with the resident's documentation and have docume nted any additions or exceptions. Henri Holguin MD [facility] 7C NSI [address] [address] Rola Nelson MD - 05/07/2017 5:18 AM [...] MD Neurosurgery Resident 5:18 AM, 05/07/2017 Pager #[phone] Rola Blood MD - 05/06/2017 7:42 PM [...] MD Neurosurgery Resident 7:42 PM, 05/06/2017 Pager #[phone] Divya Castillo P A-Mayela - 05/06/2017 7:41 [...] sensation intact in all 4 extremities Motor: Sport Internship Bicep Tricep Delt R 5 5 5 [...] epidural abscess. The patient was transferred to [facility] for ongoing management. Plan for [...] be consented and marked. Divya Roman PA-C [facility] [address] [address] [address] documented in th is encounter Plan of [...] + +--------+ + + + | NON FARMER AND GRAZIER CYTOLOGY | Routin | 05/17/2017 | | [...] A 19 gauge Yueh | | | TagLabsesis catheter needle was placed in the pleural [...] used for local anesthesia. A 19 gauge TMS [facility] Corneresis catheter | | needle was placed in [...] + + + + + | [facility] | [address] | [place] [address] | | | TONY MCLEAN | JANNIE [...] [facility] | [address] | [place] [address] | | | SERVICES, CORE | JANNIE [...] [facility] | [address] | [place] [address] | | | SERVICES, CORE | JANNIE [...] | + + + + + | [facility] | [address] | [place] [address] | | | SERVICES, CORE | JANNIE [...] + + + + + | [place] [facility] - | [address] | [place] [address] | | | [place] | | | | + + + [...] + + + + + | [facility] [place] [facility] | [address] | [place] [address] | | | [place] | | | [...] [facility] | [address] | [place] [address] | | | SERVICES, CORE | PARK [...] [facility] | [address] | [place] [address] | | | SERVICES, CORE | PARK [...] [facility] | [address] | [place] [address] | | | TONY MCLEAN | JANNIE [...] | + + + + + | [facility] | [address] | [place] [address] | | | SERVICES, CORE | PARK [...] | + + + + + | [facility] | [address] | [place] [address] | | | SERVICES, CORE | PARK [...] | | | LABORATORY | | | BHUTANESE | | | SERVICES, | | | [...] | + + + + + | [facility] | [address] | [place] [address] | | | SERVICES, CORE | PARK [...] [facility] | [address] | [place] [address] | | | SERVICES, CORE | JANNIE [...] | + + + + + | [facility] | [address] | [place] [address] | | | SERVICES, CORE | [address] | | | + + + + + NON FARMER AND GRAZIER CYTOLOGY (05/17/2017) + + + + + + | Component | Value | Ref Range | Performed | Pathologist | | | | | At | Signature | + + + + + + | NON-FARMER AND GRAZIER | SOURCE OF SPECIMEN:A | | [facility] [...] Lawrence | | | | | | CT(ASCP)Academic Affairs Dean | | | | | | Date [...] | + + + + + | [facility] | [address] | [place] [address] | | | PATHOLOGY | [address] [...] | | | LABORATORY | | | BHUTANESE | | | SERVICES, | | | [...] | + + + + + | [facility] | [address] | [place] [address] | | | SERVICES, TONY | JANNIE [...] thank you | [facility] | | pharmacy [id number] Reference range change effective 03/29/2017. | LABORATORY | | | SERVICES, CORE | + + + + + + + + | Performing | Address | City/State/Zipcode | Phone Number | | Organization | | | | + + + + + | [facility] | [address] | [place] [address] | | | SERVICES, CORE | JANNIE [...] Note | + + | Service Account, [employer] In Interface - 05/15/2017 3:15 PM PST [...] correct patient, procedure, equipment, | | | technology support analyst and site/side marked as required. [...] | area Basilic vein. Catheter lot number: [id number] with a length of 55 | | [...] | | | LABORATORY | | | BHUTANESE | | | SERVICES, | | | [...] | + + + + + | [facility] | [address] | [place] [address] | | | SERVICES, CORE | PARK [...] [facility] | [address] | [place] [address] | | | SERVICES, CORE | PARK [...] [facility] | [address] | [place] [address] | | | SERVICES, CORE | PARK [...] [facility] | [address] | [place] [address] | | | SERVICES, CORE | PARK [...] | | | LABORATORY | | | BHUTANESE | | | SERVICES, | | | [...] | + + + + + | [facility] | [address] | [place] [address] | | | SERVICES, CORE | JANNIE [...] [facility] | [address] | [place] [address] | | | SERVICES, CORE | JANNIE [...] | | | LABORATORY | | | BHUTANESE | | | SERVICES, | | | [...] | + + + + + | [facility] | [address] | [place] [address] | | | TONY MCLEAN | JANNIE [...] (H) | 70 - 99 mg/dL | [facility] - | | | GLUCOSE, [...] HILLIARD | [address] | [place] | | | [place] [facility] CARE | [address] | [address] | | | TESTS | | | [...] LABORATORY | [address] | [place] [address] | | | SERVICES, CORE | PARK [...] | + + + + + | [facility] | [address] | [place] [address] | | | SERVICES, TONY | JANNIE [...] | + + + + + | [facility] | [address] | [place] [address] | | | SERVICES, CORE | JANNIE [...] | | | LABORATORY | | | BHUTANESE | | | SERVICES, | | | [...] | + + + + + | [facility] | [address] | [place] [address] | | | SERVICES, CORE | JANNIE [...] (H) | 70 - 99 mg/dL | [facility] - | | | GLUCOSE, [...] HILLIARD | [address] | [place] | | | [place] POINT OF CARE | [address] | [address] | | | TESTS | | | [...] MARQUAM | [address] | [place] | | | [facility] CARE | [address] | [address] | | | TESTS | | | [...] | + + + + + | [facility] | [address] | [place] [address] | | | [facility] | [address] | | | + + + + + IR DRAIN PROCEDURE (05/11/2017 2:36 PM PST) + + | Specimen | + + | | + + + + + | Narrative | Performed At | + + + | Procedure: Ultrasound and fluoroscopically guided soft tissue | [facility] | | collection drainage Primary Product Assembler: Cliff Griffith M.D.; | RADIOLOGY VOICE | | Cody Yusuf M.D. Attending Product Assembler: Addis Gandara MD | RECOGNITION | | Preoperative diagnosis: Paraspinal collection Postoperative | | | diagnosis: Same Operations: Operation 1. US guided placement | | | 18 gauge needle in left paraspinal collection Operation 2. | | | Ultrasound Fluoroscopic guided placement of 12 Honduran biliary | | | drainage catheter in [...] | | | performed and a 12 Honduran biliary drainage catheter was advanced into | | | the collection using ultrasound and fluoroscopic guidance. The | | | catheter was aspirated and placed to gravity drainage. The catheter | | | was secured in place. A completion image was obtained. | | | Medications: Versed 2 mg IV, fentanyl 100 mcg IV Nehk-dd-rbbj time | | | for physician supervised sedation: 30 minutes Sedation administered | | | under direct physician supervision by an RN Findings: The US | | | findings are consistent with multiloculated complicated fluid | | | collection in the left paraspinal muscles. Purulent fluid was | | | aspirated and sent for culture. A 12 Honduran drainage catheter was | | | positioned [...] Res In Interface - 05/12/2017 10:17 AM [facility] Procedure: | | Ultrasound and fluoroscopically guided soft tissue collection drainagePrimary | | Product Assembler: Cliff Griffith M.D.; Cody Yusuf M.D.Attending Product Assembler: Addis | | [place] Gandarareoperative diagnosis: Paraspinal collectionPostoperative diagnosis: | | SameOperations:Operation 1. US guided placement 18 gauge needle in left paraspinal | | collectionOperation 2. Ultrasound Fluoroscopic guided placement of 12 Honduran biliary | | drainage catheter in collectionIndications:59 [...] was | | performed and a 12 Honduran biliary drainage catheter was advanced into the collection | | using ultrasound and fluoroscopic guidance. The catheter was aspirated and placed to | | gravity drainage. The catheter was secured in place. A completion image was | | obtained.Medications: Versed 2 mg IV, fentanyl 100 mcg IXBpmg-pf-mmbb time for physician | | supervised sedation: 30 minutesSedation administered under direct physician supervision | | by an RNFindings:The US findings are consistent with multiloculated complicated fluid | | collection in the left paraspinal muscles. Purulent fluid was aspirated and sent for | | culture. A 12 Honduran drainage catheter was positioned in the | [...] serial dilation was performed and a 12 Honduran biliary drainage | |catheter was advanced into the collection using ultrasound and fluoroscopic guidance. The catheter was aspirated and placed to gravity drainage. The catheter was secured in place. A completion image was obtained. | | | |Medications: Versed 2 mg IV, fentanyl 100 mcg IV | |Skvf-ug-tabr time for physician supervised sedation: 30 minutes | |Sedation administered under direct physician supervision by an RN | | | |Findings: | | | |The US findings are consistent with multiloculated complicated fluid collection in the left paraspinal muscles. Purulent fluid was aspirated and sent for culture. A 12 Honduran drainage catheter was positioned in the collection. [...] ARMINDA | [address] | [place] | | | [facility] | [address] | [address] | | | TESTS | | | [...] [facility] | [address] | [place] [address] | | | SERVICES, CORE | PARK [...] | + + + + + | [facility] | [address] | [place] [address] | | | SERVICES, CORE | [address] | | | + + + + + 12 LEAD ECG (05/11/2017 8:41 AM PST) + + + + + + | Component | Value | Ref Range | Performed | Pathologist | | | | | At | Signature | + + + + + + | VENTRICULAR | 93 | bpm | [facility] | | | RATE | | [...] DEPT OF | [address] | [place], [place] | | | CARDIOLOGY | [address] | [address] | | + + + + + [...] [facility] | [address] | [place] [address] | | | SERVICES, CORE | JANNIE [...] | | | LABORATORY | | | BHUTANESE | | | SERVICES, | | | [...] | + + + + + | [facility] | [address] | [place] [address] | | | SERVICES, CORE | PARK [...] | + + + + + | [facility] - ARMINDA | [address] [facility] [address] | [place] | | | [place] OF [facility] | [address] | [address] | | | TESTS | | | [...] JUDY H[facility]IARD | [address] | [place], [place] | | | [place] [facility] OF [facility] | [address] | [address] | | | TESTS | | | [...] [facility] | [address] | [place] [address] | | | TONY MCLEAN | JANNIE [...] formed At | + +---- + | [facility] | [facility] DEPT OF | | [facility] [address] | CAR DIOLOGY | | [place], [place] [address] Ph: | | | Pt Name: CORNELIO MEJIA FIGUEREDO | | | Study Date/Time 05/10/2017 / 1:57:15 PMMRN: [id number] | | | Most recent prior: 05/07/2017Acc #: [id number] | | | No. previous echos: 0DOB: 1955 61 years Heart | | | Rate: 100 bpmHeight: 70.0 in Blood | | | Pressure: 139/80 mm/HgWeight: 184.0 lb | | | Gender: MBSA: 2.01 m2 | | | Order ID: [id number] Customer Training Specialist: Abel RAO | | | Referring Provider: Darshan Horvath Location: [address] [place] [address] | | | Performed: Limited 2D and Color Doppler.Study Quality: Good.Exam | | | Indication: Infective endocarditisHistory: 61 year old man with a | | | remote h/o rectal cancer who originally presented to [facility] ED with 3 | | | [...] | indexed values Report electronically signed by: [id number] Abrahan | | | Raquel SHAIKH (05/10/2017, [...] | | | |Report electronically signed by: [id number] Abrahan García MD (05/10/2017, 3:24:48 PM) | | |Fellow participating in diagnosis: Camille Verdugo MD | | | | | | | | | | | | Final | | + +---- + + + | Procedure Note | + + | Interface, Cardiology Results - 05/10/2017 3:24 PM [facility] | | [facility] [address] [place] [address] | | [place], [place] [address] Pt Name: CORNELIO MEJIA | | TERELL Study Date/Time 05/10/2017 / 1:57:15 PMMRN: [id number] [facility] | | recent prior: 05/07/2017Acc #: [id number] No. previous echos: 0DOB: | | 1955 61 years Heart Rate: 100 bpmHeight: 70.0 in Blood | | Pressure: 139/80 mm/HgWeight: 184.0 lb Gender: MBSA: | | 2.01 m2 Order ID: [id number] Customer Training Specialist: Abel Prieto | | RCSReferring Provider: Darshan Horvath Location: 5AModalities Performed: Limited 2D | | and Color Doppler.Study Quality: Good.Exam Indication: Infective endocarditisHistory: | | 61 year old man with a remote h/o rectal cancer who originally presented to [facility] ED with | | 3 months [...] and indexed values Report electronically signed by: [id number] | | Abrahan García MD (05/10/2017, 3:24:48 [...] | | | |Report electronically signed by: [id number] Abrahan García MD (05/10/2017, 3:24:48 PM) | |Fellow participating in diagnosis: Camille Verdugo MD | | | | | | | | Final | + + + + + + + | Performing | Address | City/State/Zipcode | Phone Number | | Organization | | | | + + + + + | [facility] | [address] | [place] | | | CARDIOLOGY | [facility] | [address] | | + + + + + [...] HILLIARD | [address] | [place] | | | [place] [facility]INT OF CARE | [address] | [address] | | | TESTS | | | [...] complete identification and susceptibilities Growth in | [place] | | Aerobic bottle Growth in Anaerobic bottle | | + + + + + + + + | Performing | Address | City/State/Zipcode | Phone Number | | Organization | | | | + + + + + | [place] [facility] - | [address] | [place] [address] | | | [place] | | | [...] + + | [facility] | [address] [facility] | [place] [address] | | | SERVICES, CORE | PARK [...] | + + + + + | [facility] | [address] | [place] [address] | | | SERVICES, CORE | JANNIE [...] [facility] | [address] | [place] [address] | | | SERVICES, CORE | PARK [...] | | | LABORATORY | | | BHUTANESE | | | SERVICES, | | | [...] [facility] | [address] | [place] [address] | | | SERVICES, CORE | PARK [...] | + + + + + | [facility] | [address] | [place] [address] | | | SERVICES, CORE | JANNIE [...] [facility] | [address] | [place] [address] | | | SERVICES, CORE | PARK [...] - [facility] | [address] | [place], [place] | | | [place] POINT OF CARE | [address] | [address] | | | TESTS | | | [...] HILLIARD | [address] | [place] | | | [facility]ARE | [address] | [address] | | | TESTS | | | [...] MAR[facility] | [address] | [place] | | | [place] POINT OF CARE | [address] | [address] | | | TESTS | | | [...] | | POC | | | [facility] | | | | | | OF [...] HILLIARD | [address] | [place] | | | [place]INT OF [facility] | [address] | [address] | | | TESTS | | | [...] complete identification and susceptibilities Growth in | [place] | | Aerobic bottle Growth in Anaerobic bottle | | + + + + + + + + | Performing | Address | City/State/Zipcode | Phone Number | | Organization | | | | + + + + + | [facility] [facility] - | [address] | [place] [address] | | | [place] | | | | + + + [...] | + + + + + | [facility] | [address] | [place] [address] | | | SERVICES, CORE | JANNIE [...] [facility] | [address] | [place] [address] | | | SERVICES, TONY | PARK [...] [facility] | [address] | [place] [address] | | | SERVICES, CORE | PARK [...] | | | LABORATORY | | | BHUTANESE | | | SERVICES, | | | [...] | + + + + + | [facility] | [address] | [place] [address] | | | SERVICES, CORE | JANNIE [...] | | | | (A) | | [place] | | + + + + + [...] Refer to culture collected 05/06/17 @ | [facility] - | | 09:21 for complete identification and susceptibilities Growth in | [place] | | Aerobic bottle Growth in Anaerobic bottle | | + + + + + + + + | Performing | Address | City/State/Zipcode | Phone Number | | Organization | | | | + + + + + | [facility] [facility] - | [address] | [place] [address] | | | [place] | | | | + + + + + CULTURE, BLOOD BACTI & YEAST [facility] (05/09/2017 1:29 AM PDT) + + + [...] | + + + + + | [facility] | [address] | [place] [address] | | | SERVICES, CORE | JANNIE [...] (H) | 70 - 99 mg/dL | [facility] - | | | GLUCOSE, [...] HILLIARD | [address] | [place] | | | [facility] OF [facility] | [address] | [address] | | | TESTS | | | [...] Note | + + | Service Account, [employer] In Interface - 05/08/2017 6:31 PM PDT [...] - ARMINDA | [address] | [place] | | | [facility] | [address] | [address] | | | TESTS | | | [...] | + + + + + | [facility] | [address] | [place] [address] | | | SERVICES, CORE | JANNIE [...] | + + + + + | [facility] | [address] | [place] [address] | | | SERVICES, CORE | JANNIE [...] | + + + + + | [facility] | [address] | [place] [address] | | | SERVICES, CORE | JANNIE [...] + | [facility] [facility] - | [address] | [place] [address] | | | [place] | | | [...] + | [facility] - | [address] | [place] [address] | | | [place] | | | | + + + [...] + | [facility] - | [address] | [place] [address] | | | [place] | | | [...] [facility] | [address] | [place] [address] | | | TONY MCLEAN | JANNIE [...] | + + + + + | [facility] | [address] | [place] [address] | | | SERVICES, CORE | [address] | | | + + + + + PROTEIN, BODY FLUIDS (05/08/2017 2:56 PM PDT) + +-------+ + + + | Component | Value | Ref Range | Performed | Pathologist | | | | | At | Signature | + +-------+ + + + | PROTEIN | 2.4 | g/dL | [facility] | | | BODY FLUID | | [...] [facility] | [address] | [place] [address] | | | SERVICES, CORE | PARK [...] | + + + + + | [facility] | [address] | [place] [address] | | | SERVICES, CORE | PARK [...] | JUDY | | - [facility] [id number] | LABORATORY | | | SERVICES, CORE | + + + + + + + + | Performing | Address | City/State/Zipcode | Phone Number | | Organization | | | | + + + + + | [facility] | [address] | [place] [address] | | | CARIDAD, TONY | PARK [...] | JUDY | | - [facility] [id number] Reference range change effective 03/29/2017. | LABORATORY | | | SERVICES, CORE | + + + + + + + + | Performing | Address | City/State/Zipcode | Phone Number | | Organization | | | | + + + + + | [facility] | [address] | [place] [address] | | | SERVICES, CORE | JANNIE [...] Note | + + | Service Account, [employer] Res In Interface - 05/08/2017 10:19 AM [...] [facility] | [address] | [place] | | | [place] POINT OF CARE | [address] | [address] | | | TESTS | | | [...] JUDY HILLIARD | [address] | [place] | | | [place] POINT OF CARE | [address] | [address] | | | TESTS | | | [...] complete identification and susceptibilities Growth in | [place] | | Aerobic bottle Growth in Anaerobic bottle | | + + + + + + + + | Performing | Address | City/State/Zipcode | Phone Number | | Organization | | | | + + + + + | [facility] - | [address] | [place] [address] | | | [place] | | | | + + + [...] [facility] | [address] | [place] [address] | | | SERVICES, CORE | [address] | | | + + + + + CULTURE, BLOOD BACTI & YEAST [facility] (05/08/2017 1:19 AM PDT) + + + + + + | Component | Value | Ref Range | Performed | Pathologist | | | | | At | Signature | + + + + + + | CULTURE | Not tested by molecular | | [facility] | | | RESULT | method, see [...] | + + + + + | [facility] | [address] | [place] [address] | | | SERVICES, CORE | PARK [...] [facility] | [address] | [place] [address] | | | SERVICES, CORE | PARK [...] | | | LABORATORY | | | BHUTANESE | | | SERVICES, | | | [...] | + + + + + | [facility] | [address] | [place] [address] | | | SERVICES, TONY | JANNIE [...] Culture Report: Methicillin Resistant Staphylococcus aureus | [place] - | | Presumptive identification Refer to culture collected on 05/06/17 @ | AIRPORT - | | 09:21 AM for complete identification and susceptibilities Growth in | [place] | | Aerobic bottle Growth in Anaerobic bottle | | + + + + + + + + | Performing | Address | City/State/Zipcode | Phone Number | | Organization | | | | + + + + + | [place] [facility] - | [address] | [place] [address] | | | [place] | | | | + + + + + CULTURE, BLOOD BACTI & YEAST [facility] (05/08/2017 1:14 AM PDT) + + + [...] | + + + + + | [facility] | [address] | [place] [address] | | | SERVICES, TONY | JANNIE [...] (H) | 70 - 99 mg/dL | [facility] - | | | GLUCOSE, [...] PEREZAM | [address] | [place] | | | [facility] [facility] OF [facility] | [address] | [address] | | | TESTS | | | [...] JUDY ROMEO | [address] | [place] [address] | | | SERVICES, CORE | PARK [...] | | | | | determined by [facility] | | | | | | Laboratories. See | | | | | | Compliance Statement D: | | | | | | [employer]/CSPerformed | | | | | | by [id number] | | | | | | [place] | | | | | | [id number] | | | | | | [phone].[employer]. | | | | | | Nickolas [...] [facility] | [address] | [place], [place] | | | [facility] | | [address] | | + + + + + [...] HILLIARD | [address] | [place] | | | [facility] RE[facility]ES OF HECTOR | [facility] | [address] | | | TESTS | | | [...] rformed At | + +--- + | [facility] | [facility] DEPT OF | | [facility] [address] | CA RDIOLOGY | | [place], [place] [address] Ph: | | | Pt Name: CORNELIO FGIUEREDO | | | Study Date/Time 05/07/2017 / 9:42:43 AMMRN: [id number] | | | Most recent prior: -Acc #: [id number] | | | No. previous echos: 0DOB: 1955 61 years Heart Rate: | | | 99 bpmHeight: 61.0 in Blood Pressure: | | | 106/73 mm/HgWeight: 198.0 lb Gender: | | | MBSA: 1.88 m2 Order ID: | | | [id number] Customer Training Specialist: FBSonographer 2: Chanell Manning | | | Referring Provider: Henri Locke ThanPatient Location: [address] [place] [address] | | | Performed: 2D, Color flow, Spectral Doppler and agitated saline bubble | | | study.Study Quality: Good.Exam Indication: Heart failure; Infective | | | endocarditisHistory: Worsening back pain, per sister, pt had colon CA | | | and treatment in last few years, was hyponatremic, leukocytosis with | | | bandemia, concern for rubber press tender infection, wbc 101 in csf, mri read as | | | extensive epidural abscess Patient history has been obtained from the | | | [facility] Transthoracic Echocardiographic Report | | | + [...] Report electronically signed | | | by: [id number] Benjie Abreu MD (05/07/2017, 12:50:52 PM) Final [...] | | | |Report electronically signed by: [id number] Benjie Abreu MD (05/07/2017, 12:50:52 PM) | | | | | | | | | | | | Final | | + +--- + + + | Procedure Note | + + | Interface, Cardiology Results - 05/07/2017 12:50 PM [facility] | | [facility] [address] [place] [address] | | [place], [place] [address] Pt Name: CORNELIO MEJIA | | FIGUEREDO Study Date/Time 05/07/2017 / 9:42:43 AMMRN: [id number] Most | | recent prior: -Acc #: [id number] No. previous echos: 0DOB: 1955 61 | | years Heart Rate: 99 bpmHeight: 61.0 in Blood Pressure: 106/73 | | mm/HgWeight: 198.0 lb Gender: MBSA: 1.88 m2 | | Order ID: [id number] Customer Training Specialist: FBSonographer 2: Chanell Villareal | | Provider: Henri HolguinPatient Location: [address] [place], [place] [address]alities Performed: 2D, Color flow, | | Spectral Doppler and agitated saline bubble study.Study Quality: Good.Exam Indication: | | Heart failure; Infective endocarditisHistory: Worsening back pain, per sister, pt had | | colon CA and treatment in last few years, was hyponatremic, leukocytosis with bandemia, | | concern for rubber press tender infection, wbc 101 in csf, mri read [...] | | values Report electronically signed by: [id number] Benjie Abreu MD (05/07/2017, 12:50:52 | | [...] | | | |Report electronically signed by: [id number] Benjie Abreu MD (05/07/2017, 12:50:52 PM) | | | | | | | | Final | + + + + + + + | Performing | Address | City/State/Zipcode | Phone Number | | Organization | | | | + + + + + | [facility] | [address] | [place], [place] | | | CARDIOLOGY | [address] | [address] | | + + + + + [...] | | s findings. Henri Holguin MD [address] [facility] | | | Nik Villeg[id number] [address] | | | | | + + [...] correct | | | patient, procedure, equipment, technology support analyst and site/side marked as | [...] Attending | | Surgeon: Henri Holguin MD Axle Polisher(s): Katrina Figueredo MD, MPH | | Preoperative Diagnosis: Holospinal epidural | | abscess.Postoperative Diagnosis: Holospinal epidural abscess.Procedure: T2 and T8 skip | | laminectomies for evacuation of epidural abscess.Anesthesia: General.Estimated Blood | | Loss: 75 mL.Complications: None apparent.Indications For Procedure: Mr. Cornelio Figueredo | | is a 61-year-old man who was admitted to [facility] yesterday with back pain and [...] | BARBARA/SHELBY: 05/06/2017 22:32:27DT: 05/07/2017 01:34:56Job #: [id number] | | | | /[id number] | + + BLOOD CULTURE WORKUP (05/07/2017 [...] | | | | (A) | | [place] | | + + + + + [...] complete identification and susceptibilities Growth in | [place] | | Aerobic bottle Growth in Anaerobic bottle | | + + + + + + + + | Performing | Address | City/State/Zipcode | Phone Number | | Organization | | | | + + + + + | [facility] [facility] - | [address] | [place] [address] | | | [place] | | | [...] complete identification and susceptibilities Growth in | [place] | | Aerobic bottle Growth in Anaerobic bottle | | + + + + + + + + | Performing | Address | City/State/Zipcode | Phone Number | | Organization | | | | + + + + + | [facility] - | [address] | [place] [address] | | | [place] | | | [...] + + + + + | [facility] | [address] | [place] [address] | | | SERVICES, CORE | JANNIE [...] [facility] | [address] | [place] [address] | | | TONY MCLEAN | JANNIE [...] [facility] | [address] | [place] [address] | | | SERVICES, CORE | PARK [...] | + + + + + | [facility] | [address] | [place] [address] | | | SERVICES, CORE | PARK [...] | + + + + + | [facility] | [address] | [place] [address] | | | SERVICES, CORE | JANNIE [...] | + + + + + | [facility] | [address] | [place] [address] | | | SERVICES, CORE | JANNIE [...] | + + + + + | [facility] | [address] | [place] [address] | | | TONY MCLEAN | JANNIE [...] | + + + + + | [facility] | [address] | [place] [address] | | | SERVICES, CORE | JANNIE [...] [facility] | [address] | [place] [address] | | | SERVICES, CORE | PARK [...] | | | LABORATORY | | | BHUTANESE | | | SERVICES, | | | [...] [facility] | [address] | [place] [address] | | | SERVICES, CORE | PARK [...] | + + + + + | [facility] | [address] | [place] [address] | | | [address] | [...] + | [facility] - | [address] | [place] [address] | | | [facility] | | | | + + + [...] Report: 3+ Methicillin Resistant Staphylococcus aureus | [place] - | | Presumptive identification Refer to culture collected 05/06/17 at [facility] - | | 2234, site #1 for complete identification and susceptibilities No | [place] | | anaerobic organisms isolated Gram Stain: No squamous epithelial | | | cells Moderate polymorphonuclear cells Few Gram positive cocci | | + + + + + + + + | Performing | Address | City/State/Zipcode | Phone Number | | Organization | | | | + + + + + | [place] [facility] | [address] | [place] [address] | | | [place] | | | | + + + [...] | | | | (A) | | [place] | | + + + + + [...] Refer to culture collected 05/06/17 at | [email or web address] | | 1800, site #1 for complete identification and susceptibilities No | [place] | | anaerobic organisms isolated Gram Stain: No squamous epithelial | | | cells Moderate polymorphonuclear cells Few Gram positive cocci | | + + + + + + + + | Performing | Address | City/State/Zipcode | Phone Number | | Organization | | | | + + + + + | [place] [facility] - | [address] | [place] [address] | | | [place] | | | | + + + [...] | + + + + + | [facility] - | [address] | [place] [address] | | | [place] | | | [...] | + + + + + | [facility] | [address] | [place] [address] | | | SERVICES, CORE | JANNIE [...] [facility] | [address] | [place] [address] | | | SERVICES, CORE | PARK [...] [facility] | [address] | [place] [address] | | | SERVICES, | [address] [...] | | | | (A) | | [facility] | | + + + + + [...] + | [facility] - | [address] | [place] [address] | | | [place] | | | [...] [facility] | [address] | [place] [address] | | | CARIDAD, TONY | PARK [...] | | | LABORATORY | | | BHUTANESE | | | SERVICES, | | | [...] | + + + + + | [facility] | [address] | [place] [address] | | | SERVICES, CORE | JANNIE [...] OF | [address] | [place], [place] | | | CARDIOLOGY | [address] | [address] | | + + + + + [...] [facility] | [address] | [place] [address] | | | SERVICES, CORE | PARK [...] | + + + + + | [email or web address] | [address] | [place] [address] | | | SERVICES, | [address] [...] [facility] | [address] | [place] [address] | | | SERVICES, | [address] [...] + + | [facility] | [address] | [place] [address] | | | SERVICES, CORE | PARK [...] [facility] | [address] | [place] [address] | | | SERVICES, CORE | PARK [...] [facility] | [address] | [place] [address] | | | SERVICES, CORE | PARK [...] valves (2.5 - 3.5) INR APTT | CARIDAD, CORE | | Therapeutic Range: (75 - 120) sec | | | Heparin levels of 0.35 - 0.7 U/mL | | + + + + + + + + | Performing | Address | City/State/Zipcode | Phone Number | | Organization | | | | + + + + + | [facility] | [address] | [place] [address] | | | [address] | JANNIE [...] | | | LABORATORY | | | BHUTANESE | | | SERVICES, | | | [...] | + + + + + | [facility] | [address] | [place] [address] | | | SERVICES, CORE | JANNIE [...] 05/09/20 | | | | | % saima tse, NEEDED, | | 17 5:54 | [...] | | | | | | | [facility] 05/06/17 at 0900 | | | | [...] | | | | First dose on [facility] 05/13/17 at | | AM PST | [...] mL/hr | | | ONCE, 1 dose, [place] 05/09/17 at 0115 | | AM PDT | | | | + +---------+ + +-------+---+ +---+---+ | | | +---+---+ + +---------+ + +-------+---+ | sodium chloride 0.9% IV | New Bag | 05/13/20 | 1,000 mL | 500 | | | infusion 1,000 mL, intravenous, | | 17 10:30 | | mL/hr | | | ONCE, 1 dose, [facility] 05/13/17 at 0845 | | AM PST [...]
--- OUTSIDE RECORDS SUMMARY | ~2019-11-01 | XMS | Encounter Summary ---
Demographics + + + | Address | [address] | | | [place] [address] | + + + | Home Phone [...] Author + + + | Author | [facility] | + + + | Organization | [facility] | + + + | Address | Unknown | + + + | Phone | Unavailable | + + + Support + + + + + | Name | Relationship | Address | Phone | + + + + + | Sona Escalona | BROOK | [address] | | | | | [place] | | | | | [address] | | + + + + + | Sondra Zuleta | ECON | Unknown | | + + + + + Care Team Providers + +------+ + | Care Lead Cytogenetic Technologist Name | Role | Phone | + [...] | | | granuloma | | [address] | | | | | Bacteremia | | [address] [place], | | | | | | | [place] | | | | | | | [address] | | | | | | | Phone: | | | | | | | [phone] | | | | | | | Fax: | | | | | | | [phone] | +--------+--------+ + + + + Encounter [...] | | | [address] | [facility] [address] | (Primary Dx); MRSA | | | | Loop Phys[facility] | [place], [place] | bacteremia; Pleural | | | | Pavilion, 3rd floor | [address] | effusion; Encounter | | | | [place], [place] | [phone] | for long-term | | | | [address] | | (current) use of | | | | [phone] | | antibiotics | +--------+---------+ + + [...] REFERRING PROVIDER PER PT Primary Care Physician: [facility] [address] [facility] [place] [address] Assessment/Plan MRSA bacteremia MRSA epidural abscess status [...] I reviewed the history from the patient's [facility] hospital admiss ion, including but not limited to all pertinent ID consultation notes, surgical procedures & findings, culture results & lab tests, pathology reports, case management notes, and the [facility] discharge summary. History: 61 y.o. male [...] abscess. Camille Gomez MD INFECTIOUS DISEASES AT [address] Mailcode: [address] [place] [address] documented in this enc ounter [...]
--- OUTSIDE RECORDS SUMMARY | ~2019-11-01 | XMS | Encounter Summary ---
Demographics + + + | Address | [address] | | | [place] [address] | + + + | Home Phone | | + + + | Preferred Language | Unknown | + + + | Marital Status | Single | + + + | Advent Affiliation | CAT | + + + [...] [place] | | | | | [address] | | + + + + + | Sondra Zuleta | ECON | Unknown | | + + + + + Care Team Providers + +------+ + | Care Cd Reactor Operator Head Name | Role | Phone | + [...] | Infectious | Camille Gomez MD | [facility] | | 2017 | | [facility] | [address] | | | | | [address] | [address] | | | | | Loop Physician's | [place], [place] | | | | | Pavilion, [facility] floor | [address] | | | | | [facility] [place] | [phone] | | | | | [address] | | | | | | [phone] | | | +--------+ + + + [...]
--- OUTSIDE RECORDS SUMMARY | ~2019-11-01 | XMS | Encounter Summary ---
Demographics + + + | Address | [address] | | | [place] [address] | + + + | Home Phone | | + + + | Preferred Language | Unknown | + + + | Marital Status | Single | + + + | Spiritism Affiliation | CAT | + + + | Race | White | + + + | Ethnic Group | Not or | + + + Author + + + | Author | [facility] | + + + | Organization | [facility] | + + + | Address | Unknown | + + + | Phone | Unavailable | + + + Support + + + + + | Name | Relationship | Address | Phone | + + + + + | Sona Escalona | BROOK | [address] | | | | | [place] | | | | | [address] | | + + + + + | Sondra Zuleta | ECON | Unknown | | + + + + + Care Team Providers + +------+ + | Care Customer Contact Specialist Name | Role | Phone | [...] | | | | [address] | [place], [place] | | | | | [address], [address] [place] [address] | [address] | | | | | [place], [place] | [phone] | | | | | [address] | | | | | | [phone] | | | +--------+ + + + [...]
--- OUTSIDE RECORDS SUMMARY | ~2019-11-01 | XMS | Encounter Summary ---
Demographics + + + | Address | [address] | | | [place] [address] | + + + | Home Phone [...] [place] | | | | | [address] | | + + + + + | Sondra Zuleta | ECON | Unknown | | + + + + + Care Team Providers + +------+ + | Care Vice President Of News Name | Role | Phone | + [...] | | | | Loop Phys[address] | [place], [place] | | | | | [address], 3rd floor | [address] | | | | | [place], [place] | [phone] | | | | | [address] | | | | | | [phone] | | | +--------+ + + + [...]
--- OUTSIDE RECORDS SUMMARY | ~2019-11-01 | XMS | Encounter Summary ---
Demographics + + + | Address | [address] | | | [place] [address] | + + + | Home Phone | | + + + | Preferred Language | Unknown | + + + | Marital Status | Single | + + + | Zoroastrian Affiliation | CAT | + + + [...] [place] | | | | | [address] | | + + + + + | Sondra Zuleta | ECON | Unknown | | + + + + + Care Team Providers + +------+ + | Care Employee Adviser Name | Role | Phone | + +------+ + | Griffin Shi DO | PCP | | + +------+ + Encounter Details +--------+ + + + + | Date | Type | Department | Care Team | Description | +--------+ + + + + | 05/07/ | Procedure | Diagnostic Imaging | | | | 2016 | Pass | Services at [facility] | | | | | | [address] | | | | | | [place] [address] | | | | | | [facility], [address] [place] [address] | | | | | | [place], [place] | | | | | | [address] | | | | | | [phone] | | | +--------+ + + + [...]
--- OUTSIDE RECORDS SUMMARY | ~2019-11-01 | XMS | Encounter Summary ---
Demographics + + + | Address | [address] | | | [place] [address] | + + + | Home Phone | | + + + | Preferred Language | Unknown | + + + | Marital Status | Single | + + + | Anabaptist Affiliation | CAT | + + + [...] [place] | | | | | [address] | | + + + + + | Sondra Zuleta | ECON | Unknown | | + + + + + Care Team Providers + +------+ + | Care Work And Family Life Consultant Name | Role | Phone | [...] | 05/21/ | Telephone | Infectious | eHydi Johnson, | Transitional Care | | 2017 | | [facility] at [facility] | RN [address] | Management; | | | | [address] | [facility] | Infectious disease | | | | Loop Physician's | [place], [place] | | | | | [address]ice, [facility] floor | [address] | | | | | [place], [place] | [phone] | | | | | [address] | | | | | | [phone] | | | +--------+ + + + [...]
--- OUTSIDE RECORDS SUMMARY | ~2019-11-01 | XMS | Encounter Summary ---
Demographics + + + | Address | [address] | | | [place] [address] | + + + | Home Phone | | + + + | Preferred Language | Unknown | + + + | Marital Status | Single | + + + | Religion Affiliation | CAT | + + + [...] [place] | | | | | [address] | | + + + + + | Sondra Zuleta | ECON | Unknown | | + + + + + Care Team Providers + +------+ + | Care Coach Operator Name | Role | Phone | + +------+ + | Griffin Shi DO | PCP | | + +------+ + Encounter Details +--------+ + + + + | Date | Type | Department | Care Team | Description | +--------+ + + + + | 05/17/ | Procedure | Diagnostic Imaging | | | | 2016 | Pass | Services at [facility] | | | | | | [address] | | | | | | [place] | | | | | | [facility], [address] [place] [address] | | | | | | [place], [place] | | | | | | [address] | | | | | | [phone] | | | +--------+ + + + [...]
--- OUTSIDE RECORDS SUMMARY | ~2019-11-01 | XMS | Encounter Summary ---
Demographics + + + | Address | [address] | | | [place] [address] | + + + | Home Phone | | + + + | Preferred Language | Unknown | + + + | Marital Status | Single | + + + | Uatsdin Affiliation | CAT | + + + | Race | White | + + + | Ethnic Group | Not or | + + + Author + + + | Author | [facility] | + + + | Organization | [facility] | + + + | Address | Unknown | + + + | Phone | Unavailable | + + + Support + + + + + | Name | Relationship | Address | Phone | + + + + + | Sona Escalona | BROOK | [address] | | | | | [place] | | | | | [address] | | + + + + + | Sondra Zuleta | ECON | Unknown | | + + + + + Care Team Providers + +------+ + | Care Inspector Quality Assurance Name | Role | Phone | + [...] | | | | Loop Phys[facility] | [place], [place] | | | | | [address], 3rd floor | [address] | | | | | [place], [place] | [phone] | | | | | [address] | | | | | | [phone] | | | +--------+ + + + [...]
--- OUTSIDE RECORDS SUMMARY | ~2019-11-01 | XMS | Encounter Summary ---
Demographics + + + | Address | [address] | | | [place] [address] | + + + | Home Phone | | + + + | Preferred Language | Unknown | + + + | Marital Status | Single | + + + | Gnosticist Affiliation | CAT | + + + | Race | White | + + + | Ethnic Group | Not or | + + + Author + + + | Author | [facility] | + + + | Organization | [facility] | + + + | Address | Unknown | + + + | Phone | Unavailable | + + + Support + + + + + | Name | Relationship | Address | Phone | + + + + + | Sona Escalona | BROOK | [address] | | | | | [place] | | | | | [address] | | + + + + + | Sondra Zuleta | ECON | Unknown | | + + + + + Care Team Providers + +------+ + | Care Pharmacy Services Representative Name | Role | Phone | + +------+ + | Griffin Shi DO | PCP | | + +------+ + Encounter Details +--------+ + + + + | Date | Type | Department | Care Team | Description | +--------+ + + + + | 05/10/ | Procedure | Diagnostic Imaging | | | | 2016 | Pass | Services at [facility] | | | | | | [address] | | | | | | [place] | | | | | | [facility], [address] [place] [address] | | | | | | [place], [place] | | | | | | [address] | | | | | | [phone] | | | +--------+ + + + [...]
--- OUTSIDE RECORDS SUMMARY | ~2019-11-01 | XMS | Encounter Summary ---
Demographics + + + | Address | [address] | | | [place] [address] | + + + | Home Phone [...] + + + | Author | [facility] | + + + | Organization | [facility] | + + + | Address | Unknown | + + + | Phone | Unavailable | + + + Support + + + + + | Name | Relationship | Address | Phone | + + + + + | Sona Escalona | BROOK | [address] | | | | | [place] | | | | | [address] | | + + + + + | Sondra Zuleta | ECON | Unknown | | + + + + + Care Team Providers + +------+ + | Care Open Winder Name | Role | Phone | + [...] | | | | Loop Phys[facility]'s | [place], [place] | | | | | [address], [address]rd floor | [address] | | | | | [place], [place] | [phone] | | | | | [address] | | | | | | [phone] | | | +--------+ + + + [...]
--- OUTSIDE RECORDS SUMMARY | ~2019-11-01 | XMS | Clinical Summary ---
Demographics + + + | Address | [address] | | | [place] [address] | + + + | Home Phone | | + + + | Preferred Language | Unknown | + + + | Marital Status | Single | + + + | Adventism Affiliation | Unknown | + + + | Race | Unknown | + + + | Ethnic Group | Unknown | + + + Author + + + | Author | [facility] | | | and [place] | + + + | Organization | [facility] | | | and [...] Team Providers + +------+ + | Care Asphalt Mixing Machine Operator Name | Role | Phone [...]
--- OUTSIDE RECORDS SUMMARY | ~2019-11-01 | XMS | Encounter Summary ---
Demographics + + + | Address | [address] | | | [place] [address] | + + + | Home Phone [...] [place] | | | | | [address] | | + + + + + | Sondra Zuleta | ECON | Unknown | | + + + + + Care Team Providers + +------+ + | Care Grievance Coordinator Name | Role | Phone | + [...] | | | | | | [place], [place] | | | | | | [address] | | | | | | [phone] | | | +--------+---------+ + + + [...] no erythema or edema, andrei intact Motor: Command And Control Bicep Tricep Delt R 5 5 5 [...] les were removed without complication. Plan: - [place] removed without complication. - OK to return to work. - Pain medication: None needed. - RTC at 3 months post-op for reassessment. Should the patient have any questions or debra rns prior to their next visit they will contact the clinic. [facility] [address] [place] [address] documented in th is encounter [...]
--- OUTSIDE RECORDS SUMMARY | ~2019-11-01 | XMS | Encounter Summary ---
Demographics + + + | Address | [address] | | | [place] [address] | + + + | Home Phone [...] + + | Author | [facility] | + + + | Organization | [facility] | + + + | Address | Unknown | + + + | Phone | Unavailable | + + + Support + + + + + | Name | Relationship | Address | Phone | + + + + + | Sona Escalona | BROOK | [address] | | | | | [place] | | | | | [address] | | + + + + + | Sondra Zuleta | ECON | Unknown | | + + + + + Care Team Providers + +------+ + | Care Grant Coordinator Name | Role | Phone | [...] | | | [address] | [facility] | | | | | Loop Physician's | [place], [place] | | | | | [place], [address] [place] [address] | [address] | | | | | [place], [place] | [phone] | | | | | [address] | | | | | | [phone] | | | +--------+ + + + [...]
--- OUTSIDE RECORDS SUMMARY | ~2019-11-01 | XMS | Encounter Summary ---
Demographics + + + | Address | [address] | | | [place] [address] | + + + | Home Phone | | + + + | Preferred Language | Unknown | + + + | Marital Status | Single | + + + | Yazdanism Affiliation | CAT | + + + | Race | White | + + + | Ethnic Group | Not or | + + + Author + + + | Author | [facility] | + + + | Organization | [facility] | + + + | Address | Unknown | + + + | Phone | Unavailable | + + + Support + + + + + | Name | Relationship | Address | Phone | + + + + + | Sona Escalona | BROOK | [address] | | | | | [place] | | | | | [address] | | + + + + + | Sondra Zuleta | ECON | Unknown | | + + + + + Care Team Providers + +------+ + | Care Mini Baccarat Dealer Name | Role | Phone | + [...] | | | [address] | [facility] | | | | | Loop Physician's | [place], [place] | | | | | [place]ice, [facility] floor | [address] | | | | | [place], [place] | [phone] | | | | | [address] | | | | | | [phone] | | | +--------+ + + + [...]
[~2019-11-01 01:08] MED LIST changes: +MELOXICAM15 MG PO
--- OUTSIDE RECORDS SUMMARY | 2019-11-01 01:10 | XMS ---
PreManage Notification: CORNELIO FIGUEREDO Security Dietary Aide Teacher Events No recent Security Events currently on file CRITERIA MET - Group Notification CARE PROVIDERS CADE BARBOZA Physician Pediatric Occupational Therapist Current PHONE: [phone] [facility] has no Care Guidelines for this patient. EEverardo VISIT COUNT (12 MO.) 1 OBEY Pope TOTAL 1 NOTE: Visits indicate total known visits. ED/UCC VISIT TRACKING (12 MO.) 11/01/2019 01:09 OBEY [facility] [place] TYPE: Emergency COMPLAINT: - SKIN PROBLEM INPATIENT VISIT TRACKING (12 MO.) No inpatient visits to display in this time frame [email or web address]
== END 2019-11-01 02:08 | disposition home or self-care (01) ==
LOC: ED 01:08
DX: R21 Rash and other nonspecific skin eruption (principal)
CPT/HCPCS: 99282; J7512; Q0163